=== PATIENT | male | born 1950 | race African-American/Black ===

== ENCOUNTER 2017-04-23 14:33 | Emergency (ER) | payer MEDICARE, MEDICAID ==
[~2017-04-23] VITALS: Ht 167.6 cm; Wt 45.0 kg
[~2017-04-23 14:33] MED LIST: ASPI81TA81 PO; CLOP75TA PO; FINA5TAB2 PO; LISI2.5T3 PO; LOVA20TA PO; METO25TA3 PO; NITR0.4S SL; PANT40TA3 PO; [UNRECOGNIZED DRUG - CODE] PO
[2017-04-23 14:40] VITALS: BP 201/99; PULSE 93; RESP 20; TEMP 98.3; O2SAT 100
--- NOTE | 2017-04-23 15:00 | PD ---
HPI Chief Complaint: urinary retention Time Seen by Provider: 14:44 Travel History International Travel<30 days: No Contact w/Intl Traveler<30days: No Traveled to known affect area: No History of Present Illness HPI The patient was seen and examined in the presence of the nurse. This patient complains of suprapubic pain and distention. He has not been ill to urinate today. His last urination was last night. He is denying fever or vomiting or constipation. Symptoms severity is moderate to severe. Ambulance brought him in. Initially has accelerated hypertension of 201/99. No alleviating factors. No exacerbating factors. Duration is 8 hours PFSH Past Medical History Hx Anticoagulant Therapy: Yes Blood Disorders: No Anxiety: Yes Depression: Yes Cancer: No Cardiovascular Problems: Yes High Cholesterol: Yes Chest Pain: Yes (in past) Congestive Heart Failure: No Diabetes: No Diminished Hearing: No Endocrine: No GERD: Yes Genitourinary: No Hepatitis: No Hypertension: Yes Musculoskeletal: No Neurologic: No Psychiatric: No Reproductive: No Respiratory: No Thyroid Disease: No PNEUMOCCOCAL Vaccine (Year): 1 Past Surgical History Abdominal Surgery: Yes (PEG TUBE INSERTION WITH REMOVAL) Body Medical Devices: PT. DENIES Cardiac Surgery: Yes (coronary artery bypass graft, PERIPHERAL ARTERY BYPASS) Coronary Artery Bypass Graft: Yes Pacemaker: No Other Surgery: Yes (VASCULAR) Social History Alcohol Use: Yes (4 BEERS AND 1 BOTTLE OF WINE/DAY) Tobacco Use: Yes (1 ppd) Substance Use: No Allergies-Medications (Allergen,Severity, Reaction): Coded Allergies: No Known Allergies (Verified Adverse Reaction, Unknown, 04/23/17) Reported Meds & Prescriptions Reported Meds & Active Scripts Active Finasteride 5 Mg Tab 5 Mg PO DAILY Do not crush. Reported Metoprolol Tartrate 25 Mg Tab 25 Mg PO BID Aspir-81 (Aspirin) 81 Mg Tabdr 81 Mg PO DAILY Nitrostat SL (Nitroglycerin) 0.4 Mg Subl 0.4 Mg SL DIRECTED PRN 1 tablet under the tongue as needed for chest pain. Repeat every 5 minutes for a total of 3 DOSES or call 911 if NO relief. Clopidogrel (Clopidogrel Bisulfate) 75 Mg Tab 75 Mg PO DAILY Pantoprazole (Pantoprazole Sodium) 40 Mg Tab 40 Mg PO DAILY Lovastatin 20 Mg Tab 20 Mg PO DAILY Lisinopril 2.5 Mg Tab 2.5 Mg PO DAILY Review of Systems General / Constitutional: No: Fever Eyes: No: Visual changes HENT: No: Headaches Cardiovascular: No: Chest Pain or Discomfort Respiratory: No: Shortness of Breath Gastrointestinal: Positive: Abdominal Pain Genitourinary: Positive: Decreased Urinary Output, No: Dysuria Musculoskeletal: No: Pain Skin: No Rash Neurologic: No: Weakness Psychiatric: No: Depression Endocrine: No: Polydipsia Hematologic/Lymphatic: No: Easy Bruising Physical Exam Narrative GENERAL: Thin well-developed patient with suprapubic pain and distention . SKIN: Focused skin assessment reveals no rash and nodules. Skin is Warm and dry. HEAD: Atraumatic. Normocephalic. EYES: Pupils equal and round. No scleral icterus. No injection or drainage. ENT: No nasal bleeding or discharge. Mucous membranes pink and moist. NECK: Trachea midline. No JVD. CARDIOVASCULAR: Regular rate and rhythm. No murmur appreciated. RESPIRATORY: No accessory muscle use. Clear to auscultation. Breath sounds equal bilaterally. GASTROINTESTINAL: Abdomen soft, has suprapubic tenderness and distention. Hepatic and splenic margins not palpable. MUSCULOSKELETAL: No obvious deformities. No clubbing. No cyanosis. No edema. NEUROLOGICAL: Awake and alert. No obvious cranial nerve deficits. Motor grossly within normal limits. Normal speech. PSYCHIATRIC: Appropriate mood and affect; insight and judgment normal. Data Data Last Documented VS Vital Signs Date Time Temp Pulse Resp B/P (MAP) Pulse Ox O2 Delivery O2 Flow Rate FiO2 04/23/17 14:40 98.3 93 20 201/99 (133) 100 Orders Orders Urinary Catheter Insert/Apply (04/23/17 14:50) [facility] Medical Decision Making Medical Screen Exam Complete: Yes Emergency Medical Condition: Yes Medical Record Reviewed: Yes Differential Diagnosis Urinary retention, BPH, prostate cancer Narrative Course I have reviewed the patient's electronic medical record. Wright catheter placed Patient drained out 1400 cc of yellow urine He had instant relief of pain His blood pressure came down to 168 systolic He is switched to a leg bag and recommended urology follow-up He has had urinary retention before and had a catheter before Diagnosis Primary Impression: Acute urinary retention Additional Impression: Accelerated hypertension Additional Instructions: Follow up with urologist Check and record blood pressure daily Med/Other Pt SpecificInfo: Other Disposition: 01 DISCHARGE HOME Condition: Stable Olaf Winchester MD Apr 23, 2017 15:00
[2017-04-23 16:28] VITALS: BP 168/81; PULSE 79; RESP 16; O2SAT 100
== END 2017-04-23 16:44 | disposition home or self-care (01) ==
LOC: NEPD 14:33
DX: R33.9 Retention of urine, unspecified (principal); I10 Essential (primary) hypertension; F41.9 Anxiety disorder, unspecified; F32.9 Major depressive disorder, single episode, unspecified; E78.00 Pure hypercholesterolemia, unspecified; K21.9 Gastro-esophageal reflux disease without esophagitis; F17.200 Nicotine dependence, unspecified, uncomplicated; Z79.82 Long term (current) use of aspirin; Z79.899 Other long term (current) drug therapy
CPT/HCPCS: 51702

== ENCOUNTER 2017-04-24 07:34 | Emergency (ER) | payer MEDICARE, MEDICAID ==
[~2017-04-24] VITALS: Ht 167.6 cm; Wt 45.0 kg
[2017-04-24 07:36] VITALS: BP 187/96; PULSE 107; RESP 18; TEMP 97.7; O2SAT 98
--- NOTE | 2017-04-24 07:52 | PD ---
HPI Chief Complaint: Complaint Time Seen by Provider: 07:43 Travel History International Travel<30 days: No Contact w/Intl Traveler<30days: No Traveled to known affect area: No History of Present Illness HPI I saw this patient yesterday for acute urinary retention. Wright catheter was placed and drained out 1400 cc of urine. However, he unfortunately refused to leave the catheter in and demanded it be removed. I told him that he likely can be back following day needing it replaced. He still left without it. He presents this morning with inability urinate and suprapubic pain and distention. Symptoms moderately severe. Duration about 8 hours. No alleviating factors. Symptoms exacerbated by his acute urinary retention. PFSH Past Medical History Hx Anticoagulant Therapy: Yes (PLAVIX) Blood Disorders: No Anxiety: Yes Depression: Yes Cancer: No Cardiovascular Problems: Yes High Cholesterol: Yes Chest Pain: Yes Congestive Heart Failure: No Diabetes: No Diminished Hearing: No Endocrine: No GERD: Yes Genitourinary: No Hepatitis: No Hypertension: Yes Musculoskeletal: No Neurologic: No Psychiatric: No Reproductive: No Respiratory: No Thyroid Disease: No PNEUMOCCOCAL Vaccine (Year): 1 Past Surgical History Abdominal Surgery: Yes (PEG TUBE INSERTION WITH REMOVAL) Body Medical Devices: PT. DENIES Cardiac Surgery: Yes (coronary artery bypass graft, PERIPHERAL ARTERY BYPASS) Coronary Artery Bypass Graft: Yes Pacemaker: No Other Surgery: Yes (VASCULAR) Social History Alcohol Use: Yes (4 BEERS AND 1 BOTTLE OF WINE/DAY) Tobacco Use: Yes (1 ppd) Substance Use: No Allergies-Medications (Allergen,Severity, Reaction): Coded Allergies: No Known Allergies (Verified Adverse Reaction, Unknown, 04/24/17) Reported Meds & Prescriptions Reported Meds & Active Scripts Active Finasteride 5 Mg Tab 5 Mg PO DAILY Do not crush. Reported Metoprolol Tartrate 25 Mg Tab 25 Mg PO BID Aspir-81 (Aspirin) 81 Mg Tabdr 81 Mg PO DAILY Nitrostat SL (Nitroglycerin) 0.4 Mg Subl 0.4 Mg SL DIRECTED PRN 1 tablet under the tongue as needed for chest pain. Repeat every 5 minutes for a total of 3 DOSES or call 911 if NO relief. Clopidogrel (Clopidogrel Bisulfate) 75 Mg Tab 75 Mg PO DAILY Pantoprazole (Pantoprazole Sodium) 40 Mg Tab 40 Mg PO DAILY Lovastatin 20 Mg Tab 20 Mg PO DAILY Lisinopril 2.5 Mg Tab 2.5 Mg PO DAILY Review of Systems General / Constitutional: No: Fever Eyes: No: Visual changes HENT: No: Headaches Cardiovascular: No: Chest Pain or Discomfort Respiratory: No: Shortness of Breath Gastrointestinal: Positive: Abdominal Pain Genitourinary: Positive: Decreased Urinary Output, No: Dysuria Musculoskeletal: No: Pain Skin: No Rash Neurologic: No: Weakness Psychiatric: No: Depression Endocrine: No: Polydipsia Hematologic/Lymphatic: No: Easy Bruising Physical Exam Narrative GENERAL: Well-nourished, well-developed patient in no apparent distress. SKIN: Focused skin assessment reveals no rash and nodules. Skin is Warm and dry. HEAD: Atraumatic. Normocephalic. EYES: Pupils equal and round. No scleral icterus. No injection or drainage. ENT: No nasal bleeding or discharge. Mucous membranes pink and moist. NECK: Trachea midline. No JVD. CARDIOVASCULAR: Regular rate and rhythm. No murmur appreciated. RESPIRATORY: No accessory muscle use. Clear to auscultation. Breath sounds equal bilaterally. GASTROINTESTINAL: Abdomen soft, suprapubic area has tenderness and distention . Hepatic and splenic margins not palpable. MUSCULOSKELETAL: No obvious deformities. No clubbing. No cyanosis. No edema. NEUROLOGICAL: Awake and alert. No obvious cranial nerve deficits. Motor grossly within normal limits. Normal speech. PSYCHIATRIC: Appropriate mood and affect; insight and judgment normal. Data Data Last Documented VS Vital Signs Date Time Temp Pulse Resp B/P (MAP) Pulse Ox O2 Delivery O2 Flow Rate FiO2 04/24/17 07:36 97.7 107 18 187/96 (126) 98 Orders Orders Urinary Catheter Insert/Apply (04/24/17 07:46) Ed Discharge Order (04/24/17 10:34) [facility] Medical Decision Making Medical Screen Exam Complete: Yes Emergency Medical Condition: Yes Medical Record Reviewed: Yes Differential Diagnosis Urinary retention, BPH, prostate cancer, urethral stricture Narrative Course I have reviewed the patient's electronic medical record. Reviewed his visit from yesterday when he came here for the exact same thing Wright catheter placed 1075 cc of clear yellow urine drained He is switched to a leg bag and discharged Diagnosis Primary Impression: Acute urinary retention Additional Instructions: Follow-up with urology Med/Other Pt SpecificInfo: Other Disposition: 01 DISCHARGE HOME Condition: Stable Kocisko,Olaf J. MD Apr 24, 2017 07:52
== END 2017-04-24 10:45 | disposition home or self-care (01) ==
LOC: NEPE 07:34
DX: R33.9 Retention of urine, unspecified (principal); I10 Essential (primary) hypertension; E78.00 Pure hypercholesterolemia, unspecified; F17.200 Nicotine dependence, unspecified, uncomplicated; Z79.01 Long term (current) use of anticoagulants; Z86.59 Personal history of other mental and behavioral disorders; Z86.79 Personal history of other diseases of the circulatory system
CPT/HCPCS: 51702

== ENCOUNTER 2017-05-08 06:53 | Emergency (ER) | payer MEDICARE, MEDICAID ==
[~2017-05-08] VITALS: Ht 165.1 cm; Wt 49.0 kg
[~2017-05-08 06:53] MED LIST changes: -[UNRECOGNIZED DRUG - CODE] PO
[2017-05-08 06:55] VITALS: BP 151/74; PULSE 90; RESP 18; TEMP 98.7; O2SAT 99
[2017-05-08 07:08] VITALS: BP 151/74; PULSE 82; RESP 18; TEMP 98.7; O2SAT 99
[2017-05-08] MEDS ORDERED: SODIUM CHLOR 0.9% 1000 ML INJ 1,000 ML IV SCH (07:23)
[2017-05-08] MEDS ORDERED: ONDANSETRON HCL 4 MG/2 ML VIAL IVP ONE (07:30)
[2017-05-08] MEDS ORDERED: SODIUM CHLORIDE 0.9% FLUSH 10 ML FLUSH IV FLUSH PRN (07:30)
[2017-05-08] MEDS ORDERED: MORPHINE SULFATE 4 MG/ML INJ IV PUSH ONE (07:30)
[2017-05-08] MEDS ORDERED: IOHEXOL 350 MG/ML 10 ML VIAL (for RAD DIAG) IVCONTRAST ONE (07:52)
--- NOTE | 2017-05-08 07:53 | PD ---
HPI . Abdominal pain Chief Complaint: Abdominal Pain Time Seen by Provider: 07:07 Travel History International Travel<30 days: No Contact w/Intl Traveler<30days: No Traveled to known affect area: No History of Present Illness HPI This patient presents with a chief complaint of abdominal pain. Onset was about 2 days ago. He describes sharp, mid abdominal pain. He rates it 7/10. He states he cannot eat because of the pain. He denies any associated fever. No associated vomiting or diarrhea. No constipation. The patient is noted to be very thin. He admits to weight loss. PFSH Past Medical History Hx Anticoagulant Therapy: Yes (PLAVIX) Blood Disorders: No Anxiety: Yes Depression: Yes Cancer: No Cardiovascular Problems: Yes High Cholesterol: Yes Chest Pain: Yes Congestive Heart Failure: No Diabetes: No Diminished Hearing: No Endocrine: No Gastrointestinal Disorders: No GERD: Yes Genitourinary: No Hepatitis: No Hypertension: Yes Implanted Vascular Access Dvce: No Medical other: No Musculoskeletal: No Neurologic: No Psychiatric: No Reproductive: No Respiratory: No Thyroid Disease: No PNEUMOCCOCAL Vaccine (Year): 1 ?: Not Past Surgical History Abdominal Surgery: Yes (PEG TUBE INSERTION WITH REMOVAL) Body Medical Devices: PT. DENIES Cardiac Surgery: Yes (coronary artery bypass graft, PERIPHERAL ARTERY BYPASS) Coronary Artery Bypass Graft: Yes Pacemaker: No Other Surgery: Yes (VASCULAR) Social History Alcohol Use: Yes (4 BEERS AND 1 BOTTLE OF WINE/DAY) Tobacco Use: Yes (1 ppd) Substance Use: No Allergies-Medications (Allergen,Severity, Reaction): Coded Allergies: No Known Allergies (Verified Adverse Reaction, Unknown, 05/08/17) Reported Meds & Prescriptions Reported Meds & Active Scripts Active Finasteride 5 Mg Tab 5 Mg PO DAILY Do not crush. Reported Metoprolol Tartrate 25 Mg Tab 25 Mg PO BID Aspir-81 (Aspirin) 81 Mg Tabdr 81 Mg PO DAILY Nitrostat SL (Nitroglycerin) 0.4 Mg Subl 0.4 Mg SL DIRECTED PRN 1 tablet under the tongue as needed for chest pain. Repeat every 5 minutes for a total of 3 DOSES or call 911 if NO relief. Clopidogrel (Clopidogrel Bisulfate) 75 Mg Tab 75 Mg PO DAILY Pantoprazole (Pantoprazole Sodium) 40 Mg Tab 40 Mg PO DAILY Lovastatin 20 Mg Tab 20 Mg PO DAILY Lisinopril 2.5 Mg Tab 2.5 Mg PO DAILY Review of Systems Except as stated in HPI: all other systems reviewed are Neg General / Constitutional: Positive: Weight Loss, No: Fever, Chills Gastrointestinal: Positive: Abdominal Pain, Loss of Appetite, No: Nausea, Vomiting, Diarrhea Genitourinary: Positive: Other (currently has a Wright catheter because of urinary retention) Physical Exam Narrative GENERAL: This is a very thin man who does not appear to be in any acute distress. SKIN: warm/dry. Good turgor. HEAD: Normocephalic. Atraumatic. EYES: Pupils equal and round. No scleral icterus. No injection or drainage. ENT: No nasal bleeding or discharge. Mucous membranes pink and moist. NECK: Trachea midline. Full range of motion without pain.. CARDIOVASCULAR: Regular rate and rhythm. RESPIRATORY: No accessory muscle use. Clear to auscultation. Breath sounds equal bilaterally. GASTROINTESTINAL: Scaphoid. Surgical scar which extends from the xiphoid process to the symphysis pubis. Abdomen soft. Nontender. Bowel sounds present. Nondistended. : Wright catheter in place. The urine in the bag is very dark. MUSCULOSKELETAL: No obvious deformities. NEUROLOGICAL: Awake and alert. No obvious cranial nerve deficits. Motor grossly within normal limits. Normal speech. PSYCHIATRIC: Appropriate mood and affect; insight and judgment normal. Data Data Last Documented VS Vital Signs Date Time Temp Pulse Resp B/P (MAP) Pulse Ox O2 Delivery O2 Flow Rate FiO2 05/08/17 09:04 18 05/08/17 07:08 98.7 82 151/74 (99) 99 Room Air Orders Orders Complete Blood Count With Diff (05/08/17 07:23) Comprehensive Metabolic Panel (05/08/17 07:23) Lipase (05/08/17 07:23) Urinalysis - C+S If Indicated (05/08/17 07:23) Ct Abd/Pel W Iv Contrast(Rout) (05/08/17 07:23) Iv Access Insert/Monitor (05/08/17 07:23) Morphine Inj (Morphine Inj) (05/08/17 07:30) Ondansetron Inj (Zofran Inj) (05/08/17 07:30) Sodium Chlor 0.9% 1000 Ml Inj (Ns 1000 M (05/08/17 07:23) Sodium Chloride 0.9% Flush (Ns Flush) (05/08/17 07:30) Urine Culture (05/08/17 07:50) Iohexol 350 Inj (Omnipaque 350 Inj) (05/08/17 07:52) Ceftriaxone Inj (Rocephin Inj) (05/08/17 09:30) Labs Laboratory Tests Test 05/08/17 07:50 05/08/17 08:00 Urine Color YELLOW Urine Turbidity HAZY Urine pH 6.0 Urine Specific [place] 1.026 Urine Protein 100 mg/dL Urine Glucose (UA) NEG mg/dL Urine Ketones 10 mg/dL Urine Occult Blood MOD Urine Nitrite POS Urine Bilirubin NEG Urine Urobilinogen 2.0 MG/DL Urine Leukocyte Esterase LARGE Urine RBC 171 /hpf Urine WBC 148 /hpf Urine WBC Clumps FEW Urine Squamous Epithelial Cells 2 /hpf Urine Bacteria FEW /hpf Urine Hyaline Casts 71 /lpf Urine Mucus MANY /lpf Urine Yeast (Budding) OCC Microscopic Urinalysis Comment CULTURE INDICATED White Blood Count 9.7 TH/MM3 Red Blood Count 5.09 MIL/MM3 Hemoglobin 15.3 GM/DL Hematocrit 47.2 % Mean Corpuscular Volume 92.8 FL Mean Corpuscular Hemoglobin 30.1 PG Mean Corpuscular Hemoglobin Concent 32.4 % Red Cell Distribution Width 16.9 % Platelet Count 307 TH/MM3 Mean Platelet Volume 8.3 FL Neutrophils (%) (Auto) 73.9 % Lymphocytes (%) (Auto) 16.6 % Monocytes (%) (Auto) 8.9 % Eosinophils (%) (Auto) 0.2 % Basophils (%) (Auto) 0.4 % Neutrophils # (Auto) 7.2 TH/MM3 Lymphocytes # (Auto) 1.6 TH/MM3 Monocytes # (Auto) 0.9 TH/MM3 Eosinophils # (Auto) 0.0 TH/MM3 Basophils # (Auto) 0.0 TH/MM3 CBC Comment DIFF FINAL Differential Comment Blood Urea Nitrogen 21 MG/DL Creatinine 0.93 MG/DL Random Glucose 92 MG/DL Total Protein 8.1 GM/DL Albumin 3.5 GM/DL Calcium Level 8.8 MG/DL Alkaline Phosphatase 109 U/L Aspartate Amino Transf (AST/SGOT) 11 U/L Alanine Aminotransferase (ALT/SGPT) 11 U/L Total Bilirubin 0.8 MG/DL Sodium Level 137 MEQ/L Potassium Level 4.7 MEQ/L Chloride Level 105 MEQ/L Carbon Dioxide Level 25.4 MEQ/L Anion Gap 7 MEQ/L Estimat Glomerular Filtration Rate 98 ML/MIN Lipase 104 U/L [facility] Medical Decision Making Medical Screen Exam Complete: Yes Emergency Medical Condition: Yes Medical Record Reviewed: Yes (medical history includes COPD, CAD, HL, HTN, alcohol abuse, previous GI bleed and BPH.) Differential Diagnosis Differential diagnosis of abdominal pain includes but is not limited to gastritis, pancreatitis, hepatitis, gastroenteritis, gallbladder disease, constipation, urinary retention, UTI, peptic ulcer disease, diverticulitis or appendicitis Narrative Course This patient presents with abdominal pain. He looks sickly. A full abdominal pain workup including a CT has been ordered. CBC & BMP Diagram 05/08/17 08:00 Total Protein 8.1, Albumin 3.5, Calcium Level 8.8, Alkaline Phosphatase 109, Aspartate Amino Transf (AST/SGOT) 11 L, Alanine Aminotransferase (ALT/SGPT) 11 L , Total Bilirubin 0.8 Lipase 104 UA>>large LE, 171 RBCs, 148 WBCs, + WBC clumps, few bact, occ yeast CT abd/pelvis: 1. Minimal dilation of small bowel loops. 2. Large left hydrocele. I don't think that this patient needs to be admitted to the hospital. I will treat his UTI. Diagnosis Primary Impression: Abdominal pain Qualified Codes: R10.84 - Generalized abdominal pain Additional Impression: UTI (lower urinary tract infection) Referrals: Primary Care Physician 3 days Patient Instructions: Abdominal Pain (ED), General Instructions, Urinary Tract Infection in Men (DC) Med/Other Pt SpecificInfo: Prescription(s) given Scripts Cephalexin (Keflex) 500 Mg Capsule 500 MG PO Q8H for Infection for 7 Days, #21 CAP 0 Refills Prov: Marce Nye MD 05/08/17 Disposition: 01 DISCHARGE HOME Condition: Stable Marce Nye MD May 08, 2017 07:53
[2017-05-08 08:15] LABS: AUTOMATED NEUTROPHIL # 7.2 TH/MM3 (1.8-7.7); BASOPHIL % 0.4 % (0.0-2.0); EOSINOPHIL % 0.2 % (0.0-4.0); HEMATOCRIT 47.2 % (39.0-51.0); HEMO FLAGS DIFF FINAL; LYMPH % 16.6 % (9.0-44.0); LYMPHOCYTE # 1.6 TH/MM3 (1.0-4.8); MEAN CELL VOLUME 92.8 FL (80.0-100.0); MEAN CORPUSCULAR HEMOGLOBIN 30.1 PG (27.0-34.0); MEAN CORPUSCULAR HGB CONC 32.4 % (32.0-36.0); MONO % 8.9 % (0.0-8.0); NEUT % 73.9 % (16.0-70.0); PLATELET COUNT 307 TH/MM3 (150-450); RED BLOOD COUNT 5.09 MIL/MM3 (4.50-5.90); RED CELL DISTRIBUTION WIDTH 16.9 % (11.6-17.2); WHITE BLOOD COUNT 9.7 TH/MM3 (4.0-11.0)
[2017-05-08 08:26] LABS: BACTERIA, URINE FEW /hpf; BLOOD, URINE MOD (NEG); COMMENT (UR) CULTURE INDICATED; CULTURE IF INDICATED CULTURE INDICATED; GLUCOSE,URINE NEG (NEG); HYALINE CAST, URINE 71 /lpf (RARE); KETONE, URINE 10 mg/dL (NEG); MUCUS URINE MANY /lpf (OCC); NITRITE,URINE POS (NEG); SQUAMOUS EPITHELIAL CELL URINE 2 /hpf (0-5); URINE COLOR YELLOW (YELLW/STRAW)
[2017-05-08 08:32] LABS: ALT (GPT) 11 U/L (12-78); ANION GAP 7 MEQ/L (5-15); AST (GOT) 11 U/L (15-37); BICARBONATE 25.4 MEQ/L (21.0-32.0); BLOOD UREA NITROGEN 21 MG/DL (7-18); CHLORIDE 105 MEQ/L (98-107); GLOMERULAR FILTRATION RATE 98 ML/MIN (>89); POTASSIUM 4.7 MEQ/L (3.5-5.1); SODIUM (NA) 137 MEQ/L (136-145)
[2017-05-08 08:34] LABS: ALKALINE PHOSPHATASE 109 U/L (45-117); TOTAL BILIRUBIN ADULT 0.8 MG/DL (0.2-1.0)
[2017-05-08 09:04] VITALS: RESP 18
[2017-05-08] MEDS ORDERED: cefTRIAXone INJ 1,000 MG in SODIUM CHLORIDE 0.9% INJ 100 ML IV ONE (09:30)
--- NOTE | 2017-05-08 09:48 | RADRPT ---
EXAM DATE/TIME: 05/08/2017 08:57 [facility] COMPARISON: CT ABDOMEN & PELVIS W CONTRAST, November 04, 2014, 12:43. INDICATIONS : Umbilical abdomen pain for two days. IV CONTRAST: 70 cc Omnipaque 350 (iohexol) IV ORAL CONTRAST: No oral contrast ingested. RADIATION DOSE: 4.51 CTDIvol (mGy) MEDICAL HISTORY : Hypertension. Gastroesophageal reflux disease. SURGICAL HISTORY : CABG PEG tube insertion with removal ENCOUNTER: Initial ACUITY: 2 days PAIN SCALE: 7/10 LOCATION: umbilical abdomen TECHNIQUE: Volumetric scanning of the abdomen and pelvis was performed. Using automated exposure control and ad justment of the mA and/or kV according to patient size, radiation dose was kept as low as reasonably achievable to obtain optimal diagnostic quality images. DICOM format image data is available electro nically for review and comparison. FINDINGS: LOWER LUNGS: Scattered small areas of centrilobular emphysema in the lower lungs. No focal infiltrates. No pleur al effusion. LIVER: Homogeneous density without lesion. There is no dilation of the biliary tree. No calcified gallston es. SPLEEN: Normal size without lesion. PANCREAS: Within normal limits. KIDNEYS: Normal in size and shape. There is no mass, stone or hydronephrosis. ADRENAL GLANDS: Within normal limits. VASCULAR: There is no aortic aneurysm. Aortobifemoral bypass graft. BOWEL/MESENTERY: Minimal distention of small bowel loops measuring up to 2.9 cm in width. Fluid filled colon. ABDOMINAL WALL: No ventral hernia is seen. RETROPERITONEUM: There is no lymphadenopathy. BLADDER: Wright catheter balloon within the lumen. REPRODUCTIVE: By prominence of the prostate measuring 4.8 cm in width. There is a large left hydrocele. INGUINAL: There is no lymphadenopathy or hernia. MUSCULOSKELETAL: Within normal limits for patient age. CONCLUSION: 1. Minimal dilation of small bowel loops. 2. Large left hydrocele. Colin Reyes MD on May 08, 2017 at 9:37 Board Certified Radiologist. This report was verified electronically.
[2017-05-08] MEDS ORDERED: CEPH-460 PO (09:57)
[2017-05-08 11:45] VITALS: BP 148/79
== END 2017-05-08 12:10 | disposition home or self-care (01) ==
LOC: NEPC 07:51
DX: N39.0 Urinary tract infection, site not specified (principal); B95.7 Other staphylococcus as the cause of diseases classified elsewhere; E78.00 Pure hypercholesterolemia, unspecified; I10 Essential (primary) hypertension; F17.200 Nicotine dependence, unspecified, uncomplicated
CPT/HCPCS: 74177; 80053; 81001; 83690; 85025; 86403; 87077; 87086; 87186; 96361; 96374; 96375; 99285; J0696; J2270; J2405; J7030; Q9967

== ENCOUNTER 2017-05-12 14:11 | Emergency (ER) | payer MEDICARE, MEDICAID ==
[~2017-05-12] VITALS: Ht 167.6 cm; Wt 60.0 kg
[~2017-05-12 14:11] MED LIST changes: +CEPH-460 PO
[2017-05-12 14:25] VITALS: BP 170/79; PULSE 97; RESP 14; TEMP 98.1; O2SAT 98
[2017-05-12 15:18] VITALS: BP 175/99; PULSE 94; RESP 20; O2SAT 98
[2017-05-12 15:24] VITALS: TEMP 97.5
[2017-05-12] MEDS ORDERED: SODIUM CHLORIDE 0.9% FLUSH 10 ML FLUSH IV FLUSH PRN (15:45)
[2017-05-12] MEDS ORDERED: KETOROLAC TROMETHAMINE 30 MG/ML (IVP) VIAL IVP ONE (15:45)
[2017-05-12] MEDS ORDERED: ONDANSETRON HCL 4 MG/2 ML VIAL IVP ONE (15:45)
--- NOTE | 2017-05-12 15:53 | PD ---
HPI Chief Complaint: Abdominal Pain Time Seen by Provider: 15:26 Travel History International Travel<30 days: No Contact w/Intl Traveler<30days: No Traveled to known affect area: No History of Present Illness HPI 67 year old male presents back to the emergency department with continued abdominal pain. He was just evaluated at our facility 4 days ago and was sent out with a prescription for Keflex to treat a presumed UTI. The patient has been diligently taking this medication however, his pain has not improved. He is having anorexia, abdominal pain, nausea. Denies Vomiting, diarrhea, constipation, or obstipation. He doesn't believe anything makes the pain better and states that the pain is worse with eating or drinking. He has no fevers or chills. No melena or hematochezia. PFSH Past Medical History Hx Anticoagulant Therapy: Yes (PLAVIX) Blood Disorders: No Anxiety: Yes Depression: Yes Cancer: No Cardiovascular Problems: Yes High Cholesterol: Yes Chest Pain: Yes Congestive Heart Failure: No Diabetes: No Diminished Hearing: No Endocrine: No Gastrointestinal Disorders: No GERD: Yes Genitourinary: No Hepatitis: No Hypertension: Yes Implanted Vascular Access Dvce: No Musculoskeletal: No Neurologic: No Psychiatric: No Reproductive: No Respiratory: No Thyroid Disease: No PNEUMOCCOCAL Vaccine (Year): 1 ?: Not Past Surgical History Abdominal Surgery: Yes (PEG TUBE INSERTION WITH REMOVAL) Body Medical Devices: PT. DENIES Cardiac Surgery: Yes (coronary artery bypass graft, PERIPHERAL ARTERY BYPASS) Coronary Artery Bypass Graft: Yes Pacemaker: No Other Surgery: Yes (VASCULAR) Social History Alcohol Use: Yes (4 BEERS AND 1 BOTTLE OF WINE/DAY) Tobacco Use: Yes (1 ppd) Substance Use: No Allergies-Medications (Allergen,Severity, Reaction): Coded Allergies: No Known Allergies (Verified Adverse Reaction, Unknown, 05/08/17) Reported Meds & Prescriptions Reported Meds & Active Scripts Active Ciprofloxacin (Ciprofloxacin HCl) 500 Mg Tab 500 Mg PO BID 7 Days Finasteride 5 Mg Tab 5 Mg PO DAILY Do not crush. Reported Metoprolol Tartrate 25 Mg Tab 25 Mg PO BID Aspir-81 (Aspirin) 81 Mg Tabdr 81 Mg PO DAILY Nitrostat SL (Nitroglycerin) 0.4 Mg Subl 0.4 Mg SL DIRECTED PRN 1 tablet under the tongue as needed for chest pain. Repeat every 5 minutes for a total of 3 DOSES or call 911 if NO relief. Clopidogrel (Clopidogrel Bisulfate) 75 Mg Tab 75 Mg PO DAILY Pantoprazole (Pantoprazole Sodium) 40 Mg Tab 40 Mg PO DAILY Lovastatin 20 Mg Tab 20 Mg PO DAILY Lisinopril 2.5 Mg Tab 2.5 Mg PO DAILY Review of Systems Except as stated in HPI: all other systems reviewed are Neg General / Constitutional: No: Fever, Chills Eyes: No: Diploplia, Blurred Vision, Photophobia HENT: No: Headaches, Vertigo, Lightheadedness Cardiovascular: No: Chest Pain or Discomfort, Palpitations, Syncope Respiratory: No: Cough, Shortness of Breath Gastrointestinal: Positive: Nausea, Abdominal Pain, Loss of Appetite, No: Vomiting, Diarrhea, Hematemesis, Hematochezia, Constipation, Indigestion, Dysphagia Genitourinary: No: Urgency, Dysuria, Nocturia Musculoskeletal: No: Myalgias, Arthralgias, Limited ROM, Weakness, Cramping, Edema, Pain, Atrophy, Other Physical Exam Narrative GENERAL: patient is laying in bed in no acute distress SKIN: Warm and dry. HEAD: Atraumatic. Normocephalic. EYES: Pupils equal and round. No scleral icterus. No injection or drainage. ENT: No nasal bleeding or discharge. Mucous membranes pink and moist. NECK: Trachea midline. No JVD. CARDIOVASCULAR: Regular rate and rhythm. I/ murmur RESPIRATORY: No accessory muscle use. Clear to auscultation. Breath sounds equal bilaterally. GASTROINTESTINAL: Abdomen soft, tender to palpation diffusely, nondistended. dull on percussion, no tympanic pattern noted. Hepatic and splenic margins not palpable. MUSCULOSKELETAL: Extremities without clubbing, cyanosis, or edema. No obvious deformities. NEUROLOGICAL: Awake and alert. No obvious cranial nerve deficits. Motor grossly within normal limits. Five out of 5 muscle strength in the arms and legs. Normal speech. PSYCHIATRIC: Appropriate mood and affect; insight and judgment normal. Data Data Last Documented VS Vital Signs Date Time Temp Pulse Resp B/P (MAP) Pulse Ox O2 Delivery O2 Flow Rate FiO2 05/12/17 19:31 05/12/17 18:53 17 05/12/17 15:24 97.5 05/12/17 15:18 94 98 Room Air Orders Orders Complete Blood Count With Diff (05/12/17 15:34) Comprehensive Metabolic Panel (05/12/17 15:34) Lipase (05/12/17 15:34) Lactic Acid (05/12/17 15:34) Urinalysis - C+S If Indicated (05/12/17 15:34) Iv Access Insert/Monitor (05/12/17 15:34) Ecg Monitoring (05/12/17 15:34) Oximetry (05/12/17 15:34) Ondansetron Inj (Zofran Inj) (05/12/17 15:45) Sodium Chloride 0.9% Flush (Ns Flush) (05/12/17 15:45) Ketorolac Inj (Toradol Inj) (05/12/17 15:45) Urine Culture (05/12/17 15:41) Ed Discharge Order (05/12/17 18:04) Labs Laboratory Tests Test 05/12/17 15:41 05/12/17 16:06 05/12/17 16:30 Urine Color YELLOW Urine Turbidity HAZY Urine pH 7.5 Urine Specific [place] 1.020 Urine Protein 30 mg/dL Urine Glucose (UA) NEG mg/dL Urine Ketones NEG mg/dL Urine Occult Blood LARGE Urine Nitrite NEG Urine Bilirubin NEG Urine Urobilinogen 2.0 MG/DL Urine Leukocyte Esterase LARGE Urine RBC /hpf Urine WBC 131 /hpf Urine WBC Clumps RARE Urine Squamous Epithelial Cells <1 /hpf Urine Bacteria FEW /hpf Urine Hyaline Casts 3 /lpf Urine Mucus FEW /lpf Microscopic Urinalysis Comment CULTURE INDICATED Blood Urea Nitrogen 9 MG/DL Creatinine 0.76 MG/DL Random Glucose 95 MG/DL Total Protein 8.3 GM/DL Albumin 3.4 GM/DL Calcium Level 9.6 MG/DL Alkaline Phosphatase 111 U/L Aspartate Amino Transf (AST/SGOT) 54 U/L Alanine Aminotransferase (ALT/SGPT) 17 U/L Total Bilirubin 0.5 MG/DL Sodium Level 137 MEQ/L Potassium Level 5.2 MEQ/L Chloride Level 101 MEQ/L Carbon Dioxide Level 32.4 MEQ/L Anion Gap 4 MEQ/L Estimat Glomerular Filtration Rate 124 ML/MIN Lipase 51 U/L White Blood Count 8.3 TH/MM3 Red Blood Count 5.18 MIL/MM3 Hemoglobin 15.5 GM/DL Hematocrit 48.0 % Mean Corpuscular Volume 92.7 FL Mean Corpuscular Hemoglobin 30.0 PG Mean Corpuscular Hemoglobin Concent 32.4 % Red Cell Distribution Width 17.0 % Platelet Count 281 TH/MM3 Mean Platelet Volume 8.7 FL Neutrophils (%) (Auto) 76.9 % Lymphocytes (%) (Auto) 13.7 % Monocytes (%) (Auto) 7.7 % Eosinophils (%) (Auto) 1.1 % Basophils (%) (Auto) 0.6 % Neutrophils # (Auto) 6.4 TH/MM3 Lymphocytes # (Auto) 1.1 TH/MM3 Monocytes # (Auto) 0.6 TH/MM3 Eosinophils # (Auto) 0.1 TH/MM3 Basophils # (Auto) 0.1 TH/MM3 CBC Comment DIFF FINAL Differential Comment Lactic Acid Level 1.0 mmol/L MDM Medical Decision Making Medical Screen Exam Complete: Yes Emergency Medical Condition: Yes Differential Diagnosis Bowel obstruction, colitis, Diverticulitis, mesenteric ischemia, ischemia colitis, pancreatic cancer, Narrative Course Patient roomed emerged permit, recent evaluations for abdominal pain and recurrent UTIs, review of his microbiology is insensitive to cephalosporins, we' ll change antibiotic. His abdomen is benign the remainder of his blood work is unremarkable. Review of his CAT scan shows no abnormality. At this time he appears comfortable and in no distress. I recommended that he needs to follow up with his primary care physician at this time for further evaluation, is quite possible that his symptoms are still forearm on unresolved urinary tract infection. I do not see indication for repeat CAT scan at this time. I discussed with him return to ED criteria and symptomatic management. Diagnosis Primary Impression: UTI (lower urinary tract infection) Additional Impression: Abdominal pain Med/Other Pt SpecificInfo: Prescription(s) given Scripts Ciprofloxacin (Ciprofloxacin) 500 Mg Tab 500 MG PO BID for Infection for 7 Days, #14 TAB 0 Refills Prov: Dany Lake MD 05/12/17 Disposition: 01 DISCHARGE HOME Condition: Stable Dany Lake MD May 12, 2017 15:53
[2017-05-12 16:42] LABS: BACTERIA, URINE FEW /hpf; BLOOD, URINE LARGE (NEG); COMMENT (UR) CULTURE INDICATED; CULTURE IF INDICATED CULTURE INDICATED; GLUCOSE,URINE NEG (NEG); HYALINE CAST, URINE 3 /lpf (RARE); KETONE, URINE NEG (NEG); MUCUS URINE FEW /lpf (OCC); NITRITE,URINE NEG (NEG); PH, URINE 7.5 (5.0-8.5); SQUAMOUS EPITHELIAL CELL URINE <1 /hpf (0-5); URINE COLOR YELLOW (YELLW/STRAW)
[2017-05-12 16:49] LABS: AUTOMATED NEUTROPHIL # 6.4 TH/MM3 (1.8-7.7); BASOPHIL # 0.1 TH/MM3 (0-0.2); BASOPHIL % 0.6 % (0.0-2.0); EOSINOPHIL # 0.1 TH/MM3 (0-0.4); EOSINOPHIL % 1.1 % (0.0-4.0); HEMO FLAGS DIFF FINAL; LYMPH % 13.7 % (9.0-44.0); LYMPHOCYTE # 1.1 TH/MM3 (1.0-4.8); MEAN CELL VOLUME 92.7 FL (80.0-100.0); MEAN CORPUSCULAR HGB CONC 32.4 % (32.0-36.0); MONO % 7.7 % (0.0-8.0); NEUT % 76.9 % (16.0-70.0); PLATELET COUNT 281 TH/MM3 (150-450); RED BLOOD COUNT 5.18 MIL/MM3 (4.50-5.90); WHITE BLOOD COUNT 8.3 TH/MM3 (4.0-11.0)
[2017-05-12] MEDS ORDERED: CIPR500T2 PO (16:54)
[2017-05-12 17:06] LABS: ALKALINE PHOSPHATASE 111 U/L (45-117); ALT (GPT) 17 U/L (12-78); ANION GAP 4 MEQ/L (5-15); BICARBONATE 32.4 MEQ/L (21.0-32.0); BLOOD UREA NITROGEN 9 MG/DL (7-18); CHLORIDE 101 MEQ/L (98-107); GLOMERULAR FILTRATION RATE 124 ML/MIN (>89); SODIUM (NA) 137 MEQ/L (136-145); TOTAL BILIRUBIN ADULT 0.5 MG/DL (0.2-1.0)
[2017-05-12 17:32] LABS: AST (GOT) 54 U/L (15-37); POTASSIUM 5.2 MEQ/L (3.5-5.1)
[2017-05-12 18:53] VITALS: RESP 17
== END 2017-05-12 19:35 | disposition home or self-care (01) ==
LOC: NEPC 14:11
DX: N39.0 Urinary tract infection, site not specified (principal); R10.84 Generalized abdominal pain; R63.0 Anorexia; R11.0 Nausea; I10 Essential (primary) hypertension; E78.00 Pure hypercholesterolemia, unspecified; F17.200 Nicotine dependence, unspecified, uncomplicated; Z79.01 Long term (current) use of anticoagulants; Z86.59 Personal history of other mental and behavioral disorders; Z86.79 Personal history of other diseases of the circulatory system; Z87.19 Personal history of other diseases of the digestive system
CPT/HCPCS: 80053; 81001; 83605; 83690; 85025; 87086; 96374; 96375; 99284; J1885; J2405

== ENCOUNTER 2017-05-27 09:40 | Inpatient (IN) | payer MEDICARE, MEDICAID ==
[~2017-05-27] VITALS: Ht 167.6 cm; Wt 36.6 kg
[2017-05-27] VITALS (8 sets, daily range): BP systolic 70–177; BP diastolic 53–86; PULSE 74–123; RESP 16–25; TEMP 96.8–98; O2SAT 92–100
[~2017-05-27 09:40] MED LIST changes: -CEPH-460 PO; +CIPR500T2 PO
[2017-05-27] MEDS ORDERED: METOCLOPRAMIDE INJ 10 MG in SODIUM CHLORIDE 0.9% INJ 50 ML IV ONE (10:15)
[2017-05-27] MEDS ORDERED: SODIUM CHLOR 0.9% 1000 ML INJ 1,000 ML IV ONE (10:15)
[2017-05-27 10:44] LABS: BASOPHIL # 0.1 TH/MM3 (0-0.2); BASOPHIL % 0.5 % (0.0-2.0); EOSINOPHIL # 0.1 TH/MM3 (0-0.4); EOSINOPHIL % 0.5 % (0.0-4.0); HEMATOCRIT 46.5 % (39.0-51.0); HEMO FLAGS DIFF FINAL; LYMPH % 14.8 % (9.0-44.0); LYMPHOCYTE # 1.6 TH/MM3 (1.0-4.8); MEAN CELL VOLUME 92.4 FL (80.0-100.0); MEAN CORPUSCULAR HEMOGLOBIN 30.4 PG (27.0-34.0); MEAN CORPUSCULAR HGB CONC 32.9 % (32.0-36.0); MONO % 7.5 % (0.0-8.0); NEUT % 76.7 % (16.0-70.0); PLATELET COUNT 430 TH/MM3 (150-450); RED BLOOD COUNT 5.04 MIL/MM3 (4.50-5.90); RED CELL DISTRIBUTION WIDTH 16.1 % (11.6-17.2); WHITE BLOOD COUNT 10.5 TH/MM3 (4.0-11.0)
[2017-05-27] MEDS ORDERED: DIATRIZOATE MEGLUM/DIATRIZOATE SOD 9 ML CUP PO ONE (10:45)
[2017-05-27 10:51] LABS: APTT (PATIENT) 39.7 SEC (24.3-30.1); INTERNATIONAL NORMALIZED RATIO 1.2 RATIO; PROTHROMBIN TIME - PATIENT 11.7 SEC (9.8-11.6)
[2017-05-27 11:01] LABS: ALT (GPT) 12 U/L (12-78); ANION GAP 6 MEQ/L (5-15); AST (GOT) 14 U/L (15-37); BICARBONATE 27.9 MEQ/L (21.0-32.0); BLOOD UREA NITROGEN 11 MG/DL (7-18); CHLORIDE 99 MEQ/L (98-107); GLOMERULAR FILTRATION RATE 143 ML/MIN (>89); POTASSIUM 5.5 MEQ/L (3.5-5.1); SODIUM (NA) 133 MEQ/L (136-145)
[2017-05-27 11:04] LABS: ALKALINE PHOSPHATASE 114 U/L (45-117); TOTAL BILIRUBIN ADULT 0.5 MG/DL (0.2-1.0)
--- NOTE | 2017-05-27 11:19 | RADRPT ---
EXAM DATE/TIME: 05/27/2017 10:28 [facility] COMPARISON: No previous studies available for comparison. INDICATIONS : Testicle pain and swelling. MEDICAL HISTORY : Hypercholesterolemia. Gastroesophageal reflux disease. Peripheral vascular disease. Coronary artery d isease. Anticoagulant therapy, Plavix. ETOH abuse. Hypertension. SURGICAL HISTORY : CABG PEG tube insertion and removal. Coronary stent. ENCOUNTER: Initial ACUITY: 1 day PAIN SCORE: 0/10 LOCATION: Bilateral scrotum. MEASUREMENTS: RIGHT TESTICLE: 3.7 x 2.3 x 2.5 cm LEFT TESTICLE: 2.7 x 2.1 x 2.8cm FINDINGS: RIGHT TESTICLE: Homogeneous echotexture without intra or extratesticular mass. Blood flow is symmetric and within no rmal limits. There is a 3 mm cyst in the head of the epididymis. There is a small hydrocele. No evide nce of varicocele. LEFT TESTICLE: Homogeneous echotexture without intra or extratesticular mass. Blood flow is symmetric and within no rmal limits. There is a 3 mm cyst in the head of the epididymis. There is a small appendix testes. Th ere is a large hydrocele with debris and septations. No varicocele.. SCROTUM: Within normal limits. CONCLUSION: 1. Large complex hydrocele with debris and septations. 2. Small right hydrocele 3. Bilateral small epididymal cysts. 4. Both testicles are within normal limits. Kody Sultana MD on May 27, 2017 at 11:15 Board Certified Radiologist. This report was verified electronically.
[2017-05-27 12:34] LABS: BLOOD, URINE LARGE (NEG); COMMENT (UR) CULT NOT INDICATED; CULTURE IF INDICATED CULT NOT INDICATED; GLUCOSE,URINE NEG (NEG); KETONE, URINE TRACE mg/dL (NEG); MUCUS URINE FEW /lpf (OCC); NITRITE,URINE NEG (NEG); PH, URINE 5.5 (5.0-8.5)
[2017-05-27 12:35] LABS: URINE COLOR BROWN (YELLW/STRAW)
[2017-05-27] MEDS ORDERED: IOHEXOL 350 MG/ML 10 ML VIAL (for RAD DIAG) IVCONTRAST ONE (12:43)
--- NOTE | 2017-05-27 12:55 | RADRPT ---
EXAM DATE/TIME: 05/27/2017 12:34 [facility] COMPARISON: CT ABDOMEN & PELVIS W CONTRAST, May 08, 2017, 8:57. INDICATIONS : Abdominal pain, anorexia, weight loss. IV CONTRAST: 75 cc Omnipaque 350 (iohexol) IV ORAL CONTRAST: Prescribed oral contrast ingested. RADIATION DOSE: 4.50 CTDIvol (mGy) MEDICAL HISTORY : Cardiovascular disease. Hypertension. Gastroesophageal reflux disease. SURGICAL HISTORY : CABG Peg tube ENCOUNTER: Initial ACUITY: 1 week PAIN SCALE: 2/10 LOCATION: lower quadrant abdomen TECHNIQUE: Volumetric scanning of the abdomen and pelvis was performed. Using automated exposure control and ad justment of the mA and/or kV according to patient size, radiation dose was kept as low as reasonably achievable to obtain optimal diagnostic quality images. DICOM format image data is available electro nically for review and comparison. FINDINGS: LOWER LUNGS: Patchy opacities are noted within the posterior lower lobes bilaterally consistent with possible pneu monia. Clinical correlation is recommended. Underlying emphysematous changes are noted. LIVER: Homogeneous density without lesion. There is no dilation of the biliary tree. No calcified gallston es. SPLEEN: Normal size without lesion. PANCREAS: Within normal limits. KIDNEYS: Normal in size and shape. There is no mass or hydronephrosis. Tiny calcified nonobstructing left juventino al calculi are stable with the largest measuring 5 mm. ADRENAL GLANDS: Within normal limits. VASCULAR: There is no aortic aneurysm. Aortobifemoral bypass graft is noted. BOWEL/MESENTERY: Scattered minimally dilated loops of small bowel are noted raising the possibility of mild partial sm all bowel obstruction or ileus. The colon is nondilated. ABDOMINAL WALL: Within normal limits. RETROPERITONEUM: There is no lymphadenopathy. BLADDER: No wall thickening or mass. Wright catheter is noted within the nondistended urinary bladder. REPRODUCTIVE: The prostate remains significantly enlarged. INGUINAL: There is no lymphadenopathy or hernia. MUSCULOSKELETAL: Degenerative changes are noted throughout the thoraco-lumbar spine. CONCLUSION: 1. Posterior bibasilar patchy opacities consistent with probable pneumonia. Clinical correlation is r ecommended. 2. Scattered emphysematous changes within the visualized lung bases. 3. Markedly enlarged prostate. 4. Mild dilatation of several small bowel loops suggesting partial small bowel obstruction or ileus. Clinical correlation is recommended. 5. Calcified nonobstructing left renal calculi. Dany La MD on May 27, 2017 at 12:45 Board Certified Radiologist. This report was verified electronically.
[2017-05-27] MEDS ORDERED: CEFEPIME INJ 1,000 MG in SODIUM CHLORIDE 0.9% INJ 100 ML IV ONE (14:00)
[2017-05-27] MEDS ORDERED: VANCOMYCIN INJ 1,000 MG in SODIUM CHLOR 0.9% 250 ML INJ 250 ML IV ONE (14:00)
[2017-05-27] MEDS ORDERED: LEVOFLOXACIN 750 MG PREMIX INJ 150 ML IV ONE (14:00)
--- NOTE | 2017-05-27 14:21 | PD ---
HPI Chief Complaint: GI Complaint Time Seen by Provider: 09:55 Travel History International Travel<30 days: No Contact w/Intl Traveler<30days: No Traveled to known affect area: No History of Present Illness HPI Patient is a 67-year-old male who comes in complaining of abdominal pain with nausea and vomiting. He says he has not been able to eat for a month due to nausea. He reports 30 pound weight loss. He has been treated for UTI several times over the past month. He denies fever or chills. He says he has pain to his lower abdomen. PFSH Past Medical History Hx Anticoagulant Therapy: Yes (PLAVIX) Blood Disorders: No Anxiety: Yes Depression: Yes Cancer: No Cardiovascular Problems: Yes High Cholesterol: Yes Chest Pain: Yes Congestive Heart Failure: No Diabetes: No Diminished Hearing: No Endocrine: No Gastrointestinal Disorders: Yes (DYSPHAGIA ) GERD: Yes Genitourinary: No Hepatitis: No Hypertension: Yes Implanted Vascular Access Dvce: No Musculoskeletal: No Neurologic: No Psychiatric: No Reproductive: No Respiratory: No Thyroid Disease: No Tetanus Vaccination: < 5 Years Influenza Vaccination: No PNEUMOCCOCAL Vaccine (Year): 1 Past Surgical History Abdominal Surgery: Yes (PEG TUBE INSERTION WITH REMOVAL) Body Medical Devices: PT. DENIES Cardiac Surgery: Yes ( PERIPHERAL ARTERY BYPASS) Coronary Artery Bypass Graft: Yes Pacemaker: No Other Surgery: Yes (VASCULAR) Social History Alcohol Use: Yes (4 BEERS AND 1 BOTTLE OF WINE/DAY) Tobacco Use: Yes (1 ppd) Substance Use: No Allergies-Medications (Allergen,Severity, Reaction): Coded Allergies: No Known Allergies (Verified Adverse Reaction, Unknown, 05/27/17) Reported Meds & Prescriptions Reported Meds & Active Scripts Active Finasteride 5 Mg Tab 5 Mg PO DAILY Do not crush. Reported Metoprolol Tartrate 25 Mg Tab 25 Mg PO BID Aspir-81 (Aspirin) 81 Mg Tabdr 81 Mg PO DAILY Nitrostat SL (Nitroglycerin) 0.4 Mg Subl 0.4 Mg SL DIRECTED PRN 1 tablet under the tongue as needed for chest pain. Repeat every 5 minutes for a total of 3 DOSES or call 911 if NO relief. Clopidogrel (Clopidogrel Bisulfate) 75 Mg Tab 75 Mg PO DAILY Pantoprazole (Pantoprazole Sodium) 40 Mg Tab 40 Mg PO DAILY Lovastatin 20 Mg Tab 20 Mg PO DAILY Lisinopril 2.5 Mg Tab 2.5 Mg PO DAILY Review of Systems Except as stated in HPI: all other systems reviewed are Neg General / Constitutional: No: Fever, Chills HENT: No: Headaches, Lightheadedness Cardiovascular: No: Chest Pain or Discomfort Respiratory: No: Shortness of Breath Gastrointestinal: Positive: Nausea, Vomiting, Abdominal Pain Genitourinary: Positive: Hematuria, No: Dysuria Musculoskeletal: No: Edema Skin: No Rash, No Change in Pigmentation Neurologic: Positive: Weakness Physical Exam Narrative GENERAL: Awake and alert, in no acute distress. Cachectic appearing SKIN: Focused skin assessment warm/dry. No wounds HEAD: Atraumatic. Normocephalic. EYES: Pupils equal and round. No scleral icterus. ENT: Mucous membranes pink and moist. NECK: Trachea midline. No JVD. CARDIOVASCULAR: Regular rate and rhythm. No murmur appreciated. RESPIRATORY: No accessory muscle use. Clear to auscultation. Breath sounds equal bilaterally. GASTROINTESTINAL: Abdomen soft, nondistended. Tender to palpation of the lower abdomen. No rebound or guarding. : Left testicle enlarged, nontender to palpation. MUSCULOSKELETAL: No obvious deformities. No clubbing. No cyanosis. No edema. NEUROLOGICAL: Awake and alert. No obvious cranial nerve deficits. Motor grossly within normal limits. Normal speech. PSYCHIATRIC: Appropriate mood and affect; insight and judgment normal. Data Data Last Documented VS Vital Signs Date Time Temp Pulse Resp B/P (MAP) Pulse Ox O2 Delivery O2 Flow Rate FiO2 05/27/17 14:00 74 18 143/75 (97) 98 Room Air 05/27/17 09:48 96.8 Orders Orders Iv Access Insert/Monitor (05/27/17 10:09) Complete Blood Count With Diff (05/27/17 10:09) Comprehensive Metabolic Panel (05/27/17 10:09) Act Partial Throm Time (Ptt) (05/27/17 10:09) Prothrombin Time / Inr (Pt) (05/27/17 10:09) Electrocardiogram (05/27/17 ) Urinalysis - C+S If Indicated (05/27/17 10:09) Us Testicles W Doppler (05/27/17 ) Sodium Chlor 0.9% 1000 Ml Inj (Ns 1000 M (05/27/17 10:15) Ct Abd/Pel W Iv Contrast(Rout) (05/27/17 ) Metoclopramide Inj (Reglan Inj) (05/27/17 10:15) Oral Contrast - Adult (05/27/17 10:26) Diatrizoate Liq ( Gastroview Liq) (05/27/17 10:45) Iohexol 350 Inj (Omnipaque 350 Inj) (05/27/17 12:43) Cefepime Inj (Maxipime Inj) (05/27/17 14:00) Levofloxacin 750 Mg Premix Inj (Levaquin (05/27/17 14:00) Vancomycin Inj (Vancomycin Inj) (05/27/17 14:00) Insert Ng Tube (05/27/17 13:57) Admit Order (Ed Use Only) (05/27/17 ) Labs Laboratory Tests Test 05/27/17 10:15 05/27/17 10:20 White Blood Count 10.5 TH/MM3 Red Blood Count 5.04 MIL/MM3 Hemoglobin 15.3 GM/DL Hematocrit 46.5 % Mean Corpuscular Volume 92.4 FL Mean Corpuscular Hemoglobin 30.4 PG Mean Corpuscular Hemoglobin Concent 32.9 % Red Cell Distribution Width 16.1 % Platelet Count 430 TH/MM3 Mean Platelet Volume 8.4 FL Neutrophils (%) (Auto) 76.7 % Lymphocytes (%) (Auto) 14.8 % Monocytes (%) (Auto) 7.5 % Eosinophils (%) (Auto) 0.5 % Basophils (%) (Auto) 0.5 % Neutrophils # (Auto) 8.0 TH/MM3 Lymphocytes # (Auto) 1.6 TH/MM3 Monocytes # (Auto) 0.8 TH/MM3 Eosinophils # (Auto) 0.1 TH/MM3 Basophils # (Auto) 0.1 TH/MM3 CBC Comment DIFF FINAL Differential Comment Prothrombin Time 11.7 SEC Prothromb Time International Ratio 1.2 RATIO Activated Partial Thromboplast Time 39.7 SEC Blood Urea Nitrogen 11 MG/DL Creatinine 0.67 MG/DL Random Glucose 86 MG/DL Total Protein 8.5 GM/DL Albumin 3.2 GM/DL Calcium Level 9.7 MG/DL Alkaline Phosphatase 114 U/L Aspartate Amino Transf (AST/SGOT) 14 U/L Alanine Aminotransferase (ALT/SGPT) 12 U/L Total Bilirubin 0.5 MG/DL Sodium Level 133 MEQ/L Potassium Level 5.5 MEQ/L Chloride Level 99 MEQ/L Carbon Dioxide Level 27.9 MEQ/L Anion Gap 6 MEQ/L Estimat Glomerular Filtration Rate 143 ML/MIN Urine Color BROWN Urine Turbidity CLOUDY Urine pH 5.5 Urine Specific [place] 1.019 Urine Protein 30 mg/dL Urine Glucose (UA) NEG mg/dL Urine Ketones TRACE mg/dL Urine Occult Blood LARGE Urine Nitrite NEG Urine Bilirubin NEG Urine Urobilinogen 2.0 MG/DL Urine Leukocyte Esterase TRACE Urine RBC /hpf Urine WBC 1 /hpf Urine Mucus FEW /lpf Microscopic Urinalysis Comment CULT NOT INDICATED MDM Medical Decision Making Medical Screen Exam Complete: Yes Emergency Medical Condition: Yes Medical Record Reviewed: Yes Interpretation(s) ECG shows sinus tachycardia at 101 Differential Diagnosis UTI versus pneumonia versus electrolyte abnormality Narrative Course Patient is a 67-year-old male who comes in complaining of nausea and vomiting as well as weight loss. Exam shows cachectic-looking man with lower abdominal tenderness. IV established, labs sent. Labs show no acute abnormalities. Ultrasound of the testicle performed shows a loculated hydrocele on the left. CT abdomen and pelvis performed shows evidence of pneumonia as well as small bowel obstruction. Patient given antibiotics. NG tube placed. Patient admitted for further management. Diagnosis Primary Impression: Pneumonia Qualified Codes: J18.9 - Pneumonia, unspecified organism Additional Impression: SBO (small bowel obstruction) Admitting Information Admitting Physician Requests: Admit Capri Pritchard MD May 27, 2017 14:21
[2017-05-27] MEDS ORDERED: LACTULOSE SYRUP 20 GM/30 ML CUP PO PRN (15:00)
[2017-05-27] MEDS ORDERED: BISACODYL 10 MG SUPP RECTAL PRN (15:00)
[2017-05-27] MEDS ORDERED: ACETAMINOPHEN 325 MG TAB PO PRN (15:00)
[2017-05-27] MEDS ORDERED: NALOXONE HCL 0.4 MG/ML AMP IV PUSH PRN (15:00)
[2017-05-27] MEDS ORDERED: SODIUM CHLORIDE 0.9% FLUSH 10 ML FLUSH IV FLUSH PRN (15:00)
[2017-05-27] MEDS ORDERED: ONDANSETRON HCL 4 MG/2 ML VIAL IVP PRN (15:00)
[2017-05-27] MEDS ORDERED: SENNOSIDES 8.6 MG TAB PO PRN (15:00)
[2017-05-27] MEDS: SODIUM CHLOR 0.9% 1000 ML INJ 1,000 ML IV SCH (15:30)
[2017-05-27] MEDS ORDERED: PILL SPLITTER OTHER PRN (16:00)
--- NOTE | 2017-05-27 16:19 | RADRPT ---
EXAM DATE/TIME: 05/27/2017 16:01 [facility] COMPARISON: CHEST SINGLE AP, April 29, 2015, 15:28. INDICATIONS : Pneumonia, Shortness of breath. MEDICAL HISTORY : Cardiovascular disease. Hypertension Gastroesophageal reflux disease. SURGICAL HISTORY : CABG. Peg tube. ENCOUNTER: Subsequent ACUITY: 1 week PAIN SCORE: 0/10 LOCATION: Bilateral chest FINDINGS: A single view of the chest demonstrates the lungs to be symmetrically aerated without evidence of mas s, infiltrate or effusion. The lungs are hyperaerated bilaterally. The cardiomediastinal contours are stable. There is evidence of previous cardiothoracic surgery.. Osseous structures are intact. CONCLUSION: No acute disease. No significant change has occurred. Kody Sultana MD on May 27, 2017 at 16:15 Board Certified Radiologist. This report was verified electronically.
--- NOTE | 2017-05-27 16:25 | HHI.HP ---
HPI Service [facility] Primary Care Physician Mychal Gregory D.O. Admission Diagnosis SBO, pneumonia Diagnoses: Chief Complaint: Abdominal pain Travel History International Travel<30 Days: No Contact w/Intl Traveler <30 Da: No Traveled to Known Affected Are: No History of Present Illness This is a pleasant 67 y/o male who has multiple evaluations in ER in this facility due to abdominal pain he also complaint recently of Urinary obstruction thought to be related to Urinary Tract infection given Keflex without improvement, continue with indwelling Wright Catheter, the patient has abdominal pain on his upper quadrants, non radiated 8/ 10 in intensity, associated Dysphagia, not able to eat but able to drink, he denies any nausea or vomit, no diarrhea, afebrile, denies chills, No melena or hematochezia, as we know he has CAD on Plavix and Aspirin, Anxiety disorder, Depression, hyperlipidemia, GERD, Hypertension, he is cachectic, has Dysphagia history of PEG insertion and removal. has an NG tube placed in ER but he is not having nausea or vomit, to remove NG tube and start him on liquid diet. follow recommendations by GI specialist. Review of Systems Constitutional: DENIES: Fever, Chills, Change in appetite Endocrine: DENIES: Heat/cold intolerance Eyes: DENIES: Blurred vision, Eye pain Gastrointestinal: COMPLAINS OF: Abdominal pain, Difficulty Swallowing Except as stated in HPI: all other systems reviewed are Neg Past Family Social History Past Medical History CAD Anxiety Depression Hyperlipidemia GERD Hypertension Cachexia Past Surgical History PEG tube insertion with removal PAD status post Peripheral artery bypass CABG Reported Medications Reported Meds & Active Scripts Active Finasteride 5 Mg Tab 5 Mg PO DAILY Do not crush. Reported Metoprolol Tartrate 25 Mg Tab 25 Mg PO BID Aspir-81 (Aspirin) 81 Mg Tabdr 81 Mg PO DAILY Nitrostat SL (Nitroglycerin) 0.4 Mg Subl 0.4 Mg SL DIRECTED PRN 1 tablet under the tongue as needed for chest pain. Repeat every 5 minutes for a total of 3 DOSES or call 911 if NO relief. Clopidogrel (Clopidogrel Bisulfate) 75 Mg Tab 75 Mg PO DAILY Pantoprazole (Pantoprazole Sodium) 40 Mg Tab 40 Mg PO DAILY Lovastatin 20 Mg Tab 20 Mg PO DAILY Lisinopril 2.5 Mg Tab 2.5 Mg PO DAILY Allergies: Coded Allergies: No Known Allergies (Verified Adverse Reaction, Unknown, 05/27/17) Active Ordered Medications Current Medications Medications (Trade) Dose Ordered Sig/Marilee Route Start Time Stop Time Status Last Admin Sodium Chloride 1,000 ml @ 100 mls/hr Q10H IV 05/27/17 15:30 (NS Flush) 2 ml UNSCH PRN IV FLUSH 05/27/17 15:00 (NS Flush) 2 ml BID IV FLUSH 05/27/17 21:00 (Tylenol) 650 mg Q4H PRN PO 05/27/17 15:00 (Zofran Inj) 4 mg Q6H PRN IVP 05/27/17 15:00 (Narcan Inj) 0.4 mg UNSCH PRN IV PUSH 05/27/17 15:00 (Senokot) 17.2 mg Q12H PRN PO 05/27/17 15:00 (Dulcolax Supp) 10 mg DAILY PRN RECTAL 05/27/17 15:00 (Lactulose Liq) 30 ml DAILY PRN PO 05/27/17 15:00 Cefepime HCl 2000 mg/Sodium Chloride 100 ml @ 200 mls/hr Q12H IV 05/28/17 03:00 Azithromycin 500 mg/Sodium Chloride 250 ml @ 250 mls/hr Q24H IV 05/27/17 17:00 (Proscar) 5 mg DAILY PO 05/28/17 09:00 (Lopressor) 25 mg BID PO 05/27/17 21:00 (Prinivil) 2.5 mg DAILY PO 05/28/17 09:00 (Pill Splitter) 1 ea UNSCH PRN OTHER 05/27/17 16:00 Family History Father, Mother and sister with CAD Sister with Colon Cancer Social History at this time denies any alcohol abuse but he has recent history of alcohol abuse and dependency used to drink 4 beers daily and one bottle of wine continue smoking 1 pack of cigarettes daily lives alone in an apartment. Physical Exam Vital Signs Vital Signs Date Time Temp Pulse Resp B/P (MAP) Pulse Ox O2 Delivery O2 Flow Rate FiO2 05/27/17 15:00 78 21 70/ 99 Room Air 05/27/17 14:00 74 18 143/75 (97) 98 Room Air 05/27/17 13:00 94 18 158/57 (90) 99 Room Air 05/27/17 12:05 88 25 177/81 (113) 100 Room Air 05/27/17 09:48 96.8 123 16 133/86 (102) 96 Physical Exam GENERAL: patient is laying in bed in no acute distress SKIN: Cachectic patient in no acute distress. HEAD: Atraumatic. Normocephalic. EYES: Pupils equal and round. No scleral icterus. No injection or drainage. ENT: No nasal bleeding or discharge. Mucous membranes pink and moist. Edentulous. NECK: Trachea midline. No JVD. CARDIOVASCULAR: Regular rate and rhythm. I/ murmur RESPIRATORY: No accessory muscle use. Clear to auscultation. Breath sounds equal bilaterally. GASTROINTESTINAL: Abdomen soft, tender to palpation diffusely, nondistended. MUSCULOSKELETAL: Extremities without clubbing, cyanosis, or edema. No obvious deformities. NEUROLOGICAL: Awake and alert. No obvious cranial nerve deficits. Motor grossly within normal limits. Five out of 5 muscle strength in the arms and legs. Normal speech. PSYCHIATRIC: Appropriate mood and affect; insight and judgment normal. Laboratory Laboratory Tests Test 05/27/17 10:15 05/27/17 10:20 White Blood Count 10.5 Red Blood Count 5.04 Hemoglobin 15.3 Hematocrit 46.5 Mean Corpuscular Volume 92.4 Mean Corpuscular Hemoglobin 30.4 Mean Corpuscular Hemoglobin Concent 32.9 Red Cell Distribution Width 16.1 Platelet Count 430 Mean Platelet Volume 8.4 Neutrophils (%) (Auto) 76.7 Lymphocytes (%) (Auto) 14.8 Monocytes (%) (Auto) 7.5 Eosinophils (%) (Auto) 0.5 Basophils (%) (Auto) 0.5 Neutrophils # (Auto) 8.0 Lymphocytes # (Auto) 1.6 Monocytes # (Auto) 0.8 Eosinophils # (Auto) 0.1 Basophils # (Auto) 0.1 CBC Comment DIFF FINAL Differential Comment Prothrombin Time 11.7 Prothromb Time International Ratio 1.2 Activated Partial Thromboplast Time 39.7 Blood Urea Nitrogen 11 Creatinine 0.67 Random Glucose 86 Total Protein 8.5 Albumin 3.2 Calcium Level 9.7 Alkaline Phosphatase 114 Aspartate Amino Transf (AST/SGOT) 14 Alanine Aminotransferase (ALT/SGPT) 12 Total Bilirubin 0.5 Sodium Level 133 Potassium Level 5.5 Chloride Level 99 Carbon Dioxide Level 27.9 Anion Gap 6 Estimat Glomerular Filtration Rate 143 Urine Color BROWN Urine Turbidity CLOUDY Urine pH 5.5 Urine Specific [place] 1.019 Urine Protein 30 Urine Glucose (UA) NEG Urine Ketones TRACE Urine Occult Blood LARGE Urine Nitrite NEG Urine Bilirubin NEG Urine Urobilinogen 2.0 Urine Leukocyte Esterase TRACE Urine RBC Urine WBC 1 Urine Mucus FEW Microscopic Urinalysis Comment CULT NOT INDICATED Date/Time Source Procedure Growth Status 05/27/17 15:15 Blood Peripheral Aerobic Blood Culture Pending Received 05/27/17 15:15 Blood Peripheral Anaerobic Blood Culture Pending Received Result Diagram: 05/27/17 1015 05/27/17 1015 Imaging Last Impressions Scrotum Ultrasound 05/27/17 0000 Signed Impressions: Service Date/Time: Saturday, May 27, 2017 10:28 - CONCLUSION: 1. Large complex hydrocele with debris and septations. 2. Small right hydrocele 3. Bilateral small epididymal cysts. 4. Both testicles are within normal limits. Kody Sultana MD Abdomen/Pelvis CT 05/27/17 0000 Signed Impressions: Service Date/Time: Saturday, May 27, 2017 12:34 - CONCLUSION: 1. Posterior bibasilar patchy opacities consistent with probable pneumonia. Clinical correlation is recommended. 2. Scattered emphysematous changes within the visualized lung bases. 3. Markedly enlarged prostate. 4. Mild dilatation of several small bowel loops suggesting partial small bowel obstruction or ileus. Clinical correlation is recommended. 5. Calcified nonobstructing left renal calculi. Dany aL MD Caprini VTE Risk Assessment Caprini VTE Risk Assessment: Mod/High Risk (score >= 2) Caprini Risk Assessment Model Point Value = 1 Point Value = 2 Point Value = 3 Point Value = 5 Age 41-60 Minor surgery BMI > 25 kg/m2 Swollen legs Varicose veins or History of unexplained or recurrent spontaneous Oral contraceptives or hormone replacement Sepsis (< 1 month) Serious lung disease, including pneumonia (< 1 month) Abnormal pulmonary function Acute myocardial infarction Congestive heart failure (< 1 month) History of inflammatory bowel disease Medical patient at bed rest Age 61-74 Arthroscopic surgery Major open surgery (> 45 min) Laparoscopic surgery (> 45 min) Malignancy Confined to bed (> 72 hours) Immobilizing plaster cast Central venous access Age >= 75 History of VTE Family history of VTE Factor V Leiden Prothrombin [id number] Lupus anticoagulant Anticardiolipin antibodies Elevated serum homocysteine Heparin-induced thrombocytopenia Other congenital or acquired thrombophilia Stroke (< 1 month) Elective arthroplasty Hip, pelvis, or leg fracture Acute spinal cord injury (< 1 month) Prophylaxis Regimen Total Risk Factor Score Risk Level Prophylaxis Regimen 0-1 Low Early ambulation 2 Moderate Order ONE of the following: *Sequential Compression Device (SCD) *Heparin 5000 units SQ BID 3-4 Higher Order ONE of the following medications: *Heparin 5000 units SQ TID *Enoxaparin/Lovenox 40 mg SQ daily (WT < 150 kg, CrCl > 30 mL/min) *Enoxaparin/Lovenox 30 mg SQ daily (WT < 150 kg, CrCl > 10-29 mL/min) *Enoxaparin/Lovenox 30 mg SQ BID (WT < 150 kg, CrCl > 30 mL/min) AND/OR *Sequential Compression Device (SCD) 5 or more Highest Order ONE of the following medications: *Heparin 5000 units SQ TID (Preferred with Epidurals) *Enoxaparin/Lovenox 40 mg SQ daily (WT < 150 kg, CrCl > 30 mL/min) *Enoxaparin/Lovenox 30 mg SQ daily (WT < 150 kg, CrCl > 10-29 mL/min) *Enoxaparin/Lovenox 30 mg SQ BID (WT < 150 kg, CrCl > 30 mL/min) AND *Sequential Compression Device (SCD) Assessment and Plan Assessment and Plan 1. Abdominal pain and Dysphagia associated with unintentional weight loss, not eating but drinking liquids will need to rule out GI malignancy, consulted GI specialist and following recommendations. 2. Partial Small Bowel obstruction NG tube placed in ER but the patient has not got nausea or vomit will add liquid diet and remove NG tube. 3. CAD status post CABG will start Lovenox for DVT prophylaxis 4. Anxiety disorder/Depression to continue Home medicines. 5. Gastroesophageal Reflux disease on Famotidine and Carafate 6. Hyperlipidemia on hold Statins by now until his GI problem is clarified. 7. Hypertension to continue Home medicines 8. questionable COPD/Pneumonia on antibiotics, follow blood culture, legionella antigen, Pneumococcal antigen Bronchodilator, Mucolytic and incentive spirometry 9. Cachexia, consult dietitian, start diet added Ensure. 10. Hyperkalemia give IV fluids and follow Echocardiogram Complete laboratory CMP, Lipid Profile, HIV test, Hepatitis profile, TSH, Vitamin D, B12, Folate, hemoglobin A1C, Consult GI Consult dietitian Consult PT and Speech Therapy for Swallow test Remove NG tube and start diet with liquid diet Rule out GI malignancy Modified Barium Swallow antibiotics Cefepime and Azithromycin follow renal function. binder caser consult follow Chest X ray may need CT chest. Code Status Full code Discussed Condition With Patient and ER physician Physician Certification 2 Midnight Certification Type: Admission for Inpatient Services Order for Inpatient Services The services are ordered in accordance with Medicare regulations or non- Medicare payer requirements, as applicable. In the case of services not specified as inpatient-only, they are appropriately provided as inpatient services in accordance with the 2-midnight benchmark. Estimated LOS (days): 3 days is the estimated time the patient will need to remain in the hospital, assuming treatment plan goals are met and no additional complications. Post-Hospital Plan: Not yet determined Jonnie Sexton MD May 27, 2017 16:25
--- NOTE | 2017-05-27 17:04 | PD.CONS ---
HPI History of Present Illness This is a 67 year old M who presented to the emergency department today with complaints of upper abdominal pain. Pt is a poor historian and information obtained is limited. Pt reports the pain is intermittent, located on both sides of his upper abdomen, does not notice a relation to eating. He does report a "whole lot" of weight loss over the past month due to a decrease in appetite, however he is unable to quantify how much weight. 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 PEG tube was shortly after removed, pt reports dysphagia has been chronic, states he thinks recently it is worsening. Notices dysphagia with solids and liquids. Denies nausea, vomiting. Reports chronic constipation, had a hard BM yesterday with straining, denies blood in stool. Of note, patients home medications include Plavix and ASA for CAD. Our record indicate previous EGD and colonoscopy in October 2014 which showed Gastroesophageal reflux disease, Schatzki ring [id number], [id number] hiatal hernia, several colonic polyps 2 of which are suspicious one in the mid transverse colon and the other is in the rectum. Pathology (Mid transverse and rectum polyp) revealed tubulovillous adenomas ( Descending colon polyp) revealed adenomatous polyp. It is unclear if pt has had repeat exams since then, however, he denies ever following up with us outpatient. Denies ETOH. Reports current pack a day smoker. Denies illicit drug use. 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 (Adrianna Arguello) Review of Systems Constitutional: COMPLAINS OF: Weight loss Respiratory: COMPLAINS OF: Cough Gastrointestinal: COMPLAINS OF: Abdominal pain, Constipation, Difficulty Swallowing, Anorexia, DENIES: Black stools, Bloody stools, Diarrhea, Nausea, Vomiting, Heartburn, Hematemesis (Adrianna Arguello) GI Exam Vitals I&O Vital Signs Date Time Temp Pulse Resp B/P (MAP) Pulse Ox O2 Delivery O2 Flow Rate FiO2 05/27/17 15:00 78 21 70/ 99 Room Air 05/27/17 14:00 74 18 143/75 (97) 98 Room Air 05/27/17 13:00 94 18 158/57 (90) 99 Room Air 05/27/17 12:05 88 25 177/81 (113) 100 Room Air 05/27/17 09:48 96.8 123 16 133/86 (102) 96 I/O 05/26/17 05/26/17 05/26/17 05/27/17 05/27/17 05/27/17 07:00 15:00 23:00 07:00 15:00 23:00 Intake Total 1052 ml Balance 1052 ml Intake IV Total 1052 ml # Voids 0 Imaging Last Impressions Chest X-Ray 05/27/17 1456 Signed Impressions: Service Date/Time: Saturday, May 27, 2017 16:01 - CONCLUSION: No acute disease. No significant change has occurred. Kody Sultana MD Scrotum Ultrasound 05/27/17 0000 Signed Impressions: Service Date/Time: Saturday, May 27, 2017 10:28 - CONCLUSION: 1. Large complex hydrocele with debris and septations. 2. Small right hydrocele 3. Bilateral small epididymal cysts. 4. Both testicles are within normal limits. Kody Sultana MD Abdomen/Pelvis CT 05/27/17 0000 Signed Impressions: Service Date/Time: Saturday, May 27, 2017 12:34 - CONCLUSION: 1. Posterior bibasilar patchy opacities consistent with probable pneumonia. Clinical correlation is recommended. 2. Scattered emphysematous changes within the visualized lung bases. 3. Markedly enlarged prostate. 4. Mild dilatation of several small bowel loops suggesting partial small bowel obstruction or ileus. Clinical correlation is recommended. 5. Calcified nonobstructing left renal calculi. Dany La MD Laboratory Test 05/27/17 10:15 05/27/17 10:20 White Blood Count 10.5 TH/MM3 Red Blood Count 5.04 MIL/MM3 Hemoglobin 15.3 GM/DL Hematocrit 46.5 % Mean Corpuscular Volume 92.4 FL Mean Corpuscular Hemoglobin 30.4 PG Mean Corpuscular Hemoglobin Concent 32.9 % Red Cell Distribution Width 16.1 % Platelet Count 430 TH/MM3 Mean Platelet Volume 8.4 FL Neutrophils (%) (Auto) 76.7 % Lymphocytes (%) (Auto) 14.8 % Monocytes (%) (Auto) 7.5 % Eosinophils (%) (Auto) 0.5 % Basophils (%) (Auto) 0.5 % Neutrophils # (Auto) 8.0 TH/MM3 Lymphocytes # (Auto) 1.6 TH/MM3 Monocytes # (Auto) 0.8 TH/MM3 Eosinophils # (Auto) 0.1 TH/MM3 Basophils # (Auto) 0.1 TH/MM3 CBC Comment DIFF FINAL Differential Comment Prothrombin Time 11.7 SEC Prothromb Time International Ratio 1.2 RATIO Activated Partial Thromboplast Time 39.7 SEC Blood Urea Nitrogen 11 MG/DL Creatinine 0.67 MG/DL Random Glucose 86 MG/DL Total Protein 8.5 GM/DL Albumin 3.2 GM/DL Calcium Level 9.7 MG/DL Alkaline Phosphatase 114 U/L Aspartate Amino Transf (AST/SGOT) 14 U/L Alanine Aminotransferase (ALT/SGPT) 12 U/L Total Bilirubin 0.5 MG/DL Sodium Level 133 MEQ/L Potassium Level 5.5 MEQ/L Chloride Level 99 MEQ/L Carbon Dioxide Level 27.9 MEQ/L Anion Gap 6 MEQ/L Estimat Glomerular Filtration Rate 143 ML/MIN Urine Color BROWN Urine Turbidity CLOUDY Urine pH 5.5 Urine Specific [place] 1.019 Urine Protein 30 mg/dL Urine Glucose (UA) NEG mg/dL Urine Ketones TRACE mg/dL Urine Occult Blood LARGE Urine Nitrite NEG Urine Bilirubin NEG Urine Urobilinogen 2.0 MG/DL Urine Leukocyte Esterase TRACE Urine RBC /hpf Urine WBC 1 /hpf Urine Mucus FEW /lpf Microscopic Urinalysis Comment CULT NOT INDICATED Date/Time Source Procedure Growth Status 05/27/17 15:15 Blood Peripheral Aerobic Blood Culture Pending Received 05/27/17 15:15 Blood Peripheral Anaerobic Blood Culture Pending Received Physical Examination HEENT: Normocephalic; atraumatic CHEST: Even/unlabored CARDIAC: RRR ABDOMEN: Soft, flat, nontender; no hepatosplenomegaly; bowel sounds active x 4. EXTREMITIES: No clubbing, cyanosis, or edema. SKIN: Normal; no rash; no jaundice. [employer] MANAGER: No focal deficits; alert and oriented times three. 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 EGD in 2014 --> Gastroesophageal reflux disease. Schatzki ring [id number], [id number] hiatal hernia. Modified barium swallow pending. Pt is not sure if he would want to pursue another PEG tube at this time. Discussed with pt that he has time to think about it and procedure would be tentatively on Tuesday. - ?Ileus vs small bowel obstruction- CT abdomen and pelvis with contrast (05/27 ) --> Mild dilation of several small bowel loops suggesting partial small bowel obstruction or ileus. Clinical correlation is recommended. Last BM was yesterday, reports chronic constipation with straining. Will add MiraLAX to current regimen. Pt had NGT while in ER, has been discontinued per attending and will assess if pt can tolerate liquid diet. Repeat KUB in AM. Plan - EGD with possible PEG tube placement on Tuesday - Heparin dc 8 hours prior to procedure - NPO after MN on Tuesday - Obtain consent - Modified barium swallow pending - Miralax 17gm at bedtime - Liquid diet - Monitor stool count - Supportive care - Further recommendations to follow based on results of above Pt has been seen and examined by myself and Dr. Tarango and this note is written on his behalf (Adrianna Arguello) Plan Pt has had very large wt loss. He can take little PO. Yet his symptoms seem chronic. CT scan reviewed. Stomach is somewhat distended. I wonder about gastric outlet obstruction. will probably do EGD over the weekend. (Art Tarango MD) Adrianna Arguello May 27, 2017 17:04 Art Tarango MD May 27, 2017 19:32
[2017-05-27] MEDS: HEPARIN SODIUM - SQ 10,000 UNITS/ML VIAL SQ SCH (17:38)
[2017-05-27] MEDS: FAMOTIDINE 20 MG/2 ML VIAL IV PUSH SCH (17:38)
[2017-05-27] MEDS: SUCRALFATE 1 GM/10 ML CUP PO SCH ×2 (18:13→22:11)
[2017-05-27] MEDS: AZITHROMYCIN INJ 500 MG in SODIUM CHLOR 0.9% 250 ML INJ 250 ML IV SCH (18:14)
[2017-05-27] MEDS: RESP: ALBUTEROL 2.5 MG/IPRATROPIUM 0.5 MG NEB (SCH) NEB (20:05)
[2017-05-27] MEDS ORDERED: guaiFENesin E.R. 600 MG TAB PO SCH (21:00)
[2017-05-27] MEDS: SODIUM CHLORIDE 0.9% FLUSH 10 ML FLUSH IV FLUSH SCH (22:02)
[2017-05-27] MEDS: METOPROLOL TARTRATE 25 MG TAB PO SCH (22:12)
[2017-05-28] VITALS: BP 107/53; PULSE 77; RESP 20; TEMP 98.5; O2SAT 96
[2017-05-28] MEDS: CEFEPIME INJ 2,000 MG in SODIUM CHLORIDE 0.9% INJ 100 ML IV SCH ×2 (03:04→14:43)
[2017-05-28] MEDS: FAMOTIDINE 20 MG/2 ML VIAL IV PUSH SCH ×2 (03:10→16:16)
[2017-05-28] MEDS: RESP: ALBUTEROL 2.5 MG/IPRATROPIUM 0.5 MG NEB (SCH) NEB ×6 (03:50→20:49)
[2017-05-28] MEDS: guaiFENesin SOLUTION 200 MG/10 ML CUP PO SCH ×5 (05:16→21:53)
[2017-05-28] MEDS: HEPARIN SODIUM - SQ 10,000 UNITS/ML VIAL SQ SCH ×3 (05:18→21:54)
[2017-05-28] MEDS: SODIUM CHLOR 0.9% 1000 ML INJ 1,000 ML IV SCH ×3 (05:18→21:53)
[2017-05-28 07:09] LABS: AUTOMATED NEUTROPHIL # 8.5 TH/MM3 (1.8-7.7); BASOPHIL # 0.1 TH/MM3 (0-0.2); BASOPHIL % 0.7 % (0.0-2.0); EOSINOPHIL # 0.1 TH/MM3 (0-0.4); EOSINOPHIL % 0.9 % (0.0-4.0); HEMATOCRIT 35.5 % (39.0-51.0); HEMO FLAGS DIFF FINAL; LYMPH % 10.3 % (9.0-44.0); LYMPHOCYTE # 1.1 TH/MM3 (1.0-4.8); MEAN CELL VOLUME 92.9 FL (80.0-100.0); MEAN CORPUSCULAR HEMOGLOBIN 30.5 PG (27.0-34.0); MEAN CORPUSCULAR HGB CONC 32.9 % (32.0-36.0); MONO % 6.4 % (0.0-8.0); NEUT % 81.7 % (16.0-70.0); PLATELET COUNT 316 TH/MM3 (150-450); RED BLOOD COUNT 3.83 MIL/MM3 (4.50-5.90); RED CELL DISTRIBUTION WIDTH 15.4 % (11.6-17.2); WHITE BLOOD COUNT 10.4 TH/MM3 (4.0-11.0)
[2017-05-28 07:36] LABS: ALKALINE PHOSPHATASE 86 U/L (45-117); ALT (GPT) 9 U/L (12-78); ANION GAP 6 MEQ/L (5-15); AST (GOT) 12 U/L (15-37); BICARBONATE 26.4 MEQ/L (21.0-32.0); BLOOD UREA NITROGEN 7 MG/DL (7-18); CHLORIDE 107 MEQ/L (98-107); GLOMERULAR FILTRATION RATE 196 ML/MIN (>89); POTASSIUM 4.1 MEQ/L (3.5-5.1); SODIUM (NA) 139 MEQ/L (136-145); TOTAL BILIRUBIN ADULT 0.5 MG/DL (0.2-1.0)
[2017-05-28 07:51] LABS: HDL CHOLESTEROL 38.4 MG/DL (40.0-60.0); LDL CHOLESTEROL 45 MG/DL (0-99)
[2017-05-28 08:00] VITALS: BP 111/58; PULSE 73; RESP 16; TEMP 98.5; O2SAT 96
[2017-05-28] MEDS: SUCRALFATE 1 GM/10 ML CUP PO SCH ×4 (08:00→21:53)
[2017-05-28] MEDS: FINASTERIDE 5 MG TAB PO SCH (09:00)
[2017-05-28] MEDS: SODIUM CHLORIDE 0.9% FLUSH 10 ML FLUSH IV FLUSH SCH ×2 (09:00→21:54)
[2017-05-28] MEDS: LISINOPRIL 5 MG TAB PO SCH (09:00)
[2017-05-28] MEDS: METOPROLOL TARTRATE 25 MG TAB PO SCH ×2 (09:00→21:53)
[2017-05-28] MEDS: POLYETHYLENE GLYCOL 17 GM PKG PO SCH (09:00)
--- NOTE | 2017-05-28 09:29 | EKG ---
Date Performed: 05/27/2017 Time Performed: 10:23:54 PTAGE: 67 years EKG: SINUS TACHYCARDIA POSSIBLE LEFT ATRIAL ENLARGEMENT INDETERMINATE AXIS INFERIOR MYOCARDIAL I NFARCTION ABNORMAL ECG NO PREVIOUS TRACING DOCTOR: Sebastian Marks Interpretating Date/Time 05/28/2017 09:27:57
--- NOTE | 2017-05-28 09:49 | HHI.PR ---
Subjective Remarks Note from Admission This is a pleasant 67 y/o male who has multiple evaluations in ER in this facility due to abdominal pain he also complaint recently of Urinary obstruction thought to be related to Urinary Tract infection given Keflex without improvement, continue with indwelling Wright Catheter, the patient has abdominal pain on his upper quadrants, non radiated 8/ 10 in intensity, associated Dysphagia, not able to eat but able to drink, he denies any nausea or vomit, no diarrhea, afebrile, denies chills, No melena or hematochezia, as we know he has CAD on Plavix and Aspirin, Anxiety disorder, Depression, hyperlipidemia, GERD, Hypertension, he is cachectic, has Dysphagia history of PEG insertion and removal. has an NG tube placed in ER but he is not having nausea or vomit, to remove NG tube and start him on liquid diet. follow recommendations by GI specialist. 05/28: Stable will go for Barium Swallow, as per nurse he was choking with liquid diet and was suspended, discussed with nurse no vomit or diarrhea. GI specialist following plan for EGD next 05/30/17 and probable PEG placement Objective Vital Signs Date Time Temp Pulse Resp B/P (MAP) Pulse Ox O2 Delivery O2 Flow Rate FiO2 05/28/17 08:00 98.5 73 16 111/58 (75) 96 05/28/17 00:00 98.5 77 20 107/53 (71) 96 05/27/17 20:08 98 05/27/17 20:00 97.8 97 20 115/53 (73) 98 05/27/17 16:00 98.0 77 19 143/67 (92) 92 05/27/17 15:00 78 21 70/ 99 Room Air 05/27/17 14:00 74 18 143/75 (97) 98 Room Air 05/27/17 13:00 94 18 158/57 (90) 99 Room Air 05/27/17 12:05 88 25 177/81 (113) 100 Room Air 05/27/17 09:48 96.8 123 16 133/86 (102) 96 I/O 05/27/17 05/27/17 05/27/17 05/28/17 05/28/17 05/28/17 07:00 15:00 23:00 07:00 15:00 23:00 Intake Total 1052 ml 740 ml 1425 ml Output Total 1575 ml 325 ml Balance 1052 ml -835 ml 1100 ml Intake Oral 240 ml 325 ml IV Total 1052 ml 500 ml 1100 ml Output Urine Total 1575 ml 325 ml # Voids 0 Result Diagram: 05/28/17 0514 05/28/17 0514 Imaging Last Impressions Chest X-Ray 05/27/17 1456 Signed Impressions: Service Date/Time: Saturday, May 27, 2017 16:01 - CONCLUSION: No acute disease. No significant change has occurred. Kody Sultana MD Scrotum Ultrasound 05/27/17 0000 Signed Impressions: Service Date/Time: Saturday, May 27, 2017 10:28 - CONCLUSION: 1. Large complex hydrocele with debris and septations. 2. Small right hydrocele 3. Bilateral small epididymal cysts. 4. Both testicles are within normal limits. Kody Sultana MD Abdomen/Pelvis CT 05/27/17 0000 Signed Impressions: Service Date/Time: Saturday, May 27, 2017 12:34 - CONCLUSION: 1. Posterior bibasilar patchy opacities consistent with probable pneumonia. Clinical correlation is recommended. 2. Scattered emphysematous changes within the visualized lung bases. 3. Markedly enlarged prostate. 4. Mild dilatation of several small bowel loops suggesting partial small bowel obstruction or ileus. Clinical correlation is recommended. 5. Calcified nonobstructing left renal calculi. Dany La MD Procedures None Other Results Laboratory Tests Test 05/27/17 10:15 05/27/17 10:20 05/27/17 10:26 05/28/17 05:14 Prothrombin Time 11.7 SEC Prothromb Time International Ratio 1.2 RATIO Activated Partial Thromboplast Time 39.7 SEC Urine Color BROWN Urine Turbidity CLOUDY Urine pH 5.5 Urine Specific [place] 1.019 Urine Protein 30 mg/dL Urine Glucose (UA) NEG mg/dL Urine Ketones TRACE mg/dL Urine Occult Blood LARGE Urine Nitrite NEG Urine Bilirubin NEG Urine Urobilinogen 2.0 MG/DL Urine Leukocyte Esterase TRACE Urine RBC /hpf Urine WBC 1 /hpf Urine Mucus FEW /lpf Microscopic Urinalysis Comment CULT NOT INDICATED Urine Opiates Screen NEG Urine Barbiturates Screen NEG Urine Amphetamines Screen NEG Urine Benzodiazepines Screen NEG Urine Cocaine Screen NEG Urine Cannabinoids Screen NEG White Blood Count 10.4 TH/MM3 Red Blood Count 3.83 MIL/MM3 Hemoglobin 11.7 GM/DL Hematocrit 35.5 % Mean Corpuscular Volume 92.9 FL Mean Corpuscular Hemoglobin 30.5 PG Mean Corpuscular Hemoglobin Concent 32.9 % Red Cell Distribution Width 15.4 % Platelet Count 316 TH/MM3 Mean Platelet Volume 9.2 FL Neutrophils (%) (Auto) 81.7 % Lymphocytes (%) (Auto) 10.3 % Monocytes (%) (Auto) 6.4 % Eosinophils (%) (Auto) 0.9 % Basophils (%) (Auto) 0.7 % Neutrophils # (Auto) 8.5 TH/MM3 Lymphocytes # (Auto) 1.1 TH/MM3 Monocytes # (Auto) 0.7 TH/MM3 Eosinophils # (Auto) 0.1 TH/MM3 Basophils # (Auto) 0.1 TH/MM3 CBC Comment DIFF FINAL Differential Comment Blood Urea Nitrogen 7 MG/DL Creatinine 0.51 MG/DL Random Glucose 82 MG/DL Total Protein 6.4 GM/DL Albumin 2.4 GM/DL Calcium Level 8.4 MG/DL Alkaline Phosphatase 86 U/L Aspartate Amino Transf (AST/SGOT) 12 U/L Alanine Aminotransferase (ALT/SGPT) 9 U/L Total Bilirubin 0.5 MG/DL Sodium Level 139 MEQ/L Potassium Level 4.1 MEQ/L Chloride Level 107 MEQ/L Carbon Dioxide Level 26.4 MEQ/L Anion Gap 6 MEQ/L Estimat Glomerular Filtration Rate 196 ML/MIN Triglycerides Level 95 MG/DL Cholesterol Level 102 MG/DL LDL Cholesterol 45 MG/DL HDL Cholesterol 38.4 MG/DL Cholesterol/HDL Ratio 2.65 RATIO Vitamin B12 Level 313 PG/ML Folate 9.7 NG/ML Thyroid Stimulating Hormone 3rd Gen 0.498 uIU/ML Objective Remarks GENERAL: No acute distress. SKIN: Cachectic patient in no acute distress. HEAD: Atraumatic. Normocephalic. EYES: Pupils equal and round. No scleral icterus. No injection or drainage. ENT: No nasal bleeding or discharge. Mucous membranes pink and moist. Edentulous. NECK: Trachea midline. No JVD. CARDIOVASCULAR: Regular rate and rhythm. I/ murmur RESPIRATORY: No accessory muscle use. Clear to auscultation. Breath sounds equal bilaterally. GASTROINTESTINAL: Abdomen soft, tender to palpation diffusely, nondistended. MUSCULOSKELETAL: Extremities without clubbing, cyanosis, or edema. No obvious deformities. NEUROLOGICAL: Awake and alert. No obvious cranial nerve deficits. Motor grossly within normal limits. Five out of 5 muscle strength in the arms and legs. Normal speech. PSYCHIATRIC: Appropriate mood and affect; insight and judgment normal. Medications and IVs Current Medications Medications (Trade) Dose Ordered Sig/Marilee Route Start Time Stop Time Status Last Admin Sodium Chloride 1,000 ml @ 100 mls/hr Q10H IV 05/27/17 15:30 05/28/17 05:18 (NS Flush) 2 ml UNSCH PRN IV FLUSH 05/27/17 15:00 (NS Flush) 2 ml BID IV FLUSH 05/27/17 21:00 (Tylenol) 650 mg Q4H PRN PO 05/27/17 15:00 (Zofran Inj) 4 mg Q6H PRN IVP 05/27/17 15:00 (Narcan Inj) 0.4 mg UNSCH PRN IV PUSH 05/27/17 15:00 (Senokot) 17.2 mg Q12H PRN PO 05/27/17 15:00 (Dulcolax Supp) 10 mg DAILY PRN RECTAL 05/27/17 15:00 (Lactulose Liq) 30 ml DAILY PRN PO 05/27/17 15:00 Cefepime HCl 2000 mg/Sodium Chloride 100 ml @ 200 mls/hr Q12H IV 05/28/17 03:00 05/28/17 03:04 Azithromycin 500 mg/Sodium Chloride 250 ml @ 250 mls/hr Q24H IV 05/27/17 17:00 05/27/17 18:14 (Proscar) 5 mg DAILY PO 05/28/17 09:00 (Lopressor) 25 mg BID PO 05/27/17 21:00 05/27/17 22:12 (Prinivil) 2.5 mg DAILY PO 05/28/17 09:00 (Pill Splitter) 1 ea UNSCH PRN OTHER 05/27/17 16:00 (Pepcid Inj) 20 mg Q12H IV PUSH 05/27/17 16:00 05/28/17 03:10 (Carafate Liq) 1 gm ACHS PO 05/27/17 17:00 05/27/17 22:11 (Heparin Inj) 5,000 units Q8HR SQ 05/27/17 16:15 05/28/17 05:18 (Duoneb Neb) 1 ampule Q4HR NEB NEB 05/27/17 20:00 05/28/17 08:10 (Miralax) 17 gm DAILY PO 05/28/17 09:00 (Flu (Quadrivalent) Vaccine Inj) 0.5 ml ONCE ONCE IM 05/28/17 10:00 05/28/17 10:01 (Robitussin Liq) 200 mg Q4HR PO 05/28/17 04:00 05/28/17 05:16 A/P Assessment and Plan 1. Abdominal pain and Dysphagia associated with unintentional weight loss, not eating but drinking liquids will need to rule out GI malignancy, has chronic Dysphagia GI specialist will perform EGD next 05/30/17 and probable PEG tube placement if indicated. 2. Partial Small Bowel obstruction had NG tube placed in ER was removed for admission and consulted GI specialist following Barium swallow and EGD for 05/30/17, KUB for follow up. 3. CAD status post CABG will start Lovenox for DVT prophylaxis, Plavix and Aspirin on hold for procedure 4. Anxiety disorder/Depression to continue Home medicines. 5. Gastroesophageal Reflux disease on Famotidine and Carafate 6. Hyperlipidemia on hold Statins by now until his GI problem is clarified. 7. Hypertension to continue Home medicines 8. questionable COPD/Pneumonia on antibiotics, follow blood culture, legionella antigen, Pneumococcal antigen Bronchodilator, Mucolytic and incentive spirometry 9. Cachexia, consult dietitian, start diet added Ensure. 10. Hyperkalemia give IV fluids and follow 11. Tobacco dependence strongly recommended to stop smoking. Follow Echocardiogram Follow laboratory and blood cultures. Dietitian consult, PT, egg caser, GI specialist, speech therapy consult Modified Barium swallow for today continue antibiotics by now Code Status Full code Discussed Condition With Patient and nurse. Discharge Planning Once cleared by specialist. Jonnie Sexton MD May 28, 2017 09:49
[2017-05-28] MEDS ORDERED: INFLUENZA VIRUS VACCINE (QUADRIVALENT) 0.5 ML SYR IM ONE (10:00)
[2017-05-28] MEDS ORDERED: PNEUMOCOCCAL POLYVALENT INJ 25 MCG/0.5 ML SYR IM ONE (10:00)
[2017-05-28 10:48] LABS: HEMOGLOBIN A1a 1.5 %; HEMOGLOBIN A1b 0.7 %; HEMOGLOBIN Ao 85.1 %; HEMOGLOBIN F 1.5 %; HEMOGLOBIN LA1C 2.1 %; HEMOGLOBIN P3 3.5 %
--- NOTE | 2017-05-28 11:56 | RADRPT ---
EXAM DATE/TIME: 05/28/2017 00:00 [facility] COMPARISON: BA SWALLOW W/SPEECH PATHOLOGY, February 28, 2014, 0:00. INDICATIONS : Dysphagia. FLUORO TIME: 2.1 minutes IMAGE COUNT: 0 CONTRAST: Dose as prescribed by speech pathologist. MEDICAL HISTORY : None. SURGICAL HISTORY : None. ENCOUNTER: Initial ACUITY: >1 year PAIN SCORE: 0/10 LOCATION: Neck. FINDINGS: A modified barium swallow was performed with speech pathology. Patient was given a variety of liquids to swallow. The oral phase is normal without delay in posterior propulsion. There is minimal transient penetratio n of the supraglottic larynx with thin barium. No cee tracheal aspiration occurs. Significant pooli ng in the paired valleculae and piriform sinuses occurs with all substances. There is relative narrow ing of the upper esophagus secondary to anterior osteophytic spurring of the lower cervical spine whi ch results in some delay of passage of ingested materials. For a full detailed report, see report by the speech pathologist. CONCLUSION: Minimal transient penetration of the supraglottic larynx without cee tracheal aspir ation with thin barium only. Pooling in the paired valleculae and piriform sinuses and some delay in passage of all substances which appears to be related to relative narrowing of the upper esophagus se condary to anterior osteophytic spurring of the lower cervical spine. For full detailed report, see r eport by the speech pathologist. Dany La MD on May 28, 2017 at 11:50 Board Certified Radiologist. This report was verified electronically.
[2017-05-28 12:00] VITALS: BP 114/54; PULSE 73; RESP 16; TEMP 98.4; O2SAT 97
--- NOTE | 2017-05-28 13:04 | HHI.GIFU ---
Subjective Remarks Pt resting in bed, in no apparent distress. He reports having BM yesterday. Denies nausea, vomiting, abdominal pain. Objective Vitals I&O Vital Signs Date Time Temp Pulse Resp B/P (MAP) Pulse Ox O2 Delivery O2 Flow Rate FiO2 05/28/17 08:00 98.5 73 16 111/58 (75) 96 05/28/17 00:00 98.5 77 20 107/53 (71) 96 05/27/17 20:08 98 05/27/17 20:00 97.8 97 20 115/53 (73) 98 05/27/17 16:00 98.0 77 19 143/67 (92) 92 05/27/17 15:00 78 21 70/ 99 Room Air 05/27/17 14:00 74 18 143/75 (97) 98 Room Air 05/27/17 13:00 94 18 158/57 (90) 99 Room Air I/O 05/27/17 05/27/17 05/27/17 05/28/17 05/28/17 05/28/17 07:00 15:00 23:00 07:00 15:00 23:00 Intake Total 1052 ml 740 ml 1425 ml Output Total 1575 ml 325 ml Balance 1052 ml -835 ml 1100 ml Intake Oral 240 ml 325 ml IV Total 1052 ml 500 ml 1100 ml Output Urine Total 1575 ml 325 ml # Voids 0 Laboratory Laboratory Tests Test 05/28/17 05:14 White Blood Count 10.4 Red Blood Count 3.83 Hemoglobin 11.7 Hematocrit 35.5 Mean Corpuscular Volume 92.9 Mean Corpuscular Hemoglobin 30.5 Mean Corpuscular Hemoglobin Concent 32.9 Red Cell Distribution Width 15.4 Platelet Count 316 Mean Platelet Volume 9.2 Neutrophils (%) (Auto) 81.7 Lymphocytes (%) (Auto) 10.3 Monocytes (%) (Auto) 6.4 Eosinophils (%) (Auto) 0.9 Basophils (%) (Auto) 0.7 Neutrophils # (Auto) 8.5 Lymphocytes # (Auto) 1.1 Monocytes # (Auto) 0.7 Eosinophils # (Auto) 0.1 Basophils # (Auto) 0.1 CBC Comment DIFF FINAL Differential Comment Blood Urea Nitrogen 7 Creatinine 0.51 Random Glucose 82 Total Protein 6.4 Albumin 2.4 Calcium Level 8.4 Alkaline Phosphatase 86 Aspartate Amino Transf (AST/SGOT) 12 Alanine Aminotransferase (ALT/SGPT) 9 Total Bilirubin 0.5 Sodium Level 139 Potassium Level 4.1 Chloride Level 107 Carbon Dioxide Level 26.4 Anion Gap 6 Estimat Glomerular Filtration Rate 196 Triglycerides Level 95 Cholesterol Level 102 LDL Cholesterol 45 HDL Cholesterol 38.4 Cholesterol/HDL Ratio 2.65 Vitamin B12 Level 313 Folate 9.7 Thyroid Stimulating Hormone 3rd Gen 0.498 Date/Time Source Procedure Growth Status 05/27/17 15:15 Blood Peripheral Aerobic Blood Culture - Preliminary NO GROWTH IN 1 DAY Resulted 05/27/17 15:15 Blood Peripheral Anaerobic Blood Culture - Preliminary NO GROWTH IN 1 DAY Resulted 05/27/17 10:26 Urine Clean Catch Legionella Antigen - Final PRESUMPTIVE NEGATIVE FOR LEGIONELLA P... Complete 05/27/17 10:26 Urine Clean Catch Streptococcus pneumoniae Antigen (M - Final PRESUMPTIVE NEGATIVE FOR STREPTOCOCCU... Complete Imaging Last Impressions Modified Barium Swallow 05/28/17 0000 Signed Impressions: Service Date/Time: Sunday, May 28, 2017 00:00 - CONCLUSION: Minimal transient penetration of the supraglottic larynx without cee tracheal aspiration with thin barium only. Pooling in the paired valleculae and piriform sinuses and some delay in passage of all substances which appears to be related to relative narrowing of the upper esophagus secondary to anterior osteophytic spurring of the lower cervical spine. For full detailed report, see report by the speech pathologist. Dany La MD Chest X-Ray 05/27/17 1456 Signed Impressions: Service Date/Time: Saturday, May 27, 2017 16:01 - CONCLUSION: No acute disease. No significant change has occurred. Kody Sultana MD Scrotum Ultrasound 05/27/17 0000 Signed Impressions: Service Date/Time: Saturday, May 27, 2017 10:28 - CONCLUSION: 1. Large complex hydrocele with debris and septations. 2. Small right hydrocele 3. Bilateral small epididymal cysts. 4. Both testicles are within normal limits. Kody Sultana MD Abdomen/Pelvis CT 05/27/17 0000 Signed Impressions: Service Date/Time: Saturday, May 27, 2017 12:34 - CONCLUSION: 1. Posterior bibasilar patchy opacities consistent with probable pneumonia. Clinical correlation is recommended. 2. Scattered emphysematous changes within the visualized lung bases. 3. Markedly enlarged prostate. 4. Mild dilatation of several small bowel loops suggesting partial small bowel obstruction or ileus. Clinical correlation is recommended. 5. Calcified nonobstructing left renal calculi. Dany La MD Physical Exam HEENT: Normocephalic; atraumatic CHEST: CTA CARDIAC: RRR ABDOMEN: Soft, nondistended, nontender; no hepatosplenomegaly; bowel sounds active x 4. EXTREMITIES: No clubbing, cyanosis, or edema. SKIN: Normal; no rash; no jaundice. 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 EGD in 2014 --> Gastroesophageal reflux disease. Schatzki ring [id number], [id number] hiatal hernia. Modified barium swallow () --> THIS PATIENT IS CURRENTLY DEMONSTRATING MILD TO MODERATE ORAL PHASE AND MILD TO MODERATE PHARYNGEAL PHASE DYSPHAGIA. NO EPISODES OF ASPIRATION WERE PRESENT DURING THIS STUDY ALTHOUGH AIRWAY PENETRATION OF THIN LIQUID WAS PRESENT WITH ABSENT REFLEXIVE COUGH RESPONSE. DIMINISHED BOLUS PASSAGE WAS ALSO INTERMITTENTLY NOTED THROUGH THE UPPER ESOPHAGEAL SPHINCTER DUE TO NARROWING OF THE ESOPHAGEAL SEGMENT DUE TO EXTERNAL COMPRESSION FROM CERVICAL SPINAL CHANGES. Recommendations: 1. DUE TO ORAL, PHARYNGEAL, AND UPPER/LOWER ESOPHAGEAL DEFICITS, RECOMMEND DOWNGRADE OF ORAL DIET TO PUREED SOLIDS AND NECTAR THICK LIQUIDS. 2. MEDICATIONS PRESENTED CRUSHED IN PUREE. 3.CONSIDERATION OF POSSIBLE FEEDING TUBE PLACEMENT IS LIKELY STILL INDICATED DUE TO OVERALL DEGREE OF WEIGHT LOSS AND UNDERLYING ESOPHAGEAL DEFICITS THAT WILL CONTINUE TO IMPACT OVERALL PO INTAKE. Plan still remains for EGD with PEG tube on Tuesday. - ?Ileus vs small bowel obstruction- CT abdomen and pelvis with contrast (05/27 ) --> Mild dilation of several small bowel loops suggesting partial small bowel obstruction or ileus. Clinical correlation is recommended. Last BM was yesterday, reports chronic constipation with straining. Miralax. Pt does report having BM yesterday. Pt had NGT while in ER, has been discontinued per attending and will assess if pt can tolerate liquid diet. Repeat KUB. Plan - Repeat KUB - EGD with possible PEG tube placement on Tuesday - Heparin dc 8 hours prior to procedure - NPO after MN on Tuesday - Obtain consent - Diet- pureed solids and nectar thick liquids - Miralax 17gm at bedtime - Monitor stool count - Supportive care - Further recommendations to follow based on results of above Pt has been seen and examined by myself and Dr. Tarango and this note is written on his behalf Adrianna Arguello May 28, 2017 13:04
--- NOTE | 2017-05-28 13:59 | RADRPT ---
EXAM DATE/TIME: 05/28/2017 13:43 [facility] COMPARISON: CHEST SINGLE AP, May 27, 2017, 16:01. INDICATIONS : Patient complains of abdominal pain. Evaluate for ileus. MEDICAL HISTORY : None. SURGICAL HISTORY : None. ENCOUNTER: Initial ACUITY: 2 days PAIN SCORE: 7/10 LOCATION: Abdomen FINDINGS: Ingested oral contrast from barium swallow examination earlier today is noted extending to the colon. Slightly dilated focal loop of small bowel in the mid upper abdomen measuring up to 4.3 cm. No gross pneumatosis or free air. Osseous structures are intact. CONCLUSION: 1. Ingested oral contrast from earlier barium swallow examination now noted in the colon. There is a focally dilated loop of small bowel measuring up to 4.3 cm. This is nonspecific but may reflect focal ileus. Joaquin Day MD on May 28, 2017 at 13:54 Board Certified Radiologist. This report was verified electronically.
[2017-05-28 16:00] VITALS: BP 117/57; PULSE 80; RESP 16; TEMP 98.2; O2SAT 98
[2017-05-28] MEDS: AZITHROMYCIN INJ 500 MG in SODIUM CHLOR 0.9% 250 ML INJ 250 ML IV SCH (16:16)
[2017-05-28 20:00] VITALS: BP 118/57; PULSE 75; RESP 19; TEMP 99.2; O2SAT 97
[2017-05-29] VITALS (7 sets, daily range): BP systolic 109–130; BP diastolic 55–60; PULSE 72–74; RESP 16–19; TEMP 97.2–99.2; O2SAT 95–98
[2017-05-29] MEDS: RESP: ALBUTEROL 2.5 MG/IPRATROPIUM 0.5 MG NEB (SCH) NEB ×6 (00:56→21:12)
[2017-05-29] MEDS: guaiFENesin SOLUTION 200 MG/10 ML CUP PO SCH ×6 (02:41→21:45)
[2017-05-29] MEDS: SODIUM CHLOR 0.9% 1000 ML INJ 1,000 ML IV SCH ×2 (03:54→16:31)
[2017-05-29] MEDS: FAMOTIDINE 20 MG/2 ML VIAL IV PUSH SCH ×2 (03:54→16:30)
[2017-05-29] MEDS: CEFEPIME INJ 2,000 MG in SODIUM CHLORIDE 0.9% INJ 100 ML IV SCH ×2 (03:55→14:31)
[2017-05-29] MEDS: HEPARIN SODIUM - SQ 10,000 UNITS/ML VIAL SQ SCH ×3 (04:01→21:45)
[2017-05-29] MEDS: SODIUM CHLORIDE 0.9% FLUSH 10 ML FLUSH IV FLUSH SCH ×2 (08:12→21:47)
[2017-05-29] MEDS: POLYETHYLENE GLYCOL 17 GM PKG PO SCH (08:21)
[2017-05-29] MEDS: FINASTERIDE 5 MG TAB PO SCH (08:23)
[2017-05-29] MEDS: SUCRALFATE 1 GM/10 ML CUP PO SCH ×4 (08:23→22:55)
[2017-05-29] MEDS: METOPROLOL TARTRATE 25 MG TAB PO SCH ×2 (08:23→21:45)
[2017-05-29] MEDS: LISINOPRIL 5 MG TAB PO SCH (08:24)
--- NOTE | 2017-05-29 08:48 | HHI.PR ---
Subjective Remarks Note from Admission This is a pleasant 67 y/o male who has multiple evaluations in ER in this facility due to abdominal pain he also complaint recently of Urinary obstruction thought to be related to Urinary Tract infection given Keflex without improvement, continue with indwelling Wright Catheter, the patient has abdominal pain on his upper quadrants, non radiated 8/ 10 in intensity, associated Dysphagia, not able to eat but able to drink, he denies any nausea or vomit, no diarrhea, afebrile, denies chills, No melena or hematochezia, as we know he has CAD on Plavix and Aspirin, Anxiety disorder, Depression, hyperlipidemia, GERD, Hypertension, he is cachectic, has Dysphagia history of PEG insertion and removal. has an NG tube placed in ER but he is not having nausea or vomit, to remove NG tube and start him on liquid diet. follow recommendations by GI specialist. 05/28: Stable will go for Barium Swallow, as per nurse he was choking with liquid diet and was suspended, discussed with nurse no vomit or diarrhea. GI specialist following plan for EGD next 05/30/17 and probable PEG placement 05/29: Seen in his bedroom, added Ensure to his diet, will have EGD for tomorrow with probable PEG tube placement, No nausea, vomit or diarrhea, afebrile, no leukocytosis, doubt Pneumonia new CXR no pathology, has hematuria on new Urinalysis associated with his age more than 50 years of age and Tobacco smoker warranted to rule out Bladder cancer. asked for the expertise of Urology specialist for Input and recommendations. Objective Vital Signs Date Time Temp Pulse Resp B/P (MAP) Pulse Ox O2 Delivery O2 Flow Rate FiO2 05/29/17 08:00 97.2 74 16 113/56 (75) 96 05/29/17 04:00 98.6 05/29/17 00:00 99.1 73 19 109/55 (73) 96 05/28/17 20:00 99.2 75 19 118/57 (77) 97 05/28/17 16:00 98.2 80 16 117/57 (77) 98 05/28/17 12:00 98.4 73 16 114/54 (74) 97 I/O 05/28/17 05/28/17 05/28/17 05/29/17 05/29/17 05/29/17 07:00 15:00 23:00 07:00 15:00 23:00 Intake Total 1425 ml 0 ml 240 ml Output Total 325 ml 900 ml 800 ml Balance 1100 ml -900 ml -560 ml Intake Oral 325 ml 0 ml 240 ml IV Total 1100 ml Output Urine Total 325 ml 900 ml 800 ml # Bowel Movements 1 Result Diagram: 05/28/17 0514 05/28/17 0514 Imaging Last Impressions Modified Barium Swallow 05/28/17 0000 Signed Impressions: Service Date/Time: Sunday, May 28, 2017 00:00 - CONCLUSION: Minimal transient penetration of the supraglottic larynx without cee tracheal aspiration with thin barium only. Pooling in the paired valleculae and piriform sinuses and some delay in passage of all substances which appears to be related to relative narrowing of the upper esophagus secondary to anterior osteophytic spurring of the lower cervical spine. For full detailed report, see report by the speech pathologist. Dany La MD Abdomen X-Ray 05/28/17 0000 Signed Impressions: Service Date/Time: Sunday, May 28, 2017 13:43 - CONCLUSION: 1. Ingested oral contrast from earlier barium swallow examination now noted in the colon. There is a focally dilated loop of small bowel measuring up to 4.3 cm. This is nonspecific but may reflect focal ileus. Joaquin Day MD Chest X-Ray 05/27/17 1456 Signed Impressions: Service Date/Time: Saturday, May 27, 2017 16:01 - CONCLUSION: No acute disease. No significant change has occurred. Kody Sultana MD Scrotum Ultrasound 05/27/17 0000 Signed Impressions: Service Date/Time: Saturday, May 27, 2017 10:28 - CONCLUSION: 1. Large complex hydrocele with debris and septations. 2. Small right hydrocele 3. Bilateral small epididymal cysts. 4. Both testicles are within normal limits. Kody Sultana MD Abdomen/Pelvis CT 05/27/17 0000 Signed Impressions: Service Date/Time: Saturday, May 27, 2017 12:34 - CONCLUSION: 1. Posterior bibasilar patchy opacities consistent with probable pneumonia. Clinical correlation is recommended. 2. Scattered emphysematous changes within the visualized lung bases. 3. Markedly enlarged prostate. 4. Mild dilatation of several small bowel loops suggesting partial small bowel obstruction or ileus. Clinical correlation is recommended. 5. Calcified nonobstructing left renal calculi. Dany La MD Procedures Modified Barium Swallow 05/28/17 Other Results Laboratory Tests Test 05/27/17 10:15 05/27/17 10:20 05/27/17 10:26 05/28/17 05:14 Prothrombin Time 11.7 SEC Prothromb Time International Ratio 1.2 RATIO Activated Partial Thromboplast Time 39.7 SEC Urine Color BROWN Urine Turbidity CLOUDY Urine pH 5.5 Urine Specific [place] 1.019 Urine Protein 30 mg/dL Urine Glucose (UA) NEG mg/dL Urine Ketones TRACE mg/dL Urine Occult Blood LARGE Urine Nitrite NEG Urine Bilirubin NEG Urine Urobilinogen 2.0 MG/DL Urine Leukocyte Esterase TRACE Urine RBC /hpf Urine WBC 1 /hpf Urine Mucus FEW /lpf Microscopic Urinalysis Comment CULT NOT INDICATED Urine Opiates Screen NEG Urine Barbiturates Screen NEG Urine Amphetamines Screen NEG Urine Benzodiazepines Screen NEG Urine Cocaine Screen NEG Urine Cannabinoids Screen NEG White Blood Count 10.4 TH/MM3 Red Blood Count 3.83 MIL/MM3 Hemoglobin 11.7 GM/DL Hematocrit 35.5 % Mean Corpuscular Volume 92.9 FL Mean Corpuscular Hemoglobin 30.5 PG Mean Corpuscular Hemoglobin Concent 32.9 % Red Cell Distribution Width 15.4 % Platelet Count 316 TH/MM3 Mean Platelet Volume 9.2 FL Neutrophils (%) (Auto) 81.7 % Lymphocytes (%) (Auto) 10.3 % Monocytes (%) (Auto) 6.4 % Eosinophils (%) (Auto) 0.9 % Basophils (%) (Auto) 0.7 % Neutrophils # (Auto) 8.5 TH/MM3 Lymphocytes # (Auto) 1.1 TH/MM3 Monocytes # (Auto) 0.7 TH/MM3 Eosinophils # (Auto) 0.1 TH/MM3 Basophils # (Auto) 0.1 TH/MM3 CBC Comment DIFF FINAL Differential Comment Blood Urea Nitrogen 7 MG/DL Creatinine 0.51 MG/DL Random Glucose 82 MG/DL Total Protein 6.4 GM/DL Albumin 2.4 GM/DL Calcium Level 8.4 MG/DL Alkaline Phosphatase 86 U/L Aspartate Amino Transf (AST/SGOT) 12 U/L Alanine Aminotransferase (ALT/SGPT) 9 U/L Total Bilirubin 0.5 MG/DL Sodium Level 139 MEQ/L Potassium Level 4.1 MEQ/L Chloride Level 107 MEQ/L Carbon Dioxide Level 26.4 MEQ/L Anion Gap 6 MEQ/L Estimat Glomerular Filtration Rate 196 ML/MIN Hemoglobin A1c 4.9 % Triglycerides Level 95 MG/DL Cholesterol Level 102 MG/DL LDL Cholesterol 45 MG/DL HDL Cholesterol 38.4 MG/DL Cholesterol/HDL Ratio 2.65 RATIO Vitamin B12 Level 313 PG/ML Folate 9.7 NG/ML Thyroid Stimulating Hormone 3rd Gen 0.498 uIU/ML Objective Remarks GENERAL: No acute distress. SKIN: Cachectic patient in no acute distress. HEAD: Atraumatic. Normocephalic. EYES: Pupils equal and round. No scleral icterus. No injection or drainage. ENT: No nasal bleeding or discharge. Mucous membranes pink and moist. Edentulous. NECK: Trachea midline. No JVD. CARDIOVASCULAR: Regular rate and rhythm. I/ murmur RESPIRATORY: No accessory muscle use. Clear to auscultation. Breath sounds equal bilaterally. GASTROINTESTINAL: Abdomen soft, tender to palpation diffusely, nondistended. MUSCULOSKELETAL: Extremities without clubbing, cyanosis, or edema. No obvious deformities. NEUROLOGICAL: Awake and alert. No obvious cranial nerve deficits. Motor grossly within normal limits. Five out of 5 muscle strength in the arms and legs. Normal speech. PSYCHIATRIC: Appropriate mood and affect; insight and judgment normal. Medications and IVs Current Medications Medications (Trade) Dose Ordered Sig/Marilee Route Start Time Stop Time Status Last Admin Sodium Chloride 1,000 ml @ 100 mls/hr Q10H IV 05/27/17 15:30 05/29/17 03:54 (NS Flush) 2 ml UNSCH PRN IV FLUSH 05/27/17 15:00 (NS Flush) 2 ml BID IV FLUSH 05/27/17 21:00 05/28/17 21:54 (Tylenol) 650 mg Q4H PRN PO 05/27/17 15:00 (Zofran Inj) 4 mg Q6H PRN IVP 05/27/17 15:00 (Narcan Inj) 0.4 mg UNSCH PRN IV PUSH 05/27/17 15:00 (Senokot) 17.2 mg Q12H PRN PO 05/27/17 15:00 (Dulcolax Supp) 10 mg DAILY PRN RECTAL 05/27/17 15:00 (Lactulose Liq) 30 ml DAILY PRN PO 05/27/17 15:00 Cefepime HCl 2000 mg/Sodium Chloride 100 ml @ 200 mls/hr Q12H IV 05/28/17 03:00 05/29/17 03:55 Azithromycin 500 mg/Sodium Chloride 250 ml @ 250 mls/hr Q24H IV 05/27/17 17:00 05/28/17 16:16 (Proscar) 5 mg DAILY PO 05/28/17 09:00 05/29/17 08:23 (Lopressor) 25 mg BID PO 05/27/17 21:00 05/29/17 08:23 (Prinivil) 2.5 mg DAILY PO 05/28/17 09:00 05/29/17 08:24 (Pill Splitter) 1 ea UNSCH PRN OTHER 05/27/17 16:00 (Pepcid Inj) 20 mg Q12H IV PUSH 05/27/17 16:00 05/29/17 03:54 (Carafate Liq) 1 gm ACHS PO 05/27/17 17:00 05/29/17 08:23 (Heparin Inj) 5,000 units Q8HR SQ 05/27/17 16:15 05/29/17 04:01 (Duoneb Neb) 1 ampule Q4HR NEB NEB 05/27/17 20:00 05/29/17 08:21 (Miralax) 17 gm DAILY PO 05/28/17 09:00 (Robitussin Liq) 200 mg Q4HR PO 05/28/17 04:00 05/29/17 08:23 A/P Assessment and Plan 1. Abdominal pain and Dysphagia associated with unintentional weight loss, not eating but drinking liquids will need to rule out GI malignancy, has chronic Dysphagia GI specialist will perform EGD next 05/30/17 and probable PEG tube placement if indicated. 2. Ileus as per new KUB GI specialist following. 3. CAD status post CABG will start Lovenox for DVT prophylaxis, Plavix and Aspirin on hold for procedure 4. Anxiety disorder/Depression to continue Home medicines. 5. Gastroesophageal Reflux disease on Famotidine and Carafate 6. Hyperlipidemia on hold Statins by now until his GI problem is clarified. 7. Hypertension controlled on home medicines. 8. questionable COPD/Pneumonia on antibiotics, follow blood culture, legionella antigen, Pneumococcal antigen Bronchodilator, Mucolytic and incentive spirometry 9. Cachexia, consult dietitian, start diet added Ensure. 10. Tobacco dependence strongly recommended to stop smoking. 11. Hematuria/Tobacco dependence/>49 years of age, consult Urology to rule out Urothelial Carcinoma. will follow Input and recommendations by specialist. Follow Echocardiogram Follow laboratory and blood cultures. Dietitian consult, PT, community case manager, GI specialist, speech therapy, Urology specialist consult Modified Barium swallow for today continue antibiotics by now Code Status Full code Discussed Condition With Patient and nurse Miss Tinoco Discharge Planning Once cleared by specialists Jonnie Sexton MD May 29, 2017 08:48
--- NOTE | 2017-05-29 09:56 | PD.CONS ---
[facility] Service Urology Consult Requested By Dr. Delta Otero Reason for Consult Gross hematuria Primary Care Physician Mychal Gregory D.O. Diagnosis: History of Present Illness 67 year-old gentleman with multiple medical problems who was admitted for further workup and management of upper abdominal pain and dysphagia. Gross hematuria was noted via the previously inserted Wright catheter and a urology consult was placed. Patient has been managed with an indwelling Wright catheter since April of this year. The catheter was initially placed in the emergency room for urinary retention and arrangements made for follow up urologic evaluation. The patient reports that prior to April of this year he had been voiding spontaneously without any problems. His last PSA reading from June of this year was 2.0. I actually saw this gentleman to my office on May 20 of this year and evaluation included a digital rectal exam that demonstrated a markedly enlarged prostate. The patient's indwelling Wright catheter was replaced and he was to be scheduled for cystoscopy with possible TURP once medically cleared. At the time of the present consultation the Wright catheter was draining light red urine without clots. A CT scan study was performed during present hospitalization that demonstrated a markedly enlarged prostate and a small nonobstructing left renal calculus. There were also changes consistent with possible pneumonia and partial small bowel obstruction. Review of Systems Constitutional: DENIES: Fever Cardiovascular: DENIES: Chest pain Gastrointestinal: COMPLAINS OF: Abdominal pain (upper abdomen), Difficulty Swallowing Genitourinary: COMPLAINS OF: Hematuria Musculoskeletal: DENIES: Back pain Except as stated in HPI: all other systems reviewed are Neg Past Family Social History Past Medical History Coronary artery disease COPD Hypertension Peripheral vascular disease GERD Anxiety/depression Past Surgical History Status post CABG 2000 Status post peripheral vascular surgery 2008 Status post cardiac angiography with stent placement April 2015 History PEG tube insertion and subsequent removal Reported Medications Refer to EMR Allergies: Coded Allergies: No Known Allergies (Verified Adverse Reaction, Unknown, 05/27/17) Active Ordered Medications Refer to EMR Family History Coronary artery disease Colon cancer No family history urologic disorders Social History [facility] smoker 1 pack per day History alcohol abuse Physical Exam Vital Signs Date Time Temp Pulse Resp B/P (MAP) Pulse Ox O2 Delivery O2 Flow Rate FiO2 05/29/17 08:00 97.2 74 16 113/56 (75) 96 05/29/17 04:00 98.6 05/29/17 00:00 99.1 73 19 109/55 (73) 96 05/28/17 20:00 99.2 75 19 118/57 (77) 97 05/28/17 16:00 98.2 80 16 117/57 (77) 98 05/28/17 12:00 98.4 73 16 114/54 (74) 97 Physical Exam GENERAL: This is a well-nourished, well-developed patient, in no apparent distress. SKIN: No rashes, ecchymoses or lesions. Cool and dry. HEAD: Atraumatic. Normocephalic. No temporal or scalp tenderness. EYES: Pupils equal round and reactive. Extraocular motions intact. No scleral icterus. No injection or drainage. ENT: Nose without bleeding, purulent drainage or septal hematoma. Throat without erythema, tonsillar hypertrophy or exudate. Uvula midline. Airway patent. NECK: Trachea midline. No JVD or lymphadenopathy. Supple, nontender, no meningeal signs. GASTROINTESTINAL: Abdomen soft, non-tender, nondistended. No hepato-splenomegaly , or palpable masses. No guarding. GENITOURINARY: Bladder not distended, indwelling Wright catheter draining light red urine without clots MUSCULOSKELETAL: Extremities without clubbing, cyanosis, or edema. No joint tenderness, effusion, or edema noted. No calf tenderness. Negative Homans sign bilaterally. NEUROLOGICAL: Awake and alert. Cranial nerves II through XII intact. Motor and sensory grossly within normal limits. Five out of 5 muscle strength in all muscle groups. Normal speech. Lab results reviewed: Yes Date/Time Source Procedure Growth Status 05/27/17 15:15 Blood Peripheral Aerobic Blood Culture - Preliminary NO GROWTH IN 1 DAY Resulted 05/27/17 15:15 Blood Peripheral Anaerobic Blood Culture - Preliminary NO GROWTH IN 1 DAY Resulted 05/27/17 10:26 Urine Clean Catch Legionella Antigen - Final PRESUMPTIVE NEGATIVE FOR LEGIONELLA P... Complete 05/27/17 10:26 Urine Clean Catch Streptococcus pneumoniae Antigen (M - Final PRESUMPTIVE NEGATIVE FOR STREPTOCOCCU... Complete Result Diagram: 05/28/17 0514 05/28/17 0514 Personally reviewed images: Yes Imaging Last Impressions Modified Barium Swallow 05/28/17 0000 Signed Impressions: Service Date/Time: Sunday, May 28, 2017 00:00 - CONCLUSION: Minimal transient penetration of the supraglottic larynx without cee tracheal aspiration with thin barium only. Pooling in the paired valleculae and piriform sinuses and some delay in passage of all substances which appears to be related to relative narrowing of the upper esophagus secondary to anterior osteophytic spurring of the lower cervical spine. For full detailed report, see report by the speech pathologist. Dany La MD Abdomen X-Ray 05/28/17 0000 Signed Impressions: Service Date/Time: Sunday, May 28, 2017 13:43 - CONCLUSION: 1. Ingested oral contrast from earlier barium swallow examination now noted in the colon. There is a focally dilated loop of small bowel measuring up to 4.3 cm. This is nonspecific but may reflect focal ileus. Joaquin Day MD Chest X-Ray 05/27/17 1456 Signed Impressions: Service Date/Time: Saturday, May 27, 2017 16:01 - CONCLUSION: No acute disease. No significant change has occurred. Kody Sultana MD Scrotum Ultrasound 05/27/17 0000 Signed Impressions: Service Date/Time: Saturday, May 27, 2017 10:28 - CONCLUSION: 1. Large complex hydrocele with debris and septations. 2. Small right hydrocele 3. Bilateral small epididymal cysts. 4. Both testicles are within normal limits. Kody Sultana MD Abdomen/Pelvis CT 05/27/17 0000 Signed Impressions: Service Date/Time: Saturday, May 27, 2017 12:34 - CONCLUSION: 1. Posterior bibasilar patchy opacities consistent with probable pneumonia. Clinical correlation is recommended. 2. Scattered emphysematous changes within the visualized lung bases. 3. Markedly enlarged prostate. 4. Mild dilatation of several small bowel loops suggesting partial small bowel obstruction or ileus. Clinical correlation is recommended. 5. Calcified nonobstructing left renal calculi. Dany La MD Assessment and Plan Assessment and Plan Urologic impression: #1 urinary retention rule out obstructing BPH #2 gross hematuria (resolving) of indeterminate etiology and may be related to BPH although other causes need to be ruled out Recommendations: #1 continue with indwelling Wright catheter to gravity drainage #2 will require further urologic workup and management to include cystoscopy and possibly a TURP when medically stable #3 nothing further to add at this time. Bowen Villa MD May 29, 2017 09:56
--- NOTE | 2017-05-29 13:43 | HHI.GIFU ---
Subjective Remarks Patient resting in bed in no apparent distress. Family at bedside. States he had loose brown stool this morning. Denies abdominal pain. Denies nausea or vomiting. Objective Vitals I&O Vital Signs Date Time Temp Pulse Resp B/P (MAP) Pulse Ox O2 Delivery O2 Flow Rate FiO2 05/29/17 12:00 97.5 73 16 116/56 (76) 97 05/29/17 08:00 97.2 74 16 113/56 (75) 96 05/29/17 04:00 98.6 05/29/17 00:00 99.1 73 19 109/55 (73) 96 05/28/17 20:00 99.2 75 19 118/57 (77) 97 05/28/17 16:00 98.2 80 16 117/57 (77) 98 I/O 05/28/17 05/28/17 05/28/17 05/29/17 05/29/17 05/29/17 07:00 15:00 23:00 07:00 15:00 23:00 Intake Total 1425 ml 0 ml 240 ml Output Total 325 ml 900 ml 800 ml Balance 1100 ml -900 ml -560 ml Intake Oral 325 ml 0 ml 240 ml IV Total 1100 ml Output Urine Total 325 ml 900 ml 800 ml # Bowel Movements 1 Laboratory Date/Time Source Procedure Growth Status 05/27/17 15:15 Blood Peripheral Aerobic Blood Culture - Preliminary NO GROWTH IN 2 DAYS Resulted 05/27/17 15:15 Blood Peripheral Anaerobic Blood Culture - Preliminary NO GROWTH IN 2 DAYS Resulted 05/27/17 10:26 Urine Clean Catch Legionella Antigen - Final PRESUMPTIVE NEGATIVE FOR LEGIONELLA P... Complete 05/27/17 10:26 Urine Clean Catch Streptococcus pneumoniae Antigen (M - Final PRESUMPTIVE NEGATIVE FOR STREPTOCOCCU... Complete Imaging Last Impressions Modified Barium Swallow 05/28/17 0000 Signed Impressions: Service Date/Time: Sunday, May 28, 2017 00:00 - CONCLUSION: Minimal transient penetration of the supraglottic larynx without cee tracheal aspiration with thin barium only. Pooling in the paired valleculae and piriform sinuses and some delay in passage of all substances which appears to be related to relative narrowing of the upper esophagus secondary to anterior osteophytic spurring of the lower cervical spine. For full detailed report, see report by the speech pathologist. Dany La MD Abdomen X-Ray 05/28/17 0000 Signed Impressions: Service Date/Time: Sunday, May 28, 2017 13:43 - CONCLUSION: 1. Ingested oral contrast from earlier barium swallow examination now noted in the colon. There is a focally dilated loop of small bowel measuring up to 4.3 cm. This is nonspecific but may reflect focal ileus. Joaquin Day MD Chest X-Ray 05/27/17 1456 Signed Impressions: Service Date/Time: Saturday, May 27, 2017 16:01 - CONCLUSION: No acute disease. No significant change has occurred. Kody Sultana MD Scrotum Ultrasound 05/27/17 0000 Signed Impressions: Service Date/Time: Saturday, May 27, 2017 10:28 - CONCLUSION: 1. Large complex hydrocele with debris and septations. 2. Small right hydrocele 3. Bilateral small epididymal cysts. 4. Both testicles are within normal limits. Kody Sultana MD Abdomen/Pelvis CT 05/27/17 0000 Signed Impressions: Service Date/Time: Saturday, May 27, 2017 12:34 - CONCLUSION: 1. Posterior bibasilar patchy opacities consistent with probable pneumonia. Clinical correlation is recommended. 2. Scattered emphysematous changes within the visualized lung bases. 3. Markedly enlarged prostate. 4. Mild dilatation of several small bowel loops suggesting partial small bowel obstruction or ileus. Clinical correlation is recommended. 5. Calcified nonobstructing left renal calculi. Dany La MD Physical Exam HEENT: Normocephalic; atraumatic CHEST: CTA CARDIAC: RRR ABDOMEN: Soft, nondistended, nontender; no hepatosplenomegaly; bowel sounds active x 4. EXTREMITIES: No clubbing, cyanosis, or edema. SKIN: Normal; no rash; no jaundice. DIRECTOR OF FOOD AND NUTRITION: No focal deficits; alert and oriented times three. 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 EGD in 2014 --> Gastroesophageal reflux disease. Schatzki ring [id number], [id number] hiatal hernia. Modified barium swallow () --> THIS PATIENT IS CURRENTLY DEMONSTRATING MILD TO MODERATE ORAL PHASE AND MILD TO MODERATE PHARYNGEAL PHASE DYSPHAGIA. NO EPISODES OF ASPIRATION WERE PRESENT DURING THIS STUDY ALTHOUGH AIRWAY PENETRATION OF THIN LIQUID WAS PRESENT WITH ABSENT REFLEXIVE COUGH RESPONSE. DIMINISHED BOLUS PASSAGE WAS ALSO INTERMITTENTLY NOTED THROUGH THE UPPER ESOPHAGEAL SPHINCTER DUE TO NARROWING OF THE ESOPHAGEAL SEGMENT DUE TO EXTERNAL COMPRESSION FROM CERVICAL SPINAL CHANGES. Recommendations: 1. DUE TO ORAL, PHARYNGEAL, AND UPPER/LOWER ESOPHAGEAL DEFICITS, RECOMMEND DOWNGRADE OF ORAL DIET TO PUREED SOLIDS AND NECTAR THICK LIQUIDS. 2. MEDICATIONS PRESENTED CRUSHED IN PUREE. 3.CONSIDERATION OF POSSIBLE FEEDING TUBE PLACEMENT IS LIKELY STILL INDICATED DUE TO OVERALL DEGREE OF WEIGHT LOSS AND UNDERLYING ESOPHAGEAL DEFICITS THAT WILL CONTINUE TO IMPACT OVERALL PO INTAKE. - ?Ileus vs small bowel obstruction- CT abdomen and pelvis with contrast (05/27 ) --> Mild dilation of several small bowel loops suggesting partial small bowel obstruction or ileus. Clinical correlation is recommended. Miralax. Pt had NGT while in ER, has been discontinued per attending and will assess if pt can tolerate liquid diet. 05/29/17--Patient reports BM x 1 today that was loose and brown in color. No abdominal pain, no nausea or vomiting. Tolerating diet. KUB 05/28/17--1. Ingested oral contrast from earlier barium swallow examination now noted in the colon. There is a focally dilated loop of small bowel measuring up to 4.3 cm. This is nonspecific but may reflect focal ileus. HH 11.7/35.5 yesterday. Plan - EGD with possible PEG tube placement on Tuesday - Heparin dc 8 hours prior to procedure - NPO after MN on tonight - Diet- pureed solids and nectar thick liquids - Miralax 17gm at bedtime - Monitor stool count - Supportive care - Further recommendations to follow based on results of above Patient seen and examined by Dr. Tarango and myself and this note is written on his behalf. Thao Porras May 29, 2017 13:43
[2017-05-29] MEDS: AZITHROMYCIN INJ 500 MG in SODIUM CHLOR 0.9% 250 ML INJ 250 ML IV SCH (16:31)
[2017-05-29] MEDS ORDERED: LACTATED RINGER'S 1000 ML IV PRN (22:15)
[2017-05-30] VITALS (9 sets, daily range): BP systolic 123–163; BP diastolic 61–72; PULSE 64–82; RESP 16–20; TEMP 96.3–98.2; O2SAT 95–98
[2017-05-30] MEDS: guaiFENesin SOLUTION 200 MG/10 ML CUP PO SCH ×7 (00:46→23:27)
[2017-05-30] MEDS: RESP: ALBUTEROL 2.5 MG/IPRATROPIUM 0.5 MG NEB (SCH) NEB ×6 (01:18→19:10)
[2017-05-30] MEDS: SODIUM CHLOR 0.9% 1000 ML INJ 1,000 ML IV SCH ×3 (05:03→20:33)
[2017-05-30] MEDS: HEPARIN SODIUM - SQ 10,000 UNITS/ML VIAL SQ SCH ×4 (05:03→20:34)
[2017-05-30] MEDS: FAMOTIDINE 20 MG/2 ML VIAL IV PUSH SCH ×2 (05:05→16:29)
[2017-05-30] MEDS: CEFEPIME INJ 2,000 MG in SODIUM CHLORIDE 0.9% INJ 100 ML IV SCH ×2 (05:05→14:04)
[2017-05-30] MEDS: SUCRALFATE 1 GM/10 ML CUP PO SCH ×4 (08:00→21:32)
[2017-05-30] MEDS: POLYETHYLENE GLYCOL 17 GM PKG PO SCH (09:00)
[2017-05-30] MEDS: SODIUM CHLORIDE 0.9% FLUSH 10 ML FLUSH IV FLUSH SCH ×2 (09:00→19:11)
--- NOTE | 2017-05-30 11:05 | GIPROC ---
[facility] [address] [facility]. [facility], [address] EGD WITH PEG PROCEDURE REPORT EXAM DATE: 05/30/2017 PATIENT NAME: Bobby León MR#: [id number] BIRTHDATE: 1950 ATTENDING: Kyra Koch MD ORDER #: [id number] ADVOCACY DIRECTOR: Jaki Alonso and Cristina Riley STATUS: inpatient INDICATIONS: The patient is a 67 yr old male here for an EGD with PEG due to placement of PEG PROCEDURE PERFORMED: EGD with PEG placement MEDICATIONS: None and Per Anesthesia. TOPICAL ANESTHETIC: none CONSENT: The patient understands the risks and benefits of the procedure and understands that these risks include, but are not limited to: sedation, allergic reaction, infection, perforation and/or bleeding. Alternative means of evaluation and treatment include, among others: physical exam, x-rays, and/or surgical intervention. The patient elects to proceed with this endoscopic procedure. medical equipment was checked for proper function. Hand hygiene and appropriate measures for infection prevention was taken. After the risks, benefits and alternatives of the procedure were thoroughly explained, Informed consent was verified, confirmed and timeout was successfully executed by the treatment team. The patient was anesthetized with topical anesthesia and the Pentax EG-2770K endoscope was introduced through the mouth and advanced to the second portion of the duodenum. The instrument was slowly withdrawn as the mucosa was fully examined. The upper, middle, and distal third of the esophagus were carefully inspected and no abnormalities were noted. The z-line was well seen at the GEJ. The endoscope was pushed into the fundus which was normal including a retroflexed view. The antrum, first and second part of the duodenum were unremarkable. Image was stored via computer. The stomach was then inflated with air, and by a combination of transillumination and manual palpation, the site for the gastrostomy tube placement was selected and marked on the anterior abdominal wall. The skin of the anterior abdomen was surgically prepped and draped with sterile towels. Utilizing strict sterile technique, the selected site was then anesthetized with 1% xylocaine by injection into the skin and subcutaneous tissue. A 1 cm incision was made through the skin and subcutaneous tissue, and the needle/cannula assembly was then passed through the abdominal wall and through the anterior wall of the stomach, maintaining visualization with the endoscope. A snare device previously placed through the instrument channel was then opened and placed around the cannula, the needle was removed, and the insertion wire was passed through the cannula and into the stomach lumen. The snare was then loosened from the cannula, and repositioned to snare the insertion wire. The snare was then pulled up to the endoscope distal tip, and the scope was then withdrawn bringing with it the snare and insertion wire. The insertion wire was then released from the snare, and then loop-attached to the Bard 20 Fr gastrostomy tube. Using the "pull technique", the G-tube was then pulled into place by traction on the insertion wire at the abdominal wall end. The G-tube insertion site was then cleansed once again, and the external bolster was placed over the tube to secure it to the abdominal wall. A sterile dressing was then applied, and the procedure terminated. no abnormalities The gastroscope was then slowly withdrawn and removed. ADVERSE EVENT: There were no complications. IMPRESSIONS: 1. The upper, middle, and distal third of the esophagus were carefully inspected and no abnormalities were noted. The z-line was well seen at the GEJ. The endoscope was pushed into the fundus which was normal including a retroflexed view. The antrum, first and second part of the duodenum were unremarkable. 2. PEG tube placed successfully RECOMMENDATIONS: PEG recomendations: 1- NPO for 6 hours except for meds 2- Flush PEG tube every 6 hours with water and after each PEG feeding 3- May resume regular diet in the morning 4- May use Ensure or Boost etc. for PEG tube feeding REPEAT EXAM: procedure as needed Kyra Koch MD eSigned: Kyra Koch MD 05/30/2017 11:04 AM cc: PATIENT NAME: Bobby León MR#: [id number]
[2017-05-30] MEDS ORDERED: DO NOT ADM ANY ANTICOAGULANT DRUGS PRN (12:30)
--- NOTE | 2017-05-30 12:47 | HHI.PR ---
Subjective Remarks This is a pleasant 67 y/o male who has multiple evaluations in ER in this facility due to abdominal pain he also complaint recently of Urinary obstruction thought to be related to Urinary Tract infection given Keflex without improvement, continue with indwelling Verde Catheter, the patient has abdominal pain on his upper quadrants, non radiated 8/ 10 in intensity, associated Dysphagia, not able to eat but able to drink, he denies any nausea or vomit, no diarrhea, afebrile, denies chills, No melena or hematochezia, as we know he has CAD on Plavix and Aspirin, Anxiety disorder, Depression, hyperlipidemia, GERD, Hypertension, he is cachectic, has Dysphagia history of PEG insertion and removal. has an NG tube placed in ER but he is not having nausea or vomit, to remove NG tube and start him on liquid diet. follow recommendations by GI specialist. 05/28: Stable will go for Barium Swallow, as per nurse he was choking with liquid diet and was suspended, discussed with nurse no vomit or diarrhea. GI specialist following plan for EGD next 05/30/17 and probable PEG placement 05/29: Seen in his bedroom, added Ensure to his diet, will have EGD for tomorrow with probable PEG tube placement, No nausea, vomit or diarrhea, afebrile, no leukocytosis, doubt Pneumonia new CXR no pathology, has hematuria on new Urinalysis associated with his age more than 50 years of age and Tobacco smoker warranted to rule out Bladder cancer. asked for the expertise of Urology specialist for Input and recommendations. 05-30 PATIENT HAD PEG TUBE PLACED TODAY BY GI SEEN BY UROLOGY CONTINUE VERDE MAY NEED CYSTOSCOPY IN FUTURE DW RN AND PT Objective Vitals Vital Signs Date Time Temp Pulse Resp B/P (MAP) Pulse Ox O2 Delivery O2 Flow Rate FiO2 05/30/17 11:15 97.0 97 20 100/63 (75) 97 05/30/17 11:15 97 Nasal Cannula 3 05/30/17 08:00 98.0 72 17 134/61 (85) 95 05/30/17 07:35 95 21 05/30/17 05:13 97 21 05/30/17 04:27 05/30/17 01:19 98 21 05/30/17 00:00 98.0 78 16 123/62 (82) 97 05/29/17 21:39 97.9 74 18 130/60 (83) 96 05/29/17 21:14 98 21 05/29/17 16:00 99.2 72 16 116/56 (76) 95 I/O 05/29/17 05/29/17 05/29/17 05/30/17 05/30/17 05/30/17 07:00 15:00 23:00 07:00 15:00 23:00 Intake Total 240 ml 500 ml Output Total 800 ml 600 ml 1100 ml Balance -560 ml -100 ml -1100 ml Intake Oral 240 ml 500 ml Output Urine Total 800 ml 600 ml 1100 ml # Bowel Movements 1 Result Diagram: 05/28/17 0514 05/28/17 0514 Other Results Laboratory Tests Test 05/28/17 05:14 White Blood Count 10.4 TH/MM3 Red Blood Count 3.83 MIL/MM3 Hemoglobin 11.7 GM/DL Hematocrit 35.5 % Mean Corpuscular Volume 92.9 FL Mean Corpuscular Hemoglobin 30.5 PG Mean Corpuscular Hemoglobin Concent 32.9 % Red Cell Distribution Width 15.4 % Platelet Count 316 TH/MM3 Mean Platelet Volume 9.2 FL Neutrophils (%) (Auto) 81.7 % Lymphocytes (%) (Auto) 10.3 % Monocytes (%) (Auto) 6.4 % Eosinophils (%) (Auto) 0.9 % Basophils (%) (Auto) 0.7 % Neutrophils # (Auto) 8.5 TH/MM3 Lymphocytes # (Auto) 1.1 TH/MM3 Monocytes # (Auto) 0.7 TH/MM3 Eosinophils # (Auto) 0.1 TH/MM3 Basophils # (Auto) 0.1 TH/MM3 CBC Comment DIFF FINAL Differential Comment Blood Urea Nitrogen 7 MG/DL Creatinine 0.51 MG/DL Random Glucose 82 MG/DL Total Protein 6.4 GM/DL Albumin 2.4 GM/DL Calcium Level 8.4 MG/DL Alkaline Phosphatase 86 U/L Aspartate Amino Transf (AST/SGOT) 12 U/L Alanine Aminotransferase (ALT/SGPT) 9 U/L Total Bilirubin 0.5 MG/DL Sodium Level 139 MEQ/L Potassium Level 4.1 MEQ/L Chloride Level 107 MEQ/L Carbon Dioxide Level 26.4 MEQ/L Anion Gap 6 MEQ/L Estimat Glomerular Filtration Rate 196 ML/MIN Hemoglobin A1c 4.9 % Triglycerides Level 95 MG/DL Cholesterol Level 102 MG/DL LDL Cholesterol 45 MG/DL HDL Cholesterol 38.4 MG/DL Cholesterol/HDL Ratio 2.65 RATIO Vitamin B12 Level 313 PG/ML Folate 9.7 NG/ML Thyroid Stimulating Hormone 3rd Gen 0.498 uIU/ML Hepatitis A IgM Antibody NEGATIVE Hepatitis B Surface Antigen NEGATIVE Hepatitis B Core IgM Antibody NEGATIVE Hepatitis C Antibody NEGATIVE HIV (1&2) Antibody NEGATIVE Imaging Last Impressions Modified Barium Swallow 05/28/17 0000 Signed Impressions: Service Date/Time: Sunday, May 28, 2017 00:00 - CONCLUSION: Minimal transient penetration of the supraglottic larynx without cee tracheal aspiration with thin barium only. Pooling in the paired valleculae and piriform sinuses and some delay in passage of all substances which appears to be related to relative narrowing of the upper esophagus secondary to anterior osteophytic spurring of the lower cervical spine. For full detailed report, see report by the speech pathologist. Dany La MD Abdomen X-Ray 05/28/17 0000 Signed Impressions: Service Date/Time: Sunday, May 28, 2017 13:43 - CONCLUSION: 1. Ingested oral contrast from earlier barium swallow examination now noted in the colon. There is a focally dilated loop of small bowel measuring up to 4.3 cm. This is nonspecific but may reflect focal ileus. Joaquin Day MD Chest X-Ray 05/27/17 1456 Signed Impressions: Service Date/Time: Saturday, May 27, 2017 16:01 - CONCLUSION: No acute disease. No significant change has occurred. Kody Sultana MD Scrotum Ultrasound 05/27/17 0000 Signed Impressions: Service Date/Time: Saturday, May 27, 2017 10:28 - CONCLUSION: 1. Large complex hydrocele with debris and septations. 2. Small right hydrocele 3. Bilateral small epididymal cysts. 4. Both testicles are within normal limits. Kody Sultana MD Abdomen/Pelvis CT 05/27/17 0000 Signed Impressions: Service Date/Time: Saturday, May 27, 2017 12:34 - CONCLUSION: 1. Posterior bibasilar patchy opacities consistent with probable pneumonia. Clinical correlation is recommended. 2. Scattered emphysematous changes within the visualized lung bases. 3. Markedly enlarged prostate. 4. Mild dilatation of several small bowel loops suggesting partial small bowel obstruction or ileus. Clinical correlation is recommended. 5. Calcified nonobstructing left renal calculi. Dany La MD Objective Remarks GENERAL: Very cachectic male in no acute distress at this time SKIN: Warm and dry. HEAD: Atraumatic. Normocephalic. EYES: Pupils equal and round. No scleral icterus. No injection or drainage. Extraocular muscles intact ENT: No nasal bleeding or discharge. Mucous membranes pink and moist. Tongue is midline NECK: Trachea midline. No JVD. Supple CARDIOVASCULAR: Regular rate and rhythm. S1 and S2 no S3-S4 no heave or thrill or rub or gallop RESPIRATORY: No accessory muscle use. Clear to auscultation. Breath sounds equal bilaterally. GASTROINTESTINAL: Abdomen soft, non-tender, nondistended. Hepatic and splenic margins not palpable. PEG tube in place some tenderness around the site MUSCULOSKELETAL: Extremities without clubbing, cyanosis, or edema. No obvious deformities. NEUROLOGICAL: Awake and alert. No obvious cranial nerve deficits. Motor grossly within normal limits. 4 out of 5 muscle strength in the arms and legs. Normal speech. PSYCHIATRIC: Appropriate mood and affect; insight and judgment normal. We'll need aggressive physical therapy and occupational therapy Procedures EGD WITH PEG PROCEDURE REPORT EXAM DATE: 05/30/2017 PATIENT NAME: Bobby León MR#: [id number] BIRTHDATE: 1950 ATTENDING: Kyra Koch MD ORDER #: [id number] PEDIATRIC SURGEON: Jaki Alonso and Cristina Riley STATUS: inpatient INDICATIONS: The patient is a 67 yr old male here for an EGD with PEG due to placement of PEG PROCEDURE PERFORMED: EGD with PEG placement MEDICATIONS: None and Per Anesthesia. TOPICAL ANESTHETIC: none CONSENT: The patient understands the risks and benefits of the procedure and understands that these risks include, but are not limited to: sedation, allergic reaction, infection, perforation and/or bleeding. Alternative means of evaluation and treatment include, among others: physical exam, x-rays, and/or surgical intervention. The patient elects to proceed with this endoscopic procedure. medical equipment was checked for proper function. Hand hygiene and appropriate measures for infection prevention was taken. After the risks, benefits and alternatives of the procedure were thoroughly explained, Informed consent was verified, confirmed and timeout was successfully executed by the treatment team. The patient was anesthetized with topical anesthesia and the Pentax EG-2770K endoscope was introduced through the mouth and advanced to the second portion of the duodenum. The instrument was slowly withdrawn as the mucosa was fully examined. The upper, middle, and distal third of the esophagus were carefully inspected and no abnormalities were noted. The z-line was well seen at the GEJ. The endoscope was pushed into the fundus which was normal including a retroflexed view. The antrum, first and second part of the duodenum were unremarkable. Image was stored via computer. The stomach was then inflated with air, and by a combination of transillumination and manual palpation, the site for the gastrostomy tube placement was selected and marked on the anterior abdominal wall. The skin of the anterior abdomen was surgically prepped and draped with sterile towels. Utilizing strict sterile technique, the selected site was then anesthetized with 1% xylocaine by injection into the skin and subcutaneous tissue. A 1 cm incision was made through the skin and subcutaneous tissue, and the needle/cannula assembly was then passed through the abdominal wall and through the anterior wall of the stomach, maintaining visualization with the endoscope. A snare device previously placed through the instrument channel was then opened and placed around the cannula, the needle was removed, and the insertion wire was passed through the cannula and into the stomach lumen. The snare was then loosened from the cannula, and repositioned to snare the insertion wire. The snare was then pulled up to the endoscope distal tip, and the scope was then withdrawn bringing with it the snare and insertion wire. The insertion wire was then released from the snare, and then loop-attached to the Bard 20 Fr gastrostomy tube. Using the "pull technique", the G-tube was then pulled into place by traction on the insertion wire at the abdominal wall end. The G-tube insertion site was then cleansed once again, and the external bolster was placed over the tube to secure it to the abdominal wall. A sterile dressing was then applied, and the procedure terminated. no abnormalities The gastroscope was then slowly withdrawn and removed. ADVERSE EVENT: There were no complications. IMPRESSIONS: 1. The upper, middle, and distal third of the esophagus were carefully inspected and no abnormalities were noted. The z-line was well seen at the GEJ. The endoscope was pushed into the fundus which was normal including a retroflexed view. The antrum, first and second part of the duodenum were unremarkable. 2. PEG tube placed successfully RECOMMENDATIONS: PEG recomendations: 1- NPO for 6 hours except for meds 2- Flush PEG tube every 6 hours with water and after each PEG feeding 3- May resume regular diet in the morning 4- May use Ensure or Boost etc. for PEG tube feeding REPEAT EXAM: procedure as needed Medications and IVs Current Medications Sodium Chloride 1,000 ml @ 999 mls/hr BOLUS ONCE IV Last administered on 10:27; Start 05/27/17 at 10:15; Stop 05/27/17 at 11:15; Status DC Metoclopramide HCl 10 mg/Sodium Chloride 52 ml @ 104 mls/hr ONCE ONCE IV Last administered on 05/27/17 10:27; Start 05/27/17 at 10:15; Stop 05/27/17 at 10:44; Status DC Diatrizoate Meglum/ Diatrizoate Sod ( Gastroview Liq) 18 ml ONCE ONCE PO Last administered on 05/27/17 11:07; Start 05/27/17 at 10:45; Stop 05/27/17 at 10:46; Status DC Iohexol (Omnipaque 350 Inj) 75 ml STK-MED ONCE IVCONTRAST Last administered on 05/27/17 12:43; Start 05/27/17 at 12:43; Stop 05/27/17 at 12:44; Status DC Cefepime HCl 1000 mg/Sodium Chloride 100 ml @ 200 mls/hr ONCE ONCE IV Last administered on 05/27/17 15:10; Start 05/27/17 at 14:00; Stop 05/27/17 at 14 :29; Status DC Levofloxacin/ Dextrose 150 ml @ 100 mls/hr ONCE ONCE IV Last administered on 05/27/17 14:00; Start 05/27/17 at 14:00; Stop 05/27/17 at 15:29; Status DC Vancomycin HCl 1000 mg/Sodium Chloride 250 ml @ 250 mls/hr ONCE ONCE IV Last administered on 05/27/17 17:38; Start 05/27/17 at 14:00; Stop 05/27/17 at 15 :06; Status DC Sodium Chloride 1,000 ml @ 100 mls/hr Q10H IV Last administered on 05/30/17 05:03; Start 05/27/17 at 15:30 Sodium Chloride (NS Flush) 2 ml UNSCH PRN IV FLUSH FLUSH AFTER USING IV ACCESS ; Start 05/27/17 at 15:00 Sodium Chloride (NS Flush) 2 ml BID IV FLUSH Last administered on 05/29/17 21 :47; Start 05/27/17 at 21:00 Acetaminophen (Tylenol) 650 mg Q4H PRN PO TEMP > 100.4; Start 05/27/17 at 15: 00 Ondansetron HCl (Zofran Inj) 4 mg Q6H PRN IVP NAUSEA OR VOMITING; Start at 15:00 Naloxone HCl (Narcan Inj) 0.4 mg UNSCH PRN IV PUSH SEE LABEL COMMENTS; Start 05/27/17 at 15:00 Sennosides (Senokot) 17.2 mg Q12H PRN PO Moderate constipation; Start at 15:00 Bisacodyl (Dulcolax Supp) 10 mg DAILY PRN RECTAL SEVERE CONSITIPATION; Start 05/27/17 at 15:00 Lactulose (Lactulose Liq) 30 ml DAILY PRN PO SEVERE CONSITIPATION; Start 05/27 at 15:00 Cefepime HCl 2000 mg/Sodium Chloride 100 ml @ 200 mls/hr Q12H IV Last administered on 05/30/17 05:05; Start 05/28/17 at 03:00 Azithromycin 500 mg/Sodium Chloride 250 ml @ 250 mls/hr Q24H IV Last administered on 05/29/17 16:31; Start 05/27/17 at 17:00 Finasteride (Proscar) 5 mg DAILY PO Last administered on 05/29/17 08:23; Start 05/28/17 at 09:00 Metoprolol Tartrate (Lopressor) 25 mg BID PO Last administered on 05/29/17 21 :45; Start 05/27/17 at 21:00 Lisinopril (Prinivil) 2.5 mg DAILY PO Last administered on 05/29/17 08:24; Start 05/28/17 at 09:00 Miscellaneous (Pill Splitter) 1 ea UNSCH PRN OTHER SEE LABEL COMMENTS; Start 05/27/17 at 16:00 Famotidine (Pepcid Inj) 20 mg Q12H IV PUSH Last administered on 05/30/17 05: 05; Start 05/27/17 at 16:00 Sucralfate (Carafate Liq) 1 gm ACHS PO Last administered on 05/29/17 22:55; Start 05/27/17 at 17:00 Heparin Sodium (Porcine) (Heparin Inj) 5,000 units Q8HR SQ Last administered on 05/30/17 05:03; Start 05/27/17 at 16:15 Albuterol/ Ipratropium (Duoneb Neb) 1 ampule Q4HR NEB NEB Last administered on 05/30/17 07:34; Start 05/27/17 at 20:00 Guaifenesin (Mucinex Er) 600 mg BID PO Last administered on 05/27/17 22:12; Start 05/27/17 at 21:00; Stop 05/28/17 at 04:10; Status DC Polyethylene Glycol (Miralax) 17 gm DAILY PO ; Start 05/28/17 at 09:00 Pneumococcal Polyvalent Vaccine (Pneumovax-23 Inj) 25 mcg ONCE ONCE IM ; Start 05/28/17 at 10:00; Stop 05/28/17 at 10:01; Status Cancel Influenza Virus Vaccine (Flu (Quadrivalent) Vaccine Inj) 0.5 ml ONCE ONCE IM ; Start 05/28/17 at 10:00; Stop 05/28/17 at 10:01; Status DC Guaifenesin (Robitussin Liq) 200 mg Q4HR PO Last administered on 05/30/17 00: 46; Start 05/28/17 at 04:00 Lactated Ringer's 1,000 ml @ 30 mls/hr Q24H PRN IV SEE LABEL COMMENTS; Start 05/29/17 at 22:15; Stop 06/01/17 at 22:14 Miscellaneous Information ALL NURSING DEPARTME... UNSCH PRN .XX SEE LABEL COMMENTS; Start 05/30/17 at 12:30; Stop 05/31/17 at 12:29 Urinary Catheter: Yes Assessment to: Continue Verde insert reason: Obstruction/Retention A/P Assessment and Plan Assessment and Plan 1. Abdominal pain and Dysphagia associated with unintentional weight loss, not eating but drinking liquids will need to rule out GI malignancy, has chronic Dysphagia GI specialist will perform EGD next 05/30/17 and probable PEG tube placement if indicated. Had PEG tube placed 05/30/17 2. Ileus as per new [facility] GI specialist following. Improved 3. CAD status post CABG will start Lovenox for DVT prophylaxis, Plavix and Aspirin on hold for procedure can hopefully restart tomorrow 4. Anxiety disorder/Depression to continue Home medicines. 5. Gastroesophageal Reflux disease on Famotidine and Carafate 6. Hyperlipidemia on hold Statins by now until his GI problem is clarified. 7. Hypertension controlled on home medicines. 8. questionable COPD/Pneumonia on antibiotics, follow blood culture, legionella antigen, Pneumococcal antigen Bronchodilator, Mucolytic and incentive spirometry 9. Cachexia, consult dietitian, start diet added Ensure. 10. Tobacco dependence strongly recommended to stop smoking. 11. Hematuria/Tobacco dependence/>49 years of age, consult Urology to rule out Urothelial Carcinoma. will follow Input and recommendations by specialist. Follow Echocardiogram Follow laboratory and blood cultures. Dietitian consult, PT, vocational case manager, GI specialist, speech therapy, Urology specialist consult Modified Barium swallow for today failed needs PEG which was placed on 05/30/17 continue antibiotics by now Discharge Planning Needs physical therapy and occupational therapy and speech therapy Ayaz Lance DO May 30, 2017 12:47
[2017-05-30] MEDS: FINASTERIDE 5 MG TAB PO SCH (14:05)
[2017-05-30] MEDS: METOPROLOL TARTRATE 25 MG TAB PO SCH ×2 (14:05→20:30)
[2017-05-30] MEDS: LISINOPRIL 5 MG TAB PO SCH (14:12)
[2017-05-30] MEDS: AZITHROMYCIN INJ 500 MG in SODIUM CHLOR 0.9% 250 ML INJ 250 ML IV SCH (16:29)
[2017-05-31] VITALS (7 sets, daily range): BP systolic 130–154; BP diastolic 59–69; PULSE 65–80; RESP 17–20; TEMP 96.1–98.2; O2SAT 95–98
[2017-05-31] MEDS: RESP: ALBUTEROL 2.5 MG/IPRATROPIUM 0.5 MG NEB (SCH) NEB ×5 (00:29→15:16)
[2017-05-31] MEDS: CEFEPIME INJ 2,000 MG in SODIUM CHLORIDE 0.9% INJ 100 ML IV SCH ×2 (04:02→14:25)
[2017-05-31] MEDS: guaiFENesin SOLUTION 200 MG/10 ML CUP PO SCH ×5 (04:02→21:08)
[2017-05-31] MEDS: FAMOTIDINE 20 MG/2 ML VIAL IV PUSH SCH ×2 (04:02→17:03)
[2017-05-31] MEDS: HEPARIN SODIUM - SQ 10,000 UNITS/ML VIAL SQ SCH ×3 (05:56→21:09)
[2017-05-31 09:07] LABS: AUTOMATED NEUTROPHIL # 6.8 TH/MM3 (1.8-7.7); BASOPHIL % 0.5 % (0.0-2.0); EOSINOPHIL # 0.2 TH/MM3 (0-0.4); EOSINOPHIL % 2.2 % (0.0-4.0); HEMATOCRIT 34.1 % (39.0-51.0); HEMO FLAGS DIFF FINAL; LYMPH % 10.6 % (9.0-44.0); LYMPHOCYTE # 0.9 TH/MM3 (1.0-4.8); MEAN CELL VOLUME 91.4 FL (80.0-100.0); MEAN CORPUSCULAR HEMOGLOBIN 30.8 PG (27.0-34.0); MEAN CORPUSCULAR HGB CONC 33.7 % (32.0-36.0); MONO % 7.1 % (0.0-8.0); NEUT % 79.6 % (16.0-70.0); PLATELET COUNT 316 TH/MM3 (150-450); RED BLOOD COUNT 3.73 MIL/MM3 (4.50-5.90); RED CELL DISTRIBUTION WIDTH 15.4 % (11.6-17.2); WHITE BLOOD COUNT 8.6 TH/MM3 (4.0-11.0)
[2017-05-31] MEDS: METOPROLOL TARTRATE 25 MG TAB PO SCH ×2 (09:13→21:08)
[2017-05-31] MEDS: POLYETHYLENE GLYCOL 17 GM PKG PO SCH (09:13)
[2017-05-31] MEDS: FINASTERIDE 5 MG TAB PO SCH (09:13)
[2017-05-31] MEDS: SUCRALFATE 1 GM/10 ML CUP PO SCH ×4 (09:13→21:08)
[2017-05-31] MEDS: SODIUM CHLORIDE 0.9% FLUSH 10 ML FLUSH IV FLUSH SCH ×2 (09:13→21:08)
[2017-05-31] MEDS: LISINOPRIL 5 MG TAB PO SCH (09:13)
[2017-05-31] MEDS: SODIUM CHLOR 0.9% 1000 ML INJ 1,000 ML IV SCH (09:14)
[2017-05-31 09:40] LABS: ALKALINE PHOSPHATASE 80 U/L (45-117); ALT (GPT) 6 U/L (12-78); ANION GAP 8 MEQ/L (5-15); AST (GOT) 9 U/L (15-37); BICARBONATE 26.1 MEQ/L (21.0-32.0); BLOOD UREA NITROGEN 4 MG/DL (7-18); CHLORIDE 106 MEQ/L (98-107); FREE T4 1.08 NG/DL (0.76-1.46); GLOMERULAR FILTRATION RATE 259 ML/MIN (>89); MAGNESIUM 1.5 MG/DL (1.5-2.5); SODIUM (NA) 140 MEQ/L (136-145); TOTAL BILIRUBIN ADULT 0.3 MG/DL (0.2-1.0)
[2017-05-31 09:47] LABS: POTASSIUM 2.8 MEQ/L (3.5-5.1)
[2017-05-31] MEDS ORDERED: POTASSIUM CHLORIDE 20 MEQ PWD PACKET PEG ONE (12:00)
--- NOTE | 2017-05-31 12:02 | HHI.PR ---
Subjective Remarks This is a pleasant 67 y/o male who has multiple evaluations in ER in this facility due to abdominal pain he also complaint recently of Urinary obstruction thought to be related to Urinary Tract infection given Keflex without improvement, continue with indwelling Verde Catheter, the patient has abdominal pain on his upper quadrants, non radiated 8/ 10 in intensity, associated Dysphagia, not able to eat but able to drink, he denies any nausea or vomit, no diarrhea, afebrile, denies chills, No melena or hematochezia, as we know he has CAD on Plavix and Aspirin, Anxiety disorder, Depression, hyperlipidemia, GERD, Hypertension, he is cachectic, has Dysphagia history of PEG insertion and removal. has an NG tube placed in ER but he is not having nausea or vomit, to remove NG tube and start him on liquid diet. follow recommendations by GI specialist. 05/28: Stable will go for Barium Swallow, as per nurse he was choking with liquid diet and was suspended, discussed with nurse no vomit or diarrhea. GI specialist following plan for EGD next 05/30/17 and probable PEG placement 05/29: Seen in his bedroom, added Ensure to his diet, will have EGD for tomorrow with probable PEG tube placement, No nausea, vomit or diarrhea, afebrile, no leukocytosis, doubt Pneumonia new CXR no pathology, has hematuria on new Urinalysis associated with his age more than 50 years of age and Tobacco smoker warranted to rule out Bladder cancer. asked for the expertise of Urology specialist for Input and recommendations. 05-30 PATIENT HAD PEG TUBE PLACED TODAY BY GI SEEN BY UROLOGY CONTINUE VERDE MAY NEED CYSTOSCOPY IN FUTURE DW RN AND PT 05-31 patient is tolerating tube feeds at 50 ML's per hour currently through his PEG twice yesterday Will need to go to SNF at discharge Still has Verde in place A.m. labs PT and OT Discussed with patient and RN and case management Hypokalemia Will replace Hypo-magnesium will replace Objective Vitals Vital Signs Date Time Temp Pulse Resp B/P (MAP) Pulse Ox O2 Delivery O2 Flow Rate FiO2 05/31/17 08:00 98.1 65 17 130/63 (85) 96 05/31/17 07:50 95 05/31/17 00:29 95 05/31/17 00:00 96.1 69 20 141/65 (90) 95 05/30/17 20:00 98.0 82 20 132/61 (84) 96 05/30/17 16:46 96 21 05/30/17 16:00 98.2 73 17 163/72 (102) 95 05/30/17 12:00 96.3 64 17 159/70 (99) 96 I/O 05/30/17 05/30/17 05/30/17 05/31/17 05/31/17 05/31/17 07:00 15:00 23:00 07:00 15:00 23:00 Intake Total 2565 ml 340 ml Output Total 1100 ml 2425 ml 200 ml Balance -1100 ml 140 ml 140 ml Intake Oral 240 ml 240 ml IV Total 1925 ml 100 ml Other 400 ml Output Urine Total 1100 ml 2425 ml 200 ml # Bowel Movements 1 Result Diagram: 05/31/17 0716 05/31/17 0716 Other Results Laboratory Tests Test 05/31/17 07:16 White Blood Count 8.6 TH/MM3 Red Blood Count 3.73 MIL/MM3 Hemoglobin 11.5 GM/DL Hematocrit 34.1 % Mean Corpuscular Volume 91.4 FL Mean Corpuscular Hemoglobin 30.8 PG Mean Corpuscular Hemoglobin Concent 33.7 % Red Cell Distribution Width 15.4 % Platelet Count 316 TH/MM3 Mean Platelet Volume 9.4 FL Neutrophils (%) (Auto) 79.6 % Lymphocytes (%) (Auto) 10.6 % Monocytes (%) (Auto) 7.1 % Eosinophils (%) (Auto) 2.2 % Basophils (%) (Auto) 0.5 % Neutrophils # (Auto) 6.8 TH/MM3 Lymphocytes # (Auto) 0.9 TH/MM3 Monocytes # (Auto) 0.6 TH/MM3 Eosinophils # (Auto) 0.2 TH/MM3 Basophils # (Auto) 0.0 TH/MM3 CBC Comment DIFF FINAL Differential Comment Blood Urea Nitrogen 4 MG/DL Creatinine 0.40 MG/DL Random Glucose 111 MG/DL Total Protein 5.9 GM/DL Albumin 1.9 GM/DL Calcium Level 7.8 MG/DL Phosphorus Level 1.2 MG/DL Magnesium Level 1.5 MG/DL Alkaline Phosphatase 80 U/L Aspartate Amino Transf (AST/SGOT) 9 U/L Alanine Aminotransferase (ALT/SGPT) 6 U/L Total Bilirubin 0.3 MG/DL Sodium Level 140 MEQ/L Potassium Level 2.8 MEQ/L Chloride Level 106 MEQ/L Carbon Dioxide Level 26.1 MEQ/L Anion Gap 8 MEQ/L Estimat Glomerular Filtration Rate 259 ML/MIN Free Thyroxine 1.08 NG/DL Thyroid Stimulating Hormone 3rd Gen 0.627 uIU/ML Imaging Last Impressions Modified Barium Swallow 05/28/17 0000 Signed Impressions: Service Date/Time: Sunday, May 28, 2017 00:00 - CONCLUSION: Minimal transient penetration of the supraglottic larynx without cee tracheal aspiration with thin barium only. Pooling in the paired valleculae and piriform sinuses and some delay in passage of all substances which appears to be related to relative narrowing of the upper esophagus secondary to anterior osteophytic spurring of the lower cervical spine. For full detailed report, see report by the speech pathologist. Dany La MD Abdomen X-Ray 05/28/17 0000 Signed Impressions: Service Date/Time: Sunday, May 28, 2017 13:43 - CONCLUSION: 1. Ingested oral contrast from earlier barium swallow examination now noted in the colon. There is a focally dilated loop of small bowel measuring up to 4.3 cm. This is nonspecific but may reflect focal ileus. Joaquin Day MD Chest X-Ray 05/27/17 1456 Signed Impressions: Service Date/Time: Saturday, May 27, 2017 16:01 - CONCLUSION: No acute disease. No significant change has occurred. Kody Sultana MD Scrotum Ultrasound 05/27/17 0000 Signed Impressions: Service Date/Time: Saturday, May 27, 2017 10:28 - CONCLUSION: 1. Large complex hydrocele with debris and septations. 2. Small right hydrocele 3. Bilateral small epididymal cysts. 4. Both testicles are within normal limits. Kody Sultana MD Abdomen/Pelvis CT 05/27/17 0000 Signed Impressions: Service Date/Time: Saturday, May 27, 2017 12:34 - CONCLUSION: 1. Posterior bibasilar patchy opacities consistent with probable pneumonia. Clinical correlation is recommended. 2. Scattered emphysematous changes within the visualized lung bases. 3. Markedly enlarged prostate. 4. Mild dilatation of several small bowel loops suggesting partial small bowel obstruction or ileus. Clinical correlation is recommended. 5. Calcified nonobstructing left renal calculi. Dany La MD Objective Remarks GENERAL: Very cachectic male in no acute distress at this time SKIN: Warm and dry. HEAD: Atraumatic. Normocephalic. EYES: Pupils equal and round. No scleral icterus. No injection or drainage. Extraocular muscles intact ENT: No nasal bleeding or discharge. Mucous membranes pink and moist. Tongue is midline NECK: Trachea midline. No JVD. Supple CARDIOVASCULAR: Regular rate and rhythm. S1 and S2 no S3-S4 no heave or thrill or rub or gallop RESPIRATORY: No accessory muscle use. Clear to auscultation. Breath sounds equal bilaterally. GASTROINTESTINAL: Abdomen soft, non-tender, nondistended. Hepatic and splenic margins not palpable. PEG tube in place some tenderness around the site MUSCULOSKELETAL: Extremities without clubbing, cyanosis, or edema. No obvious deformities. NEUROLOGICAL: Awake and alert. No obvious cranial nerve deficits. Motor grossly within normal limits. 4 out of 5 muscle strength in the arms and legs. Normal speech. PSYCHIATRIC: Appropriate mood and affect; insight and judgment normal. We'll need aggressive physical therapy and occupational therapy Procedures EGD WITH PEG PROCEDURE REPORT EXAM DATE: 05/30/2017 PATIENT NAME: Bobby León MR#: [id number] BIRTHDATE: 1950 ATTENDING: Kyra Koch MD ORDER #: [id number] TYPECASTING MACHINE OPERATOR: Mally Alonso Pat STATUS: inpatient INDICATIONS: The patient is a 67 yr old male here for an EGD with PEG due to placement of PEG PROCEDURE PERFORMED: EGD with PEG placement MEDICATIONS: None and Per Anesthesia. TOPICAL ANESTHETIC: none CONSENT: The patient understands the risks and benefits of the procedure and understands that these risks include, but are not limited to: sedation, allergic reaction, infection, perforation and/or bleeding. Alternative means of evaluation and treatment include, among others: physical exam, x-rays, and/or surgical intervention. The patient elects to proceed with this endoscopic procedure. medical equipment was checked for proper function. Hand hygiene and appropriate measures for infection prevention was taken. After the risks, benefits and alternatives of the procedure were thoroughly explained, Informed consent was verified, confirmed and timeout was successfully executed by the treatment team. The patient was anesthetized with topical anesthesia and the Pentax [id number] endoscope was introduced through the mouth and advanced to the second portion of the duodenum. The instrument was slowly withdrawn as the mucosa was fully examined. The upper, middle, and distal third of the esophagus were carefully inspected and no abnormalities were noted. The z-line was well seen at the GEJ. The endoscope was pushed into the fundus which was normal including a retroflexed view. The antrum, first and second part of the duodenum were unremarkable. Image was stored via computer. The stomach was then inflated with air, and by a combination of transillumination and manual palpation, the site for the gastrostomy tube placement was selected and marked on the anterior abdominal wall. The skin of the anterior abdomen was surgically prepped and draped with sterile towels. Utilizing strict sterile technique, the selected site was then anesthetized with 1% xylocaine by injection into the skin and subcutaneous tissue. A 1 cm incision was made through the skin and subcutaneous tissue, and the needle/cannula assembly was then passed through the abdominal wall and through the anterior wall of the stomach, maintaining visualization with the endoscope. A snare device previously placed through the instrument channel was then opened and placed around the cannula, the needle was removed, and the insertion wire was passed through the cannula and into the stomach lumen. The snare was then loosened from the cannula, and repositioned to snare the insertion wire. The snare was then pulled up to the endoscope distal tip, and the scope was then withdrawn bringing with it the snare and insertion wire. The insertion wire was then released from the snare, and then loop-attached to the Bard 20 Fr gastrostomy tube. Using the "pull technique", the G-tube was then pulled into place by traction on the insertion wire at the abdominal wall end. The G-tube insertion site was then cleansed once again, and the external bolster was placed over the tube to secure it to the abdominal wall. A sterile dressing was then applied, and the procedure terminated. no abnormalities The gastroscope was then slowly withdrawn and removed. ADVERSE EVENT: There were no complications. IMPRESSIONS: 1. The upper, middle, and distal third of the esophagus were carefully inspected and no abnormalities were noted. The z-line was well seen at the GEJ. The endoscope was pushed into the fundus which was normal including a retroflexed view. The antrum, first and second part of the duodenum were unremarkable. 2. PEG tube placed successfully RECOMMENDATIONS: PEG recomendations: 1- NPO for 6 hours except for meds 2- Flush PEG tube every 6 hours with water and after each PEG feeding 3- May resume regular diet in the morning 4- May use Ensure or Boost etc. for PEG tube feeding REPEAT EXAM: procedure as needed Medications and IVs Current Medications Sodium Chloride 1,000 ml @ 999 mls/hr BOLUS ONCE IV Last administered on 10:27; Start 05/27/17 at 10:15; Stop 05/27/17 at 11:15; Status DC Metoclopramide HCl 10 mg/Sodium Chloride 52 ml @ 104 mls/hr ONCE ONCE IV Last administered on 05/27/17 10:27; Start 05/27/17 at 10:15; Stop 05/27/17 at 10:44; Status DC Diatrizoate Meglum/ Diatrizoate Sod ( Gastroview Liq) 18 ml ONCE ONCE PO Last administered on 05/27/17 11:07; Start 05/27/17 at 10:45; Stop 05/27/17 at 10:46; Status DC Iohexol (Omnipaque 350 Inj) 75 ml STK-MED ONCE IVCONTRAST Last administered on 05/27/17 12:43; Start 05/27/17 at 12:43; Stop 05/27/17 at 12:44; Status DC Cefepime HCl 1000 mg/Sodium Chloride 100 ml @ 200 mls/hr ONCE ONCE IV Last administered on 05/27/17 15:10; Start 05/27/17 at 14:00; Stop 05/27/17 at 14 :29; Status DC Levofloxacin/ Dextrose 150 ml @ 100 mls/hr ONCE ONCE IV Last administered on 05/27/17 14:00; Start 05/27/17 at 14:00; Stop 05/27/17 at 15:29; Status DC Vancomycin HCl 1000 mg/Sodium Chloride 250 ml @ 250 mls/hr ONCE ONCE IV Last administered on 05/27/17 17:38; Start 05/27/17 at 14:00; Stop 05/27/17 at 15 :06; Status DC Sodium Chloride 1,000 ml @ 100 mls/hr Q10H IV Last administered on 05/30/17 20:33; Start 05/27/17 at 15:30 Sodium Chloride (NS Flush) 2 ml UNSCH PRN IV FLUSH FLUSH AFTER USING IV ACCESS ; Start 05/27/17 at 15:00 Sodium Chloride (NS Flush) 2 ml BID IV FLUSH Last administered on 05/31/17 09 :13; Start 05/27/17 at 21:00 Acetaminophen (Tylenol) 650 mg Q4H PRN PO TEMP > 100.4; Start 05/27/17 at 15: 00 Ondansetron HCl (Zofran Inj) 4 mg Q6H PRN IVP NAUSEA OR VOMITING; Start at 15:00 Naloxone HCl (Narcan Inj) 0.4 mg UNSCH PRN IV PUSH SEE LABEL COMMENTS; Start 05/27/17 at 15:00 Sennosides (Senokot) 17.2 mg Q12H PRN PO Moderate constipation; Start at 15:00 Bisacodyl (Dulcolax Supp) 10 mg DAILY PRN RECTAL SEVERE CONSITIPATION; Start 05/27/17 at 15:00 Lactulose (Lactulose Liq) 30 ml DAILY PRN PO SEVERE CONSITIPATION; Start 05/27 at 15:00 Cefepime HCl 2000 mg/Sodium Chloride 100 ml @ 200 mls/hr Q12H IV Last administered on 05/31/17 04:02; Start 05/28/17 at 03:00 Azithromycin 500 mg/Sodium Chloride 250 ml @ 250 mls/hr Q24H IV Last administered on 05/30/17 16:29; Start 05/27/17 at 17:00 Finasteride (Proscar) 5 mg DAILY PO Last administered on 05/31/17 09:13; Start 05/28/17 at 09:00 Metoprolol Tartrate (Lopressor) 25 mg BID PO Last administered on 05/31/17 09 :13; Start 05/27/17 at 21:00 Lisinopril (Prinivil) 2.5 mg DAILY PO Last administered on 05/31/17 09:13; Start 05/28/17 at 09:00 Miscellaneous (Pill Splitter) 1 ea UNSCH PRN OTHER SEE LABEL COMMENTS; Start 05/27/17 at 16:00 Famotidine (Pepcid Inj) 20 mg Q12H IV PUSH Last administered on 05/31/17 04: 02; Start 05/27/17 at 16:00 Sucralfate (Carafate Liq) 1 gm ACHS PO Last administered on 05/31/17 09:13; Start 05/27/17 at 17:00 Heparin Sodium (Porcine) (Heparin Inj) 5,000 units Q8HR SQ Last administered on 05/30/17 14:04; Start 05/27/17 at 16:15 Albuterol/ Ipratropium (Duoneb Neb) 1 ampule Q4HR NEB NEB Last administered on 05/31/17 11:34; Start 05/27/17 at 20:00 Guaifenesin (Mucinex Er) 600 mg BID PO Last administered on 05/27/17 22:12; Start 05/27/17 at 21:00; Stop 05/28/17 at 04:10; Status DC Polyethylene Glycol (Miralax) 17 gm DAILY PO Last administered on 05/31/17 09 :13; Start 05/28/17 at 09:00 Pneumococcal Polyvalent Vaccine (Pneumovax-23 Inj) 25 mcg ONCE ONCE IM ; Start 05/28/17 at 10:00; Stop 05/28/17 at 10:01; Status Cancel Influenza Virus Vaccine (Flu (Quadrivalent) Vaccine Inj) 0.5 ml ONCE ONCE IM ; Start 05/28/17 at 10:00; Stop 05/28/17 at 10:01; Status DC Guaifenesin (Robitussin Liq) 200 mg Q4HR PO Last administered on 05/31/17 09: 13; Start 05/28/17 at 04:00 Lactated Ringer's 1,000 ml @ 30 mls/hr Q24H PRN IV SEE LABEL COMMENTS; Start 05/29/17 at 22:15; Stop 06/01/17 at 22:14 Miscellaneous Information ALL NURSING DEPARTME... UNSCH PRN .XX SEE LABEL COMMENTS; Start 05/30/17 at 12:30; Stop 05/31/17 at 12:29 A/P Assessment and Plan Assessment and Plan 1. Abdominal pain and Dysphagia associated with unintentional weight loss, not eating but drinking liquids will need to rule out GI malignancy, has chronic Dysphagia GI specialist will perform EGD next 05/30/17 and probable PEG tube placement if indicated. Had PEG tube placed 05/30/17 2. Ileus as per new [facility] GI specialist following. Improved 3. CAD status post CABG will start Lovenox for DVT prophylaxis, Plavix and Aspirin on hold for procedure can hopefully restart tomorrow 4. Anxiety disorder/Depression to continue Home medicines. 5. Gastroesophageal Reflux disease on Famotidine and Carafate 6. Hyperlipidemia on hold Statins by now until his GI problem is clarified. 7. Hypertension controlled on home medicines. 8. questionable COPD/Pneumonia on antibiotics, follow blood culture, legionella antigen, Pneumococcal antigen Bronchodilator, Mucolytic and incentive spirometry 9. Cachexia, consult dietitian, started on tube feeds via PEG tolerating so far 10. Tobacco dependence strongly recommended to stop smoking. 11. Hematuria/Tobacco dependence/>49 years of age, consult Urology to rule out Urothelial Carcinoma. will follow Input and recommendations by specialist. 12. Hypokalemia we'll replace 13. Hypomagnesemia we'll replace Follow Echocardiogram Follow laboratory and blood cultures. Dietitian consult, PT, patient case coordinator, GI specialist, speech therapy, Urology specialist consult Modified Barium swallow for today failed needs PEG which was placed on 05/30/17 continue antibiotics by now Discharge Planning Needs physical therapy and occupational therapy and speech therapy Ayaz Lance DO May 31, 2017 12:02
--- NOTE | 2017-05-31 12:24 | ECHRPT ---
Indication: Cardiomyopathy CONCLUSIONS The left ventricular systolic function is low normal with an estimated ejection fraction in the rang e of 50- 55%. Mild concentric left ventricular hypertrophy. Trace mitral valve regurgitation. There is trace tricuspid valve regurgitation. A moderate left sided pleural effusion is noted. BP: / HR: Rhythm: MEASUREMENTS (Male / Female) Normal Values Technical Quality:Good 2D ECHO LV Diastolic Diameter PLAX 4.1 cm 4.2 - 5.9 / 3.9 - 5.3 cm LV Systolic Diameter PLAX 3.2 cm IVS Diastolic Thickness 1.2 cm 0.6 - 1.0 / 0.6 - 0.9 cm LVPW Diastolic Thickness 1.0 cm 0.6 - 1.0 / 0.6 - 0.9 cm LV Relative Wall Thickness 0.5 RV Internal Dim ED PLAX 2.0 cm LA Systolic Diameter LX 3.1 cm 3.0 - 4.0 / 2.7 - 3.8 cm DOPPLER Mitral E Point Velocity 81.4 cm/s Mitral A Point Velocity 75.5 cm/s Mitral E to A Ratio 1.1 TR Peak Velocity 111.0 cm/s TR Peak Gradient 4.9 mmHg Right Atrial Pressure 10.0 mmHg Pulmonary Artery Systolic Pressu 14.9 mmHg Right Ventricular Systolic Press 14.9 mmHg FINDINGS LEFT VENTRICLE Normal left ventricular size. Mild concentric left ventricular hypertrophy. The left ventricular systolic function is low normal with an estimated ejection fraction in the rang e of 50- 55%. Wall motion appears to grossly normal throughout. RIGHT VENTRICLE Normal right ventricular size and systolic function. LEFT ATRIUM The left atrial size is normal. RIGHT ATRIUM The right atrial size is normal. ATRIAL SEPTUM Normal atrial septal thickness without atrial level shunting by limited color doppler interrogation. AORTA The aortic root and proximal ascending aorta are normal in size on limited imaging. MITRAL VALVE Structurally normal mitral valve. No mitral valve stenosis. Trace mitral valve regurgitation. AORTIC VALVE Trileaflet aortic valve. No aortic valve stenosis or regurgitation. TRICUSPID VALVE Structurally normal tricuspid valve. No tricuspid valve stenosis. There is trace tricuspid valve regurgitation. PULMONARY VALVE No pulmonary valve regurgitation or stenosis. VESSELS The inferior vena cava is normal in size. PERICARDIUM A moderate left sided pleural effusion is noted. Catracho Stapleton DO (Electronically Signed) Final Date:31 May 2017 12:23
[2017-05-31] MEDS: MAGNESIUM SULFATE 1 GM PREMIX 100 ML IV SCH ×2 (12:36→13:30)
--- NOTE | 2017-05-31 15:30 | HHI.GIFU ---
Subjective Remarks Resting in bed in NAD. Wants a popsicle. No nausea. Some mild abd soreness around PEG site. Sarita TF. (Priscila Alexis) Objective Vitals I&O Vital Signs Date Time Temp Pulse Resp B/P (MAP) Pulse Ox O2 Delivery O2 Flow Rate FiO2 05/31/17 12:00 97.6 73 17 130/59 (82) 98 05/31/17 08:00 98.1 65 17 130/63 (85) 96 05/31/17 07:50 95 05/31/17 00:29 95 05/31/17 00:00 96.1 69 20 141/65 (90) 95 05/30/17 20:00 98.0 82 20 132/61 (84) 96 05/30/17 16:46 96 21 05/30/17 16:00 98.2 73 17 163/72 (102) 95 I/O 05/30/17 05/30/17 05/30/17 05/31/17 05/31/17 05/31/17 07:00 15:00 23:00 07:00 15:00 23:00 Intake Total 2565 ml 340 ml Output Total 1100 ml 2425 ml 200 ml Balance -1100 ml 140 ml 140 ml Intake Oral 240 ml 240 ml IV Total 1925 ml 100 ml Other 400 ml Output Urine Total 1100 ml 2425 ml 200 ml # Bowel Movements 1 Laboratory Laboratory Tests Test 05/31/17 07:16 White Blood Count 8.6 Red Blood Count 3.73 Hemoglobin 11.5 Hematocrit 34.1 Mean Corpuscular Volume 91.4 Mean Corpuscular Hemoglobin 30.8 Mean Corpuscular Hemoglobin Concent 33.7 Red Cell Distribution Width 15.4 Platelet Count 316 Mean Platelet Volume 9.4 Neutrophils (%) (Auto) 79.6 Lymphocytes (%) (Auto) 10.6 Monocytes (%) (Auto) 7.1 Eosinophils (%) (Auto) 2.2 Basophils (%) (Auto) 0.5 Neutrophils # (Auto) 6.8 Lymphocytes # (Auto) 0.9 Monocytes # (Auto) 0.6 Eosinophils # (Auto) 0.2 Basophils # (Auto) 0.0 CBC Comment DIFF FINAL Differential Comment Blood Urea Nitrogen 4 Creatinine 0.40 Random Glucose 111 Total Protein 5.9 Albumin 1.9 Calcium Level 7.8 Phosphorus Level 1.2 Magnesium Level 1.5 Alkaline Phosphatase 80 Aspartate Amino Transf (AST/SGOT) 9 Alanine Aminotransferase (ALT/SGPT) 6 Total Bilirubin 0.3 Sodium Level 140 Potassium Level 2.8 Chloride Level 106 Carbon Dioxide Level 26.1 Anion Gap 8 Estimat Glomerular Filtration Rate 259 Free Thyroxine 1.08 Thyroid Stimulating Hormone 3rd Gen 0.627 Date/Time Source Procedure Growth Status 05/27/17 15:15 Blood Peripheral Aerobic Blood Culture - Preliminary NO GROWTH IN 4 DAYS Resulted 05/27/17 15:15 Blood Peripheral Anaerobic Blood Culture - Preliminary NO GROWTH IN 4 DAYS Resulted 05/27/17 10:26 Urine Clean Catch Legionella Antigen - Final PRESUMPTIVE NEGATIVE FOR LEGIONELLA P... Complete 05/27/17 10:26 Urine Clean Catch Streptococcus pneumoniae Antigen (M - Final PRESUMPTIVE NEGATIVE FOR STREPTOCOCCU... Complete Physical Exam HEENT: Normocephalic; atraumatic CHEST: CTA CARDIAC: RRR ABDOMEN: Soft, nondistended, nontender; no hepatosplenomegaly; bowel sounds active x 4. EXTREMITIES: No clubbing, cyanosis, or edema. SKIN: Normal; no rash; no jaundice. HOME SERVICE TECHNICIAN: No focal deficits; alert and oriented times three. (Priscila Alexis [facility]) Assessment and Plan Plan ASSESSMENT: - Dysphagia- Symptoms are chronic- Pt had PEG tube in 2013 at which time he was found to have a mass in his supraglottic region, biopsy was benign, PEG was removed shortly after. EGD in 2014 --> Gastroesophageal reflux disease. Schatzki ring [id number], [id number] hiatal hernia. Modified barium swallow () --> THIS PATIENT IS CURRENTLY DEMONSTRATING MILD TO MODERATE ORAL PHASE AND MILD TO MODERATE PHARYNGEAL PHASE DYSPHAGIA. NO EPISODES OF ASPIRATION WERE PRESENT DURING THIS STUDY ALTHOUGH AIRWAY PENETRATION OF THIN LIQUID WAS PRESENT WITH ABSENT REFLEXIVE COUGH RESPONSE. DIMINISHED BOLUS PASSAGE WAS ALSO INTERMITTENTLY NOTED THROUGH THE UPPER ESOPHAGEAL SPHINCTER DUE TO NARROWING OF THE ESOPHAGEAL SEGMENT DUE TO EXTERNAL COMPRESSION FROM CERVICAL SPINAL CHANGES. Recommendations: 1. DUE TO ORAL, PHARYNGEAL, AND UPPER/LOWER ESOPHAGEAL DEFICITS, RECOMMEND DOWNGRADE OF ORAL DIET TO PUREED SOLIDS AND NECTAR THICK LIQUIDS. 2. MEDICATIONS PRESENTED CRUSHED IN PUREE. 3.CONSIDERATION OF POSSIBLE FEEDING TUBE PLACEMENT IS LIKELY STILL INDICATED DUE TO OVERALL DEGREE OF WEIGHT LOSS AND UNDERLYING ESOPHAGEAL DEFICITS THAT WILL CONTINUE TO IMPACT OVERALL PO INTAKE. - ?Ileus vs small bowel obstruction- CT abdomen and pelvis with contrast (05/27 ) --> Mild dilation of several small bowel loops suggesting partial small bowel obstruction or ileus. Clinical correlation is recommended. Miralax. Pt had NGT while in ER, has been discontinued per attending and will assess if pt can tolerate liquid diet. 05/29/17--Patient reports BM x 1 today that was loose and brown in color. No abdominal pain, no nausea or vomiting. Tolerating diet. KUB 05/28/17--1. Ingested oral contrast from earlier barium swallow examination now noted in the colon. There is a focally dilated loop of small bowel measuring up to 4.3 cm. This is nonspecific but may reflect focal ileus. HH 11.7/35.5 yesterday. 05/31/17 - s/p EGD with PEG tube placement. sarita TF. Plan - cont ST - diet per ST - pureed and nectar thick - cont TF - Miralax 17gm at bedtime - Monitor stool count - Supportive care - GI will sign off. Please reconsult if needed. Patient seen and examined by and myself and this note is written on his behalf. (Priscila Alexis) Physician Comments Agree with above assessment and plan . Will S/O for now please notify us if need. (Kyra Koch MD) Priscila Alexis May 31, 2017 15:30 Kyra Koch MD Jun 01, 2017 03:29
[2017-05-31] MEDS: AZITHROMYCIN INJ 500 MG in SODIUM CHLOR 0.9% 250 ML INJ 250 ML IV SCH (17:03)
[2017-05-31] MEDS: POTASSIUM CHLORIDE 20 MEQ PWD PACKET PEG SCH (21:08)
[2017-06-01] VITALS: BP 120/58; PULSE 71; RESP 18; TEMP 97.7; O2SAT 93
[2017-06-01] MEDS: guaiFENesin SOLUTION 200 MG/10 ML CUP PO SCH ×5 (00:44→15:13)
[2017-06-01] MEDS: FAMOTIDINE 20 MG/2 ML VIAL IV PUSH SCH ×2 (02:37→15:14)
[2017-06-01] MEDS: CEFEPIME INJ 2,000 MG in SODIUM CHLORIDE 0.9% INJ 100 ML IV SCH ×2 (02:37→15:13)
[2017-06-01] MEDS: SODIUM CHLOR 0.9% 1000 ML INJ 1,000 ML IV SCH ×3 (02:37→15:30)
[2017-06-01] MEDS: HEPARIN SODIUM - SQ 10,000 UNITS/ML VIAL SQ SCH ×2 (05:22→12:30)
[2017-06-01 07:43] VITALS: BP 136/64; PULSE 73; RESP 19; TEMP 97.4; O2SAT 98
[2017-06-01] MEDS: SUCRALFATE 1 GM/10 ML CUP PO SCH ×3 (08:32→17:00)
[2017-06-01] MEDS: FINASTERIDE 5 MG TAB PO SCH (08:32)
[2017-06-01] MEDS: POTASSIUM CHLORIDE 20 MEQ PWD PACKET PEG SCH (08:32)
[2017-06-01] MEDS: LISINOPRIL 5 MG TAB PO SCH (08:33)
[2017-06-01] MEDS: POLYETHYLENE GLYCOL 17 GM PKG PO SCH (08:33)
[2017-06-01] MEDS: SODIUM CHLORIDE 0.9% FLUSH 10 ML FLUSH IV FLUSH SCH (08:33)
[2017-06-01] MEDS: METOPROLOL TARTRATE 25 MG TAB PO SCH (08:33)
[2017-06-01 10:23] LABS: HEMOGLOBIN A1a 1.8 %; HEMOGLOBIN A1b 0.7 %; HEMOGLOBIN Ao 85.2 %; HEMOGLOBIN F 1.5 %; HEMOGLOBIN LA1C 1.9 %; HEMOGLOBIN P3 3.2 %
--- NOTE | 2017-06-01 10:26 | HHI.PR ---
Subjective Remarks This is a pleasant 67 y/o male who has multiple evaluations in ER in this facility due to abdominal pain he also complaint recently of Urinary obstruction thought to be related to Urinary Tract infection given Keflex without improvement, continue with indwelling Verde Catheter, the patient has abdominal pain on his upper quadrants, non radiated 8/ 10 in intensity, associated Dysphagia, not able to eat but able to drink, he denies any nausea or vomit, no diarrhea, afebrile, denies chills, No melena or hematochezia, as we know he has CAD on Plavix and Aspirin, Anxiety disorder, Depression, hyperlipidemia, GERD, Hypertension, he is cachectic, has Dysphagia history of PEG insertion and removal. has an NG tube placed in ER but he is not having nausea or vomit, to remove NG tube and start him on liquid diet. follow recommendations by GI specialist. 05/28: Stable will go for Barium Swallow, as per nurse he was choking with liquid diet and was suspended, discussed with nurse no vomit or diarrhea. GI specialist following plan for EGD next 05/30/17 and probable PEG placement 05/29: Seen in his bedroom, added Ensure to his diet, will have EGD for tomorrow with probable PEG tube placement, No nausea, vomit or diarrhea, afebrile, no leukocytosis, doubt Pneumonia new CXR no pathology, has hematuria on new Urinalysis associated with his age more than 50 years of age and Tobacco smoker warranted to rule out Bladder cancer. asked for the expertise of Urology specialist for Input and recommendations. 05-30 PATIENT HAD PEG TUBE PLACED TODAY BY GI SEEN BY UROLOGY CONTINUE VERDE MAY NEED CYSTOSCOPY IN FUTURE DW RN AND PT 05-31 patient is tolerating tube feeds at 50 ML's per hour currently through his PEG twice yesterday Will need to go to SNF at discharge Still has Verde in place A.m. labs PT and OT Discussed with patient and RN and case management Hypokalemia Will replace Hypo-magnesium will replace 12- patient has been tolerating tube feeds. Is still wanting by mouth intake and is on pured diet with honey thickened liquids along with tube feeds Labs pending Continue on Verde Continue at SNF at discharge LABS ARE BETTER DC TO SNF ON CURRENT TUBE FEEDS JEVITY AND PUREED HONEY THICKENED DIET CHANGE ANTIBIOTICS AND DC TO SNF Objective Vitals Vital Signs Date Time Temp Pulse Resp B/P (MAP) Pulse Ox O2 Delivery O2 Flow Rate FiO2 06/01/17 07:43 97.4 73 19 136/64 (88) 98 06/01/17 00:00 97.7 71 18 120/58 (78) 93 05/31/17 20:00 98.0 66 17 154/69 (97) 96 05/31/17 16:00 98.2 80 17 134/63 (86) 95 05/31/17 12:00 97.6 73 17 130/59 (82) 98 I/O 05/31/17 05/31/17 05/31/17 06/01/17 06/01/17 06/01/17 07:00 15:00 23:00 07:00 15:00 23:00 Intake Total 340 ml 200 ml 590 ml 1600 ml 0 ml Output Total 200 ml 800 ml 1650 ml Balance 140 ml 200 ml -210 ml -50 ml 0 ml Intake Oral 240 ml 240 ml 0 ml 0 ml IV Total 100 ml 200 ml 350 ml 1000 ml Tube Feeding 600 ml Output Urine Total 200 ml 800 ml 1650 ml # Bowel Movements 0 1 Result Diagram: 05/31/17 0716 05/31/17 0716 Other Results Laboratory Tests Test 05/31/17 07:16 06/01/17 11:25 White Blood Count 8.6 TH/MM3 7.7 TH/MM3 Red Blood Count 3.73 MIL/MM3 3.81 MIL/MM3 Hemoglobin 11.5 GM/DL 11.7 GM/DL Hematocrit 34.1 % 34.9 % Mean Corpuscular Volume 91.4 FL 91.7 FL Mean Corpuscular Hemoglobin 30.8 PG 30.6 PG Mean Corpuscular Hemoglobin Concent 33.7 % 33.4 % Red Cell Distribution Width 15.4 % 15.7 % Platelet Count 316 TH/MM3 320 TH/MM3 Mean Platelet Volume 9.4 FL 9.3 FL Neutrophils (%) (Auto) 79.6 % 71.2 % Lymphocytes (%) (Auto) 10.6 % 14.4 % Monocytes (%) (Auto) 7.1 % 7.6 % Eosinophils (%) (Auto) 2.2 % 4.4 % Basophils (%) (Auto) 0.5 % 2.4 % Neutrophils # (Auto) 6.8 TH/MM3 5.5 TH/MM3 Lymphocytes # (Auto) 0.9 TH/MM3 1.1 TH/MM3 Monocytes # (Auto) 0.6 TH/MM3 0.6 TH/MM3 Eosinophils # (Auto) 0.2 TH/MM3 0.3 TH/MM3 Basophils # (Auto) 0.0 TH/MM3 0.2 TH/MM3 CBC Comment DIFF FINAL DIFF FINAL Differential Comment Blood Urea Nitrogen 4 MG/DL 5 MG/DL Creatinine 0.40 MG/DL 0.41 MG/DL Random Glucose 111 MG/DL 89 MG/DL Total Protein 5.9 GM/DL 5.9 GM/DL Albumin 1.9 GM/DL 1.9 GM/DL Calcium Level 7.8 MG/DL 7.9 MG/DL Phosphorus Level 1.2 MG/DL 1.0 MG/DL Magnesium Level 1.5 MG/DL 1.9 MG/DL Alkaline Phosphatase 80 U/L 84 U/L Aspartate Amino Transf (AST/SGOT) 9 U/L 14 U/L Alanine Aminotransferase (ALT/SGPT) 6 U/L 8 U/L Total Bilirubin 0.3 MG/DL 0.2 MG/DL Sodium Level 140 MEQ/L 140 MEQ/L Potassium Level 2.8 MEQ/L 4.1 MEQ/L Chloride Level 106 MEQ/L 106 MEQ/L Carbon Dioxide Level 26.1 MEQ/L 28.7 MEQ/L Anion Gap 8 MEQ/L 5 MEQ/L Estimat Glomerular Filtration Rate 259 ML/MIN 252 ML/MIN Hemoglobin A1c 5.1 % Free Thyroxine 1.08 NG/DL Thyroid Stimulating Hormone 3rd Gen 0.627 uIU/ML Imaging Last Impressions Modified Barium Swallow 05/28/17 0000 Signed Impressions: Service Date/Time: Sunday, May 28, 2017 00:00 - CONCLUSION: Minimal transient penetration of the supraglottic larynx without cee tracheal aspiration with thin barium only. Pooling in the paired valleculae and piriform sinuses and some delay in passage of all substances which appears to be related to relative narrowing of the upper esophagus secondary to anterior osteophytic spurring of the lower cervical spine. For full detailed report, see report by the speech pathologist. Dany La MD Abdomen X-Ray 05/28/17 0000 Signed Impressions: Service Date/Time: Sunday, May 28, 2017 13:43 - CONCLUSION: 1. Ingested oral contrast from earlier barium swallow examination now noted in the colon. There is a focally dilated loop of small bowel measuring up to 4.3 cm. This is nonspecific but may reflect focal ileus. Joaquin Day MD Chest X-Ray 05/27/17 1456 Signed Impressions: Service Date/Time: Saturday, May 27, 2017 16:01 - CONCLUSION: No acute disease. No significant change has occurred. Kody Sultana MD Scrotum Ultrasound 05/27/17 0000 Signed Impressions: Service Date/Time: Saturday, May 27, 2017 10:28 - CONCLUSION: 1. Large complex hydrocele with debris and septations. 2. Small right hydrocele 3. Bilateral small epididymal cysts. 4. Both testicles are within normal limits. Kody Sultana MD Abdomen/Pelvis CT 05/27/17 0000 Signed Impressions: Service Date/Time: Saturday, May 27, 2017 12:34 - CONCLUSION: 1. Posterior bibasilar patchy opacities consistent with probable pneumonia. Clinical correlation is recommended. 2. Scattered emphysematous changes within the visualized lung bases. 3. Markedly enlarged prostate. 4. Mild dilatation of several small bowel loops suggesting partial small bowel obstruction or ileus. Clinical correlation is recommended. 5. Calcified nonobstructing left renal calculi. Dany La MD Objective Remarks GENERAL: Very cachectic male in no acute distress at this time SKIN: Warm and dry. HEAD: Atraumatic. Normocephalic. EYES: Pupils equal and round. No scleral icterus. No injection or drainage. Extraocular muscles intact ENT: No nasal bleeding or discharge. Mucous membranes pink and moist. Tongue is midline NECK: Trachea midline. No JVD. Supple CARDIOVASCULAR: Regular rate and rhythm. S1 and S2 no S3-S4 no heave or thrill or rub or gallop RESPIRATORY: No accessory muscle use. Clear to auscultation. Breath sounds equal bilaterally. GASTROINTESTINAL: Abdomen soft, non-tender, nondistended. Hepatic and splenic margins not palpable. PEG tube in place some tenderness around the site MUSCULOSKELETAL: Extremities without clubbing, cyanosis, or edema. No obvious deformities. NEUROLOGICAL: Awake and alert. No obvious cranial nerve deficits. Motor grossly within normal limits. 4 out of 5 muscle strength in the arms and legs. Normal speech. PSYCHIATRIC: Appropriate mood and affect; insight and judgment normal. We'll need aggressive physical therapy and occupational therapy Procedures EGD WITH PEG PROCEDURE REPORT EXAM DATE: 05/30/2017 PATIENT NAME: Bobby León MR#: [id number] BIRTHDATE: 1950 ATTENDING: Kyra Koch MD ORDER #: [id number] DIRECTOR PRINT: Mally Alonso Pat STATUS: inpatient INDICATIONS: The patient is a 67 yr old male here for an EGD with PEG due to placement of PEG PROCEDURE PERFORMED: EGD with PEG placement MEDICATIONS: None and Per Anesthesia. TOPICAL ANESTHETIC: none CONSENT: The patient understands the risks and benefits of the procedure and understands that these risks include, but are not limited to: sedation, allergic reaction, infection, perforation and/or bleeding. Alternative means of evaluation and treatment include, among others: physical exam, x-rays, and/or surgical intervention. The patient elects to proceed with this endoscopic procedure. medical equipment was checked for proper function. Hand hygiene and appropriate measures for infection prevention was taken. After the risks, benefits and alternatives of the procedure were thoroughly explained, Informed consent was verified, confirmed and timeout was successfully executed by the treatment team. The patient was anesthetized with topical anesthesia and the Pentax [id number] endoscope was introduced through the mouth and advanced to the second portion of the duodenum. The instrument was slowly withdrawn as the mucosa was fully examined. The upper, middle, and distal third of the esophagus were carefully inspected and no abnormalities were noted. The z-line was well seen at the GEJ. The endoscope was pushed into the fundus which was normal including a retroflexed view. The antrum, first and second part of the duodenum were unremarkable. Image was stored via computer. The stomach was then inflated with air, and by a combination of transillumination and manual palpation, the site for the gastrostomy tube placement was selected and marked on the anterior abdominal wall. The skin of the anterior abdomen was surgically prepped and draped with sterile towels. Utilizing strict sterile technique, the selected site was then anesthetized with 1% xylocaine by injection into the skin and subcutaneous tissue. A 1 cm incision was made through the skin and subcutaneous tissue, and the needle/cannula assembly was then passed through the abdominal wall and through the anterior wall of the stomach, maintaining visualization with the endoscope. A snare device previously placed through the instrument channel was then opened and placed around the cannula, the needle was removed, and the insertion wire was passed through the cannula and into the stomach lumen. The snare was then loosened from the cannula, and repositioned to snare the insertion wire. The snare was then pulled up to the endoscope distal tip, and the scope was then withdrawn bringing with it the snare and insertion wire. The insertion wire was then released from the snare, and then loop-attached to the Bard 20 Fr gastrostomy tube. Using the "pull technique", the G-tube was then pulled into place by traction on the insertion wire at the abdominal wall end. The G-tube insertion site was then cleansed once again, and the external bolster was placed over the tube to secure it to the abdominal wall. A sterile dressing was then applied, and the procedure terminated. no abnormalities The gastroscope was then slowly withdrawn and removed. ADVERSE EVENT: There were no complications. IMPRESSIONS: 1. The upper, middle, and distal third of the esophagus were carefully inspected and no abnormalities were noted. The z-line was well seen at the GEJ. The endoscope was pushed into the fundus which was normal including a retroflexed view. The antrum, first and second part of the duodenum were unremarkable. 2. PEG tube placed successfully RECOMMENDATIONS: PEG recomendations: 1- NPO for 6 hours except for meds 2- Flush PEG tube every 6 hours with water and after each PEG feeding 3- May resume regular diet in the morning 4- May use Ensure or Boost etc. for PEG tube feeding REPEAT EXAM: procedure as needed Medications and IVs Current Medications Sodium Chloride 1,000 ml @ 999 mls/hr BOLUS ONCE IV Last administered on 10:27; Start 05/27/17 at 10:15; Stop 05/27/17 at 11:15; Status DC Metoclopramide HCl 10 mg/Sodium Chloride 52 ml @ 104 mls/hr ONCE ONCE IV Last administered on 05/27/17 10:27; Start 05/27/17 at 10:15; Stop 05/27/17 at 10:44; Status DC Diatrizoate Meglum/ Diatrizoate Sod ( Gastroview Liq) 18 ml ONCE ONCE PO Last administered on 05/27/17 11:07; Start 05/27/17 at 10:45; Stop 05/27/17 at 10:46; Status DC Iohexol (Omnipaque 350 Inj) 75 ml STK-MED ONCE IVCONTRAST Last administered on 05/27/17 12:43; Start 05/27/17 at 12:43; Stop 05/27/17 at 12:44; Status DC Cefepime HCl 1000 mg/Sodium Chloride 100 ml @ 200 mls/hr ONCE ONCE IV Last administered on 05/27/17 15:10; Start 05/27/17 at 14:00; Stop 05/27/17 at 14 :29; Status DC Levofloxacin/ Dextrose 150 ml @ 100 mls/hr ONCE ONCE IV Last administered on 05/27/17 14:00; Start 05/27/17 at 14:00; Stop 05/27/17 at 15:29; Status DC Vancomycin HCl 1000 mg/Sodium Chloride 250 ml @ 250 mls/hr ONCE ONCE IV Last administered on 05/27/17 17:38; Start 05/27/17 at 14:00; Stop 05/27/17 at 15 :06; Status DC Sodium Chloride 1,000 ml @ 100 mls/hr Q10H IV Last administered on 06/01/17 05:30; Start 05/27/17 at 15:30 Sodium Chloride (NS Flush) 2 ml UNSCH PRN IV FLUSH FLUSH AFTER USING IV ACCESS ; Start 05/27/17 at 15:00 Sodium Chloride (NS Flush) 2 ml BID IV FLUSH Last administered on 06/01/17 08 :33; Start 05/27/17 at 21:00 Acetaminophen (Tylenol) 650 mg Q4H PRN PO TEMP > 100.4; Start 05/27/17 at 15: 00 Ondansetron HCl (Zofran Inj) 4 mg Q6H PRN IVP NAUSEA OR VOMITING; Start at 15:00 Naloxone HCl (Narcan Inj) 0.4 mg UNSCH PRN IV PUSH SEE LABEL COMMENTS; Start 05/27/17 at 15:00 Sennosides (Senokot) 17.2 mg Q12H PRN PO Moderate constipation; Start at 15:00 Bisacodyl (Dulcolax Supp) 10 mg DAILY PRN RECTAL SEVERE CONSITIPATION; Start 05/27/17 at 15:00 Lactulose (Lactulose Liq) 30 ml DAILY PRN PO SEVERE CONSITIPATION; Start 05/27 at 15:00 Cefepime HCl 2000 mg/Sodium Chloride 100 ml @ 200 mls/hr Q12H IV Last administered on 06/01/17 02:37; Start 05/28/17 at 03:00 Azithromycin 500 mg/Sodium Chloride 250 ml @ 250 mls/hr Q24H IV Last administered on 05/31/17 17:03; Start 05/27/17 at 17:00 Finasteride (Proscar) 5 mg DAILY PO Last administered on 06/01/17 08:32; Start 05/28/17 at 09:00 Metoprolol Tartrate (Lopressor) 25 mg BID PO Last administered on 06/01/17 08 :33; Start 05/27/17 at 21:00 Lisinopril (Prinivil) 2.5 mg DAILY PO Last administered on 06/01/17 08:33; Start 05/28/17 at 09:00 Miscellaneous (Pill Splitter) 1 ea UNSCH PRN OTHER SEE LABEL COMMENTS; Start 05/27/17 at 16:00 Famotidine (Pepcid Inj) 20 mg Q12H IV PUSH Last administered on 06/01/17 02: 37; Start 05/27/17 at 16:00 Sucralfate (Carafate Liq) 1 gm ACHS PO Last administered on 06/01/17 08:32; Start 05/27/17 at 17:00 Heparin Sodium (Porcine) (Heparin Inj) 5,000 units Q8HR SQ Last administered on 06/01/17 05:22; Start 05/27/17 at 16:15 Albuterol/ Ipratropium (Duoneb Neb) 1 ampule Q4HR NEB NEB Last administered on 05/31/17 15:16; Start 05/27/17 at 20:00; Stop 05/31/17 at 19:59; Status DC Guaifenesin (Mucinex Er) 600 mg BID PO Last administered on 05/27/17 22:12; Start 05/27/17 at 21:00; Stop 05/28/17 at 04:10; Status DC Polyethylene Glycol (Miralax) 17 gm DAILY PO Last administered on 06/01/17 08 :33; Start 05/28/17 at 09:00 Pneumococcal Polyvalent Vaccine (Pneumovax-23 Inj) 25 mcg ONCE ONCE IM ; Start 05/28/17 at 10:00; Stop 05/28/17 at 10:01; Status Cancel Influenza Virus Vaccine (Flu (Quadrivalent) Vaccine Inj) 0.5 ml ONCE ONCE IM ; Start 05/28/17 at 10:00; Stop 05/28/17 at 10:01; Status DC Guaifenesin (Robitussin Liq) 200 mg Q4HR PO Last administered on 06/01/17 08: 32; Start 05/28/17 at 04:00 Lactated Ringer's 1,000 ml @ 30 mls/hr Q24H PRN IV SEE LABEL COMMENTS; Start 05/29/17 at 22:15; Stop 06/01/17 at 22:14 Miscellaneous Information ALL NURSING DEPARTME... UNSCH PRN .XX SEE LABEL COMMENTS; Start 05/30/17 at 12:30; Stop 05/31/17 at 12:29; Status DC Magnesium Sulfate/ Dextrose 100 ml @ 100 mls/hr Q1H IV Last administered on 13:30; Start 05/31/17 at 12:30; Stop 05/31/17 at 14:29; Status DC Potassium Chloride (KCl Powder) 40 meq Q12HR PEG Last administered on 08:32; Start 05/31/17 at 21:00 Potassium Chloride (KCl Powder) 40 meq ONCE ONCE PEG Last administered on 12:38; Start 05/31/17 at 12:00; Stop 05/31/17 at 12:20; Status DC A/P Assessment and Plan Assessment and Plan 1. Abdominal pain and Dysphagia associated with unintentional weight loss, not eating but drinking liquids will need to rule out GI malignancy, has chronic Dysphagia GI specialist will perform EGD next 05/30/17 and probable PEG tube placement if indicated. Had PEG tube placed 05/30/17 restart Protonix 2. Ileus as per new KUB GI specialist following. Improved 3. CAD status post CABG will start heparin for DVT prophylaxis, --will restart Plavix and aspirin June 01 4. Anxiety disorder/Depression to continue Home medicines. 5. Gastroesophageal Reflux disease on Famotidine and Carafate 6. Hyperlipidemia on statin restart June 01 7. Hypertension controlled on home medicines. 8. questionable COPD/Pneumonia on antibiotics, follow blood culture, legionella antigen, Pneumococcal antigen Bronchodilator, Mucolytic and incentive spirometry 9. Cachexia, consult dietitian, started on tube feeds via PEG tolerating so far 10. Tobacco dependence strongly recommended to stop smoking. 11. Hematuria/Tobacco dependence/>49 years of age, consult Urology to rule out Urothelial Carcinoma. will follow Input and recommendations by specialist. 12. Hypokalemia we'll replace 13. Hypomagnesemia we'll replace Follow Echocardiogram Follow laboratory and blood cultures. Dietitian consult, PT, lining caser, GI specialist, speech therapy, Urology specialist consult Modified Barium swallow for today failed needs PEG which was placed on 05/30/17 CHANGE ANTIBIOTICS AND CAN DC TO SNF Discharge Planning Needs physical therapy and occupational therapy and speech therapy Ayaz Lnace DO Jun 01, 2017 10:26
[2017-06-01] MEDS ORDERED: ASPIRIN EC 81 MG TABEC PO SCH (10:30)
[2017-06-01] MEDS ORDERED: PANTOPRAZOLE SOD 40 MG DELAYED RELEASE TAB PO SCH (10:30)
[2017-06-01] MEDS ORDERED: PRAVASTATIN SOD 20 MG TAB PO SCH (10:30)
[2017-06-01] MEDS ORDERED: CLOPIDOGREL 75 MG TAB PO SCH (10:30)
[2017-06-01 12:00] VITALS: BP 145/65; PULSE 71; RESP 20; TEMP 97.5; O2SAT 98
[2017-06-01 12:15] LABS: AUTOMATED NEUTROPHIL # 5.5 TH/MM3 (1.8-7.7); BASOPHIL # 0.2 TH/MM3 (0-0.2); BASOPHIL % 2.4 % (0.0-2.0); EOSINOPHIL # 0.3 TH/MM3 (0-0.4); EOSINOPHIL % 4.4 % (0.0-4.0); HEMATOCRIT 34.9 % (39.0-51.0); HEMO FLAGS DIFF FINAL; LYMPH % 14.4 % (9.0-44.0); LYMPHOCYTE # 1.1 TH/MM3 (1.0-4.8); MEAN CELL VOLUME 91.7 FL (80.0-100.0); MEAN CORPUSCULAR HEMOGLOBIN 30.6 PG (27.0-34.0); MEAN CORPUSCULAR HGB CONC 33.4 % (32.0-36.0); MONO % 7.6 % (0.0-8.0); NEUT % 71.2 % (16.0-70.0); PLATELET COUNT 320 TH/MM3 (150-450); RED BLOOD COUNT 3.81 MIL/MM3 (4.50-5.90); RED CELL DISTRIBUTION WIDTH 15.7 % (11.6-17.2); WHITE BLOOD COUNT 7.7 TH/MM3 (4.0-11.0)
[2017-06-01 12:48] LABS: ALKALINE PHOSPHATASE 84 U/L (45-117); ALT (GPT) 8 U/L (12-78); ANION GAP 5 MEQ/L (5-15); AST (GOT) 14 U/L (15-37); BICARBONATE 28.7 MEQ/L (21.0-32.0); BLOOD UREA NITROGEN 5 MG/DL (7-18); CHLORIDE 106 MEQ/L (98-107); GLOMERULAR FILTRATION RATE 252 ML/MIN (>89); MAGNESIUM 1.9 MG/DL (1.5-2.5); POTASSIUM 4.1 MEQ/L (3.5-5.1); SODIUM (NA) 140 MEQ/L (136-145); TOTAL BILIRUBIN ADULT 0.2 MG/DL (0.2-1.0)
[2017-06-01] MEDS ORDERED: ZITH500T PO (15:04)
[2017-06-01] MEDS ORDERED: SUCR1S PO (15:04)
[2017-06-01] MEDS ORDERED: COUG100S PO (15:04)
[2017-06-01] MEDS ORDERED: CEFU1TAB18 PO (15:04)
[2017-06-01] MEDS ORDERED: SENN187 PO (15:04)
[2017-06-01] MEDS ORDERED: POLY17S PO (15:04)
[2017-06-01] MEDS ORDERED: PERC5TAB12 PO (15:04)
--- NOTE | 2017-06-01 15:09 | HHI.DS ---
Discharge Summary Admission Date May 27, 2017 at 14:55 Discharge Date: Jun 01, 2017 Admitting Diagnosis SBO, pneumonia (1) History of dysphagia ICD Code: Z87.19 - History of dysphagia Diagnosis: Principal Status: Acute (2) Hypertension ICD Code: I10 - Hypertension Diagnosis: Secondary Status: Acute (3) Tobacco abuse ICD Code: Z72.0 - Tobacco abuse Diagnosis: Secondary Status: Acute (4) Hyperlipidemia ICD Code: E78.5 - Hyperlipidemia Diagnosis: Secondary Status: Acute (5) CAD (coronary artery disease) ICD Code: I25.10 - Coronary artery disease Diagnosis: Secondary Status: Acute (6) COPD (chronic obstructive pulmonary disease) ICD Code: J44.9 - Chronic obstructive pulmonary disease Diagnosis: Secondary Status: Acute (7) BPH (benign prostatic hypertrophy) with urinary obstruction ICD Code: N40.1 - Benign prostatic hyperplasia with urinary obstruction Diagnosis: Principal Status: Acute (8) UTI (lower urinary tract infection) ICD Code: N39.0 - Lower urinary tract infectious disease Diagnosis: Principal Status: Acute (9) Dysphagia ICD Code: R13.10 - Dysphagia Diagnosis: Principal Status: Acute (10) Pneumonia ICD Code: J18.9 - Pneumonia, unspecified organism Diagnosis: Principal Status: Acute Procedures EGD WITH PEG PROCEDURE REPORT EXAM DATE: 05/30/2017 PATIENT NAME: Bobby León MR#: [id number] BIRTHDATE: 1950 ATTENDING: Kyra Koch MD ORDER #: [id number] HEAD KNITTING MACHINE FIXER: Mally Alonso Pat STATUS: inpatient INDICATIONS: The patient is a 67 yr old male here for an EGD with PEG due to placement of PEG PROCEDURE PERFORMED: EGD with PEG placement MEDICATIONS: None and Per Anesthesia. TOPICAL ANESTHETIC: none CONSENT: The patient understands the risks and benefits of the procedure and understands that these risks include, but are not limited to: sedation, allergic reaction, infection, perforation and/or bleeding. Alternative means of evaluation and treatment include, among others: physical exam, x-rays, and/or surgical intervention. The patient elects to proceed with this endoscopic procedure. medical equipment was checked for proper function. Hand hygiene and appropriate measures for infection prevention was taken. After the risks, benefits and alternatives of the procedure were thoroughly explained, Informed consent was verified, confirmed and timeout was successfully executed by the treatment team. The patient was anesthetized with topical anesthesia and the Pentax [id number] endoscope was introduced through the mouth and advanced to the second portion of the duodenum. The instrument was slowly withdrawn as the mucosa was fully examined. The upper, middle, and distal third of the esophagus were carefully inspected and no abnormalities were noted. The z-line was well seen at the GEJ. The endoscope was pushed into the fundus which was normal including a retroflexed view. The antrum, first and second part of the duodenum were unremarkable. Image was stored via computer. The stomach was then inflated with air, and by a combination of transillumination and manual palpation, the site for the gastrostomy tube placement was selected and marked on the anterior abdominal wall. The skin of the anterior abdomen was surgically prepped and draped with sterile towels. Utilizing strict sterile technique, the selected site was then anesthetized with 1% xylocaine by injection into the skin and subcutaneous tissue. A 1 cm incision was made through the skin and subcutaneous tissue, and the needle/cannula assembly was then passed through the abdominal wall and through the anterior wall of the stomach, maintaining visualization with the endoscope. A snare device previously placed through the instrument channel was then opened and placed around the cannula, the needle was removed, and the insertion wire was passed through the cannula and into the stomach lumen. The snare was then loosened from the cannula, and repositioned to snare the insertion wire. The snare was then pulled up to the endoscope distal tip, and the scope was then withdrawn bringing with it the snare and insertion wire. The insertion wire was then released from the snare, and then loop-attached to the Bard 20 Fr gastrostomy tube. Using the "pull technique", the G-tube was then pulled into place by traction on the insertion wire at the abdominal wall end. The G-tube insertion site was then cleansed once again, and the external bolster was placed over the tube to secure it to the abdominal wall. A sterile dressing was then applied, and the procedure terminated. no abnormalities The gastroscope was then slowly withdrawn and removed. ADVERSE EVENT: There were no complications. IMPRESSIONS: 1. The upper, middle, and distal third of the esophagus were carefully inspected and no abnormalities were noted. The z-line was well seen at the GEJ. The endoscope was pushed into the fundus which was normal including a retroflexed view. The antrum, first and second part of the duodenum were unremarkable. 2. PEG tube placed successfully RECOMMENDATIONS: PEG recomendations: 1- NPO for 6 hours except for meds 2- Flush PEG tube every 6 hours with water and after each PEG feeding 3- May resume regular diet in the morning 4- May use Ensure or Boost etc. for PEG tube feeding REPEAT EXAM: procedure as needed Brief History - From Admission This is a pleasant 67 y/o male who has multiple evaluations in ER in this facility due to abdominal pain he also complaint recently of Urinary obstruction thought to be related to Urinary Tract infection given Keflex without improvement, continue with indwelling Verde Catheter, the patient has abdominal pain on his upper quadrants, non radiated 8/ 10 in intensity, associated Dysphagia, not able to eat but able to drink, he denies any nausea or vomit, no diarrhea, afebrile, denies chills, No melena or hematochezia, as we know he has CAD on Plavix and Aspirin, Anxiety disorder, Depression, hyperlipidemia, GERD, Hypertension, he is cachectic, has Dysphagia history of PEG insertion and removal. has an NG tube placed in ER but he is not having nausea or vomit, to remove NG tube and start him on liquid diet. follow recommendations by GI specialist. CBC/BMP: 06/01/17 1125 06/01/17 1125 Significant Findings Laboratory Tests Test 05/31/17 07:16 06/01/17 11:25 Red Blood Count 3.73 MIL/MM3 (4.50-5.90) 3.81 MIL/MM3 (4.50-5.90) Hemoglobin 11.5 GM/DL (13.0-17.0) 11.7 GM/DL (13.0-17.0) Hematocrit 34.1 % (39.0-51.0) 34.9 % (39.0-51.0) Neutrophils (%) (Auto) 79.6 % (16.0-70.0) 71.2 % (16.0-70.0) Lymphocytes # (Auto) 0.9 TH/MM3 (1.0-4.8) Blood Urea Nitrogen 4 MG/DL (7-18) 5 MG/DL (7-18) Creatinine 0.40 MG/DL (0.60-1.30) 0.41 MG/DL (0.60-1.30) Random Glucose 111 MG/DL (74-106) Total Protein 5.9 GM/DL (6.4-8.2) 5.9 GM/DL (6.4-8.2) Albumin 1.9 GM/DL (3.4-5.0) 1.9 GM/DL (3.4-5.0) Calcium Level 7.8 MG/DL (8.5-10.1) 7.9 MG/DL (8.5-10.1) Phosphorus Level 1.2 MG/DL (2.5-4.9) 1.0 MG/DL (2.5-4.9) Aspartate Amino Transf (AST/SGOT) 9 U/L (15-37) 14 U/L (15-37) Alanine Aminotransferase (ALT/SGPT) 6 U/L (12-78) 8 U/L (12-78) Potassium Level 2.8 MEQ/L (3.5-5.1) Eosinophils (%) (Auto) 4.4 % (0.0-4.0) Basophils (%) (Auto) 2.4 % (0.0-2.0) Imaging Last Impressions Modified Barium Swallow 05/28/17 0000 Signed Impressions: Service Date/Time: Sunday, May 28, 2017 00:00 - CONCLUSION: Minimal transient penetration of the supraglottic larynx without cee tracheal aspiration with thin barium only. Pooling in the paired valleculae and piriform sinuses and some delay in passage of all substances which appears to be related to relative narrowing of the upper esophagus secondary to anterior osteophytic spurring of the lower cervical spine. For full detailed report, see report by the speech pathologist. Dany La MD Abdomen X-Ray 05/28/17 0000 Signed Impressions: Service Date/Time: Sunday, May 28, 2017 13:43 - CONCLUSION: 1. Ingested oral contrast from earlier barium swallow examination now noted in the colon. There is a focally dilated loop of small bowel measuring up to 4.3 cm. This is nonspecific but may reflect focal ileus. Joaquin Day MD Chest X-Ray 05/27/17 1456 Signed Impressions: Service Date/Time: Saturday, May 27, 2017 16:01 - CONCLUSION: No acute disease. No significant change has occurred. Kody Sultana MD Scrotum Ultrasound 05/27/17 0000 Signed Impressions: Service Date/Time: Saturday, May 27, 2017 10:28 - CONCLUSION: 1. Large complex hydrocele with debris and septations. 2. Small right hydrocele 3. Bilateral small epididymal cysts. 4. Both testicles are within normal limits. Kody Sultana MD Abdomen/Pelvis CT 05/27/17 0000 Signed Impressions: Service Date/Time: Saturday, May 27, 2017 12:34 - CONCLUSION: 1. Posterior bibasilar patchy opacities consistent with probable pneumonia. Clinical correlation is recommended. 2. Scattered emphysematous changes within the visualized lung bases. 3. Markedly enlarged prostate. 4. Mild dilatation of several small bowel loops suggesting partial small bowel obstruction or ileus. Clinical correlation is recommended. 5. Calcified nonobstructing left renal calculi. Dany La MD PE at Discharge GENERAL: Very cachectic male in no acute distress at this time SKIN: Warm and dry. HEAD: Atraumatic. Normocephalic. EYES: Pupils equal and round. No scleral icterus. No injection or drainage. Extraocular muscles intact ENT: No nasal bleeding or discharge. Mucous membranes pink and moist. Tongue is midline NECK: Trachea midline. No JVD. Supple CARDIOVASCULAR: Regular rate and rhythm. S1 and S2 no S3-S4 no heave or thrill or rub or gallop RESPIRATORY: No accessory muscle use. Clear to auscultation. Breath sounds equal bilaterally. GASTROINTESTINAL: Abdomen soft, non-tender, nondistended. Hepatic and splenic margins not palpable. PEG tube in place some tenderness around the site MUSCULOSKELETAL: Extremities without clubbing, cyanosis, or edema. No obvious deformities. NEUROLOGICAL: Awake and alert. No obvious cranial nerve deficits. Motor grossly within normal limits. 4 out of 5 muscle strength in the arms and legs. Normal speech. PSYCHIATRIC: Appropriate mood and affect; insight and judgment normal. We'll need aggressive physical therapy and occupational therapy Hospital Course This is a pleasant 67 y/o male who has multiple evaluations in ER in this facility due to abdominal pain he also complaint recently of Urinary obstruction thought to be related to Urinary Tract infection given Keflex without improvement, continue with indwelling Verde Catheter, the patient has abdominal pain on his upper quadrants, non radiated 8/ 10 in intensity, associated Dysphagia, not able to eat but able to drink, he denies any nausea or vomit, no diarrhea, afebrile, denies chills, No melena or hematochezia, as we know he has CAD on Plavix and Aspirin, Anxiety disorder, Depression, hyperlipidemia, GERD, Hypertension, he is cachectic, has Dysphagia history of PEG insertion and removal. has an NG tube placed in ER but he is not having nausea or vomit, to remove NG tube and start him on liquid diet. follow recommendations by GI specialist. 05/28: Stable will go for Barium Swallow, as per nurse he was choking with liquid diet and was suspended, discussed with nurse no vomit or diarrhea. GI specialist following plan for EGD next 05/30/17 and probable PEG placement 05/29: Seen in his bedroom, added Ensure to his diet, will have EGD for tomorrow with probable PEG tube placement, No nausea, vomit or diarrhea, afebrile, no leukocytosis, doubt Pneumonia new CXR no pathology, has hematuria on new Urinalysis associated with his age more than 50 years of age and Tobacco smoker warranted to rule out Bladder cancer. asked for the expertise of Urology specialist for Input and recommendations. 05-30 PATIENT HAD PEG TUBE PLACED TODAY BY GI SEEN BY UROLOGY CONTINUE VERDE MAY NEED CYSTOSCOPY IN FUTURE DW RN AND PT 05-31 patient is tolerating tube feeds at 50 ML's per hour currently through his PEG twice yesterday Will need to go to SNF at discharge Still has Verde in place A.m. labs PT and OT Discussed with patient and RN and case management Hypokalemia Will replace Hypo-magnesium will replace 12- patient has been tolerating tube feeds. Is still wanting by mouth intake and is on pured diet with honey thickened liquids along with tube feeds Labs pending Continue on Verde Continue at SNF at discharge Pt Condition on Discharge: Good Discharge Disposition: Discharge to SNF Discharge Time: > 30 minutes Discharge Instructions DIET: Follow Instructions for: Heart Healthy Diet, On Tube Feeding, Pureed Diet Speech Therapy-Diet Recommends: Honey Thickened Liquids, Pureed, Other Additional Diet Instructions: JEVITY AT 50ML/HOUR PUREED DIET WITH HONEY THICK LIQUIDS HEAD OF BED AT 30 DEGREES AT ALL TIMES Activities you can perform: Weight Bearing as Hector Follow up Referrals: Gastroenterology - 2 Weeks with Kyra Koch MD PCP Follow-up - 2 Weeks New Medications: Azithromycin (Zithromax) 500 Mg Tab 500 MG PO DAILY for Infection for 5 Days, #5 TAB 0 Refills Cefuroxime (Ceftin) 250 Mg Tab 250 MG PO BID for Infection for 10 Days, #20 TAB Oxycodone-Acetaminophen (Percocet) 5-325 mg Tab 1 TAB PO Q4H PRN for PAIN, #30 TAB 0 Refills Guaifenesin (Cough Syrup) 100 Mg/5 Ml Syrp 200 MG PO Q4HR for Cough, #900 ML Polyethylene Glycol 3350 Powder (Polyethylene Glycol 3350 Powder) 17 Gram Pow 17 GM PO DAILY for Constipation, #1 BOTTLE Sennosides (Senna-Lax) 8.6 Mg Tab 17.2 MG PO Q12H PRN for Moderate constipation, #120 TAB Sucralfate Liq (Sucralfate Liq) 1 Gram/10 Ml Amy 1 GM PO ACHS for GERD, #120 GM Continued Medications: Aspirin DR (Aspir-81) 81 Mg Tabdr 81 MG PO DAILY Clopidogrel (Clopidogrel) 75 Mg Tab 75 MG PO DAILY for Blood Clot Prevention, #30 TAB 0 Refills Finasteride (Finasteride) 5 Mg Tab 5 MG PO DAILY for bph, #30 TAB 11 Refills Do not crush. Lisinopril (Lisinopril) 2.5 Mg Tab 2.5 MG PO DAILY, #30 TAB 0 Refills Lovastatin (Lovastatin) 20 Mg Tab 20 MG PO DAILY for Cholesterol Management, #30 TAB 0 Refills Metoprolol Tartrate (Metoprolol Tartrate) 25 Mg Tab 25 MG PO BID, #60 TAB 0 Refills Nitroglycerin SL (Nitrostat SL) 0.4 Mg Subl 0.4 MG SL DIRECTED PRN for CHEST PAIN, #100 TAB.SL 0 Refills 1 tablet under the tongue as needed for chest pain. Repeat every 5 minutes for a total of 3 DOSES or call 911 if NO relief. Pantoprazole (Pantoprazole) 40 Mg Tab 40 MG PO DAILY for Reflux, #30 TAB 0 Refills Ayaz Lance DO Jun 01, 2017 15:09
[2017-06-01 16:00] VITALS: BP 155/72; PULSE 73; RESP 20; TEMP 98.4; O2SAT 96
[2017-06-01] MEDS: AZITHROMYCIN INJ 500 MG in SODIUM CHLOR 0.9% 250 ML INJ 250 ML IV SCH (16:46)
== END 2017-06-01 17:57 | DRG 388 ==
LOC: NEPE 09:40 → NEDA 14:55 → N07A 15:41
PROVIDERS: ADMIT Hospitalist; ATTEND Hospitalist
PROC: 0DH68UZ Insertion of Feeding Device into Stomach, Via Natural or Artificial Opening Endoscopic (ICD-10-PCS; principal; 2017-05-30 10:14)
PROC: 0DJ08ZZ Inspection of Upper Intestinal Tract, Via Natural or Artificial Opening Endoscopic (ICD-10-PCS; 2017-05-30 10:14)
DX: K56.600 Partial intestinal obstruction, unspecified as to cause (principal); J18.9 Pneumonia, unspecified organism; R64 Cachexia; J44.0 Chronic obstructive pulmonary disease with (acute) lower respiratory infection; Z68.1 Body mass index [BMI] 19.9 or less, adult; N39.0 Urinary tract infection, site not specified; N13.8 Other obstructive and reflux uropathy; E83.42 Hypomagnesemia; E87.5 Hyperkalemia; R13.13 Dysphagia, pharyngeal phase; K21.9 Gastro-esophageal reflux disease without esophagitis; I25.10 Atherosclerotic heart disease of native coronary artery without angina pectoris; I10 Essential (primary) hypertension; E78.5 Hyperlipidemia, unspecified; R31.0 Gross hematuria; N40.1 Benign prostatic hyperplasia with lower urinary tract symptoms; N20.0 Calculus of kidney; I73.9 Peripheral vascular disease, unspecified; N43.3 Hydrocele, unspecified; R33.9 Retention of urine, unspecified; E87.6 Hypokalemia; F10.20 Alcohol dependence, uncomplicated; F17.210 Nicotine dependence, cigarettes, uncomplicated; F41.9 Anxiety disorder, unspecified; F32.9 Major depressive disorder, single episode, unspecified; Z80.0 Family history of malignant neoplasm of digestive organs; Z95.1 Presence of aortocoronary bypass graft; Z95.5 Presence of coronary angioplasty implant and graft
CPT/HCPCS: 71010; 74000; 74177; 74230; 76870; 80053; 80061; 80074; 80307; 81001; 82607; 82652; 82746; 83036; 83735; 84100; 84439; 84443; 85025; 85610; 85730; 86703; 87040; 87449; 93005; 93306; 93975; 94150; 94640; 94664; 96365; 96367; J0456; J0692; J1644; J1956; J2765; J3370; J3475; J7030; J7050; Q9963; Q9967

== ENCOUNTER 2017-06-17 08:18 | Inpatient (IN) | payer MEDICARE, MEDICAID ==
[~2017-06-17] VITALS: Ht 167.6 cm; Wt 43.3 kg
[~2017-06-17 08:18] MED LIST changes: +CEFU1TAB18 PO; -CIPR500T2 PO; +COUG100S PO; +PERC5TAB12 PO; +POLY17S PO; +SENN187 PO; +SUCR1S PO; +ZITH500T PO
--- NOTE | 2017-06-17 08:45 | PD ---
HPI Chief Complaint: Complaint Time Seen by Provider: 08:31 Travel History International Travel<30 days: No Contact w/Intl Traveler<30days: No Traveled to known affect area: No History of Present Illness HPI 67yo M with PMH of HTN, HLD, CAD, COPD, BPH, dysphagia s/p peg tube placement presents to the ED with c/o lower abdominal pain since yesterday. Pain is mainly lower abdomen, associated with nausea and vomiting. Pt had his brand catheter reinserted yesterday at [facility] and today started having gross hematuria. Said it was not a difficult foely insertion. PFSH Past Medical History Hx Anticoagulant Therapy: Yes Cardiovascular Problems: Yes (HTN) Social History Tobacco Use: No Allergies-Medications (Allergen,Severity, Reaction): Coded Allergies: No Known Allergies (Unverified , 06/17/17) Review of Systems Except as stated in HPI: all other systems reviewed are Neg Physical Exam Narrative GENERAL: 67yo M in mild distress. SKIN: Focused skin assessment warm/dry. HEAD: Atraumatic. Normocephalic. EYES: Pupils equal and round. No scleral icterus. No injection or drainage. CARDIOVASCULAR: Regular rate and rhythm. No murmur appreciated. RESPIRATORY: No accessory muscle use. Clear to auscultation. Breath sounds equal bilaterally. GASTROINTESTINAL: Abdomen soft, +TTP suprapubic region. Peg tube in place. No rebound tenderness or guarding. : Brand catheter in place. +Gross hematuria from brand. MUSCULOSKELETAL: No obvious deformities. No clubbing. No cyanosis. No edema. NEUROLOGICAL: Awake and alert. No obvious cranial nerve deficits. Motor grossly within normal limits. Normal speech. PSYCHIATRIC: Appropriate mood and affect; insight and judgment normal. Data Data Orders Orders Complete Blood Count With Diff (06/17/17 08:36) Comprehensive Metabolic Panel (06/17/17 08:36) Lipase (06/17/17 08:36) Prothrombin Time / Inr (Pt) (06/17/17 08:36) Act Partial Throm Time (Ptt) (06/17/17 08:36) Urinalysis - C+S If Indicated (06/17/17 08:36) Ct Abd/Pel W Iv Contrast(Rout) (06/17/17 08:36) Urine Culture (06/17/17 08:46) Iohexol 350 Inj (Omnipaque 350 Inj) (06/17/17 10:01) Morphine Inj (Morphine Inj) (06/17/17 11:00) Ondansetron Inj (Zofran Inj) (06/17/17 11:00) Insert Ng Tube (06/17/17 10:55) Ceftriaxone Inj (Rocephin Inj) (06/17/17 11:00) NPO (06/17/17 10:56) Morphine Inj (Morphine Inj) (06/17/17 11:30) Admit Order (Ed Use Only) (06/17/17 11:20) Labs Laboratory Tests Test 06/17/17 08:46 White Blood Count 11.0 TH/MM3 Red Blood Count 4.01 MIL/MM3 Hemoglobin 12.1 GM/DL Hematocrit 36.4 % Mean Corpuscular Volume 90.6 FL Mean Corpuscular Hemoglobin 30.2 PG Mean Corpuscular Hemoglobin Concent 33.4 % Red Cell Distribution Width 16.1 % Platelet Count 307 TH/MM3 Mean Platelet Volume 9.3 FL Neutrophils (%) (Auto) 82.7 % Lymphocytes (%) (Auto) 9.6 % Monocytes (%) (Auto) 7.1 % Eosinophils (%) (Auto) 0.1 % Basophils (%) (Auto) 0.5 % Neutrophils # (Auto) 9.1 TH/MM3 Lymphocytes # (Auto) 1.1 TH/MM3 Monocytes # (Auto) 0.8 TH/MM3 Eosinophils # (Auto) 0.0 TH/MM3 Basophils # (Auto) 0.1 TH/MM3 CBC Comment DIFF FINAL Differential Comment Prothrombin Time 11.0 SEC Prothromb Time International Ratio 1.1 RATIO Activated Partial Thromboplast Time 30.9 SEC Urine Color RED Urine Turbidity HAZY Urine pH 6.5 Urine Specific [place] 1.022 Urine Protein 300 mg/dL Urine Glucose (UA) NEG mg/dL Urine Ketones TRACE mg/dL Urine Occult Blood LARGE Urine Nitrite NEG Urine Bilirubin NEG Urine Urobilinogen LESS THAN 2.0 MG/DL Urine Leukocyte Esterase SMALL Urine RBC /hpf Urine WBC /hpf Urine Bacteria RARE /hpf Microscopic Urinalysis Comment CULTURE INDICATED Blood Urea Nitrogen 16 MG/DL Creatinine 0.58 MG/DL Random Glucose 105 MG/DL Total Protein 8.6 GM/DL Albumin 3.7 GM/DL Calcium Level 9.7 MG/DL Alkaline Phosphatase 90 U/L Aspartate Amino Transf (AST/SGOT) 17 U/L Alanine Aminotransferase (ALT/SGPT) 16 U/L Total Bilirubin 0.3 MG/DL Sodium Level 137 MEQ/L Potassium Level 4.0 MEQ/L Chloride Level 102 MEQ/L Carbon Dioxide Level 27.3 MEQ/L Anion Gap 8 MEQ/L Estimat Glomerular Filtration Rate 139 ML/MIN Lipase 156 U/L MDM Medical Decision Making Medical Screen Exam Complete: Yes Emergency Medical Condition: Yes Differential Diagnosis Urethral injury vs. hemorrhagic cystitis vs. renal mass Narrative Course 67yo M with lower abdominal pain, nausea and vomiting since yesterday. Pt also with gross hematuria after brand catheter was replaced at intermediate. Pt had a different medical record under the name Bobby León. It was [id number]. Labs reviewed, no leukocytosis. H/H low at 12.1/36.4. This is baseline. CMP unremarkable. Lipase normal. UA showed large blood. Small leukocyte. Rare bacteria. Culture is indicated. Will cover with ceftriaxone. CT a/p showed multiple fluid filled dilated loops of small bowl and gastri distention suggesting small bowel obstruction of indeterminate etiology. Enlarged prostate. Pt said he feels nauseous but has not vomited since yesterday. Last bowel movement yesterday. Discussed with Dr. Montes De [facility] [employer] and accepted to his service. Diagnosis Primary Impression: SBO (small bowel obstruction) Admitting Information Admitting Physician Requests: Admit Brenda Enriquez DO Jun 17, 2017 08:45
[2017-06-17 09:09] LABS: AUTOMATED NEUTROPHIL # 9.1 TH/MM3 (1.8-7.7); BASOPHIL # 0.1 TH/MM3 (0-0.2); BASOPHIL % 0.5 % (0.0-2.0); EOSINOPHIL % 0.1 % (0.0-4.0); HEMATOCRIT 36.4 % (39.0-51.0); HEMOGLOBIN 12.1 GM/DL (13.0-17.0); LYMPH % 9.6 % (9.0-44.0); LYMPHOCYTE # 1.1 TH/MM3 (1.0-4.8); MEAN CELL VOLUME 90.6 FL (80.0-100.0); MEAN CORPUSCULAR HEMOGLOBIN 30.2 PG (27.0-34.0); MEAN CORPUSCULAR HGB CONC 33.4 % (32.0-36.0); MEAN PLATELET VOLUME 9.3 FL (7.0-11.0); MONO % 7.1 % (0.0-8.0); MONOCYTE # 0.8 TH/MM3 (0-0.9); NEUT % 82.7 % (16.0-70.0); PLATELET COUNT 307 TH/MM3 (150-450); RED BLOOD COUNT 4.01 MIL/MM3 (4.50-5.90); RED CELL DISTRIBUTION WIDTH 16.1 % (11.6-17.2)
[2017-06-17 09:26] LABS: ALBUMIN 3.7 GM/DL (3.4-5.0); AST (GOT) 17 U/L (15-37); BICARBONATE 27.3 MEQ/L (21.0-32.0); BLOOD UREA NITROGEN 16 MG/DL (7-18); CALCIUM 9.7 MG/DL (8.5-10.1); CHLORIDE 102 MEQ/L (98-107); CREATININE 0.58 MG/DL (0.60-1.30); GLOMERULAR FILTRATION RATE 139 ML/MIN (>89); GLUCOSE,RANDOM 105 MG/DL (74-106); LIPASE 156 U/L (73-393); SODIUM (NA) 137 MEQ/L (136-145)
[2017-06-17 09:28] LABS: ALT (GPT) 16 U/L (12-78)
[2017-06-17 09:29] LABS: ALKALINE PHOSPHATASE 90 U/L (45-117); TOTAL BILIRUBIN ADULT 0.3 MG/DL (0.2-1.0); TOTAL PROTEIN 8.6 GM/DL (6.4-8.2)
[2017-06-17 09:32] LABS: INTERNATIONAL NORMALIZED RATIO 1.1 RATIO
[2017-06-17 09:36] LABS: BACTERIA, URINE RARE /hpf; BILIRUBIN, URINE NEG (NEG); BLOOD, URINE LARGE (NEG); GLUCOSE,URINE NEG (NEG); KETONE, URINE TRACE mg/dL (NEG); NITRITE,URINE NEG (NEG); PH, URINE 6.5 (5.0-8.5); URINE COLOR RED (YELLW/STRAW); URINE LEUKOCYTE ESTERASE SMALL (NEG)
[2017-06-17] MEDS ORDERED: IOHEXOL 350 MG/ML 10 ML VIAL (for RAD DIAG) IVCONTRAST ONE (10:01)
--- NOTE | 2017-06-17 10:17 | RADRPT ---
EXAM DATE/TIME: 06/17/2017 09:54 [facility] COMPARISON: No previous studies available for comparison. INDICATIONS : Abdominal pain, vomiting IV CONTRAST: 75 cc Omnipaque 350 (iohexol) IV ORAL CONTRAST: No oral contrast ingested. RADIATION DOSE: 4.48 CTDIvol (mGy) MEDICAL HISTORY : Hypertension. SURGICAL HISTORY : None. ENCOUNTER: Initial ACUITY: 2 days PAIN SCALE: 5/10 LOCATION: Lower abdomen TECHNIQUE: Volumetric scanning of the abdomen and pelvis was performed. Using automated exposure control and ad justment of the mA and/or kV according to patient size, radiation dose was kept as low as reasonably achievable to obtain optimal diagnostic quality images. DICOM format image data is available electro nically for review and comparison. FINDINGS: LOWER LUNGS: Scattered emphysematous changes are noted within the lung bases. LIVER: Homogeneous density without lesion. There is no dilation of the biliary tree. No calcified gallston es. SPLEEN: Normal size without lesion. PANCREAS: Within normal limits. KIDNEYS: Normal in size and shape. There is no mass, stone or hydronephrosis. ADRENAL GLANDS: Within normal limits. VASCULAR: The patient is status post aortobifemoral bypass graft. BOWEL/MESENTERY: There multiple fluid-filled dilated loops of small bowel suggesting small bowel obstruction. The stom ach is distended and contains a gastric tube. The colon is nondistended. ABDOMINAL WALL: Within normal limits. RETROPERITONEUM: There is no lymphadenopathy. BLADDER: No wall thickening or mass. A Wright catheter is noted within the nondistended urinary bladder. REPRODUCTIVE: The prostate gland is prominent. There is a large fluid collection within the left scrotum consistent with probable hydrocele. INGUINAL: There is no lymphadenopathy or hernia. MUSCULOSKELETAL: Degenerative changes throughout the thoracolumbar spine CONCLUSION: 1. Multiple fluid-filled dilated loops of small bowel and gastric distention suggesting small bowel o bstruction of indeterminate etiology. 2. Large hydrocele within the left scrotum. 3. Enlarged prostate. 4. Scattered emphysematous changes within the lung bases. 5. Degenerative changes throughout the thoracolumbar spine. Dany La MD on June 17, 2017 at 10:08 Board Certified Radiologist. This report was verified electronically.
[2017-06-17] MEDS ORDERED: ONDANSETRON HCL 4 MG/2 ML VIAL IV PUSH ONE (11:00)
[2017-06-17] MEDS ORDERED: cefTRIAXone INJ 1,000 MG in SODIUM CHLORIDE 0.9% INJ 100 ML IV ONE (11:00)
[2017-06-17] MEDS ORDERED: MORPHINE SULFATE 4 MG/ML INJ IV PUSH ONE (11:00)
[2017-06-17] MEDS ORDERED: MORPHINE SULFATE 2 MG/ML INJ IV PUSH ONE (11:30)
[2017-06-17 11:45] VITALS: BP 171/77; PULSE 82; RESP 17; O2SAT 97
[2017-06-17] MEDS ORDERED: SODIUM CHLORID 0.9% 500 ML INJ 500 ML IV ONE (11:45)
[2017-06-17] MEDS ORDERED: ONDANSETRON HCL 4 MG/2 ML VIAL IVP PRN (13:15)
[2017-06-17] MEDS ORDERED: NALOXONE HCL 0.4 MG/ML AMP IV PUSH PRN (13:15)
[2017-06-17] MEDS ORDERED: ACETAMINOPHEN 325 MG TAB PO PRN (13:15)
[2017-06-17] MEDS ORDERED: MAGNESIUM HYDROXIDE SUSP 30 ML CUP PO PRN (13:15)
[2017-06-17] MEDS ORDERED: BISACODYL 10 MG SUPP RECTAL PRN (13:15)
[2017-06-17] MEDS ORDERED: SENNOSIDES 8.6 MG TAB PO PRN (13:15)
[2017-06-17] MEDS ORDERED: LACTULOSE SYRUP 20 GM/30 ML CUP PO PRN (13:15)
[2017-06-17] MEDS ORDERED: SODIUM CHLORIDE 0.9% FLUSH 10 ML FLUSH IV FLUSH PRN (13:15)
[2017-06-17 13:51] VITALS: BP 171/77; PULSE 83; RESP 17; O2SAT 99
[2017-06-17] MEDS: SODIUM CHLOR 0.9% 1000 ML INJ 1,000 ML IV SCH (13:54)
[2017-06-17 16:00] VITALS: BP 177/86; PULSE 82; RESP 18; TEMP 96.2; O2SAT 98
--- NOTE | 2017-06-17 16:19 | PD.CONS ---
HPI History of Present Illness This is a 67 year old M who presented to the emergency department today from [facility] with complaints of abdominal pain, nausea, and vomiting that began yesterday. Multiple episodes of vomit, described as bile colored. Denies blood in vomit or coffee ground emesis. Does report 2 BMs yesterday, denies any BMs today or flatus. Denies any BRBPR, black, tarry stools. Of note, pt does report abdominal pain began after having his urinary catheter removed yesterday and he was unable to urinate. He did receive some relief when a new catheter was placed. Pt is a poor historian and parts of the HPI were obtained from jail records and previous hospital records. Pt was recently admitted to [facility] for dysphagia and SBO vs ileus. Pt had a PEG tube placed for dysphagia and poor PO intake (05/30) --> The upper, middle, and distal third of the esophagus were carefully inspected and no abnormalities were noted. The Z-line was well seen at the [facility]. The endoscope was pushed into the fundus which was normal including a retroflexed view. The antrum, first and second part of the duodenum were unremarkable. Pt currently on TF at [facility], Isosource 1,5 at 70 mL/hr for 14 hrs at [facility]. Of note, according to hospital records he was previously diagnosed with a neck mass which was found to be benign via biopsy, at which time he had a PEG tube which was removed shortly after. While in the ER pt had CT abdomen and pelvis W IV contrast (06/17) --> Multiple fluid-filled dilated loops of small bowel and gastric distention suggesting small bowel obstruction of indeterminate etiology. Large hydrocele within the left scrotum. Enlarged prostate. Scattered emphysematous changes within the lung bases. Degenerative changes throughout the thoracolumbar spine. Pt had an NGT placed in the ER which is currently hooked up to [facility]. There is minimal amount of drainage at this time. PFSH Past Medical History PNA Dysphagia SBO S/P gastrostomy UTI CAD HTN BPH COPD Hyperlipidemia Obstructive and reflux uropathy Muscle weakness Past Surgical History CABG PEG Coded Allergies: No Known Allergies (Unverified , 06/17/17) Medications Scheduled: Aspirin 81 mg Plavix 75 mg Finasteride 5mg Lisinopril 2.5mg Lovastatin 20mg MiraLAX Protonix 40mg Metoprolol Tartrate 25mg PRN meds: Sennosides Sucralfate Tylenol Dulcolax Citroma Bisacodyl Enema Guaifenesin Milk of magnesia Nitroglycerin Percocet Zofran Family History Sister- colon cancer Social History Denies ETOH Smoker- pack a day Denies illicit drug use Review of Systems Gastrointestinal: COMPLAINS OF: Abdominal pain, Nausea, Vomiting, Anorexia, Swelling of Abdomen, DENIES: Black stools, Bloody stools, Constipation, Diarrhea GI Exam Vitals I&O Vital Signs Date Time Temp Pulse Resp B/P (MAP) Pulse Ox O2 Delivery O2 Flow Rate FiO2 06/17/17 13:51 83 17 171/77 (108) 99 Room Air 06/17/17 11:45 82 17 171/77 (108) 97 Room Air I/O 06/16/17 06/16/17 06/16/17 06/17/17 06/17/17 06/17/17 07:00 15:00 23:00 07:00 15:00 23:00 Intake Total 100 ml 600 ml Balance 100 ml 600 ml Intake IV Total 100 ml 600 ml Imaging Last Impressions Abdomen/Pelvis CT 06/17/17 0836 Signed Impressions: Service Date/Time: Saturday, June 17, 2017 09:54 - CONCLUSION: 1. Multiple fluid-filled dilated loops of small bowel and gastric distention suggesting small bowel obstruction of indeterminate etiology. 2. Large hydrocele within the left scrotum. 3. Enlarged prostate. 4. Scattered emphysematous changes within the lung bases. 5. Degenerative changes throughout the thoracolumbar spine. Dany La MD Laboratory Test 06/17/17 08:46 White Blood Count 11.0 TH/MM3 Red Blood Count 4.01 MIL/MM3 Hemoglobin 12.1 GM/DL Hematocrit 36.4 % Mean Corpuscular Volume 90.6 FL Mean Corpuscular Hemoglobin 30.2 PG Mean Corpuscular Hemoglobin Concent 33.4 % Red Cell Distribution Width 16.1 % Platelet Count 307 TH/MM3 Mean Platelet Volume 9.3 FL Neutrophils (%) (Auto) 82.7 % Lymphocytes (%) (Auto) 9.6 % Monocytes (%) (Auto) 7.1 % Eosinophils (%) (Auto) 0.1 % Basophils (%) (Auto) 0.5 % Neutrophils # (Auto) 9.1 TH/MM3 Lymphocytes # (Auto) 1.1 TH/MM3 Monocytes # (Auto) 0.8 TH/MM3 Eosinophils # (Auto) 0.0 TH/MM3 Basophils # (Auto) 0.1 TH/MM3 CBC Comment DIFF FINAL Differential Comment Prothrombin Time 11.0 SEC Prothromb Time International Ratio 1.1 RATIO Activated Partial Thromboplast Time 30.9 SEC Urine Color RED Urine Turbidity HAZY Urine pH 6.5 Urine Specific [place] 1.022 Urine Protein 300 mg/dL Urine Glucose (UA) NEG mg/dL Urine Ketones TRACE mg/dL Urine Occult Blood LARGE Urine Nitrite NEG Urine Bilirubin NEG Urine Urobilinogen LESS THAN 2.0 MG/DL Urine Leukocyte Esterase SMALL Urine RBC /hpf Urine WBC /hpf Urine Bacteria RARE /hpf Microscopic Urinalysis Comment CULTURE INDICATED Blood Urea Nitrogen 16 MG/DL Creatinine 0.58 MG/DL Random Glucose 105 MG/DL Total Protein 8.6 GM/DL Albumin 3.7 GM/DL Calcium Level 9.7 MG/DL Alkaline Phosphatase 90 U/L Aspartate Amino Transf (AST/SGOT) 17 U/L Alanine Aminotransferase (ALT/SGPT) 16 U/L Total Bilirubin 0.3 MG/DL Sodium Level 137 MEQ/L Potassium Level 4.0 MEQ/L Chloride Level 102 MEQ/L Carbon Dioxide Level 27.3 MEQ/L Anion Gap 8 MEQ/L Estimat Glomerular Filtration Rate 139 ML/MIN Lipase 156 U/L Date/Time Source Procedure Growth Status 06/17/17 08:46 Urine Random Urine Urine Culture Pending Received Physical Examination HEENT: Normocephalic; atraumatic CHEST: Even/unlabored. CARDIAC: RRR ABDOMEN: Cachectic, mild distension, bowel sound diminished, PEG tube clamped. NGT to LIWS EXTREMITIES: No clubbing, cyanosis, or edema. SKIN: Normal; no rash; no jaundice. HAMMER ADJUSTER: No focal deficits; poor historian Assessment and Plan Plan Assessment - Small bowel obstruction- Presented to ER with complaints of abdominal pain and vomiting that began yesterday. CT abdomen and pelvis W IV contrast (06/17) --> Multiple fluid-filled dilated loops of small bowel and gastric distention suggesting small bowel obstruction of indeterminate etiology. Large hydrocele within the left scrotum. Enlarged prostate. Scattered emphysematous changes within the lung bases. Degenerative changes throughout the thoracolumbar spine. NGT tube placed in ER to LIWS with small amount of drainage. Pt does have PEG that was placed during recent hospitalization in May for dysphagia and poor PO intake. - Hematuria- urology consulted Of note, last hospital records are under name Bobby León- records reviewed Plan - Discontinue NGT - PEG to LIWS - Protonix - NPO - GS consult - IV fluids - Supportive care/pain control - Further recommendations to follow based on results of above Pt has been seen and examined by myself and Dr. Myers and this note is written on his behalf Adrianna Arguello Jun 17, 2017 16:19
--- NOTE | 2017-06-17 17:03 | PD.CONS ---
cc: Pawan Brito MD [facility] Service General Surgery Consult Requested By Adrianna CRABTREE Reason for Consult Small bowel obstruction Primary Care Physician Tahir Montes De Oca, DO History of Present Illness This is a 67 year old male with a past medical history of hypertension, anemia, coronary artery disease, COPD, BPH, dysphagia and pneumonia. The patient was recently hospitalized last month for a persistent nausea and inability to tolerate any by mouth intake. At that time, the patient reports a 30 pound weight loss. A PEG tube was placed at that time. After review of the past medical charts, the patient has been worked up for a laryngeal mass in 2013. Biopsies were obtained which did not indicate any dysplasia. The patient is an extremely poor historian. The patient presents today from [facility] with complaints of nausea, vomiting and abdominal pain that began yesterday. A CT abdomen/pelvis was obtained which showed multiple fluid filled dilated loops of small bowel with a question of a small bowel obstruction. A NGT was placed to low intermittent wall suction with minimal output. The patient does feel relief of his abdominal pain after NG tube was placed. A General Surgery consultation has been requested for evaluation of small bowel obstruction. Review of Systems Constitutional: COMPLAINS OF: Weight loss, Change in appetite, DENIES: Fatigue Endocrine: DENIES: Polydipsia, Polyuria, Polyphagia Eyes: DENIES: Diplopia, Eye inflammation Ears, nose, mouth, throat: DENIES: Hearing loss Respiratory: DENIES: Cough Cardiovascular: DENIES: Chest pain, Palpitations Gastrointestinal: COMPLAINS OF: Abdominal pain, Nausea, Vomiting Genitourinary: DENIES: Urinary incontinence Musculoskeletal: DENIES: Muscle aches Integumentary: DENIES: Abnormal pigmentation Hematologic/lymphatic: DENIES: Bruising Neurologic: DENIES: Headache, Localized weakness Psychiatric: DENIES: Mood changes, Depression, Hallucinations Past Family Social History Past Medical History CAD Hyperlipidemia Hypertension GERD Dysphagia Past Surgical History PEG placement in May 2017 as well as in 2013 CABG Some sort of vascular procedure ---sound like a femoral bypass procedure Reported Medications Unclear of his complete medication list but I do see Plavix and aspirin on every list Allergies: Coded Allergies: No Known Allergies (Verified Adverse Reaction, Unknown, 05/27/17) Active Ordered Medications Current Medications Medications (Trade) Dose Ordered Sig/Marilee Route Start Time Stop Time Status Last Admin Sodium Chloride 1,000 ml @ 100 mls/hr Q10H IV 06/17/17 14:00 06/17/17 13:54 (NS Flush) 2 ml UNSCH PRN IV FLUSH 06/17/17 13:15 (NS Flush) 2 ml BID IV FLUSH 06/17/17 21:00 (Tylenol) 650 mg Q4H PRN PO 06/17/17 13:15 (Zofran Inj) 4 mg Q6H PRN IVP 06/17/17 13:15 (Narcan Inj) 0.4 mg UNSCH PRN IV PUSH 06/17/17 13:15 (Tri-Colace) 1 tab BID PO 06/17/17 21:00 (Milk Of Magnesia Liq) 30 ml Q12H PRN PO 06/17/17 13:15 (Senokot) 17.2 mg Q12H PRN PO 06/17/17 13:15 (Dulcolax Supp) 10 mg DAILY PRN RECTAL 06/17/17 13:15 (Lactulose Liq) 30 ml DAILY PRN PO 06/17/17 13:15 (Protonix) 40 mg DAILY PO 06/18/17 09:00 Family History Unable to obtain Social History At [facility] currently for rehabilitation. Physical Exam Vital Signs Vital Signs Date Time Temp Pulse Resp B/P (MAP) Pulse Ox O2 Delivery O2 Flow Rate FiO2 06/17/17 16:00 96.2 82 18 177/86 (116) 98 06/17/17 13:51 83 17 171/77 (108) 99 Room Air 06/17/17 11:45 82 17 171/77 (108) 97 Room Air Physical Exam GENERAL: Cachectic 67-year-old male resting in bed in no acute distress. SKIN: Warm and dry. HEAD: Atraumatic. Normocephalic. EYES: Pupils equal and round. No scleral icterus. No injection or drainage. ENT: No nasal bleeding or discharge. Mucous membranes pink and moist. NECK: Trachea midline. CARDIOVASCULAR: Regular rate and rhythm. RESPIRATORY: No accessory muscle use. Clear to auscultation. Breath sounds equal bilaterally. GASTROINTESTINAL: Abdomen flat; nontender; nondistended; PEG tube in place ( clamped); NGT to LIWS. MUSCULOSKELETAL: Extremities without clubbing, cyanosis, or edema. No obvious deformities. NEUROLOGICAL: Awake and alert. No obvious cranial nerve deficits. Motor grossly within normal limits. Five out of 5 muscle strength in the arms and legs. Normal speech. PSYCHIATRIC: Appropriate mood and affect; insight and judgment normal. Laboratory Laboratory Tests Test 06/17/17 08:46 White Blood Count 11.0 Red Blood Count 4.01 Hemoglobin 12.1 Hematocrit 36.4 Mean Corpuscular Volume 90.6 Mean Corpuscular Hemoglobin 30.2 Mean Corpuscular Hemoglobin Concent 33.4 Red Cell Distribution Width 16.1 Platelet Count 307 Mean Platelet Volume 9.3 Neutrophils (%) (Auto) 82.7 Lymphocytes (%) (Auto) 9.6 Monocytes (%) (Auto) 7.1 Eosinophils (%) (Auto) 0.1 Basophils (%) (Auto) 0.5 Neutrophils # (Auto) 9.1 Lymphocytes # (Auto) 1.1 Monocytes # (Auto) 0.8 Eosinophils # (Auto) 0.0 Basophils # (Auto) 0.1 CBC Comment DIFF FINAL Differential Comment Prothrombin Time 11.0 Prothromb Time International Ratio 1.1 Activated Partial Thromboplast Time 30.9 Urine Color RED Urine Turbidity HAZY Urine pH 6.5 Urine Specific [place] 1.022 Urine Protein 300 Urine Glucose (UA) NEG Urine Ketones TRACE Urine Occult Blood LARGE Urine Nitrite NEG Urine Bilirubin NEG Urine Urobilinogen LESS THAN 2.0 Urine Leukocyte Esterase SMALL Urine RBC Urine WBC Urine Bacteria RARE Microscopic Urinalysis Comment CULTURE INDICATED Blood Urea Nitrogen 16 Creatinine 0.58 Random Glucose 105 Total Protein 8.6 Albumin 3.7 Calcium Level 9.7 Alkaline Phosphatase 90 Aspartate Amino Transf (AST/SGOT) 17 Alanine Aminotransferase (ALT/SGPT) 16 Total Bilirubin 0.3 Sodium Level 137 Potassium Level 4.0 Chloride Level 102 Carbon Dioxide Level 27.3 Anion Gap 8 Estimat Glomerular Filtration Rate 139 Lipase 156 Date/Time Source Procedure Growth Status 06/17/17 08:46 Urine Random Urine Urine Culture Pending Received Result Diagram: 06/17/1746 06/17/1746 Imaging Last 48 hours Impressions Abdomen/Pelvis CT 06/17/1736 Signed Impressions: Service Date/Time: Saturday, June 17, 2017 09:54 - CONCLUSION: 1. Multiple fluid-filled dilated loops of small bowel and gastric distention suggesting small bowel obstruction of indeterminate etiology. 2. Large hydrocele within the left scrotum. 3. Enlarged prostate. 4. Scattered emphysematous changes within the lung bases. 5. Degenerative changes throughout the thoracolumbar spine. Dany La MD Assessment and Plan Assessment and Plan 67 year old male with recent weight loss; abdominal pain, nausea and vomiting; CT scan suggestive of SBO -Recommend to DC NGT and place existing PEG tube to LIWS -NPO; okay for a few ice chips -Repeat KUB in AM -IVF; will give 1L bolus now -IV antibiotics for UTI -Will obtain tumor markers -Will attempt non surgical treatment at this time -Thank you for this consult; We will continue to follow Attending Note - Dr. Daryl mera Will perform SBFT to determine whether there are any structural changes The exam, history, and the medical decision-making described in the above note were completed with the assistance of the mid-level provider. I reviewed and agree with the findings presented. I attest that I had a [id number] encounter with the patient on the same day, and personally performed and documented my assessment and findings in the medical record. Discussed Condition With Yesenia Ma Jun 17, 2017 17:03 Pawan Brito MD Jun 22, 2017 11:21
[2017-06-17] MEDS ORDERED: SODIUM CHLOR 0.9% 1000 ML INJ 1,000 ML IV ONE (17:15)
[2017-06-17 20:00] VITALS: BP 150/66; PULSE 69; RESP 18; TEMP 98.3; O2SAT 99
[2017-06-17] MEDS: DOCUSATE SODIUM 50 MG/SENNA 8.6 MG TAB PO SCH (21:09)
[2017-06-17] MEDS: SODIUM CHLORIDE 0.9% FLUSH 10 ML FLUSH IV FLUSH SCH (21:09)
[2017-06-17] MEDS: MORPHINE SULFATE 2 MG/ML INJ IV PRN (22:23)
[2017-06-18] VITALS: BP 145/72; PULSE 102; RESP 18; TEMP 99; O2SAT 100
[2017-06-18] MEDS: MORPHINE SULFATE 2 MG/ML INJ IV PRN ×2 (03:30→07:43)
[2017-06-18] MEDS: SODIUM CHLOR 0.9% 1000 ML INJ 1,000 ML IV SCH ×3 (04:46→23:20)
[2017-06-18 05:35] VITALS: RESP 20
[2017-06-18] MEDS: PANTOPRAZOLE SOD 40 MG DELAYED RELEASE TAB PO SCH (07:42)
[2017-06-18] MEDS: SODIUM CHLORIDE 0.9% FLUSH 10 ML FLUSH IV FLUSH SCH ×2 (07:42→21:00)
[2017-06-18] MEDS: DOCUSATE SODIUM 50 MG/SENNA 8.6 MG TAB PO SCH ×2 (07:42→21:59)
[2017-06-18 08:00] VITALS: BP 164/74; PULSE 84; RESP 16; TEMP 98.2; O2SAT 97
--- NOTE | 2017-06-18 08:14 | RADRPT ---
EXAM DATE/TIME: 06/18/2017 07:57 [place] COMPARISON: CT ABDOMEN & PELVIS W CONTRAST, June 17, 2017, 9:54. INDICATIONS : Evaluate for obstruction. MEDICAL HISTORY : None. SURGICAL HISTORY : None. ENCOUNTER: Initial ACUITY: 2 days PAIN SCORE: 5/10 LOCATION: Abdomen FINDINGS: There are air-filled minimally dilated loops of small bowel suggesting persistent small bowel obstruc tion or ileus which appears slightly improved compared to the previous day's examination. Clinical co rrelation is recommended. Gastric tube is noted. Degenerative changes and scoliosis of the lumbar spi ne are noted. CONCLUSION: Air-filled minimally dilated loops of small bowel suggesting persistent small bowel obstruction or il eus which appears slightly improved compared to the previous day's examination. Clinical correlation is recommended. Dany La MD on June 18, 2017 at 8:10 Board Certified Radiologist. This report was verified electronically.
--- NOTE | 2017-06-18 09:37 | PD.CONS ---
[facility] Service Urology Consult Requested By Primary Care Physician Tahir Montes De Oca DO Diagnosis: History of Present Illness 67 yo male h/o BPH admitted with nausea, vomiting, lower abdominal pain and [address] A/P was done which showed possible SBO. Per the patient, he has had a brand catheter for over 2 months. It was changed yesterday without difficulty. However, after changing it, his urine became grossly bloody. He states he has had blood in his urine in the past but "not this bad". Denies flank pain, fevers, chills. Denies h/o kidney stones or UTIs in the past. He has a PEG tube due to trouble swallowing. Review of Systems Constitutional: COMPLAINS OF: Weight loss, DENIES: Diaphoretic episodes, Fatigue, Fever, Weight gain, Chills, Dizziness, Change in appetite, Night Sweats Gastrointestinal: COMPLAINS OF: Abdominal pain, Nausea, Vomiting, Anorexia Genitourinary: COMPLAINS OF: Hematuria Psychiatric: COMPLAINS OF: Confusion Except as stated in HPI: all other systems reviewed are Neg Past Family Social History Past Medical History BPH, COPD, HTN, CAD, PNA, UTI, SBO Past Surgical History CABG, PEG, circumcision Allergies: Coded Allergies: No Known Allergies (Unverified , 06/17/17) Active Ordered Medications Protonix, Dulcolax Family History Denies urolithiasis, malignancies. Social History Denies alcohol, tobacco, illicit drug use. [facility] Physical Exam Vital Signs Date Time Temp Pulse Resp B/P (MAP) Pulse Ox O2 Delivery O2 Flow Rate FiO2 06/18/17 08:00 98.2 84 16 164/74 (104) 97 06/18/17 05:35 20 06/18/17 00:00 99.0 102 18 145/72 (96) 100 06/17/17 20:00 98.3 69 18 150/66 (94) 99 06/17/17 16:00 96.2 82 18 177/86 (116) 98 06/17/17 13:51 83 17 171/77 (108) 99 Room Air 06/17/17 11:45 82 17 171/77 (108) 97 Room Air Physical Exam GENERAL: This is a well-nourished, well-developed patient, in no apparent distress. SKIN: No rashes, ecchymoses or lesions. Cool and dry. HEAD: Atraumatic. Normocephalic. No temporal or scalp tenderness. EYES: Pupils equal round and reactive. Extraocular motions intact. No scleral icterus. No injection or drainage. ENT: Nose without bleeding, purulent drainage or septal hematoma. Throat without erythema, tonsillar hypertrophy or exudate. Uvula midline. Airway patent. NECK: Trachea midline. No JVD or lymphadenopathy. Supple, nontender, no meningeal signs. CARDIOVASCULAR: Regular rate and rhythm without murmurs, gallops, or rubs. RESPIRATORY: Clear to auscultation. Breath sounds equal bilaterally. No wheezes , rales, or rhonchi. GASTROINTESTINAL: Abdomen soft, non-tender, nondistended. No hepato-splenomegaly , or palpable masses. No guarding. GENITOURINARY: penis circumcised, right testis normal, left testis difficult to palpate due to large hydrocele. CHICA deferred. Urine dark red, draining in brand bag. MUSCULOSKELETAL: Extremities without clubbing, cyanosis, or edema. No joint tenderness, effusion, or edema noted. No calf tenderness. Negative Homans sign bilaterally. NEUROLOGICAL: Awake and alert. Cranial nerves II through XII intact. Motor and sensory grossly within normal limits. Five out of 5 muscle strength in all muscle groups. Normal speech. Lab results reviewed: Yes Date/Time Source Procedure Growth Status 06/17/17 08:46 Urine Random Urine Urine Culture Pending Received Result Diagram: 06/17/17 0846 06/17/17 0846 Personally reviewed images: Yes (no hydronephrosis, kidney stones or renal masses) Imaging Last Impressions Abdomen X-Ray 06/18/17 0600 Signed Impressions: Service Date/Time: Sunday, June 18, 2017 07:57 - CONCLUSION: Air-filled minimally dilated loops of small bowel suggesting persistent small bowel obstruction or ileus which appears slightly improved compared to the previous day's examination. Clinical correlation is recommended. Dany La MD Abdomen/Pelvis CT 06/17/17 0836 Signed Impressions: Service Date/Time: Saturday, June 17, 2017 09:54 - CONCLUSION: 1. Multiple fluid-filled dilated loops of small bowel and gastric distention suggesting small bowel obstruction of indeterminate etiology. 2. Large hydrocele within the left scrotum. 3. Enlarged prostate. 4. Scattered emphysematous changes within the lung bases. 5. Degenerative changes throughout the thoracolumbar spine. Dany La MD Assessment and Plan Problem List: (1) BPH w urinary obs/LUTS ICD Code: N40.1 - Benign prostatic hyperplasia with lower urinary tract symptoms; N13.8 - Other obstructive and reflux uropathy (2) Gross hematuria ICD Code: R31.0 - Gross hematuria Assessment and Plan -continue brand catheter. Irrigate as needed. -Ucx pending -CT reviewed. No stones, hydronephrosis, renal mass. -conservative management of hydrocele -Monitor hemoglobin -cystoscopy, urodynamics as outpatient. -Thank you for this consult. Lucian Mcneal MD Jun 18, 2017 09:37
[2017-06-18 10:42] LABS: ALBUMIN 3.2 GM/DL (3.4-5.0); BICARBONATE 27.1 MEQ/L (21.0-32.0); BLOOD UREA NITROGEN 15 MG/DL (7-18); CALCIUM 9.1 MG/DL (8.5-10.1); CHLORIDE 106 MEQ/L (98-107); GLOMERULAR FILTRATION RATE 200 ML/MIN (>89); GLUCOSE,RANDOM 71 MG/DL (74-106); SODIUM (NA) 142 MEQ/L (136-145)
[2017-06-18 10:43] LABS: ALT (GPT) 12 U/L (12-78); AST (GOT) 15 U/L (15-37)
--- NOTE | 2017-06-18 10:43 | HHI.PR ---
cc: Sade Oseguera MD Subjective Subjective Notes DAILY PROGRESS NOTE FOR SURGICAL ATTENDING, DR. SADE OSEGUERA I would like something more to eat No more vomiting Not sure if he passed gas Objective Vitals/I&O Vital Signs Date Time Temp Pulse Resp B/P (MAP) Pulse Ox O2 Delivery O2 Flow Rate FiO2 06/18/17 08:00 98.2 84 16 164/74 (695) 97 06/17/17 13:51 Room Air Labs Laboratory Tests Test 06/18/17 09:52 06/18/17 09:53 Date/Time Source Procedure Growth Status 06/17/17 08:46 Urine Random Urine Urine Culture Pending Received Radiology Last Impressions Abdomen X-Ray 06/18/17 0600 Signed Impressions: Service Date/Time: Sunday, June 18, 2017 07:57 - CONCLUSION: Air-filled minimally dilated loops of small bowel suggesting persistent small bowel obstruction or ileus which appears slightly improved compared to the previous day's examination. Clinical correlation is recommended. Dany La MD Abdomen/Pelvis CT 06/17/17 0836 Signed Impressions: Service Date/Time: Saturday, June 17, 2017 09:54 - CONCLUSION: 1. Multiple fluid-filled dilated loops of small bowel and gastric distention suggesting small bowel obstruction of indeterminate etiology. 2. Large hydrocele within the left scrotum. 3. Enlarged prostate. 4. Scattered emphysematous changes within the lung bases. 5. Degenerative changes throughout the thoracolumbar spine. Dany La MD Cardiovascular: Regular Lungs: Clear Abdomen: Non-distended, Other (PEG tube in place), BS normal Extremities: No edema, Perfused Narrative Exam Very thin gentleman A/P Problem List: (1) Ileus ICD Codes: K56.7 - Ileus, unspecified Status: Acute (2) PEG (percutaneous endoscopic gastrostomy) status ICD Codes: Z93.1 - Gastrostomy status (3) Weight loss ICD Codes: R63.4 - Abnormal weight loss Status: Chronic Assessment and Plan 67-year-old gentleman with a PEG tube in chronic weight loss with ileus that appears to be resolving If still question recommend small bowel follow through series Attending Statement NOTE FOR SURGICAL ATTENDING, DR. SADE OSEGUERA I attest that I had a [id number] encounter with the patient on the same day, and personally performed and documented my assessment and findings in the medical record. The following services were provided during this hospital visit: Chart data review, vital sign assessments/reviewing monitor data Review of consultations notes if present. Medication orders/review and/or management Ordering and/or reviewing lab tests Ordering and/or interpreting/reviewing x-rays and/or diagnostic studies Care of the patient and discussion of the patient with the care team Documentation time To help prompt me to consider important information that might be impacting today's encounter and assessment, information from prior notes written by myself or my colleagues may have been "brought forward/copy and pasted" into today's note. Sade Oseguera MD Jun 18, 2017 10:43
[2017-06-18 10:45] LABS: ALKALINE PHOSPHATASE 76 U/L (45-117); TOTAL BILIRUBIN ADULT 0.4 MG/DL (0.2-1.0); TOTAL PROTEIN 7.4 GM/DL (6.4-8.2)
[2017-06-18 10:54] LABS: CARCINOEMBRYONIC ANTIGEN 3.7 NG/ML (0.2-5.0)
[2017-06-18 11:32] LABS: CA 19-9 27.2 U/ML (0.0-35.0)
[2017-06-18 12:00] VITALS: BP 142/64; PULSE 76; RESP 16; TEMP 97.5; O2SAT 97
--- NOTE | 2017-06-18 12:59 | HHI.HP ---
History of Present Illness Service Family [facility] Primary Care Physician Tahir Montes De Oca, DO Admission Diagnosis Small bowel obstruction Diagnoses: (1) Ileus Diagnosis: Principal (2) Weight loss Diagnosis: Secondary (3) BPH w urinary obs/LUTS Diagnosis: Principal (4) Gross hematuria Diagnosis: Secondary (5) PEG (percutaneous endoscopic gastrostomy) status Diagnosis: Secondary History of Present Illness He presented from [facility] with C/O abd pain and hematuria following a traumatic brand placement.He had H/O recent PEG and has been followed by GI for recurrent SBO. In the ED he has a NG tube placed with low intermittent suction but that was D/Franck today per GI. He has active BS and had a BM yesterday and the nausea is improved. Urology was consulted and is following for hematuria. Review of Systems ROS Limitations: Poor Historian Constitutional: COMPLAINS OF: Change in appetite Endocrine: DENIES: Heat/cold intolerance, Polydipsia, Polyuria, Polyphagia Eyes: COMPLAINS OF: Blurred vision, Diplopia, Eye inflammation, Eye pain, Vision loss, Photosensitivity, Double Vision Ears, nose, mouth, throat: COMPLAINS OF: Tinnitus, Hearing loss, Vertigo, Nasal discharge, Oral lesions, Throat pain, Hoarseness, Ear Pain, Running Nose, Epistaxis, Sinus Pain, Toothache, Odynophagia Respiratory: COMPLAINS OF: Cough Cardiovascular: DENIES: Chest pain, Palpitations, Syncope, Dyspnea on Exertion , PND, Lower Extremity Edema, Orthopnea, Claudication Gastrointestinal: COMPLAINS OF: Abdominal pain, Nausea, Vomiting, Difficulty Swallowing, Anorexia Genitourinary: COMPLAINS OF: Hematuria Musculoskeletal: COMPLAINS OF: Muscle aches, Stiffness Integumentary: DENIES: Abnormal pigmentation, Nail changes, Pruritus, Rash Hematologic/lymphatic: DENIES: Bruising, Lymphadenopathy Immunologic/allergic: DENIES: Eczema, Urticaria Neurologic: DENIES: Abnormal gait, Headache, Localized weakness, Paresthesias, Seizures, Speech Problems, Tremor, Poor Balance Psychiatric: COMPLAINS OF: Anxiety Except as stated in HPI: all other systems reviewed are Neg Past Family Social History Allergies: Coded Allergies: No Known Allergies (Unverified , 06/17/17) Past Medical History Recent PEG Past Surgical History Recent PEG Reported Medications Current Medications Medications (Trade) Dose Ordered Sig/Marilee Route Start Time Stop Time Status Last Admin Sodium Chloride 1,000 ml @ 100 mls/hr Q10H IV 06/17/17 14:00 06/18/17 04:46 (NS Flush) 2 ml UNSCH PRN IV FLUSH 06/17/17 13:15 (NS Flush) 2 ml BID IV FLUSH 06/17/17 21:00 (Tylenol) 650 mg Q4H PRN PO 06/17/17 13:15 (Zofran Inj) 4 mg Q6H PRN IVP 06/17/17 13:15 06/17/17 21:17 (Narcan Inj) 0.4 mg UNSCH PRN IV PUSH 06/17/17 13:15 (Tri-Colace) 1 tab BID PO 06/17/17 21:00 06/18/17 07:42 (Milk Of Magnesia Liq) 30 ml Q12H PRN PO 06/17/17 13:15 (Senokot) 17.2 mg Q12H PRN PO 06/17/17 13:15 (Dulcolax Supp) 10 mg DAILY PRN RECTAL 06/17/17 13:15 (Lactulose Liq) 30 ml DAILY PRN PO 06/17/17 13:15 (Protonix) 40 mg DAILY PO 06/18/17 09:00 06/18/17 07:42 (Morphine Inj) 2 mg Q4H PRN IV 06/17/17 22:15 06/18/17 07:43 Active Ordered Medications Current Medications Medications (Trade) Dose Ordered Sig/Marilee Route Start Time Stop Time Status Last Admin Sodium Chloride 1,000 ml @ 100 mls/hr Q10H IV 06/17/17 14:00 06/18/17 04:46 (NS Flush) 2 ml UNSCH PRN IV FLUSH 06/17/17 13:15 (NS Flush) 2 ml BID IV FLUSH 06/17/17 21:00 (Tylenol) 650 mg Q4H PRN PO 06/17/17 13:15 (Zofran Inj) 4 mg Q6H PRN IVP 06/17/17 13:15 06/17/17 21:17 (Narcan Inj) 0.4 mg UNSCH PRN IV PUSH 06/17/17 13:15 (Tri-Colace) 1 tab BID PO 06/17/17 21:00 06/18/17 07:42 (Milk Of Magnesia Liq) 30 ml Q12H PRN PO 06/17/17 13:15 (Senokot) 17.2 mg Q12H PRN PO 06/17/17 13:15 (Dulcolax Supp) 10 mg DAILY PRN RECTAL 06/17/17 13:15 (Lactulose Liq) 30 ml DAILY PRN PO 06/17/17 13:15 (Protonix) 40 mg DAILY PO 06/18/17 09:00 06/18/17 07:42 (Morphine Inj) 2 mg Q4H PRN IV 06/17/17 22:15 06/18/17 07:43 Family History CAD and CVA Social History Currently residing in SNF and tells me he was to be D/C home alone on Tuesday Physical Exam Vital Signs Vital Signs Date Time Temp Pulse Resp B/P (MAP) Pulse Ox O2 Delivery O2 Flow Rate FiO2 06/18/17 12:00 97.5 76 16 142/64 (90) 97 06/18/17 08:00 98.2 84 16 164/74 (104) 97 06/18/17 05:35 20 06/18/17 00:00 99.0 102 18 145/72 (96) 100 06/17/17 20:00 98.3 69 18 150/66 (94) 99 06/17/17 16:00 96.2 82 18 177/86 (116) 98 06/17/17 13:51 83 17 171/77 (108) 99 Room Air Physical Exam GENERAL: This is thin and cachectic, well-developed patient, in no apparent distress. SKIN: No rashes, ecchymoses or lesions. Cool and dry. HEAD: Atraumatic. Normocephalic. No temporal or scalp tenderness. EYES: Pupils equal round and reactive. Extraocular motions intact. No scleral icterus. No injection or drainage. ENT: Nose without bleeding, purulent drainage or septal hematoma. Throat without erythema, tonsillar hypertrophy or exudate. Uvula midline. Airway patent. NECK: Trachea midline. No JVD or lymphadenopathy. Supple, nontender, no meningeal signs. CARDIOVASCULAR: Regular rate and rhythm without murmurs, gallops, or rubs. RESPIRATORY: Scattered rales noted. Breath sounds equal bilaterally. No wheezes. GASTROINTESTINAL: Abdomen soft, non-tender, nondistended. No hepato-splenomegaly , or palpable masses. Positive guarding. Peg is in place. Active BS noted. MUSCULOSKELETAL: Extremities without clubbing, cyanosis, or edema. No joint tenderness, effusion, or edema noted. NEUROLOGICAL: Awake and alert. Motor and sensory grossly within normal limits. Laboratory Laboratory Tests Test 06/18/17 09:52 06/18/17 09:53 Carcinoembryonic Antigen 3.7 CA 19-9 Antigen 27.2 Blood Urea Nitrogen 15 Creatinine 0.50 Random Glucose 71 Total Protein 7.4 Albumin 3.2 Calcium Level 9.1 Alkaline Phosphatase 76 Aspartate Amino Transf (AST/SGOT) 15 Alanine Aminotransferase (ALT/SGPT) 12 Total Bilirubin 0.4 Sodium Level 142 Potassium Level 4.1 Chloride Level 106 Carbon Dioxide Level 27.1 Anion Gap 9 Estimat Glomerular Filtration Rate 200 Prostate Specific Antigen 0.89 Date/Time Source Procedure Growth Status 06/17/17 08:46 Urine Random Urine Urine Culture Pending Received Result Diagram: 06/17/17 0846 06/18/17 0953 Imaging Last Impressions Abdomen X-Ray 06/18/17 0600 Signed Impressions: Service Date/Time: Sunday, June 18, 2017 07:57 - CONCLUSION: Air-filled minimally dilated loops of small bowel suggesting persistent small bowel obstruction or ileus which appears slightly improved compared to the previous day's examination. Clinical correlation is recommended. Dany La MD Abdomen/Pelvis CT 06/17/17 0836 Signed Impressions: Service Date/Time: Saturday, June 17, 2017 09:54 - CONCLUSION: 1. Multiple fluid-filled dilated loops of small bowel and gastric distention suggesting small bowel obstruction of indeterminate etiology. 2. Large hydrocele within the left scrotum. 3. Enlarged prostate. 4. Scattered emphysematous changes within the lung bases. 5. Degenerative changes throughout the thoracolumbar spine. Dany La MD Course Abd pain, nausea and vomiting are improved. Caprini VTE Risk Assessment Caprini VTE Risk Assessment: No/Low Risk (score <= 1) Caprini Risk Assessment Model Point Value = 1 Point Value = 2 Point Value = 3 Point Value = 5 Age 41-60 Minor surgery BMI > 25 kg/m2 Swollen legs Varicose veins or History of unexplained or recurrent spontaneous Oral contraceptives or hormone replacement Sepsis (< 1 month) Serious lung disease, including pneumonia (< 1 month) Abnormal pulmonary function Acute myocardial infarction Congestive heart failure (< 1 month) History of inflammatory bowel disease Medical patient at bed rest Age 61-74 Arthroscopic surgery Major open surgery (> 45 min) Laparoscopic surgery (> 45 min) Malignancy Confined to bed (> 72 hours) Immobilizing plaster cast Central venous access Age >= 75 History of VTE Family history of VTE Factor V Leiden Prothrombin [id number] Lupus anticoagulant Anticardiolipin antibodies Elevated serum homocysteine Heparin-induced thrombocytopenia Other congenital or acquired thrombophilia Stroke (< 1 month) Elective arthroplasty Hip, pelvis, or leg fracture Acute spinal cord injury (< 1 month) Prophylaxis Regimen Total Risk Factor Score Risk Level Prophylaxis Regimen 0-1 Low Early ambulation 2 Moderate Order ONE of the following: *Sequential Compression Device (SCD) *Heparin 5000 units SQ BID 3-4 Higher Order ONE of the following medications: *Heparin 5000 units SQ TID *Enoxaparin/Lovenox 40 mg SQ daily (WT < 150 kg, CrCl > 30 mL/min) *Enoxaparin/Lovenox 30 mg SQ daily (WT < 150 kg, CrCl > 10-29 mL/min) *Enoxaparin/Lovenox 30 mg SQ BID (WT < 150 kg, CrCl > 30 mL/min) AND/OR *Sequential Compression Device (SCD) 5 or more Highest Order ONE of the following medications: *Heparin 5000 units SQ TID (Preferred with Epidurals) *Enoxaparin/Lovenox 40 mg SQ daily (WT < 150 kg, CrCl > 30 mL/min) *Enoxaparin/Lovenox 30 mg SQ daily (WT < 150 kg, CrCl > 10-29 mL/min) *Enoxaparin/Lovenox 30 mg SQ BID (WT < 150 kg, CrCl > 30 mL/min) AND *Sequential Compression Device (SCD) Tony Butler Jun 18, 2017 12:59
[2017-06-18 16:00] VITALS: BP 114/55; PULSE 72; RESP 17; TEMP 98.5; O2SAT 100
[2017-06-18 20:00] VITALS: BP 115/56; PULSE 70; RESP 18; TEMP 97.7; O2SAT 100
[2017-06-19] VITALS: BP 104/51; PULSE 69; RESP 20; TEMP 97.9; O2SAT 100
[2017-06-19 04:00] VITALS: BP 127/61; PULSE 63; RESP 18; TEMP 97.5; O2SAT 100
[2017-06-19] MEDS: SODIUM CHLOR 0.9% 1000 ML INJ 1,000 ML IV SCH ×2 (06:00→16:00)
[2017-06-19] MEDS: DOCUSATE SODIUM 50 MG/SENNA 8.6 MG TAB PO SCH ×2 (07:37→20:28)
[2017-06-19] MEDS: PANTOPRAZOLE SOD 40 MG DELAYED RELEASE TAB PO SCH (07:38)
[2017-06-19] MEDS: SODIUM CHLORIDE 0.9% FLUSH 10 ML FLUSH IV FLUSH SCH ×2 (07:38→20:28)
[2017-06-19 08:00] VITALS: BP 129/60; PULSE 71; RESP 18; TEMP 96.7; O2SAT 100
--- NOTE | 2017-06-19 09:57 | HHI.PR ---
Subjective Patient symptoms today passed flatus this morning. c/o crampy, lower abdominal pain. Denies fevers. Objective Vital Signs Vital Signs Date Time Temp Pulse Resp B/P (MAP) Pulse Ox O2 Delivery O2 Flow Rate FiO2 06/19/17 08:00 96.7 71 18 129/60 (83) 100 06/19/17 04:00 97.5 63 18 127/61 (83) 100 06/19/17 00:00 97.9 69 20 104/51 (68) 100 06/18/17 20:00 97.7 70 18 115/56 (75) 100 06/18/17 16:00 98.5 72 17 114/55 (74) 100 06/18/17 12:00 97.5 76 16 142/64 (90) 97 Intake & Output 06/19/17 06/19/17 06:59 18:59 Intake Total 240 ml Output Total 375 ml Balance -135 ml Intake Oral 240 ml Output Urine Total 375 ml # Bowel Movements 0 Result Diagram: 06/17/17 0846 06/18/17 0953 Objective Remarks NAD. A/O x 3 abd soft, flat, NT. urine dark red but draining. Medications and IVs Current Medications Medications (Trade) Dose Ordered Sig/Marilee Route Start Time Stop Time Status Last Admin Sodium Chloride 1,000 ml @ 100 mls/hr Q10H IV 06/17/17 14:00 06/18/17 23:20 (NS Flush) 2 ml UNSCH PRN IV FLUSH 06/17/17 13:15 (NS Flush) 2 ml BID IV FLUSH 06/17/17 21:00 (Tylenol) 650 mg Q4H PRN PO 06/17/17 13:15 (Zofran Inj) 4 mg Q6H PRN IVP 06/17/17 13:15 06/17/17 21:17 (Narcan Inj) 0.4 mg UNSCH PRN IV PUSH 06/17/17 13:15 (Tri-Colace) 1 tab BID PO 06/17/17 21:00 06/19/17 07:37 (Milk Of Magnesia Liq) 30 ml Q12H PRN PO 06/17/17 13:15 (Senokot) 17.2 mg Q12H PRN PO 06/17/17 13:15 (Dulcolax Supp) 10 mg DAILY PRN RECTAL 06/17/17 13:15 (Lactulose Liq) 30 ml DAILY PRN PO 06/17/17 13:15 (Protonix) 40 mg DAILY PO 06/18/17 09:00 06/19/17 07:38 (Morphine Inj) 2 mg Q4H PRN IV 06/17/17 22:15 06/18/17 07:43 Assessment and Plan Problem List: (1) BPH w urinary obs/LUTS ICD Code: N40.1 - Benign prostatic hyperplasia with lower urinary tract symptoms; N13.8 - Other obstructive and reflux uropathy (2) Gross hematuria ICD Code: R31.0 - Gross hematuria (3) UTI (urinary tract infection) due to Enterococcus ICD Code: N39.0 - Urinary tract infection, site not specified; B95.2 - Enterococcus as the cause of diseases classified elsewhere Assessment and Plan -continue brand catheter. Irrigate as needed. -Ucx growing Group D Enterococcus. Could be cause of hematuria. Will start on empiric antibiotics. -CT reviewed. No stones, hydronephrosis, renal mass. -cystoscopy, urodynamics as outpatient. Lucian Mcneal MD Jun 19, 2017 09:57
[2017-06-19] MEDS: cefTRIAXone INJ 1,000 MG in SODIUM CHLORIDE 0.9% INJ 100 ML IV SCH ×2 (10:57→20:28)
--- NOTE | 2017-06-19 11:13 | HHI.PR ---
Subjective Subjective Notes no acute issues, no nausea, +flatus Objective Vitals/I&O Vital Signs Date Time Temp Pulse Resp B/P (MAP) Pulse Ox O2 Delivery O2 Flow Rate FiO2 06/19/17 08:00 96.7 71 18 129/60 (83) 100 06/17/17 13:51 Room Air Labs Date/Time Source Procedure Growth Status 06/17/17 08:46 Urine Random Urine Urine Culture - Preliminary Group D Enterococcus Resulted Radiology Last Impressions Abdomen X-Ray 06/18/17 0600 Signed Impressions: Service Date/Time: Sunday, June 18, 2017 07:57 - CONCLUSION: Air-filled minimally dilated loops of small bowel suggesting persistent small bowel obstruction or ileus which appears slightly improved compared to the previous day's examination. Clinical correlation is recommended. Dany La MD Abdomen/Pelvis CT 06/17/17 0836 Signed Impressions: Service Date/Time: Saturday, June 17, 2017 09:54 - CONCLUSION: 1. Multiple fluid-filled dilated loops of small bowel and gastric distention suggesting small bowel obstruction of indeterminate etiology. 2. Large hydrocele within the left scrotum. 3. Enlarged prostate. 4. Scattered emphysematous changes within the lung bases. 5. Degenerative changes throughout the thoracolumbar spine. Dany La MD Abdomen: Other (soft mild ttp, peg tube c/d/i) A/P Problem List: (1) Ileus ICD Codes: K56.7 - Ileus, unspecified (2) PEG (percutaneous endoscopic gastrostomy) status ICD Codes: Z93.1 - Gastrostomy status (3) Weight loss ICD Codes: R63.4 - Abnormal weight loss Assessment and Plan 67-year-old gentleman with a PEG tube in chronic weight loss with ileus that appears to be resolving PLAN Pt needs to ambulate peg to gravity, consider clamp tomorrow check lytes tomorrow am continue non op mgSreekanth Morales MD Jun 19, 2017 11:13
--- NOTE | 2017-06-19 11:58 | HHI.PR ---
Subjective Remarks He C/O mild nausea this am after taking his oral meds but now is doing better. He tolerated clear liquids and tesll me he is passing flatus. Surg and GI are following. He now C/O left heel pain but exam is negative. Objective Vital Signs Date Time Temp Pulse Resp B/P (MAP) Pulse Ox O2 Delivery O2 Flow Rate FiO2 06/19/17 08:00 96.7 71 18 129/60 (83) 100 06/19/17 04:00 97.5 63 18 127/61 (83) 100 06/19/17 00:00 97.9 69 20 104/51 (68) 100 06/18/17 20:00 97.7 70 18 115/56 (75) 100 06/18/17 16:00 98.5 72 17 114/55 (74) 100 06/18/17 12:00 97.5 76 16 142/64 (90) 97 I/O 06/18/17 06/18/17 06/18/17 06/19/17 06/19/17 06/19/17 07:00 15:00 23:00 07:00 15:00 23:00 Intake Total 1158 ml 1360 ml 240 ml Output Total 1350 ml 350 ml 375 ml Balance -192 ml 1010 ml -135 ml Intake Oral 240 ml 360 ml 240 ml IV Total 918 ml 1000 ml Output Urine Total 1050 ml 350 ml 375 ml Drainage Total 300 ml # Bowel Movements 0 0 Result Diagram: 06/17/17 0846 06/18/17 0953 Imaging Last Impressions Abdomen X-Ray 06/18/17 0600 Signed Impressions: Service Date/Time: Sunday, June 18, 2017 07:57 - CONCLUSION: Air-filled minimally dilated loops of small bowel suggesting persistent small bowel obstruction or ileus which appears slightly improved compared to the previous day's examination. Clinical correlation is recommended. Dany La MD Abdomen/Pelvis CT 06/17/17 0836 Signed Impressions: Service Date/Time: Saturday, June 17, 2017 09:54 - CONCLUSION: 1. Multiple fluid-filled dilated loops of small bowel and gastric distention suggesting small bowel obstruction of indeterminate etiology. 2. Large hydrocele within the left scrotum. 3. Enlarged prostate. 4. Scattered emphysematous changes within the lung bases. 5. Degenerative changes throughout the thoracolumbar spine. Dany La MD Objective Remarks HEENT - Head is AT and NC. Resp - Lungs are clear. CV - Heart has RRR. Abd - soft and nontender with PEG in place. BS are active. Neuro - He is alert and oriented. MS - tender to palpation over left heel without painful ROM, erythema , warmth. Medications and IVs Current Medications Medications (Trade) Dose Ordered Sig/Marilee Route Start Time Stop Time Status Last Admin Sodium Chloride 1,000 ml @ 100 mls/hr Q10H IV 06/17/17 14:00 06/18/17 23:20 (NS Flush) 2 ml UNSCH PRN IV FLUSH 06/17/17 13:15 (NS Flush) 2 ml BID IV FLUSH 06/17/17 21:00 (Tylenol) 650 mg Q4H PRN PO 06/17/17 13:15 (Zofran Inj) 4 mg Q6H PRN IVP 06/17/17 13:15 06/17/17 21:17 (Narcan Inj) 0.4 mg UNSCH PRN IV PUSH 06/17/17 13:15 (Tri-Colace) 1 tab BID PO 06/17/17 21:00 06/19/17 07:37 (Milk Of Magnesia Liq) 30 ml Q12H PRN PO 06/17/17 13:15 (Senokot) 17.2 mg Q12H PRN PO 06/17/17 13:15 (Dulcolax Supp) 10 mg DAILY PRN RECTAL 06/17/17 13:15 (Lactulose Liq) 30 ml DAILY PRN PO 06/17/17 13:15 (Protonix) 40 mg DAILY PO 06/18/17 09:00 06/19/17 07:38 (Morphine Inj) 2 mg Q4H PRN IV 06/17/17 22:15 06/18/17 07:43 Ceftriaxone Sodium 1000 mg/ Sodium Chloride 100 ml @ 200 mls/hr Q12H IV 06/19/17 10:00 06/19/17 10:57 Assessment and Plan Problem List: (1) Ileus ICD Codes: K56.7 - Ileus, unspecified Status: Acute Plan: Cont diet progression per GI (2) Weight loss ICD Codes: R63.4 - Abnormal weight loss Status: Chronic Plan: Consult COMPRESSOR SERVICE TECHNICIAN regarding proper diet (3) BPH w urinary obs/LUTS ICD Codes: N40.1 - Benign prostatic hyperplasia with lower urinary tract symptoms; N13.8 - Other obstructive and reflux uropathy Plan: Plan per Urology (4) Gross hematuria ICD Codes: R31.0 - Gross hematuria Plan: Per Urology (5) PEG (percutaneous endoscopic gastrostomy) status ICD Codes: Z93.1 - Gastrostomy status Plan: Per GI Discussed Condition With Patient Discharge Planning SNF vs home Tony Butler Jun 19, 2017 11:58
[2017-06-19 12:00] VITALS: BP 127/68; PULSE 70; RESP 17; TEMP 97.3; O2SAT 99
[2017-06-19 16:00] VITALS: BP 131/76; PULSE 73; RESP 17; TEMP 97.6; O2SAT 99
[2017-06-19 20:00] VITALS: BP 140/62; PULSE 70; RESP 17; TEMP 97.9; O2SAT 98
[2017-06-19] MEDS: MORPHINE SULFATE 2 MG/ML INJ IV PRN (20:39)
[2017-06-20] VITALS: BP 115/55; PULSE 63; RESP 17; TEMP 98.3; O2SAT 97
[2017-06-20] MEDS: MORPHINE SULFATE 2 MG/ML INJ IV PRN ×2 (01:14→23:24)
[2017-06-20] MEDS: SODIUM CHLOR 0.9% 1000 ML INJ 1,000 ML IV SCH ×3 (02:00→20:20)
[2017-06-20 07:28] LABS: AUTOMATED NEUTROPHIL # 3.8 TH/MM3 (1.8-7.7); BASOPHIL # 0.1 TH/MM3 (0-0.2); EOSINOPHIL # 0.3 TH/MM3 (0-0.4); EOSINOPHIL % 4.9 % (0.0-4.0); HEMATOCRIT 27.8 % (39.0-51.0); HEMOGLOBIN 9.5 GM/DL (13.0-17.0); LYMPH % 26.4 % (9.0-44.0); LYMPHOCYTE # 1.8 TH/MM3 (1.0-4.8); MEAN CELL VOLUME 91.2 FL (80.0-100.0); MEAN CORPUSCULAR HEMOGLOBIN 31.1 PG (27.0-34.0); MEAN CORPUSCULAR HGB CONC 34.1 % (32.0-36.0); MEAN PLATELET VOLUME 9.3 FL (7.0-11.0); MONOCYTE # 0.7 TH/MM3 (0-0.9); NEUT % 56.7 % (16.0-70.0); PLATELET COUNT 215 TH/MM3 (150-450); RED BLOOD COUNT 3.05 MIL/MM3 (4.50-5.90); RED CELL DISTRIBUTION WIDTH 15.5 % (11.6-17.2); WHITE BLOOD COUNT 6.8 TH/MM3 (4.0-11.0)
[2017-06-20] MEDS: PANTOPRAZOLE SOD 40 MG DELAYED RELEASE TAB PO SCH (07:47)
[2017-06-20] MEDS: cefTRIAXone INJ 1,000 MG in SODIUM CHLORIDE 0.9% INJ 100 ML IV SCH (07:47)
[2017-06-20] MEDS: DOCUSATE SODIUM 50 MG/SENNA 8.6 MG TAB PO SCH ×2 (07:47→20:20)
[2017-06-20] MEDS: SODIUM CHLORIDE 0.9% FLUSH 10 ML FLUSH IV FLUSH SCH ×2 (07:48→20:20)
[2017-06-20 07:52] VITALS: BP 127/58; PULSE 66; RESP 19; TEMP 97.9; O2SAT 97
[2017-06-20 07:57] LABS: BICARBONATE 28.6 MEQ/L (21.0-32.0); CREATININE 0.34 MG/DL (0.60-1.30)
[2017-06-20] MEDS: PREGABALIN 75 MG CAP PO SCH ×2 (09:32→20:20)
--- NOTE | 2017-06-20 11:06 | HHI.PR ---
Subjective Remarks resting quietly now eating a liquid diet states he is moving bowels and has no GI discomfort Objective Vital Signs Date Time Temp Pulse Resp B/P (MAP) Pulse Ox O2 Delivery O2 Flow Rate FiO2 06/20/17 07:52 97.9 66 19 127/58 (81) 97 06/20/17 00:00 98.3 63 17 115/55 (75) 97 06/19/17 20:00 97.9 70 17 140/62 (88) 98 06/19/17 16:00 97.6 73 17 131/76 (94) 99 06/19/17 12:00 97.3 70 17 127/68 (87) 99 I/O 06/19/17 06/19/17 06/19/17 06/20/17 06/20/17 06/20/17 07:00 15:00 23:00 07:00 15:00 23:00 Intake Total 240 ml 618 ml 340 ml 240 ml 120 ml Output Total 375 ml 550 ml 700 ml Balance -135 ml 618 ml -210 ml -460 ml 120 ml Intake Oral 240 ml 240 ml 240 ml 120 ml IV Total 618 ml 100 ml Output Urine Total 375 ml 550 ml 700 ml # Bowel Movements 0 0 0 Result Diagram: 06/20/17 0650 06/20/17 0650 Imaging Last Impressions Abdomen X-Ray 06/18/17 0600 Signed Impressions: Service Date/Time: Sunday, June 18, 2017 07:57 - CONCLUSION: Air-filled minimally dilated loops of small bowel suggesting persistent small bowel obstruction or ileus which appears slightly improved compared to the previous day's examination. Clinical correlation is recommended. Dany La MD Abdomen/Pelvis CT 06/17/17 0836 Signed Impressions: Service Date/Time: Saturday, June 17, 2017 09:54 - CONCLUSION: 1. Multiple fluid-filled dilated loops of small bowel and gastric distention suggesting small bowel obstruction of indeterminate etiology. 2. Large hydrocele within the left scrotum. 3. Enlarged prostate. 4. Scattered emphysematous changes within the lung bases. 5. Degenerative changes throughout the thoracolumbar spine. Dany La MD Other Results GENERAL: frail black male in no distress SKIN: Warm and dry. HEAD: Normocephalic. EYES: No scleral icterus. No injection or drainage. NECK: Supple, trachea midline. No JVD or lymphadenopathy. CARDIOVASCULAR: Regular rate and rhythm without murmurs, gallops, or rubs. RESPIRATORY: Breath sounds equal bilaterally. No accessory muscle use. GASTROINTESTINAL: Abdomen soft, non-tender, nondistended. minimal bowelsounds EXTREMITIES: No cyanosis, or edema. NEUROLOGICAL: Awake, alert, and oriented x 3. Non-focal. Medications and IVs Inpatient Medications Acetaminophen (Tylenol) 650 mg Q4H PRN PO TEMP > 100.4; Start 06/17/17 at 13:15 Bisacodyl (Dulcolax Supp) 10 mg DAILY PRN RECTAL SEVERE CONSITIPATION; Start at 13:15 Ceftriaxone Sodium 1000 mg/ Sodium Chloride 100 ml @ 200 mls/hr Q12H IV Last administered on 06/20/17 07:47; Start 06/19/17 at 10:00 Lactulose (Lactulose Liq) 30 ml DAILY PRN PO SEVERE CONSITIPATION; Start at 13:15 Magnesium Hydroxide (Milk Of Magnesia Liq) 30 ml Q12H PRN PO Mild constipation ; Start 06/17/17 at 13:15 Morphine Sulfate (Morphine Inj) 2 mg Q4H PRN IV p Last administered on at 01:14; Start 06/17/17 at 22:15 Naloxone HCl (Narcan Inj) 0.4 mg UNSCH PRN IV PUSH SEE LABEL COMMENTS; Start at 13:15 Ondansetron HCl (Zofran Inj) 4 mg Q6H PRN IVP NAUSEA OR VOMITING Last administered on 06/17/17at 21:17; Start 06/17/17 at 13:15 Pantoprazole Sodium (Protonix) 40 mg DAILY PO Last administered on 06/20/17 07: 47; Start 06/18/17 at 09:00 Pregabalin (Lyrica) 75 mg Q12HR PO Last administered on 06/20/17 09:32; Start 06/20/17 at 09:00 Senna/Docusate Sodium (Tri-Colace) 1 tab BID PO Last administered on 06/20/17 07:47; Start 06/17/17 at 21:00 Sennosides (Senokot) 17.2 mg Q12H PRN PO Moderate constipation; Start 06/17/17 at 13:15 Sodium Chloride 1,000 ml @ 999 mls/hr BOLUS ONCE IV Last administered on at 17:20; Start 06/17/17 at 17:15; Stop 06/17/17 at 18:15; Status DC Sodium Chloride (NS Flush) 2 ml BID IV FLUSH Last administered on 06/20/17at 07: 48; Start 06/17/17 at 21:00 Assessment and Plan Problem List: (1) Ileus ICD Codes: K56.7 - Ileus, unspecified Status: Acute Plan: gradual progression of diet GI consulted will re image abd today Discussed Condition With patient Discharge Planning [facility] Tahir Montes De Oca DO Jun 20, 2017 11:05
--- NOTE | 2017-06-20 11:07 | HHI.PR ---
Subjective Remarks resting quietly now eating a liquid diet states he is moving bowels and has no GI discomfort Objective Vital Signs Date Time Temp Pulse Resp B/P (MAP) Pulse Ox O2 Delivery O2 Flow Rate FiO2 06/20/17 07:52 97.9 66 19 127/58 (81) 97 06/20/17 00:00 98.3 63 17 115/55 (75) 97 06/19/17 20:00 97.9 70 17 140/62 (88) 98 06/19/17 16:00 97.6 73 17 131/76 (94) 99 06/19/17 12:00 97.3 70 17 127/68 (87) 99 I/O 06/19/17 06/19/17 06/19/17 06/20/17 06/20/17 06/20/17 07:00 15:00 23:00 07:00 15:00 23:00 Intake Total 240 ml 618 ml 340 ml 240 ml 120 ml Output Total 375 ml 550 ml 700 ml Balance -135 ml 618 ml -210 ml -460 ml 120 ml Intake Oral 240 ml 240 ml 240 ml 120 ml IV Total 618 ml 100 ml Output Urine Total 375 ml 550 ml 700 ml # Bowel Movements 0 0 0 Result Diagram: 06/20/17 0650 06/20/17 0650 Assessment and Plan Problem List: (1) Ileus ICD Codes: K56.7 - Ileus, unspecified Status: Acute Plan: gradual progression of diet GI consulted will re image abd today Assessment and Plan ileus slow to resolve, also has neuropathy type pain in feet will add Tahir Gonsalez DO Jun 20, 2017 11:07
--- NOTE | 2017-06-20 11:24 | HHI.PR ---
cc: Pawan Brito MD Subjective Subjective Notes Resting in bed Tolerated clear liquids Feels hungry Objective Vitals/I&O Vital Signs Date Time Temp Pulse Resp B/P (MAP) Pulse Ox O2 Delivery O2 Flow Rate FiO2 06/20/17 07:52 97.9 66 19 127/58 (81) 97 06/17/17 13:51 Room Air Labs Laboratory Tests Test 06/20/17 06:50 White Blood Count 6.8 Red Blood Count 3.05 Hemoglobin 9.5 Hematocrit 27.8 Mean Corpuscular Volume 91.2 Mean Corpuscular Hemoglobin 31.1 Mean Corpuscular Hemoglobin Concent 34.1 Red Cell Distribution Width 15.5 Platelet Count 215 Mean Platelet Volume 9.3 Neutrophils (%) (Auto) 56.7 Lymphocytes (%) (Auto) 26.4 Monocytes (%) (Auto) 11.0 Eosinophils (%) (Auto) 4.9 Basophils (%) (Auto) 1.0 Neutrophils # (Auto) 3.8 Lymphocytes # (Auto) 1.8 Monocytes # (Auto) 0.7 Eosinophils # (Auto) 0.3 Basophils # (Auto) 0.1 CBC Comment DIFF FINAL Differential Comment Blood Urea Nitrogen 8 Creatinine 0.34 Random Glucose 85 Calcium Level 8.0 Sodium Level 140 Potassium Level 3.2 Chloride Level 105 Carbon Dioxide Level 28.6 Anion Gap 6 Estimat Glomerular Filtration Rate 313 Date/Time Source Procedure Growth Status 06/17/17 08:46 Urine Random Urine Urine Culture - Final Enterococcus Faecalis Complete Radiology Last Impressions Abdomen X-Ray 06/18/17 0600 Signed Impressions: Service Date/Time: Sunday, June 18, 2017 07:57 - CONCLUSION: Air-filled minimally dilated loops of small bowel suggesting persistent small bowel obstruction or ileus which appears slightly improved compared to the previous day's examination. Clinical correlation is recommended. Dany La MD Abdomen/Pelvis CT 06/17/17 0836 Signed Impressions: Service Date/Time: Saturday, June 17, 2017 09:54 - CONCLUSION: 1. Multiple fluid-filled dilated loops of small bowel and gastric distention suggesting small bowel obstruction of indeterminate etiology. 2. Large hydrocele within the left scrotum. 3. Enlarged prostate. 4. Scattered emphysematous changes within the lung bases. 5. Degenerative changes throughout the thoracolumbar spine. Dany La MD Cardiovascular: Regular Lungs: Clear Abdomen: Other (abdomen flat; non tender; PEG clamped ) Extremities: No edema A/P Problem List: (1) Ileus ICD Codes: K56.7 - Ileus, unspecified Status: Acute (2) PEG (percutaneous endoscopic gastrostomy) status ICD Codes: Z93.1 - Gastrostomy status (3) Weight loss ICD Codes: R63.4 - Abnormal weight loss Status: Chronic Assessment and Plan 67 year old male with dysphagia s/p PEG placement; abdominal pain/nausea/ vomiting with SBO on CT scan -SBFT today ---contrast through PEG okay -Okay for clears -Speech eval due to past issues with dysphagia -OOB and mobilize -Continue PEG clamped; LIWS if nausea/vomiting occur -Continue non operative treatment Attending Note - Dr. Daryl COLMENARES normal Tolerating liquids Swallow eval recommends nectar thickened puree Will give additional feeding via PEG tube Stable from GS standpoint; will likely sign off tomorrow. The exam, history, and the medical decision-making described in the above note were completed with the assistance of the mid-level provider. I reviewed and agree with the findings presented. I attest that I had a [id number] encounter with the patient on the same day, and personally performed and documented my assessment and findings in the medical record. Yesenia Eller Jun 20, 2017 11:24 Pawan Brito MD Jun 20, 2017 18:01
[2017-06-20] MEDS: NITROFURANTOIN MONOHYD MACROCR 100 MG CAP PO SCH ×2 (13:32→17:02)
[2017-06-20 13:40] VITALS: BP 150/67; PULSE 80; RESP 19; TEMP 96.9; O2SAT 97
--- NOTE | 2017-06-20 14:27 | RADRPT ---
EXAM DATE/TIME: 06/20/2017 10:27 [place] COMPARISON: No previous studies available for comparison. INDICATIONS : Possible obstruction. FLUORO TIME: .5 minutes IMAGE COUNT: 13 CONTRAST: Gastrorobin IMAGING TIME(S): ? MEDICAL HISTORY : Hypertension. SURGICAL HISTORY : CABG. PEG tube. ENCOUNTER: Initial ACUITY: 1 week PAIN SCORE: 0/10 LOCATION: Abdomen. FINDINGS: Gastroview was instilled through the gastrostomy tube. There no constricting or obstructing lesions identified. Small bowel transit time is 2 hours. Fluoroscopic spot films revealed no ovale. CONCLUSION: There is no evidence of small bowel obstruction. Ayaz Eduardo MD FACR on June 20, 2017 at 14:23 Board Certified Radiologist. This report was verified electronically.
--- NOTE | 2017-06-20 14:30 | HHI.GIFU ---
Subjective Remarks Pt resting in bed in NAD. tolerating clears. + BM, + flatus. Says his abd pain is better. Denies n/v. just back from SBFT. (Priscila Alexis) Objective Vitals I&O Vital Signs Date Time Temp Pulse Resp B/P (MAP) Pulse Ox O2 Delivery O2 Flow Rate FiO2 06/20/17 13:40 96.9 80 19 150/67 (94) 97 06/20/17 07:52 97.9 66 19 127/58 (81) 97 06/20/17 00:00 98.3 63 17 115/55 (75) 97 06/19/17 20:00 97.9 70 17 140/62 (88) 98 06/19/17 16:00 97.6 73 17 131/76 (94) 99 I/O 06/19/17 06/19/17 06/19/17 06/20/17 06/20/17 06/20/17 07:00 15:00 23:00 07:00 15:00 23:00 Intake Total 240 ml 618 ml 340 ml 240 ml 120 ml Output Total 375 ml 550 ml 700 ml Balance -135 ml 618 ml -210 ml -460 ml 120 ml Intake Oral 240 ml 240 ml 240 ml 120 ml IV Total 618 ml 100 ml Output Urine Total 375 ml 550 ml 700 ml # Bowel Movements 0 0 0 Laboratory Laboratory Tests Test 06/20/17 06:50 White Blood Count 6.8 Red Blood Count 3.05 Hemoglobin 9.5 Hematocrit 27.8 Mean Corpuscular Volume 91.2 Mean Corpuscular Hemoglobin 31.1 Mean Corpuscular Hemoglobin Concent 34.1 Red Cell Distribution Width 15.5 Platelet Count 215 Mean Platelet Volume 9.3 Neutrophils (%) (Auto) 56.7 Lymphocytes (%) (Auto) 26.4 Monocytes (%) (Auto) 11.0 Eosinophils (%) (Auto) 4.9 Basophils (%) (Auto) 1.0 Neutrophils # (Auto) 3.8 Lymphocytes # (Auto) 1.8 Monocytes # (Auto) 0.7 Eosinophils # (Auto) 0.3 Basophils # (Auto) 0.1 CBC Comment DIFF FINAL Differential Comment Blood Urea Nitrogen 8 Creatinine 0.34 Random Glucose 85 Calcium Level 8.0 Sodium Level 140 Potassium Level 3.2 Chloride Level 105 Carbon Dioxide Level 28.6 Anion Gap 6 Estimat Glomerular Filtration Rate 313 Date/Time Source Procedure Growth Status 06/17/17 08:46 Urine Random Urine Urine Culture - Final Enterococcus Faecalis Complete Imaging Last Impressions Abdomen X-Ray 06/18/17 0600 Signed Impressions: Service Date/Time: Sunday, June 18, 2017 07:57 - CONCLUSION: Air-filled minimally dilated loops of small bowel suggesting persistent small bowel obstruction or ileus which appears slightly improved compared to the previous day's examination. Clinical correlation is recommended. Dany La MD Abdomen/Pelvis CT 06/17/17 0836 Signed Impressions: Service Date/Time: Saturday, June 17, 2017 09:54 - CONCLUSION: 1. Multiple fluid-filled dilated loops of small bowel and gastric distention suggesting small bowel obstruction of indeterminate etiology. 2. Large hydrocele within the left scrotum. 3. Enlarged prostate. 4. Scattered emphysematous changes within the lung bases. 5. Degenerative changes throughout the thoracolumbar spine. Dany La MD Physical Exam HEENT: PERRL; normocephalic; atraumatic; no jaundice. CHEST: CTA CARDIAC: RRR ABDOMEN: Semifirm, mildy distended, nontender; no hepatosplenomegaly; bowel sounds active, peg site clean EXTREMITIES: No clubbing, cyanosis, or edema. SKIN: Normal; no rash; no jaundice. RESEARCH ENGINEER: alert, answers appropriately (Priscila Alexis DEVELOPER [employer]) Assessment and Plan Plan Assessment - Small bowel obstruction- Presented to ER with complaints of abdominal pain and vomiting that began yesterday. CT abdomen and pelvis W IV contrast (06/17) --> Multiple fluid-filled dilated loops of small bowel and gastric distention suggesting small bowel obstruction of indeterminate etiology. Large hydrocele within the left scrotum. Enlarged prostate. Scattered emphysematous changes within the lung bases. Degenerative changes throughout the thoracolumbar spine. NGT tube placed in ER to LIWS with small amount of drainage. Pt does have PEG that was placed during recent hospitalization in May for dysphagia and poor PO intake. - Hematuria- urology consulted Of note, last hospital records are under name Bobby León- records reviewed 06/20/17 - most recent KUB indicates mild improvement. pt has active bowel sounds, + flatus and BM. tolerating CLD. SBFT pending ST has evaluated and recommended puree diet with nectar thick liquids Plan - await SBFT - puree diet with nectar thick liquids per ST, when able to tolerate - Further recommendations to follow based on results of above - supportive care Pt has been seen and examined by myself and Dr. Torres and this note is written on her behalf (Priscila Alexis) Physician Comments seen, examined agree with above sbft noted -may restart tube feeding await speech pathology evaluation if dc fu office (Stella Torres MD) Priscila Alexis Jun 20, 2017 14:30 Stella Torres MD Jun 20, 2017 16:58
[2017-06-20 16:00] VITALS: BP 147/70; PULSE 84; RESP 20; TEMP 96.9; O2SAT 98
[2017-06-20 20:00] VITALS: BP 133/63; PULSE 67; RESP 20; TEMP 97.8; O2SAT 99
[2017-06-21] VITALS: BP 161/69; PULSE 66; RESP 20; TEMP 96.7; O2SAT 100
[2017-06-21] MEDS: MORPHINE SULFATE 2 MG/ML INJ IV PRN ×3 (03:28→20:28)
[2017-06-21] MEDS: NITROFURANTOIN MONOHYD MACROCR 100 MG CAP PO SCH ×2 (07:50→17:01)
[2017-06-21] MEDS: PREGABALIN 75 MG CAP PO SCH ×2 (07:50→20:28)
[2017-06-21] MEDS: DOCUSATE SODIUM 50 MG/SENNA 8.6 MG TAB PO SCH ×2 (07:50→21:00)
[2017-06-21] MEDS: PANTOPRAZOLE SOD 40 MG DELAYED RELEASE TAB PO SCH (07:50)
[2017-06-21] MEDS: SODIUM CHLOR 0.9% 1000 ML INJ 1,000 ML IV SCH (07:59)
[2017-06-21 08:00] VITALS: BP 148/69; PULSE 69; RESP 20; TEMP 96.9; O2SAT 97
[2017-06-21] MEDS: SODIUM CHLORIDE 0.9% FLUSH 10 ML FLUSH IV FLUSH SCH ×2 (09:07→20:30)
[2017-06-21] MEDS ORDERED: DIATRIZOATE MEGLUM/DIATRIZOATE SOD 120 ML BTL (for RAD DIAG) PEG ONE (09:45)
[2017-06-21 12:00] VITALS: BP 150/67; PULSE 72; RESP 20; TEMP 98.2; O2SAT 98
--- NOTE | 2017-06-21 12:10 | HHI.PR ---
Subjective Remarks requesting to dc orly will add flomax in preparation fo dc Objective Vital Signs Date Time Temp Pulse Resp B/P (MAP) Pulse Ox O2 Delivery O2 Flow Rate FiO2 06/21/17 08:00 96.9 69 20 148/69 (95) 97 06/21/17 00:00 96.7 66 20 161/69 (99) 100 06/20/17 20:00 97.8 67 20 133/63 (86) 99 06/20/17 16:00 96.9 84 20 147/70 (95) 98 06/20/17 13:40 96.9 80 19 150/67 (94) 97 I/O 06/20/17 06/20/17 06/20/17 06/21/17 06/21/17 06/21/17 07:00 15:00 23:00 07:00 15:00 23:00 Intake Total 240 ml 360 ml 1733 ml 540 ml 240 ml Output Total 700 ml 1000 ml 450 ml Balance -460 ml 360 ml 733 ml 90 ml 240 ml Intake Oral 240 ml 120 ml 1000 ml 540 ml 240 ml Tube Feeding 613 ml Other 240 ml 120 ml Output Urine Total 700 ml 1000 ml 450 ml # Bowel Movements 0 1 Result Diagram: 06/20/17 0650 06/20/17 0650 Imaging Last Impressions Small Bowel X-Ray 06/20/17 0000 Signed Impressions: Service Date/Time: Tuesday, June 20, 2017 10:27 - CONCLUSION: There is no evidence of small bowel obstruction. Ayaz Eduardo MD FACR Abdomen X-Ray 06/18/17 0600 Signed Impressions: Service Date/Time: Sunday, June 18, 2017 07:57 - CONCLUSION: Air-filled minimally dilated loops of small bowel suggesting persistent small bowel obstruction or ileus which appears slightly improved compared to the previous day's examination. Clinical correlation is recommended. Dany La MD Abdomen/Pelvis CT 06/17/17 0836 Signed Impressions: Service Date/Time: Saturday, June 17, 2017 09:54 - CONCLUSION: 1. Multiple fluid-filled dilated loops of small bowel and gastric distention suggesting small bowel obstruction of indeterminate etiology. 2. Large hydrocele within the left scrotum. 3. Enlarged prostate. 4. Scattered emphysematous changes within the lung bases. 5. Degenerative changes throughout the thoracolumbar spine. Dany La MD Objective Remarks GENERAL:frail white male patient. SKIN: Warm and dry. HEAD: Normocephalic. EYES: No scleral icterus. No injection or drainage. NECK: Supple, trachea midline. No JVD or lymphadenopathy. CARDIOVASCULAR: Regular rate and rhythm without murmurs, gallops, or rubs. RESPIRATORY: Breath sounds equal bilaterally. No accessory muscle use. GASTROINTESTINAL: Abdomen soft, non-tender, nondistended peg in place. EXTREMITIES: No cyanosis, or edema. NEUROLOGICAL: Awake, alert, and oriented x 3. Non-focal. Medications and IVs Inpatient Medications Acetaminophen (Tylenol) 650 mg Q4H PRN PO TEMP > 100.4; Start 06/17/17 at 13:15 Bisacodyl (Dulcolax Supp) 10 mg DAILY PRN RECTAL SEVERE CONSITIPATION; Start at 13:15 Ceftriaxone Sodium 1000 mg/ Sodium Chloride 100 ml @ 200 mls/hr Q12H IV Last administered on 06/20/17at 07:47; Start 06/19/17 at 10:00; Stop 06/20/17 at 12:21; Status DC Lactulose (Lactulose Liq) 30 ml DAILY PRN PO SEVERE CONSITIPATION; Start at 13:15 Magnesium Hydroxide (Milk Of Magnesia Liq) 30 ml Q12H PRN PO Mild constipation ; Start 06/17/17 at 13:15 Morphine Sulfate (Morphine Inj) 2 mg Q4H PRN IV p Last administered on at 03:28; Start 06/17/17 at 22:15 Naloxone HCl (Narcan Inj) 0.4 mg UNSCH PRN IV PUSH SEE LABEL COMMENTS; Start at 13:15 Nitrofurantoin Macrocrystals (Macrobid) 100 mg BIDPC PO Last administered on 06/21/17at 07:50; Start 06/20/17 at 12:30 Ondansetron HCl (Zofran Inj) 4 mg Q6H PRN IVP NAUSEA OR VOMITING Last administered on 06/17/17at 21:17; Start 06/17/17 at 13:15 Pantoprazole Sodium (Protonix) 40 mg DAILY PO Last administered on 06/21/17at 07: 50; Start 06/18/17 at 09:00 Pregabalin (Lyrica) 75 mg Q12HR PO Last administered on 06/21/17at 07:50; Start 06/20/17 at 09:00 Senna/Docusate Sodium (Tri-Colace) 1 tab BID PO Last administered on 06/21/17at 07:50; Start 06/17/17 at 21:00 Sennosides (Senokot) 17.2 mg Q12H PRN PO Moderate constipation; Start 06/17/17 at 13:15 Sodium Chloride 1,000 ml @ 999 mls/hr BOLUS ONCE IV Last administered on at 17:20; Start 06/17/17 at 17:15; Stop 06/17/17 at 18:15; Status DC Sodium Chloride (NS Flush) 2 ml BID IV FLUSH Last administered on 06/21/17at 09: 07; Start 06/17/17 at 21:00 Assessment and Plan Problem List: (1) Ileus ICD Codes: K56.7 - Ileus, unspecified Status: Acute Plan: gradual progression of diet GI consulted will re image abd today xray shows no SBO HGB has dropped from 12.1 to 9.5 potassium is also low at 3.2 will supplement and follow cbc bmp closely Assessment and Plan ileus slow to resolve, also has neuropathy type pain in feet will add lyrica Discharge Planning Tahir Monreal DO Jun 21, 2017 12:10
--- NOTE | 2017-06-21 14:39 | HHI.PR ---
cc: Pawan Brito MD Subjective Subjective Notes Eating lunch but doesn't like the pureed food that much No other issues Objective Vitals/I&O Vital Signs Date Time Temp Pulse Resp B/P (MAP) Pulse Ox O2 Delivery O2 Flow Rate FiO2 06/21/17 12:00 98.2 72 20 150/67 (94) 98 06/17/17 13:51 Room Air Labs Date/Time Source Procedure Growth Status 06/17/17 08:46 Urine Random Urine Urine Culture - Final Enterococcus Faecalis Complete Radiology Last Impressions Abdomen X-Ray 06/18/17 0600 Signed Impressions: Service Date/Time: Sunday, June 18, 2017 07:57 - CONCLUSION: Air-filled minimally dilated loops of small bowel suggesting persistent small bowel obstruction or ileus which appears slightly improved compared to the previous day's examination. Clinical correlation is recommended. Dany La MD Abdomen/Pelvis CT 06/17/17 0836 Signed Impressions: Service Date/Time: Saturday, June 17, 2017 09:54 - CONCLUSION: 1. Multiple fluid-filled dilated loops of small bowel and gastric distention suggesting small bowel obstruction of indeterminate etiology. 2. Large hydrocele within the left scrotum. 3. Enlarged prostate. 4. Scattered emphysematous changes within the lung bases. 5. Degenerative changes throughout the thoracolumbar spine. Dany La MD Cardiovascular: Regular Lungs: Clear Abdomen: Other (PEG in place--clamped; non distended; non tender ) Extremities: No edema Narrative Exam Wright in place A/P Problem List: (1) Ileus ICD Codes: K56.7 - Ileus, unspecified Status: Acute (2) PEG (percutaneous endoscopic gastrostomy) status ICD Codes: Z93.1 - Gastrostomy status (3) Weight loss ICD Codes: R63.4 - Abnormal weight loss Status: Chronic Assessment and Plan 67 year old male with dysphagia s/p PEG placement; abdominal pain/nausea/ vomiting with SBO on CT scan -SBFT shows no obstruction -Tolerating pureed thickened liquids -Ensure TID through PEG tube -OOB and mobilize -Continue PEG clamped; LIWS if nausea/vomiting occur -Continue non operative treatment Attending Note - Dr. Brito Abdomen non-distended Will need to increase enteral feeds, as he will likely not be able to take enough PO with his restrictions The exam, history, and the medical decision-making described in the above note were completed with the assistance of the mid-level provider. I reviewed and agree with the findings presented. I attest that I had a [id number] encounter with the patient on the same day, and personally performed and documented my assessment and findings in the medical record. Yesenia Eller Jun 21, 2017 14:39 Pawan Brito MD Jun 22, 2017 11:19
--- NOTE | 2017-06-21 15:09 | HHI.GIFU ---
Subjective Remarks Pt resting in bed, no complaints at this time. Tolerating pureed thickened liquids. Denies nausea, vomiting. Reports mild irritation around PEG tube site. (Adrianna Arguello) Objective Vitals I&O Vital Signs Date Time Temp Pulse Resp B/P (MAP) Pulse Ox O2 Delivery O2 Flow Rate FiO2 06/21/17 12:00 98.2 72 20 150/67 (94) 98 06/21/17 08:00 96.9 69 20 148/69 (95) 97 06/21/17 00:00 96.7 66 20 161/69 (99) 100 06/20/17 20:00 97.8 67 20 133/63 (86) 99 06/20/17 16:00 96.9 84 20 147/70 (95) 98 I/O 06/20/17 06/20/17 06/20/17 06/21/17 06/21/17 06/21/17 07:00 15:00 23:00 07:00 15:00 23:00 Intake Total 240 ml 360 ml 1733 ml 540 ml 240 ml Output Total 700 ml 1000 ml 450 ml Balance -460 ml 360 ml 733 ml 90 ml 240 ml Intake Oral 240 ml 120 ml 1000 ml 540 ml 240 ml Tube Feeding 613 ml Other 240 ml 120 ml Output Urine Total 700 ml 1000 ml 450 ml # Bowel Movements 0 1 Laboratory Date/Time Source Procedure Growth Status 06/17/17 08:46 Urine Random Urine Urine Culture - Final Enterococcus Faecalis Complete Imaging Last Impressions Small Bowel X-Ray 06/20/17 0000 Signed Impressions: Service Date/Time: Tuesday, June 20, 2017 10:27 - CONCLUSION: There is no evidence of small bowel obstruction. Ayaz Eduardo MD FACR Abdomen X-Ray 06/18/17 0600 Signed Impressions: Service Date/Time: Sunday, June 18, 2017 07:57 - CONCLUSION: Air-filled minimally dilated loops of small bowel suggesting persistent small bowel obstruction or ileus which appears slightly improved compared to the previous day's examination. Clinical correlation is recommended. Dany La MD Abdomen/Pelvis CT 06/17/17 0836 Signed Impressions: Service Date/Time: Saturday, June 17, 2017 09:54 - CONCLUSION: 1. Multiple fluid-filled dilated loops of small bowel and gastric distention suggesting small bowel obstruction of indeterminate etiology. 2. Large hydrocele within the left scrotum. 3. Enlarged prostate. 4. Scattered emphysematous changes within the lung bases. 5. Degenerative changes throughout the thoracolumbar spine. Dany La MD Physical Exam HEENT: Normocephalic; atraumatic CHEST: CTA CARDIAC: RRR ABDOMEN: Semifirm, nondistended, nontender; no hepatosplenomegaly; bowel sounds active, peg site clean EXTREMITIES: No clubbing, cyanosis, or edema. SKIN: Normal; no rash; no jaundice. TEENAGE PROGRAM DIRECTOR: Alert x 3 (Adrianna Arguello) Assessment and Plan Plan Assessment - Small bowel obstruction- Presented to ER with complaints of abdominal pain and vomiting that began yesterday. CT abdomen and pelvis W IV contrast (06/17) --> Multiple fluid-filled dilated loops of small bowel and gastric distention suggesting small bowel obstruction of indeterminate etiology. Large hydrocele within the left scrotum. Enlarged prostate. Scattered emphysematous changes within the lung bases. Degenerative changes throughout the thoracolumbar spine. NGT tube placed in ER to LIWS with small amount of drainage. Pt does have PEG that was placed during recent hospitalization in May for dysphagia and poor PO intake. - Hematuria- urology consulted Of note, last hospital records are under name Bobby León- records reviewed 06/20/17 - most recent KUB indicates mild improvement. pt has active bowel sounds, + flatus and BM. tolerating CLD. SBFT pending ST has evaluated and recommended puree diet with nectar thick liquids (06/21) --> SBFT shows no signs of obstruction. Pt currently tolerating puree thickened liquids with Ensure through PEG tube TID for supplemental nutrition. Plan - Continue with puree thickened liquids - Ensure TID - Encourage mobilization - Supportive care Pt has been seen and examined by myself and Dr. Torres and this note is written on her behalf (Adrianna Arguello) Physician Comments agree with above gi will sign off call us as needed consider PET ct op due to waisting if dc fu office (Stella Torres MD) Adrianna Arguello Jun 21, 2017 15:09 Stella Torres MD Jun 21, 2017 19:23
[2017-06-21 16:00] VITALS: BP 141/64; PULSE 75; RESP 19; TEMP 97.9; O2SAT 99
[2017-06-21 20:00] VITALS: BP 153/67; PULSE 78; RESP 18; TEMP 98.1; O2SAT 99
[2017-06-21] MEDS: POTASSIUM CHLORIDE 10 MEQ CAP PO SCH (20:29)
[2017-06-22] VITALS: BP 129/61; PULSE 71; RESP 18; TEMP 98; O2SAT 98
[2017-06-22 08:00] VITALS: BP 136/63; PULSE 72; RESP 16; TEMP 98.1; O2SAT 98
[2017-06-22] MEDS ORDERED: TAMSULOSIN HCL 0.4 MG CAP PO SCH (09:00)
[2017-06-22 09:15] LABS: AUTOMATED NEUTROPHIL # 3.1 TH/MM3 (1.8-7.7); BASOPHIL % 0.7 % (0.0-2.0); EOSINOPHIL # 0.4 TH/MM3 (0-0.4); EOSINOPHIL % 7.2 % (0.0-4.0); HEMATOCRIT 29.1 % (39.0-51.0); HEMOGLOBIN 9.7 GM/DL (13.0-17.0); LYMPH % 29.2 % (9.0-44.0); LYMPHOCYTE # 1.7 TH/MM3 (1.0-4.8); MEAN CELL VOLUME 90.9 FL (80.0-100.0); MEAN CORPUSCULAR HEMOGLOBIN 30.4 PG (27.0-34.0); MEAN CORPUSCULAR HGB CONC 33.5 % (32.0-36.0); MEAN PLATELET VOLUME 9.6 FL (7.0-11.0); MONO % 9.1 % (0.0-8.0); MONOCYTE # 0.5 TH/MM3 (0-0.9); NEUT % 53.8 % (16.0-70.0); PLATELET COUNT 221 TH/MM3 (150-450); RED CELL DISTRIBUTION WIDTH 15.5 % (11.6-17.2); WHITE BLOOD COUNT 5.7 TH/MM3 (4.0-11.0)
[2017-06-22] MEDS: NITROFURANTOIN MONOHYD MACROCR 100 MG CAP PO SCH (09:18)
[2017-06-22] MEDS: DOCUSATE SODIUM 50 MG/SENNA 8.6 MG TAB PO SCH (09:18)
[2017-06-22] MEDS: POTASSIUM CHLORIDE 10 MEQ CAP PO SCH (09:18)
[2017-06-22] MEDS: PREGABALIN 75 MG CAP PO SCH (09:18)
[2017-06-22] MEDS: PANTOPRAZOLE SOD 40 MG DELAYED RELEASE TAB PO SCH (09:18)
[2017-06-22] MEDS: SODIUM CHLORIDE 0.9% FLUSH 10 ML FLUSH IV FLUSH SCH (09:19)
[2017-06-22 09:37] LABS: BICARBONATE 29.3 MEQ/L (21.0-32.0); CALCIUM 8.3 MG/DL (8.5-10.1); CREATININE 0.46 MG/DL (0.60-1.30)
[2017-06-22 12:00] VITALS: BP 131/60; PULSE 85; RESP 17; TEMP 98.5; O2SAT 98
--- NOTE | 2017-06-22 12:01 | HHI.PR ---
cc: Pawan Brito MD Subjective Subjective Notes Resting in bed eating popsicles Objective Vitals/I&O Vital Signs Date Time Temp Pulse Resp B/P (MAP) Pulse Ox O2 Delivery O2 Flow Rate FiO2 06/22/17 08:00 98.1 72 16 136/63 (87) 98 Labs Laboratory Tests Test 06/22/17 08:10 White Blood Count 5.7 Red Blood Count 3.20 Hemoglobin 9.7 Hematocrit 29.1 Mean Corpuscular Volume 90.9 Mean Corpuscular Hemoglobin 30.4 Mean Corpuscular Hemoglobin Concent 33.5 Red Cell Distribution Width 15.5 Platelet Count 221 Mean Platelet Volume 9.6 Neutrophils (%) (Auto) 53.8 Lymphocytes (%) (Auto) 29.2 Monocytes (%) (Auto) 9.1 Eosinophils (%) (Auto) 7.2 Basophils (%) (Auto) 0.7 Neutrophils # (Auto) 3.1 Lymphocytes # (Auto) 1.7 Monocytes # (Auto) 0.5 Eosinophils # (Auto) 0.4 Basophils # (Auto) 0.0 CBC Comment DIFF FINAL Differential Comment Blood Urea Nitrogen 3 Creatinine 0.46 Random Glucose 80 Calcium Level 8.3 Sodium Level 140 Potassium Level 3.4 Chloride Level 105 Carbon Dioxide Level 29.3 Anion Gap 6 Estimat Glomerular Filtration Rate 221 Date/Time Source Procedure Growth Status 06/22/17 04:30 Stool Stool Stool Occult Blood (FUAD) - Final HEMOCCULT NEGATIVE Complete 06/17/17 08:46 Urine Random Urine Urine Culture - Final Enterococcus Faecalis Complete Radiology Last Impressions Abdomen X-Ray 06/18/17 0600 Signed Impressions: Service Date/Time: Sunday, June 18, 2017 07:57 - CONCLUSION: Air-filled minimally dilated loops of small bowel suggesting persistent small bowel obstruction or ileus which appears slightly improved compared to the previous day's examination. Clinical correlation is recommended. Dany La MD Abdomen/Pelvis CT 06/17/17 0836 Signed Impressions: Service Date/Time: Saturday, June 17, 2017 09:54 - CONCLUSION: 1. Multiple fluid-filled dilated loops of small bowel and gastric distention suggesting small bowel obstruction of indeterminate etiology. 2. Large hydrocele within the left scrotum. 3. Enlarged prostate. 4. Scattered emphysematous changes within the lung bases. 5. Degenerative changes throughout the thoracolumbar spine. Dany La MD Cardiovascular: Regular Lungs: Clear Abdomen: Non-distended, Non-tender, Other (PEG in place clamped ) Extremities: No edema Narrative Exam Wright in place A/P Problem List: (1) Ileus ICD Codes: K56.7 - Ileus, unspecified Status: Acute (2) PEG (percutaneous endoscopic gastrostomy) status ICD Codes: Z93.1 - Gastrostomy status (3) Weight loss ICD Codes: R63.4 - Abnormal weight loss Status: Chronic Assessment and Plan 67 year old male with dysphagia s/p PEG placement; abdominal pain/nausea/ vomiting with SBO on CT scan -SBFT shows no obstruction -Tolerating pureed thickened liquids -2 cans Ensure TID through PEG tube -OOB and mobilize -Continue non operative treatment -GS clear for DC; no follow up needed -May benefit from outpatient PET scan in the near future Attending Note - Dr. Brito Abdomen benign Stable for transfer The exam, history, and the medical decision-making described in the above note were completed with the assistance of the mid-level provider. I reviewed and agree with the findings presented. I attest that I had a [id number] encounter with the patient on the same day, and personally performed and documented my assessment and findings in the medical record. Yesenia Eller Jun 22, 2017 12:01 Pawan Brito MD Jun 26, 2017 12:57
[2017-06-22] MEDS ORDERED: SENNOSIDES 8.6 MG TAB PO PRN (12:30)
--- NOTE | 2017-06-22 12:33 | HHI.DS ---
Discharge Summary Admission Date Jun 17, 2017 at 11:22 Admitting Diagnosis Small bowel obstruction CBC/BMP: 06/22/17 0810 06/22/17 0810 Significant Findings Laboratory Tests Test 06/20/17 06:50 06/22/17 08:10 Red Blood Count 3.05 MIL/MM3 (4.50-5.90) 3.20 MIL/MM3 (4.50-5.90) Hemoglobin 9.5 GM/DL (13.0-17.0) 9.7 GM/DL (13.0-17.0) Hematocrit 27.8 % (39.0-51.0) 29.1 % (39.0-51.0) Monocytes (%) (Auto) 11.0 % (0.0-8.0) 9.1 % (0.0-8.0) Eosinophils (%) (Auto) 4.9 % (0.0-4.0) 7.2 % (0.0-4.0) Creatinine 0.34 MG/DL (0.60-1.30) 0.46 MG/DL (0.60-1.30) Calcium Level 8.0 MG/DL (8.5-10.1) 8.3 MG/DL (8.5-10.1) Potassium Level 3.2 MEQ/L (3.5-5.1) 3.4 MEQ/L (3.5-5.1) Blood Urea Nitrogen 3 MG/DL (7-18) PE at Discharge GENERAL:frail white male patient. SKIN: Warm and dry. HEAD: Normocephalic. EYES: No scleral icterus. No injection or drainage. NECK: Supple, trachea midline. No JVD or lymphadenopathy. CARDIOVASCULAR: Regular rate and rhythm without murmurs, gallops, or rubs. RESPIRATORY: Breath sounds equal bilaterally. No accessory muscle use. GASTROINTESTINAL: Abdomen soft, non-tender, nondistended peg in place. EXTREMITIES: No cyanosis, or edema. NEUROLOGICAL: Awake, alert, and oriented x 3. Non-focal. Hospital Course PT ADMITTED TO ED WITH POSSIBLE SBO SEEN BY BOTH GI AND SURGERY AND TREATED CONSERVATIVELY BEGAN TO MOVE BOWELS AND IS TOLERATING A PUREED DIET , WILL DC TO SNF AND FU CBC BMP CLOSELY Pt Condition on Discharge: Fair Discharge Disposition: Discharge to SNF Discharge Instructions DIET: Follow Instructions for: Pureed Diet Speech Therapy-Diet Recommenda: Pureed, [place] Thickened Liquids Activities to avoid: Driving for 24 hrs Continued Medications: Aspirin DR (Aspir-81) 81 Mg Tabdr 81 MG PO DAILY Azithromycin (Zithromax) 500 Mg Tab 500 MG PO DAILY for Infection for 5 Days, #5 TAB 0 Refills Cefuroxime (Ceftin) 250 Mg Tab 250 MG PO BID for Infection for 10 Days, #20 TAB Clopidogrel (Clopidogrel) 75 Mg Tab 75 MG PO DAILY for Blood Clot Prevention, #30 TAB 0 Refills Finasteride (Finasteride) 5 Mg Tab 5 MG PO DAILY for bph, #30 TAB 11 Refills Do not crush. Lisinopril (Lisinopril) 2.5 Mg Tab 2.5 MG PO DAILY, #30 TAB 0 Refills Lovastatin (Lovastatin) 20 Mg Tab 20 MG PO DAILY for Cholesterol Management, #30 TAB 0 Refills Metoprolol Tartrate (Metoprolol Tartrate) 25 Mg Tab 25 MG PO BID, #60 TAB 0 Refills Pantoprazole (Pantoprazole) 40 Mg Tab 40 MG PO DAILY for Reflux, #30 TAB 0 Refills Discontinued Medications: Nitroglycerin SL (Nitrostat SL) 0.4 Mg Subl 0.4 MG SL DIRECTED PRN for CHEST PAIN, #100 TAB.SL 0 Refills 1 tablet under the tongue as needed for chest pain. Repeat every 5 minutes for a total of 3 DOSES or call 911 if NO relief. Additional Information DC TO SNF WILL FAX OVER [facility] AND OXYCODONE SCRIPTS FU CLOSELY FOR FURTHER BOWEL RESTRICTIONS Tahir Montes De Oca DO Jun 22, 2017 12:33
[2017-06-22] MEDS ORDERED: PILL SPLITTER OTHER PRN (13:00)
[2017-06-22] MEDS ORDERED: guaiFENesin SOLUTION 200 MG/10 ML CUP PO SCH (16:00)
[2017-06-22] MEDS ORDERED: SUCRALFATE 1 GM/10 ML CUP PO SCH (17:00)
[2017-06-22] MEDS ORDERED: METOPROLOL TARTRATE 25 MG TAB PO SCH (21:00)
[2017-06-22] MEDS ORDERED: CEFUROXIME AXETIL 250 MG TAB PO SCH (21:00)
[2017-06-23] MEDS ORDERED: ASPIRIN EC 81 MG TABEC PO SCH (09:00)
[2017-06-23] MEDS ORDERED: FINASTERIDE 5 MG TAB PO SCH (09:00)
[2017-06-23] MEDS ORDERED: LISINOPRIL 5 MG TAB PO SCH (09:00)
[2017-06-23] MEDS ORDERED: PRAVASTATIN SOD 20 MG TAB PO SCH (09:00)
[2017-06-23] MEDS ORDERED: PANTOPRAZOLE SOD 40 MG DELAYED RELEASE TAB PO SCH (09:00)
[2017-06-23] MEDS ORDERED: CLOPIDOGREL 75 MG TAB PO SCH (09:00)
[2017-06-23] MEDS ORDERED: AZITHROMYCIN 250 MG TAB PO SCH (09:00)
[2017-06-23] MEDS ORDERED: POLYETHYLENE GLYCOL 17 GM PKG PO SCH (09:00)
== END 2017-06-22 15:11 | DRG 389 ==
LOC: NEPC 08:18 → NEDA 11:22 → MERGE 11:22 → N07A 15:04
PROVIDERS: ADMIT Family Medicine; ATTEND Family Medicine
DX: K56.7 Ileus, unspecified (principal); N13.8 Other obstructive and reflux uropathy; G62.9 Polyneuropathy, unspecified; Z93.1 Gastrostomy status; R13.10 Dysphagia, unspecified; J44.9 Chronic obstructive pulmonary disease, unspecified; Z68.1 Body mass index [BMI] 19.9 or less, adult; N39.0 Urinary tract infection, site not specified; I10 Essential (primary) hypertension; I25.10 Atherosclerotic heart disease of native coronary artery without angina pectoris; N40.1 Benign prostatic hyperplasia with lower urinary tract symptoms; R63.4 Abnormal weight loss; R31.0 Gross hematuria; B95.2 Enterococcus as the cause of diseases classified elsewhere; E78.5 Hyperlipidemia, unspecified; K21.9 Gastro-esophageal reflux disease without esophagitis; Z95.1 Presence of aortocoronary bypass graft
CPT/HCPCS: 74019; 74177; 74250; 80048; 80053; 81001; 82272; 82378; 83690; 84153; 85025; 85610; 85730; 86301; 87077; 87086; 87186; J0696; J2270; J2405; J7030; J7040; Q9963; Q9967

== ENCOUNTER 2017-07-07 03:35 | Emergency (ER) | payer MEDICARE, MEDICAID ==
[~2017-07-07] VITALS: Ht 167.6 cm; Wt 46.0 kg
[~2017-07-07 03:35] MED LIST changes: -NITR0.4S SL; -PERC5TAB12 PO
[2017-07-07] MEDS ORDERED: DIATRIZOATE MEG 30% 300 ML BOTTLE (for RAD DIAG) URETHRAL ONE (03:36)
[2017-07-07 03:43] VITALS: BP 186/88; PULSE 112; RESP 16; TEMP 99; O2SAT 100
[2017-07-07] MEDS ORDERED: OMEP40CA2 PO (03:55)
[2017-07-07] MEDS ORDERED: MORPHINE SULFATE 4 MG/ML INJ ONE (04:19)
[2017-07-07] MEDS ORDERED: ONDANSETRON HCL 4 MG/2 ML VIAL IV PUSH ONE (04:30)
[2017-07-07] MEDS ORDERED: MORPHINE SULFATE 2 MG/ML INJ IV PUSH ONE (04:30)
--- NOTE | 2017-07-07 04:43 | PD ---
HPI . Urinary retention Chief Complaint: Complaint Time Seen by Provider: 04:19 Travel History International Travel<30 days: No Contact w/Intl Traveler<30days: No Traveled to known affect area: No History of Present Illness HPI Patient is sent to us from retirement because of urinary obstruction. He had an indwelling Wright which was reportedly removed approximately 4 hours prior to presentation. He reportedly immediately started draining blood from his penis. He developed suprapubic pain and swelling. He was subsequently sent to us for further evaluation and treatment. He states that his pain is severe. It is getting worse. PFSH Past Medical History Hx Anticoagulant Therapy: Yes Blood Disorders: No Anxiety: Yes Depression: Yes Cancer: No Cardiovascular Problems: Yes (HTN) High Cholesterol: Yes Chest Pain: Yes Congestive Heart Failure: No Diabetes: No Diminished Hearing: No Endocrine: No Gastrointestinal Disorders: Yes (small bowel obstruction) GERD: Yes Genitourinary: Yes Hepatitis: No Hypertension: Yes Implanted Vascular Access Dvce: No Musculoskeletal: No Neurologic: No Psychiatric: No Reproductive: No Respiratory: Yes Thyroid Disease: No Ulcer: No Influenza Vaccination: No PNEUMOCCOCAL Vaccine (Year): 1 Past Surgical History Abdominal Surgery: Yes (peg tube) Body Medical Devices: PT. DENIES Cardiac Surgery: Yes (CABG 15 years ago) Coronary Artery Bypass Graft: Yes Endocrine Surgery: No Gynecologic Surgery: No Pacemaker: No Thoracic Surgery: Yes Other Surgery: Yes (VASCULAR) Social History Alcohol Use: No Tobacco Use: No Substance Use: No Allergies-Medications (Allergen,Severity, Reaction): Coded Allergies: No Known Allergies (Verified Adverse Reaction, Unknown, 05/27/17) Reported Meds & Prescriptions Reported Meds & Active Scripts Active Ceftin (Cefuroxime Axetil) 250 Mg Tab 250 Mg PO BID 10 Days Zithromax (Azithromycin) 500 Mg Tab 500 Mg PO DAILY 5 Days Sucralfate Liq (Sucralfate) 1 Gram/10 Ml Amy 1 Gm PO ACHS Senna-Lax (Sennosides) 8.6 Mg Tab 17.2 Mg PO Q12H PRN Polyethylene Glycol 3350 Powder (Polyethylene Glycol) 17 Gram Pow 17 Gm PO DAILY Cough Syrup (Guaifenesin) 100 Mg/5 Ml Syrp 200 Mg PO Q4HR Finasteride 5 Mg Tab 5 Mg PO DAILY Do not crush. Reported Omeprazole 40 Mg Cap 40 Mg PO DAILY Metoprolol Tartrate 25 Mg Tab 25 Mg PO BID Aspir-81 (Aspirin) 81 Mg Tabdr 81 Mg PO DAILY Clopidogrel (Clopidogrel Bisulfate) 75 Mg Tab 75 Mg PO DAILY Lovastatin 20 Mg Tab 20 Mg PO DAILY Lisinopril 2.5 Mg Tab 2.5 Mg PO DAILY Review of Systems Except as stated in HPI: all other systems reviewed are Neg General / Constitutional: No: Fever, Chills Gastrointestinal: Positive: Abdominal Pain, No: Nausea, Vomiting, Diarrhea Genitourinary: Positive: Hematuria Physical Exam Narrative GENERAL: Thin, elderly man looks uncomfortable. SKIN: Warm and dry. HEAD: Normocephalic/atraumatic. EYES: Pupils are equal. Extraocular movements are intact. Bili NECK: Normal range of motion. CARDIOVASCULAR: Regular rate and rhythm. RESPIRATORY: Nonlabored respirations. ABDOMEN: Visible suprapubic swelling umbilicus. It is tender. : Normal circumcised male. There is blood dripping from the urethral meatus. MUSCULOSKELETAL: Atraumatic. NEUROLOGICAL: Nonfocal. PSYCHIATRIC: Appropriate mood and affect. Data Data Last Documented VS Vital Signs Date Time Temp Pulse Resp B/P (MAP) Pulse Ox O2 Delivery O2 Flow Rate FiO2 07/07/17 03:43 99.0 112 16 186/88 (120) 100 Orders Orders Complete Blood Count With Diff (07/07/17 03:56) Comprehensive Metabolic Panel (07/07/17 03:56) Urinalysis - C+S If Indicated (07/07/17 03:56) Iv Access Insert/Monitor (07/07/17 03:56) Oximetry (07/07/17 03:56) Morphine Inj (Morphine Inj) (07/07/17 04:30) Ondansetron Inj (Zofran Inj) (07/07/17 04:30) Morphine Inj (Morphine Inj) (07/07/17 04:19) Urethrogram, Retrograde (07/07/17 ) Hydromorphone Pf Inj (Dilaudid Pf Inj) (07/07/17 06:00) Labs Laboratory Tests Test 07/07/17 03:50 07/07/17 04:30 White Blood Count 10.5 TH/MM3 Red Blood Count 3.45 MIL/MM3 Hemoglobin 10.6 GM/DL Hematocrit 31.5 % Mean Corpuscular Volume 91.3 FL Mean Corpuscular Hemoglobin 30.7 PG Mean Corpuscular Hemoglobin Concent 33.6 % Red Cell Distribution Width 15.8 % Platelet Count 300 TH/MM3 Mean Platelet Volume 9.4 FL Neutrophils (%) (Auto) 82.2 % Lymphocytes (%) (Auto) 10.6 % Monocytes (%) (Auto) 5.1 % Eosinophils (%) (Auto) 1.5 % Basophils (%) (Auto) 0.6 % Neutrophils # (Auto) 8.6 TH/MM3 Lymphocytes # (Auto) 1.1 TH/MM3 Monocytes # (Auto) 0.5 TH/MM3 Eosinophils # (Auto) 0.2 TH/MM3 Basophils # (Auto) 0.1 TH/MM3 CBC Comment DIFF FINAL Differential Comment Blood Urea Nitrogen 11 MG/DL Creatinine 0.54 MG/DL Random Glucose 91 MG/DL Total Protein 7.9 GM/DL Albumin 3.6 GM/DL Calcium Level 8.5 MG/DL Alkaline Phosphatase 101 U/L Aspartate Amino Transf (AST/SGOT) 19 U/L Alanine Aminotransferase (ALT/SGPT) 12 U/L Total Bilirubin 0.2 MG/DL Sodium Level 138 MEQ/L Potassium Level 3.5 MEQ/L Chloride Level 103 MEQ/L Carbon Dioxide Level 27.5 MEQ/L Anion Gap 8 MEQ/L Estimat Glomerular Filtration Rate 183 ML/MIN MDM Medical Decision Making Medical Screen Exam Complete: Yes Emergency Medical Condition: Yes Medical Record Reviewed: Yes (patient was just in the hospital for GI bleed. Problems include BPH, COPD, CAD, HTN, HL and alcohol abuse) Differential Diagnosis Differential diagnosis includes but is not limited to obstruction secondary to BPH, urethral tear, obstruction secondary to blood clots Narrative Course This patient presents with acute urinary retention. Gentle placement of a Wright catheter was attempted by the nurse. He met obstruction. That attempt was aborted. A retrograde cystourethrogram is now pending. His pain is being treated with morphine. He will be given morphine as needed for discomfort pending the retrograde cystourethrogram. Diagnosis Primary Impression: Acute urinary retention Patient Instructions: General Instructions, Urinary Retention in Men (DC) Condition: Stable Marce Nye MD Jul 07, 2017 04:43
[2017-07-07 04:44] LABS: AUTOMATED NEUTROPHIL # 8.6 TH/MM3 (1.8-7.7); BASOPHIL # 0.1 TH/MM3 (0-0.2); BASOPHIL % 0.6 % (0.0-2.0); EOSINOPHIL # 0.2 TH/MM3 (0-0.4); EOSINOPHIL % 1.5 % (0.0-4.0); HEMATOCRIT 31.5 % (39.0-51.0); HEMOGLOBIN 10.6 GM/DL (13.0-17.0); LYMPH % 10.6 % (9.0-44.0); LYMPHOCYTE # 1.1 TH/MM3 (1.0-4.8); MEAN CELL VOLUME 91.3 FL (80.0-100.0); MEAN CORPUSCULAR HEMOGLOBIN 30.7 PG (27.0-34.0); MEAN CORPUSCULAR HGB CONC 33.6 % (32.0-36.0); MEAN PLATELET VOLUME 9.4 FL (7.0-11.0); MONO % 5.1 % (0.0-8.0); MONOCYTE # 0.5 TH/MM3 (0-0.9); NEUT % 82.2 % (16.0-70.0); PLATELET COUNT 300 TH/MM3 (150-450); RED BLOOD COUNT 3.45 MIL/MM3 (4.50-5.90); RED CELL DISTRIBUTION WIDTH 15.8 % (11.6-17.2); WHITE BLOOD COUNT 10.5 TH/MM3 (4.0-11.0)
[2017-07-07 05:01] LABS: ALBUMIN 3.6 GM/DL (3.4-5.0); ALT (GPT) 12 U/L (12-78); AST (GOT) 19 U/L (15-37); BICARBONATE 27.5 MEQ/L (21.0-32.0); BLOOD UREA NITROGEN 11 MG/DL (7-18); CALCIUM 8.5 MG/DL (8.5-10.1); CHLORIDE 103 MEQ/L (98-107); CREATININE 0.54 MG/DL (0.60-1.30); GLOMERULAR FILTRATION RATE 183 ML/MIN (>89); GLUCOSE,RANDOM 91 MG/DL (74-106); SODIUM (NA) 138 MEQ/L (136-145)
[2017-07-07 05:04] LABS: ALKALINE PHOSPHATASE 101 U/L (45-117); TOTAL BILIRUBIN ADULT 0.2 MG/DL (0.2-1.0); TOTAL PROTEIN 7.9 GM/DL (6.4-8.2)
[2017-07-07] MEDS ORDERED: HYDROmorphone HCL PF 2 MG/ML VIAL IV PUSH ONE (06:00)
[2017-07-07 07:00] VITALS: RESP 16; O2SAT 98
[2017-07-07 07:05] VITALS: BP 157/76; PULSE 106; RESP 16; TEMP 97.8; O2SAT 100
[2017-07-07 09:00] VITALS: BP 143/81; PULSE 108; RESP 17; TEMP 97.8; O2SAT 99
[2017-07-07 11:00] VITALS: BP 176/81; PULSE 109; RESP 18; TEMP 97.9; O2SAT 98
--- NOTE | 2017-07-07 11:14 | RADRPT ---
EXAM DATE/TIME: 07/07/2017 10:24 [facility] COMPARISON: No previous studies available for comparison. INDICATIONS : Evaluate for obstruction vs injury due to patient pulled out catheter. 0.3 minutes 20 CONTRAST: Instilled by Ordering Physician MEDICAL HISTORY : Hypertension. SURGICAL HISTORY : CABG. PEG tube. ENCOUNTER: Initial ACUITY: 2 days PAIN SCORE: 10/10 LOCATION: Bilateral Pelvis FINDINGS: Under sterile conditions and using aseptic technique positive contrast was injected into the urethra in retrograde fashion. There is extravasation of a prominent amount of contrast inferiorly from the mid bulbar segment of th e urethra. Contrast is seen extending in a retrograde fashion through the membranous and prostatic po rtions of the ureter into the bladder. CONCLUSION: Tear of the mid bulbar segment of the urethra. Catracho Wu MD on July 07, 2017 at 11:05 Board Certified Radiologist. This report was verified electronically.
[2017-07-07 12:00] VITALS: BP 164/84; PULSE 108; RESP 16; TEMP 97.8; O2SAT 98
--- NOTE | 2017-07-07 12:40 | PD ---
Data Data Last Documented VS Vital Signs Date Time Temp Pulse Resp B/P (MAP) Pulse Ox O2 Delivery O2 Flow Rate FiO2 07/07/17 12:00 97.8 108 16 164/84 (110) 98 Room Air Orders Orders Complete Blood Count With Diff (07/07/17 03:56) Comprehensive Metabolic Panel (07/07/17 03:56) Urinalysis - C+S If Indicated (07/07/17 03:56) Iv Access Insert/Monitor (07/07/17 03:56) Oximetry (07/07/17 03:56) Morphine Inj (Morphine Inj) (07/07/17 04:30) Ondansetron Inj (Zofran Inj) (07/07/17 04:30) Morphine Inj (Morphine Inj) (07/07/17 04:19) Urethrogram, Retrograde (07/07/17 ) Hydromorphone Pf Inj (Dilaudid Pf Inj) (07/07/17 06:00) Diatrizoate Meglumine (Cystografin) (07/07/17 03:36) Labs Laboratory Tests Test 07/07/17 03:50 07/07/17 12:00 White Blood Count 10.5 TH/MM3 Red Blood Count 3.45 MIL/MM3 Hemoglobin 10.6 GM/DL Hematocrit 31.5 % Mean Corpuscular Volume 91.3 FL Mean Corpuscular Hemoglobin 30.7 PG Mean Corpuscular Hemoglobin Concent 33.6 % Red Cell Distribution Width 15.8 % Platelet Count 300 TH/MM3 Mean Platelet Volume 9.4 FL Neutrophils (%) (Auto) 82.2 % Lymphocytes (%) (Auto) 10.6 % Monocytes (%) (Auto) 5.1 % Eosinophils (%) (Auto) 1.5 % Basophils (%) (Auto) 0.6 % Neutrophils # (Auto) 8.6 TH/MM3 Lymphocytes # (Auto) 1.1 TH/MM3 Monocytes # (Auto) 0.5 TH/MM3 Eosinophils # (Auto) 0.2 TH/MM3 Basophils # (Auto) 0.1 TH/MM3 CBC Comment DIFF FINAL Differential Comment Blood Urea Nitrogen 11 MG/DL Creatinine 0.54 MG/DL Random Glucose 91 MG/DL Total Protein 7.9 GM/DL Albumin 3.6 GM/DL Calcium Level 8.5 MG/DL Alkaline Phosphatase 101 U/L Aspartate Amino Transf (AST/SGOT) 19 U/L Alanine Aminotransferase (ALT/SGPT) 12 U/L Total Bilirubin 0.2 MG/DL Sodium Level 138 MEQ/L Potassium Level 3.5 MEQ/L Chloride Level 103 MEQ/L Carbon Dioxide Level 27.5 MEQ/L Anion Gap 8 MEQ/L Estimat Glomerular Filtration Rate 183 ML/MIN MDM Supervised Visit with ANGELA: No Narrative Course This case is checked out to me at [address] Nye. This patient went for a retrograde urethrogram in radiology specials. I have reviewed the results with urology on-call Dr. Villa. He has a tear in the mid bulbar region. Dr. Villa requests that we place a Wright catheter. He has obvious urinary retention with a usually distended bladder up to the umbilicus. He is not able to urinate. The nurse placed a Wright catheter and drained out 1200 cc of urine. He does feel much better after that Urology recommended that we send him back to the long-term with a Wright catheter in place and the patient will need outpatient urology follow-up. Patient has normal metabolic profile including creatinine normal Diagnosis Primary Impression: Acute urinary retention Additional Impression: Tear of urethra Qualified Codes: S37.33XA - Laceration of urethra, initial encounter Patient Instructions: General Instructions, Urinary Retention in Men (DC) Additional Instruction: Follow-up with long-term M.DAnastacia and urologist Maintain Wright catheter Med/Other Pt SpecificInfo: Other Disposition: 03 DISCHARGE TO SNF Condition: Stable Olaf Winchester MD Jul 07, 2017 12:40
[2017-07-07 12:46] LABS: BILIRUBIN, URINE NEG (NEG); BLOOD, URINE SMALL (NEG); GLUCOSE,URINE NEG (NEG); KETONE, URINE NEG (NEG); MUCUS URINE FEW /lpf (OCC); NITRITE,URINE NEG (NEG); PH, URINE 5.5 (5.0-8.5); URINE COLOR YELLOW (YELLW/STRAW); URINE LEUKOCYTE ESTERASE NEG (NEG)
== END 2017-07-07 14:16 ==
LOC: NEPC 03:35 → NEDAMB 14:16
DX: R33.9 Retention of urine, unspecified (principal); F32.9 Major depressive disorder, single episode, unspecified; I10 Essential (primary) hypertension; E78.00 Pure hypercholesterolemia, unspecified; K21.9 Gastro-esophageal reflux disease without esophagitis
CPT/HCPCS: 51610; 74450; 80053; 81001; 85025; 96374; 96375; 99284; J1170; J2270; J2405; Q9958; 51702

== ENCOUNTER 2017-07-21 15:06 | Inpatient (IN) | payer MEDICARE, MEDICAID ==
[~2017-07-21] VITALS: Ht 167.6 cm; Wt 53.6 kg
[~2017-07-21 15:06] MED LIST changes: +OMEP40CA2 PO; -PANT40TA3 PO
[2017-07-21 15:08] VITALS: BP 131/60; PULSE 89; RESP 18; TEMP 97.8; O2SAT 97
--- NOTE | 2017-07-21 18:01 | PD ---
HPI Chief Complaint: Complaint Time Seen by Provider: 18:00 Travel History International Travel<30 days: No Contact w/Intl Traveler<30days: No Traveled to known affect area: No History of Present Illness HPI 67-year-old male came to the emergency room by himself with history of hematuria. Patient is an extremely poor historian and very difficult to get accurate history out of him. All he could tell was that he has a Wright catheter and he noticed that the back had blood past 2 days. Rest of the history was obtained from the previous medical record. Patient was in the emergency room on 07/07/2017 for urinary obstruction/retention. He had a Wright catheter placed and a urethrogram was ordered. The urethrogram showed a tear in his urethra and neurologist Dr. Villa was consulted. As per the ER physician's documentation the urologist wanted the patient to be discharged and follow-up in the office. After asking multiple times in different ways my understanding is that the patient never followed up with the urologist. He was in detention during that time period and was recently discharged from the detention. Patient appears to certain extent with low comprehension capability. Since that never seen this patient before and not sure if it is an acute issue or chronic. There is no family member with him to help the situation. Patient also appears extremely emaciated and disheveled. Vital signs otherwise stable. Seems like patient is on Plavix on a regular basis. PFSH Past Medical History Narrative Medical List of his past medical, surgical, social and family history reviewed from the nursing note. Hx Anticoagulant Therapy: Yes Blood Disorders: No Anxiety: Yes Depression: Yes Cancer: No Cardiovascular Problems: Yes (HTN) High Cholesterol: Yes Chest Pain: Yes Congestive Heart Failure: No Diabetes: No Diminished Hearing: No Endocrine: No Gastrointestinal Disorders: Yes (small bowel obstruction) GERD: Yes Genitourinary: Yes Hepatitis: No Hypertension: Yes Implanted Vascular Access Dvce: No Musculoskeletal: No Neurologic: No Psychiatric: No Reproductive: No Respiratory: Yes Thyroid Disease: No Ulcer: No PNEUMOCCOCAL Vaccine (Year): 1 Past Surgical History Abdominal Surgery: Yes (peg tube) Body Medical Devices: PT. DENIES Cardiac Surgery: Yes (CABG 15 years ago) Coronary Artery Bypass Graft: Yes Endocrine Surgery: No Gynecologic Surgery: No Pacemaker: No Thoracic Surgery: Yes Other Surgery: Yes (VASCULAR) Social History Alcohol Use: No Tobacco Use: No Substance Use: No Allergies-Medications (Allergen,Severity, Reaction): Coded Allergies: No Known Allergies (Verified Adverse Reaction, Unknown, 05/27/17) Comments List of his allergies reviewed from the nursing note. Reported Meds & Prescriptions Reported Meds & Active Scripts Active Sucralfate Liq (Sucralfate) 1 Gram/10 Ml Amy 1 Gm PO ACHS Finasteride 5 Mg Tab 5 Mg PO DAILY Do not crush. Reported Vitamin B-1 (Thiamine HCl) 250 Mg Tab 250 Mg PO DAILY Omeprazole 40 Mg Cap 40 Mg PO DAILY Metoprolol Tartrate 25 Mg Tab 25 Mg PO BID Aspir-81 (Aspirin) 81 Mg Tabdr 81 Mg PO DAILY Clopidogrel (Clopidogrel Bisulfate) 75 Mg Tab 75 Mg PO DAILY Lovastatin 20 Mg Tab 20 Mg PO DAILY Lisinopril 2.5 Mg Tab 2.5 Mg PO DAILY Narrative Medication List of his home medications reviewed from the nursing note. Review of Systems Except as stated in HPI: all other systems reviewed are Neg Genitourinary: Positive: Hematuria Physical Exam Narrative GENERAL: Awake, emaciated, disheveled, alert SKIN: Focused skin assessment warm/dry. Disheveled HEAD: Atraumatic. Normocephalic. EYES: Pupils equal and round. No scleral icterus. No injection or drainage. ENT: No nasal bleeding or discharge. Mucous membranes pink and moist. NECK: Trachea midline. No JVD. CARDIOVASCULAR: Regular rate and rhythm. No murmur appreciated. RESPIRATORY: No accessory muscle use. Clear to auscultation. Breath sounds equal bilaterally. GASTROINTESTINAL: Abdomen soft, non-tender, nondistended. Hepatic and splenic margins not palpable. : Patient has a Wright catheter and the leg bag has blood-tinged urine. MUSCULOSKELETAL: No obvious deformities. No clubbing. No cyanosis. No edema. NEUROLOGICAL: Awake and alert. No obvious cranial nerve deficits. Motor grossly within normal limits. Normal speech. PSYCHIATRIC: Appropriate mood and affect; insight and judgment normal. Data Data Last Documented VS Vital Signs Date Time Temp Pulse Resp B/P (MAP) Pulse Ox O2 Delivery O2 Flow Rate FiO2 07/21/17 19:23 98.0 68 16 122/62 (82) 100 Room Air Orders Orders Complete Blood Count With Diff (07/21/17 18:07) Basic Metabolic Panel (Bmp) (07/21/17 18:07) Urinalysis - C+S If Indicated (07/21/17 18:07) ^ Saline Lock (07/21/17 18:07) Continue Wright/Suprapubic Cath (07/21/17 19:07) Urine Culture (07/21/17 18:30) Admit Order (Ed Use Only) (07/21/17 19:45) Nitrofurantoin Monohyd Macrocr (Macrobid (07/21/17 20:00) Labs Laboratory Tests Test 07/21/17 18:30 White Blood Count 8.7 TH/MM3 Red Blood Count 3.09 MIL/MM3 Hemoglobin 9.6 GM/DL Hematocrit 28.4 % Mean Corpuscular Volume 92.0 FL Mean Corpuscular Hemoglobin 31.0 PG Mean Corpuscular Hemoglobin Concent 33.7 % Red Cell Distribution Width 15.9 % Platelet Count 327 TH/MM3 Mean Platelet Volume 8.5 FL Neutrophils (%) (Auto) 67.2 % Lymphocytes (%) (Auto) 23.3 % Monocytes (%) (Auto) 7.1 % Eosinophils (%) (Auto) 1.8 % Basophils (%) (Auto) 0.6 % Neutrophils # (Auto) 5.9 TH/MM3 Lymphocytes # (Auto) 2.0 TH/MM3 Monocytes # (Auto) 0.6 TH/MM3 Eosinophils # (Auto) 0.2 TH/MM3 Basophils # (Auto) 0.1 TH/MM3 CBC Comment DIFF FINAL Differential Comment Urine Color DARK-RED Urine Turbidity CLOUDY Urine pH 7.5 Urine Specific [place] 1.017 Urine Protein 300 mg/dL Urine Glucose (UA) NEG mg/dL Urine Ketones NEG mg/dL Urine Occult Blood LARGE Urine Nitrite POS Urine Bilirubin NEG Urine Urobilinogen LESS THAN 2.0 MG/DL Urine Leukocyte Esterase LARGE Urine RBC /hpf Urine WBC 88 /hpf Urine Bacteria MANY /hpf Urine Mucus MANY /lpf Microscopic Urinalysis Comment CATH-CULTURE IND Blood Urea Nitrogen 16 MG/DL Creatinine 0.66 MG/DL Random Glucose 87 MG/DL Calcium Level 9.1 MG/DL Sodium Level 137 MEQ/L Potassium Level 4.4 MEQ/L Chloride Level 105 MEQ/L Carbon Dioxide Level 28.1 MEQ/L Anion Gap 4 MEQ/L Estimat Glomerular Filtration Rate 145 ML/MIN MDM Medical Decision Making Medical Screen Exam Complete: Yes Emergency Medical Condition: Yes Medical Record Reviewed: Yes Differential Diagnosis Urethral tear, hematuria, UTI Narrative Course 7:31 PM blood test results of back and within acceptable limits. Awaiting for the UA. Patient at this point needs to be admitted since given his capability in capacity I find it difficult to believe that he has understood the follow-up with urologist and contacting the urologist as an outpatient. I would prefer this patient gets admitted at this point since he is on Plavix and he continues to have the hematuria. In my opinion patient should be seen by the urologist in the hospital to get a cystoscopy. Awaiting for the hospitalist to call back. 7:47 PM UA shows UTI. I gave him a dose of Macrobid. He has been admitted to the hospitalist. Procedures EKG Prior to Arrival: No Diagnosis Primary Impression: Gross hematuria Additional Impressions: Urethral tear Qualified Codes: S37.33XA - Laceration of urethra, initial encounter Urinary retention Indwelling Wright catheter present UTI (lower urinary tract infection) Admitting Information Admitting Physician Requests: Admit Maddison Salgado MD Jul 21, 2017 18:01
[2017-07-21 18:32] VITALS: BP 130/60; PULSE 66; RESP 18; O2SAT 100
[2017-07-21] MEDS ORDERED: VITA250T25 PO (18:38)
[2017-07-21 18:52] LABS: AUTOMATED NEUTROPHIL # 5.9 TH/MM3 (1.8-7.7); BASOPHIL # 0.1 TH/MM3 (0-0.2); BASOPHIL % 0.6 % (0.0-2.0); EOSINOPHIL # 0.2 TH/MM3 (0-0.4); EOSINOPHIL % 1.8 % (0.0-4.0); HEMATOCRIT 28.4 % (39.0-51.0); HEMOGLOBIN 9.6 GM/DL (13.0-17.0); LYMPH % 23.3 % (9.0-44.0); MEAN CORPUSCULAR HGB CONC 33.7 % (32.0-36.0); MEAN PLATELET VOLUME 8.5 FL (7.0-11.0); MONO % 7.1 % (0.0-8.0); MONOCYTE # 0.6 TH/MM3 (0-0.9); NEUT % 67.2 % (16.0-70.0); PLATELET COUNT 327 TH/MM3 (150-450); RED BLOOD COUNT 3.09 MIL/MM3 (4.50-5.90); RED CELL DISTRIBUTION WIDTH 15.9 % (11.6-17.2); WHITE BLOOD COUNT 8.7 TH/MM3 (4.0-11.0)
[2017-07-21 19:00] LABS: BICARBONATE 28.1 MEQ/L (21.0-32.0); CALCIUM 9.1 MG/DL (8.5-10.1); CREATININE 0.66 MG/DL (0.60-1.30)
[2017-07-21 19:23] VITALS: BP 122/62; PULSE 68; RESP 16; TEMP 98; O2SAT 100
[2017-07-21 19:41] LABS: BACTERIA, URINE MANY /hpf; BILIRUBIN, URINE NEG (NEG); BLOOD, URINE LARGE (NEG); GLUCOSE,URINE NEG (NEG); KETONE, URINE NEG (NEG); MUCUS URINE MANY /lpf (OCC); NITRITE,URINE POS (NEG); PH, URINE 7.5 (5.0-8.5); URINE LEUKOCYTE ESTERASE LARGE (NEG)
[2017-07-21 19:42] LABS: URINE COLOR DARK-RED (YELLW/STRAW)
[2017-07-21] MEDS ORDERED: NITROFURANTOIN MONOHYD MACROCR 100 MG CAP PO ONE (20:00)
[2017-07-21] MEDS ORDERED: SODIUM CHLORIDE 0.9% FLUSH 10 ML FLUSH IV FLUSH PRN (21:00)
[2017-07-21] MEDS: SODIUM CHLORIDE 0.9% FLUSH 10 ML FLUSH IV FLUSH SCH (21:00)
[2017-07-21] MEDS ORDERED: ACETAMINOPHEN 325 MG TAB PO PRN (21:00)
[2017-07-21] MEDS ORDERED: ONDANSETRON HCL 4 MG/2 ML VIAL IVP PRN (21:00)
[2017-07-21] MEDS ORDERED: NALOXONE HCL 0.4 MG/ML AMP IV PUSH PRN (21:00)
--- NOTE | 2017-07-21 22:35 | HHI.HP ---
[facility] Service [facility] Primary Care Physician Mychal Gregory D.O. Admission Diagnosis hematuria, indwelling Wright catheter, urinary obstruction, urethral Diagnoses: Travel History International Travel<30 Days: No Contact w/Intl Traveler <30 Da: No Traveled to Known Affected Are: No History of Present Illness 67-year-old male with past medical history significant for BPH, COPD, hypertension, CAD, dysphagia requiring feeding tube and recent Wright placement for urinary obstruction presents to the emergency department for evaluation of hematuria. The patient was discharged from a SNF 2 weeks ago and has not had any outpatient follow-up since that time. He reports that for the past 2 days he has had blood in his Wright bag. He endorses associated dizziness and lightheadedness with accompanying shortness of breath. He denies chest pain. Denies nausea/vomiting/diarrhea. He was previously seen by Dr. best who recommended continuation of the Wright catheter and outpatient follow-up. Past Family Social History Past Medical History BPH, COPD, hypertension, CAD, dysphagia requiring feeding tube and recent Wright placement for urinary obstruction Past Surgical History CABG PEG tube placement Reported Medications Reported Meds & Active Scripts Active Sucralfate Liq (Sucralfate) 1 Gram/10 Ml Amy 1 Gm PO ACHS Finasteride 5 Mg Tab 5 Mg PO DAILY Do not crush. Reported Vitamin B-1 (Thiamine HCl) 250 Mg Tab 250 Mg PO DAILY Omeprazole 40 Mg Cap 40 Mg PO DAILY Metoprolol Tartrate 25 Mg Tab 25 Mg PO BID Aspir-81 (Aspirin) 81 Mg Tabdr 81 Mg PO DAILY Clopidogrel (Clopidogrel Bisulfate) 75 Mg Tab 75 Mg PO DAILY Lovastatin 20 Mg Tab 20 Mg PO DAILY Lisinopril 2.5 Mg Tab 2.5 Mg PO DAILY Allergies: Coded Allergies: No Known Allergies (Verified Adverse Reaction, Unknown, 05/27/17) Family History Mother with CVA. Brother with [place]. Social History Smokes approximately one pack per day. Quit alcohol 1 year ago. She denies illicit drugs. Physical Exam Vital Signs Vital Signs Date Time Temp Pulse Resp B/P (MAP) Pulse Ox O2 Delivery O2 Flow Rate FiO2 2/8/18 19:23 98.0 68 16 122/62 (82) 100 Room Air 07/21/17 18:32 66 18 130/60 (83) 100 Room Air 07/21/17 15:08 97.8 89 18 131/60 (83) 97 Room Air Physical Exam GENERAL: Cachectic, male lying in bed SKIN: No rashes, ecchymoses or lesions. Cool and dry. HEAD: Atraumatic. Normocephalic. No temporal or scalp tenderness. EYES: Pupils equal round and reactive. Extraocular motions intact. No scleral icterus. No injection or drainage. ENT: Nose without bleeding, purulent drainage or septal hematoma. Throat without erythema, tonsillar hypertrophy or exudate. Uvula midline. Airway patent. NECK: Trachea midline. No JVD or lymphadenopathy. Supple, nontender, no meningeal signs. CARDIOVASCULAR: Regular rate and rhythm without murmurs, gallops, or rubs. RESPIRATORY: Clear to auscultation. Breath sounds equal bilaterally. No wheezes , rales, or rhonchi. GASTROINTESTINAL: Abdomen soft, non-tender, nondistended. No hepato-splenomegaly , or palpable masses. No guarding. : Wright in place with dried blood around the urethral meatus. Wright bag with straw-colored urine. MUSCULOSKELETAL: Extremities without clubbing, cyanosis, or edema. No joint tenderness, effusion, or edema noted. No calf tenderness. NEUROLOGICAL: Awake and alert. Cranial nerves II through XII intact. Motor and sensory grossly within normal limits. Normal speech. Laboratory Laboratory Tests Test 07/21/17 18:30 White Blood Count 8.7 Red Blood Count 3.09 Hemoglobin 9.6 Hematocrit 28.4 Mean Corpuscular Volume 92.0 Mean Corpuscular Hemoglobin 31.0 Mean Corpuscular Hemoglobin Concent 33.7 Red Cell Distribution Width 15.9 Platelet Count 327 Mean Platelet Volume 8.5 Neutrophils (%) (Auto) 67.2 Lymphocytes (%) (Auto) 23.3 Monocytes (%) (Auto) 7.1 Eosinophils (%) (Auto) 1.8 Basophils (%) (Auto) 0.6 Neutrophils # (Auto) 5.9 Lymphocytes # (Auto) 2.0 Monocytes # (Auto) 0.6 Eosinophils # (Auto) 0.2 Basophils # (Auto) 0.1 CBC Comment DIFF FINAL Differential Comment Urine Color DARK-RED Urine Turbidity CLOUDY Urine pH 7.5 Urine Specific [place] 1.017 Urine Protein 300 Urine Glucose (UA) NEG Urine Ketones NEG Urine Occult Blood LARGE Urine Nitrite POS Urine Bilirubin NEG Urine Urobilinogen LESS THAN 2.0 Urine Leukocyte Esterase LARGE Urine RBC Urine WBC 88 Urine Bacteria MANY Urine Mucus MANY Microscopic Urinalysis Comment CATH-CULTURE IND Blood Urea Nitrogen 16 Creatinine 0.66 Random Glucose 87 Calcium Level 9.1 Sodium Level 137 Potassium Level 4.4 Chloride Level 105 Carbon Dioxide Level 28.1 Anion Gap 4 Estimat Glomerular Filtration Rate 145 Date/Time Source Procedure Growth Status 07/21/17 18:30 Urine Catheterized Urine Urine Culture Pending Received Result Diagram: 07/21/17182907/21/17 1830 Caprincristobal VTE Risk Assessment Caprini VTE Risk Assessment: Mod/High Risk (score >= 2) Caprini Risk Assessment Model Point Value = 1 Point Value = 2 Point Value = 3 Point Value = 5 Age 41-60 Minor surgery BMI > 25 kg/m2 Swollen legs Varicose veins or History of unexplained or recurrent spontaneous Oral contraceptives or hormone replacement Sepsis (< 1 month) Serious lung disease, including pneumonia (< 1 month) Abnormal pulmonary function Acute myocardial infarction Congestive heart failure (< 1 month) History of inflammatory bowel disease Medical patient at bed rest Age 61-74 Arthroscopic surgery Major open surgery (> 45 min) Laparoscopic surgery (> 45 min) Malignancy Confined to bed (> 72 hours) Immobilizing plaster cast Central venous access Age >= 75 History of VTE Family history of VTE Factor V Leiden Prothrombin [id number] Lupus anticoagulant Anticardiolipin antibodies Elevated serum homocysteine Heparin-induced thrombocytopenia Other congenital or acquired thrombophilia Stroke (< 1 month) Elective arthroplasty Hip, pelvis, or leg fracture Acute spinal cord injury (< 1 month) Prophylaxis Regimen Total Risk Factor Score Risk Level Prophylaxis Regimen 0-1 Low Early ambulation 2 Moderate Order ONE of the following: *Sequential Compression Device (SCD) *Heparin 5000 units SQ BID 3-4 Higher Order ONE of the following medications: *Heparin 5000 units SQ TID *Enoxaparin/Lovenox 40 mg SQ daily (WT < 150 kg, CrCl > 30 mL/min) *Enoxaparin/Lovenox 30 mg SQ daily (WT < 150 kg, CrCl > 10-29 mL/min) *Enoxaparin/Lovenox 30 mg SQ BID (WT < 150 kg, CrCl > 30 mL/min) AND/OR *Sequential Compression Device (SCD) 5 or more Highest Order ONE of the following medications: *Heparin 5000 units SQ TID (Preferred with Epidurals) *Enoxaparin/Lovenox 40 mg SQ daily (WT < 150 kg, CrCl > 30 mL/min) *Enoxaparin/Lovenox 30 mg SQ daily (WT < 150 kg, CrCl > 10-29 mL/min) *Enoxaparin/Lovenox 30 mg SQ BID (WT < 150 kg, CrCl > 30 mL/min) AND *Sequential Compression Device (SCD) Assessment and Plan Assessment and Plan Assessment/plan: 1. BPH/indwelling Wright/urinary retention/hematuria/UTI UA significant for many bacteria, 80 WBCs, positive nitrites and large leukocyte esterase Rocephin Urology consulted, appreciate recommendations H&H stable Holding aspirin/Plavix 2. COPD DuoNeb's 3. CAD/hypertension Holding aspirin/Plavix Continue home antihypertensives 4. Dysphagia/malnutrition Continue tube feeds Dietary consulted for further nutrition recommendations FEN Tube feeds Electrolytes: Monitor and replete when necessary Holding pharmacologic anticoagulation secondary to hematuria Mirian Russell MD Jul 21, 2017 22:35
[2017-07-21 22:46] VITALS: BP 121/56; PULSE 69; RESP 16; TEMP 98.3; O2SAT 100
[2017-07-21] MEDS: SODIUM CHLOR 0.9% 1000 ML INJ 1,000 ML IV SCH (23:48)
[2017-07-21] MEDS: cefTRIAXone INJ 1,000 MG in SODIUM CHLORIDE 0.9% INJ 100 ML IV SCH (23:48)
[2017-07-22] VITALS (7 sets, daily range): BP systolic 117–132; BP diastolic 49–65; PULSE 62–76; RESP 16–20; TEMP 97.7–98.9; O2SAT 96–100
[2017-07-22] MEDS: SODIUM CHLOR 0.9% 1000 ML INJ 1,000 ML IV SCH ×2 (06:48→16:48)
[2017-07-22] MEDS: SODIUM CHLORIDE 0.9% FLUSH 10 ML FLUSH IV FLUSH SCH ×2 (09:00→20:32)
--- NOTE | 2017-07-22 09:47 | HHI.PR ---
Subjective Remarks 67-year-old male with past medical history significant for BPH, COPD, hypertension, CAD, dysphagia requiring feeding tube and recent Wright placement for urinary obstruction presents to the emergency department for evaluation of hematuria. The patient was discharged from a SNF 2 weeks ago and has not had any outpatient follow-up since that time. He reports that for the past 2 days he has had blood in his Wright bag. He endorses associated dizziness and lightheadedness with accompanying shortness of breath. He denies chest pain. Denies nausea/vomiting/diarrhea. He was previously seen by Dr. best who recommended continuation of the Wright catheter and outpatient follow-up. Objective Vitals Vital Signs Date Time Temp Pulse Resp B/P (MAP) Pulse Ox O2 Delivery O2 Flow Rate FiO2 07/22/17 07:31 98.3 76 20 118/56 (76) 100 07/22/17 03:00 98.9 75 16 118/58 (78) 100 07/21/17 22:46 98.3 69 16 121/56 (77) 100 07/21/17 19:23 98.0 68 16 122/62 (82) 100 Room Air 07/21/17 18:32 66 18 130/60 (83) 100 Room Air 07/21/17 15:08 97.8 89 18 131/60 (83) 97 Room Air I/O 07/21/17 07/21/17 07/21/17 07/22/17 07/22/17 07/22/17 07:00 15:00 23:00 07:00 15:00 23:00 Intake Total 25 ml Output Total 300 ml Balance -275 ml Intake Oral 25 ml Output Urine Total 300 ml # Voids 0 Result Diagram: 07/21/17 1830 07/21/17 1830 Other Results Laboratory Tests Test 07/21/17 18:30 White Blood Count 8.7 TH/MM3 Red Blood Count 3.09 MIL/MM3 Hemoglobin 9.6 GM/DL Hematocrit 28.4 % Mean Corpuscular Volume 92.0 FL Mean Corpuscular Hemoglobin 31.0 PG Mean Corpuscular Hemoglobin Concent 33.7 % Red Cell Distribution Width 15.9 % Platelet Count 327 TH/MM3 Mean Platelet Volume 8.5 FL Neutrophils (%) (Auto) 67.2 % Lymphocytes (%) (Auto) 23.3 % Monocytes (%) (Auto) 7.1 % Eosinophils (%) (Auto) 1.8 % Basophils (%) (Auto) 0.6 % Neutrophils # (Auto) 5.9 TH/MM3 Lymphocytes # (Auto) 2.0 TH/MM3 Monocytes # (Auto) 0.6 TH/MM3 Eosinophils # (Auto) 0.2 TH/MM3 Basophils # (Auto) 0.1 TH/MM3 CBC Comment DIFF FINAL Differential Comment Urine Color DARK-RED Urine Turbidity CLOUDY Urine pH 7.5 Urine Specific [place] 1.017 Urine Protein 300 mg/dL Urine Glucose (UA) NEG mg/dL Urine Ketones NEG mg/dL Urine Occult Blood LARGE Urine Nitrite POS Urine Bilirubin NEG Urine Urobilinogen LESS THAN 2.0 MG/DL Urine Leukocyte Esterase LARGE Urine RBC /hpf Urine WBC 88 /hpf Urine Bacteria MANY /hpf Urine Mucus MANY /lpf Microscopic Urinalysis Comment CATH-CULTURE IND Blood Urea Nitrogen 16 MG/DL Creatinine 0.66 MG/DL Random Glucose 87 MG/DL Calcium Level 9.1 MG/DL Sodium Level 137 MEQ/L Potassium Level 4.4 MEQ/L Chloride Level 105 MEQ/L Carbon Dioxide Level 28.1 MEQ/L Anion Gap 4 MEQ/L Estimat Glomerular Filtration Rate 145 ML/MIN Objective Remarks GENERAL: Awake alert talkative and cooperative SKIN: Warm and dry. HEAD: Atraumatic. Normocephalic. EYES: Pupils equal and round. No scleral icterus. No injection or drainage. Extraocular muscles intact ENT: No nasal bleeding or discharge. Mucous membranes pink and moist. Tongue is midline NECK: Trachea midline. No JVD. Supple CARDIOVASCULAR: Regular rate and rhythm. S1 and S2 no S3 or S4 RESPIRATORY: No accessory muscle use. Clear to auscultation. Breath sounds equal bilaterally. GASTROINTESTINAL: Abdomen soft, non-tender, nondistended. Hepatic and splenic margins not palpable. PEG tube in place Wright catheter in place with dark red bloody urine MUSCULOSKELETAL: Extremities without clubbing, cyanosis, or edema. No obvious deformities. NEUROLOGICAL: Awake and alert. No obvious cranial nerve deficits. Motor grossly within normal limits. 4 out of 5 muscle strength in the arms and legs. Normal speech. PSYCHIATRIC: Appropriate mood and affect; insight and judgment normal. Medications and IVs Current Medications Nitrofurantoin Macrocrystals (Macrobid) 100 mg ONCE ONCE PO Last administered on 07/21/17at 19:50; Start 07/21/17 at 20:00; Stop 07/21/17 at 20:01; Status DC Sodium Chloride 1,000 ml @ 100 mls/hr Q10H IV Last administered on 07/21/17at 23 :48; Start 07/21/17 at 20:48 Sodium Chloride (NS Flush) 2 ml UNSCH PRN IV FLUSH FLUSH AFTER USING IV ACCESS ; Start 07/21/17 at 21:00 Sodium Chloride (NS Flush) 2 ml BID IV FLUSH ; Start 07/21/17 at 21:00 Acetaminophen (Tylenol) 650 mg Q4H PRN PO TEMP > 100.4; Start 07/21/17 at 21:00 Ondansetron HCl (Zofran Inj) 4 mg Q6H PRN IVP NAUSEA OR VOMITING; Start at 21:00 Naloxone HCl (Narcan Inj) 0.4 mg UNSCH PRN IV PUSH SEE LABEL COMMENTS; Start at 21:00 Ceftriaxone Sodium 1000 mg/ Sodium Chloride 100 ml @ 200 mls/hr Q24H IV Last administered on 07/21/17at 23:48; Start 07/21/17 at 23:00 Finasteride (Proscar) 5 mg DAILY PO ; Start 07/22/17 at 09:00 Pravastatin Sodium (Pravachol) 20 mg DAILY PO ; Start 07/22/17 at 09:00 Metoprolol Tartrate (Lopressor) 25 mg BID PO ; Start 07/22/17 at 09:00 Sucralfate (Carafate Liq) 1 gm ACHS PO ; Start 07/22/17 at 08:00 Lisinopril (Prinivil) 2.5 mg DAILY PO ; Start 07/22/17 at 09:00 Pantoprazole Sodium (Protonix) 40 mg DAILY PO ; Start 07/22/17 at 09:00 A/P Assessment and Plan Assessment/plan: 1. BPH/indwelling Wright/urinary retention/hematuria/UTI/severe hematuria UA significant for many bacteria, 80 WBCs, positive nitrites and large leukocyte esterase Rocephin Urology consulted, appreciate recommendations H&H stable Holding aspirin/Plavix May need continuous bladder irrigation 2. COPD DuoNeb's 3. CAD/hypertension Holding aspirin/Plavix Continue home antihypertensives 4. Dysphagia/malnutrition Continue tube feeds Dietary consulted for further nutrition recommendations FEN Tube feeds Electrolytes: Monitor and replete when necessary Holding pharmacologic anticoagulation secondary to hematuria A.m. labs Physical therapy and occupational therapy to eval and treat Await urology input Discussed with patient and roving can tender Planning Pending improvement of the urine Ayaz Lance DO Jul 22, 2017 09:47
[2017-07-22] MEDS: LISINOPRIL 5 MG TAB PO SCH (10:18)
[2017-07-22] MEDS: FINASTERIDE 5 MG TAB PO SCH (10:18)
[2017-07-22] MEDS: PANTOPRAZOLE SOD 40 MG DELAYED RELEASE TAB PO SCH (10:18)
[2017-07-22] MEDS: PRAVASTATIN SOD 20 MG TAB PO SCH (10:19)
[2017-07-22] MEDS: METOPROLOL TARTRATE 25 MG TAB PO SCH ×2 (10:19→20:32)
[2017-07-22] MEDS: SUCRALFATE 1 GM/10 ML CUP PO SCH ×4 (10:19→21:00)
--- NOTE | 2017-07-22 14:10 | PD.CONS ---
HPI Service Urology Consult Requested By Dr Russell Reason for Consult BPH/Hematuria Primary Care Physician Mychal Gregory D.O. Diagnosis: History of Present Illness 67y.o M with past medical history significant for BPH, COPD, hypertension, CAD, dysphagia requiring feeding tube and recent Brand placement for urinary obstruction presents to the emergency department for evaluation of hematuria. The patient was discharged from a SNF 2 weeks ago and has not had any outpatient follow-up since that time. Pt states that brand was changed last time about 3 weeks ago. He denies f/c/n/v. no flank pain. He admits that urine leaks around brand, which can indicated a bladder spasms or clogged brand. His urine in tubing is dark red. UC pending but his urine dip was suspicious for infection so he is on IV Rocephin. He had hematuria in the past and was evaluated with CT scan which was unremarkable and Urethrogram which showed a small tear at the bulbar urethra, which does not require any additional treatment other then placement of brand catheter. He thinks he takes meds for BPH. He is started on Proscar 5mg at ER. No other c/o. His VS are ok and labs has slight decrease in H/H Review of Systems Except as stated in HPI: all other systems reviewed are Neg Past Family Social History Past Medical History BPH, COPD, hypertension, CAD, dysphagia requiring feeding tube and recent Brand placement for urinary obstruction Past Surgical History CABG PEG tube placement Allergies: Coded Allergies: No Known Allergies (Verified Adverse Reaction, Unknown, 05/27/17) Family History Mother with CVA. Brother with [place]. Social History Smokes approximately one pack per day. Quit alcohol 1 year ago. She denies illicit drugs. Physical Exam Vital Signs Date Time Temp Pulse Resp B/P (MAP) Pulse Ox O2 Delivery O2 Flow Rate FiO2 07/22/17 12:13 98.6 62 18 132/61 (84) 98 07/22/17 07:31 98.3 76 20 118/56 (76) 100 07/22/17 03:00 98.9 75 16 118/58 (78) 100 07/21/17 22:46 98.3 69 16 121/56 (77) 100 07/21/17 19:23 98.0 68 16 122/62 (82) 100 Room Air 07/21/17 18:32 66 18 130/60 (83) 100 Room Air 07/21/17 15:08 97.8 89 18 131/60 (83) 97 Room Air Physical Exam GENERAL: This is a well-nourished, well-developed patient, in no apparent distress. SKIN: No rashes, ecchymoses or lesions. Cool and dry. HEAD: Atraumatic. Normocephalic. No temporal or scalp tenderness. EYES: Pupils equal round and reactive. Extraocular motions intact. No scleral icterus. No injection or drainage. ENT: Nose without bleeding, purulent drainage or septal hematoma. Throat without erythema, tonsillar hypertrophy or exudate. Uvula midline. Airway patent. NECK: Trachea midline. No JVD or lymphadenopathy. Supple, nontender, no meningeal signs. CARDIOVASCULAR: Regular rate and rhythm without murmurs, gallops, or rubs. RESPIRATORY: Clear to auscultation. Breath sounds equal bilaterally. No wheezes , rales, or rhonchi. GASTROINTESTINAL: Abdomen soft, non-tender, nondistended. No hepato-splenomegaly , or palpable masses. No guarding. GENITOURINARY: left hydrocele, otherwise normal scrotum, testicles and phallus. Brand is in place draining dark red urine MUSCULOSKELETAL: Extremities without clubbing, cyanosis, or edema. No joint tenderness, effusion, or edema noted. No calf tenderness. Negative Homans sign bilaterally. NEUROLOGICAL: Awake and alert. Cranial nerves II through XII intact. Motor and sensory grossly within normal limits. Five out of 5 muscle strength in all muscle groups. Normal speech. Lab results reviewed: Yes Laboratory Tests Test 07/21/17 18:30 White Blood Count 8.7 Red Blood Count 3.09 Hemoglobin 9.6 Hematocrit 28.4 Mean Corpuscular Volume 92.0 Mean Corpuscular Hemoglobin 31.0 Mean Corpuscular Hemoglobin Concent 33.7 Red Cell Distribution Width 15.9 Platelet Count 327 Mean Platelet Volume 8.5 Neutrophils (%) (Auto) 67.2 Lymphocytes (%) (Auto) 23.3 Monocytes (%) (Auto) 7.1 Eosinophils (%) (Auto) 1.8 Basophils (%) (Auto) 0.6 Neutrophils # (Auto) 5.9 Lymphocytes # (Auto) 2.0 Monocytes # (Auto) 0.6 Eosinophils # (Auto) 0.2 Basophils # (Auto) 0.1 CBC Comment DIFF FINAL Differential Comment Urine Color DARK-RED Urine Turbidity CLOUDY Urine pH 7.5 Urine Specific [place] 1.017 Urine Protein 300 Urine Glucose (UA) NEG Urine Ketones NEG Urine Occult Blood LARGE Urine Nitrite POS Urine Bilirubin NEG Urine Urobilinogen LESS THAN 2.0 Urine Leukocyte Esterase LARGE Urine RBC Urine WBC 88 Urine Bacteria MANY Urine Mucus MANY Microscopic Urinalysis Comment CATH-CULTURE IND Blood Urea Nitrogen 16 Creatinine 0.66 Random Glucose 87 Calcium Level 9.1 Sodium Level 137 Potassium Level 4.4 Chloride Level 105 Carbon Dioxide Level 28.1 Anion Gap 4 Estimat Glomerular Filtration Rate 145 Date/Time Source Procedure Growth Status 07/21/17 18:30 Urine Catheterized Urine Urine Culture - Preliminary Gram Negative Lorne Resulted Result Diagram: 07/21/17182907/21/171829 Imaging CT scan and Urethrogram were done in june, reports and images are available for review Assessment and Plan Problem List: (1) BPH w urinary obs/LUTS ICD Code: N40.1 - Benign prostatic hyperplasia with lower urinary tract symptoms; N13.8 - Other obstructive and reflux uropathy (2) Gross hematuria ICD Code: R31.0 - Gross hematuria Assessment and Plan 67 y.o. Male with BPH, retention and hematuria. - Continue care as per primary team with IV fluids and antibiotics -Continue Proscar 5mg and add flomax 0.4mg daily - Follow up on Urine culture to adjust antbx if needed based on C&S - He would benefit from changing catheter for a larger 22-24fr 3 way brand and start CBI to improve hematuria - Pt to follow up as an outpt for possible cystoscopy and further management Discussed with Dr Fredis FERREIRA attending who also agrees with this plan Discussed Condition With Pt nurse at [facility] Jul 22, 2017 14:10
[2017-07-22] MEDS: TAMSULOSIN HCL 0.4 MG CAP PO SCH (20:32)
[2017-07-22 21:32] LABS: AUTOMATED NEUTROPHIL # 6.9 TH/MM3 (1.8-7.7); BASOPHIL % 0.5 % (0.0-2.0); EOSINOPHIL # 0.2 TH/MM3 (0-0.4); EOSINOPHIL % 2.2 % (0.0-4.0); HEMATOCRIT 21.3 % (39.0-51.0); HEMOGLOBIN 7.2 GM/DL (13.0-17.0); LYMPH % 16.5 % (9.0-44.0); LYMPHOCYTE # 1.5 TH/MM3 (1.0-4.8); MEAN CELL VOLUME 92.4 FL (80.0-100.0); MEAN CORPUSCULAR HGB CONC 33.6 % (32.0-36.0); MEAN PLATELET VOLUME 9.3 FL (7.0-11.0); MONO % 7.2 % (0.0-8.0); MONOCYTE # 0.7 TH/MM3 (0-0.9); NEUT % 73.6 % (16.0-70.0); PLATELET COUNT 262 TH/MM3 (150-450); RED BLOOD COUNT 2.31 MIL/MM3 (4.50-5.90); RED CELL DISTRIBUTION WIDTH 14.7 % (11.6-17.2); WHITE BLOOD COUNT 9.4 TH/MM3 (4.0-11.0)
[2017-07-22 21:51] LABS: BICARBONATE 27.9 MEQ/L (21.0-32.0); CALCIUM 8.3 MG/DL (8.5-10.1); CREATININE 0.58 MG/DL (0.60-1.30)
[2017-07-22] MEDS: cefTRIAXone INJ 1,000 MG in SODIUM CHLORIDE 0.9% INJ 100 ML IV SCH (23:15)
[2017-07-23] VITALS (7 sets, daily range): BP systolic 99–135; BP diastolic 49–68; PULSE 74–116; RESP 18–20; TEMP 96.7–99.6; O2SAT 97–100
[2017-07-23] MEDS ORDERED: ACETAMINOPHEN/HYDROcodone 325 MG/5 MG TAB PO ONE (02:15)
[2017-07-23] MEDS: SODIUM CHLOR 0.9% 1000 ML INJ 1,000 ML IV SCH ×3 (02:22→20:02)
[2017-07-23 07:25] LABS: AUTOMATED NEUTROPHIL # 10.6 TH/MM3 (1.8-7.7); BASOPHIL % 0.4 % (0.0-2.0); EOSINOPHIL % 0.2 % (0.0-4.0); HEMATOCRIT 24.3 % (39.0-51.0); LYMPH % 4.7 % (9.0-44.0); LYMPHOCYTE # 0.6 TH/MM3 (1.0-4.8); MEAN CELL VOLUME 93.6 FL (80.0-100.0); MEAN CORPUSCULAR HEMOGLOBIN 30.9 PG (27.0-34.0); MEAN PLATELET VOLUME 9.2 FL (7.0-11.0); MONO % 6.8 % (0.0-8.0); MONOCYTE # 0.8 TH/MM3 (0-0.9); NEUT % 87.9 % (16.0-70.0); PLATELET COUNT 268 TH/MM3 (150-450); RED CELL DISTRIBUTION WIDTH 15.2 % (11.6-17.2); WHITE BLOOD COUNT 12.1 TH/MM3 (4.0-11.0)
[2017-07-23 07:40] LABS: ALBUMIN 3.2 GM/DL (3.4-5.0); AST (GOT) 15 U/L (15-37); BICARBONATE 25.3 MEQ/L (21.0-32.0); BLOOD UREA NITROGEN 13 MG/DL (7-18); CALCIUM 8.3 MG/DL (8.5-10.1); CHLORIDE 106 MEQ/L (98-107); GLOMERULAR FILTRATION RATE 162 ML/MIN (>89); GLUCOSE,RANDOM 111 MG/DL (74-106); MAGNESIUM 1.7 MG/DL (1.5-2.5); SODIUM (NA) 139 MEQ/L (136-145)
[2017-07-23 07:41] LABS: ALT (GPT) 11 U/L (12-78); PHOSPHORUS 2.3 MG/DL (2.5-4.9)
[2017-07-23 07:50] LABS: ALKALINE PHOSPHATASE 90 U/L (45-117); FREE T4 1.02 NG/DL (0.76-1.46); TOTAL BILIRUBIN ADULT 0.2 MG/DL (0.2-1.0); TOTAL PROTEIN 6.9 GM/DL (6.4-8.2)
[2017-07-23] MEDS: SODIUM CHLORIDE 0.9% FLUSH 10 ML FLUSH IV FLUSH SCH ×2 (09:00→20:01)
[2017-07-23] MEDS: SUCRALFATE 1 GM/10 ML CUP PO SCH ×4 (10:46→20:01)
[2017-07-23] MEDS: METOPROLOL TARTRATE 25 MG TAB PO SCH ×2 (10:48→20:01)
[2017-07-23] MEDS: PANTOPRAZOLE SOD 40 MG DELAYED RELEASE TAB PO SCH (10:48)
[2017-07-23] MEDS: LISINOPRIL 5 MG TAB PO SCH (10:48)
[2017-07-23] MEDS: FINASTERIDE 5 MG TAB PO SCH (10:48)
[2017-07-23] MEDS: PRAVASTATIN SOD 20 MG TAB PO SCH (10:49)
[2017-07-23 11:16] LABS: HEMOGLOBIN A1C 4.9 % (4.3-6.0)
[2017-07-23 12:12] LABS: LACTIC ACID SEPSIS PROTOCOL 2.4 mmol/L (0.4-2.0)
[2017-07-23] MEDS ORDERED: PILL SPLITTER OTHER PRN (12:45)
[2017-07-23] MEDS: CIPROFLOXACIN 750 MG TAB PO SCH (12:59)
[2017-07-23] MEDS: metroNIDAZOLE 500 MG TAB PO SCH ×2 (12:59→20:01)
--- NOTE | 2017-07-23 18:01 | HHI.PR ---
Subjective Remarks 67M with recurrent hematuria, this is his 4th visit for the same issue. He denies any blood thinners or known bladder condition. Objective Vitals Vital Signs Date Time Temp Pulse Resp B/P (MAP) Pulse Ox O2 Delivery O2 Flow Rate FiO2 07/23/17 14:00 99.6 79 18 125/68 (87) 100 07/23/17 12:00 97.9 87 19 132/51 (78) 100 07/23/17 08:00 98.0 101 18 99/49 (66) 99 07/23/17 04:00 96.7 116 20 135/60 (85) 100 07/22/17 23:17 97.9 68 18 117/56 (76) 100 07/22/17 20:14 74 07/22/17 19:44 98.0 74 18 122/65 (84) 96 I/O 07/22/17 07/22/17 07/22/17 07/23/17 07/23/17 07/23/17 07:00 15:00 23:00 07:00 15:00 23:00 Intake Total 500 ml 350 ml 1100 ml Output Total 250 ml 1200 ml 250 ml Balance 500 ml 350 ml 850 ml -1200 ml -250 ml Intake Oral 350 ml IV Total 1100 ml Tube Feeding 500 ml Output Urine Total 250 ml 1200 ml 250 ml Result Diagram: 07/23/1760207/23/17 06 Objective Remarks GENERAL: Thin, well-developed patient. SKIN: Warm and dry. HEAD: Normocephalic. EYES: No scleral icterus. No injection or drainage. NECK: Supple, trachea midline. No JVD or lymphadenopathy. CARDIOVASCULAR: Regular rate and rhythm without murmurs, gallops, or rubs. RESPIRATORY: Breath sounds equal bilaterally. No accessory muscle use. GASTROINTESTINAL: Abdomen soft, non-tender, nondistended. EXTREMITIES: No cyanosis, or edema. NEUROLOGICAL: Awake, alert, and oriented x 3. Non-focal. A/P Problem List: (1) Gross hematuria ICD Code: R31.0 - Gross hematuria (2) Urinary retention ICD Code: R33.9 - Retention of urine, unspecified Status: Acute (3) BPH (benign prostatic hypertrophy) with urinary obstruction ICD Code: N40.1 - Benign prostatic hyperplasia with urinary obstruction Status: Acute Assessment and Plan Hematuria, BPH, Urinary Obstruction, UTI Gross hematuria had clots which obstructed bladder outlet causing abdominal discomfort He has responded well to CBI Plavix and ASA held Rocephin for UTI coverage Appreciate Urology consult H&H Stable C. Diff Colitis Positive C. Diff screen today Flagyl and Cipro started Isolation precautions h/o CAD, HTN Continue antihypertensives Plavix and ASA held due to bleed h/o COPD PRN Nebs DVT Prophylaxis SCD hose due to bleeding Ra Parrish MD Jul 23, 2017 18:01
[2017-07-23] MEDS: TAMSULOSIN HCL 0.4 MG CAP PO SCH (20:01)
[2017-07-23] MEDS: cefTRIAXone INJ 1,000 MG in SODIUM CHLORIDE 0.9% INJ 100 ML IV SCH (20:01)
[2017-07-23 20:24] LABS: AUTOMATED NEUTROPHIL # 6.2 TH/MM3 (1.8-7.7); BASOPHIL % 0.4 % (0.0-2.0); EOSINOPHIL # 0.1 TH/MM3 (0-0.4); EOSINOPHIL % 0.9 % (0.0-4.0); LYMPH % 11.2 % (9.0-44.0); LYMPHOCYTE # 0.9 TH/MM3 (1.0-4.8); MEAN CELL VOLUME 93.1 FL (80.0-100.0); MEAN CORPUSCULAR HEMOGLOBIN 30.8 PG (27.0-34.0); MEAN CORPUSCULAR HGB CONC 33.1 % (32.0-36.0); MEAN PLATELET VOLUME 9.2 FL (7.0-11.0); MONO % 11.6 % (0.0-8.0); MONOCYTE # 0.9 TH/MM3 (0-0.9); NEUT % 75.9 % (16.0-70.0); PLATELET COUNT 212 TH/MM3 (150-450); RED BLOOD COUNT 1.95 MIL/MM3 (4.50-5.90); RED CELL DISTRIBUTION WIDTH 15.1 % (11.6-17.2); WHITE BLOOD COUNT 8.2 TH/MM3 (4.0-11.0)
[2017-07-23 20:29] LABS: HEMATOCRIT 18.1 % (39.0-51.0)
[2017-07-23 20:49] LABS: BICARBONATE 26.3 MEQ/L (21.0-32.0); CALCIUM 7.8 MG/DL (8.5-10.1); CREATININE 0.51 MG/DL (0.60-1.30)
[2017-07-23] MEDS ORDERED: POTASSIUM CHLORIDE 10 MEQ CONTROLLED RELEASE TAB PO ONE (21:00)
[2017-07-23] MEDS ORDERED: FUROSEMIDE 20 MG/2 ML VIAL IV PUSH ONE (21:00)
[2017-07-23] MEDS ORDERED: SODIUM CHLOR 0.9% 250 ML INJ 250 ML IV ONE (21:00)
[2017-07-24] VITALS (13 sets, daily range): BP systolic 119–128; BP diastolic 53–79; PULSE 72–80; RESP 16–20; TEMP 97.7–99.6; O2SAT 94–100
[2017-07-24] MEDS: CIPROFLOXACIN 750 MG TAB PO SCH ×2 (01:55→13:45)
[2017-07-24] MEDS: metroNIDAZOLE 500 MG TAB PO SCH ×3 (06:42→21:38)
[2017-07-24] MEDS ORDERED: SODIUM CHLOR 0.9% 250 ML INJ 250 ML IV ONE (07:30)
[2017-07-24] MEDS: SODIUM CHLOR 0.9% 1000 ML INJ 1,000 ML IV SCH ×2 (08:48→17:38)
[2017-07-24] MEDS: SODIUM CHLORIDE 0.9% FLUSH 10 ML FLUSH IV FLUSH SCH ×2 (09:00→21:00)
[2017-07-24] MEDS: PRAVASTATIN SOD 20 MG TAB PO SCH (09:44)
[2017-07-24] MEDS: METOPROLOL TARTRATE 25 MG TAB PO SCH ×2 (09:44→21:38)
[2017-07-24] MEDS: PANTOPRAZOLE SOD 40 MG DELAYED RELEASE TAB PO SCH (09:45)
[2017-07-24] MEDS: SUCRALFATE 1 GM/10 ML CUP PO SCH ×4 (09:45→21:38)
[2017-07-24] MEDS: FINASTERIDE 5 MG TAB PO SCH (09:45)
[2017-07-24] MEDS: LISINOPRIL 5 MG TAB PO SCH (09:45)
--- NOTE | 2017-07-24 14:55 | HHI.PR ---
Subjective Remarks Patient is not happy to know that his stool grew out C. Diff, but I explained that is a likely reason his WBC was up, and is really more of a secondary issue compared to the hematuria with clots that act as the main reason he is remaining with us. Objective Vitals Vital Signs Date Time Temp Pulse Resp B/P (MAP) Pulse Ox O2 Delivery O2 Flow Rate FiO2 07/24/17 12:00 98.4 76 20 126/57 (80) 100 07/24/17 09:13 98.6 74 19 128/68 (88) 100 07/24/17 07:54 98.4 72 20 125/58 (80) 99 07/24/17 07:08 98.9 72 20 125/58 99 07/24/17 04:30 99.6 75 18 128/54 (78) 99 07/24/17 03:57 80 07/24/17 02:49 99.6 74 16 121/53 98 07/24/17 00:00 98.6 78 18 125/55 (78) 94 07/23/17 23:42 74 07/23/17 20:00 97.1 82 18 131/51 (77) 97 07/23/17 19:52 81 I/O 07/23/17 07/23/17 07/23/17 07/24/17 07/24/17 07/24/17 07:00 15:00 23:00 07:00 15:00 23:00 Intake Total 1100 ml 1000 ml 1720 ml 1154 ml 120 ml Output Total 250 ml 1200 ml 650 ml 1200 ml 1050 ml Balance 850 ml -200 ml 1070 ml -46 ml -930 ml Intake Oral 720 ml 120 ml IV Total 1100 ml 1000 ml 1000 ml 754 ml Packed Cells 400 ml Output Urine Total 250 ml 1200 ml 650 ml 1200 ml 1050 ml # Bowel Movements 1 4 Result Diagram: 07/23/17 1950 07/23/171949 Objective Remarks GENERAL: Thin, well-developed patient. SKIN: Warm and dry. HEAD: Normocephalic. EYES: No scleral icterus. No injection or drainage. NECK: Supple, trachea midline. No JVD or lymphadenopathy. CARDIOVASCULAR: Regular rate and rhythm without murmurs, gallops, or rubs. RESPIRATORY: Breath sounds equal bilaterally. No accessory muscle use. GASTROINTESTINAL: Abdomen soft, non-tender, nondistended. EXTREMITIES: No cyanosis, or edema. NEUROLOGICAL: Awake, alert, and oriented x 3. Non-focal. A/P Problem List: (1) Gross hematuria ICD Code: R31.0 - Gross hematuria (2) Urinary retention ICD Code: R33.9 - Retention of urine, unspecified Status: Acute (3) BPH (benign prostatic hypertrophy) with urinary obstruction ICD Code: N40.1 - Benign prostatic hyperplasia with urinary obstruction Status: Acute Assessment and Plan Hematuria, BPH, Urinary Obstruction, UTI Gross hematuria had clots which obstructed bladder outlet causing abdominal discomfort He has responded well to CBI Plavix and ASA held Rocephin for UTI coverage Continue Finasteride for BPH Appreciate Urology consult Anemia H&H dropped late yesterday, Transfusion of 2 units PRBC ordered for today Will follow up H&H tomorrow C. Diff Colitis Positive C. Diff screen Continue Flagyl and Cipro Isolation precautions h/o CAD, HTN Continue antihypertensives Plavix and ASA held due to bleed h/o COPD PRN Nebs DVT Prophylaxis SCD hose due to bleeding Ra Parrish MD Jul 24, 2017 14:55
[2017-07-24] MEDS: TAMSULOSIN HCL 0.4 MG CAP PO SCH (21:38)
[2017-07-24] MEDS: cefTRIAXone INJ 1,000 MG in SODIUM CHLORIDE 0.9% INJ 100 ML IV SCH (21:38)
[2017-07-24] MEDS ORDERED: MELATONIN 5 MG TAB PO ONE (22:30)
[2017-07-24 22:34] LABS: AUTOMATED NEUTROPHIL # 7.7 TH/MM3 (1.8-7.7); BASOPHIL % 0.3 % (0.0-2.0); EOSINOPHIL # 0.2 TH/MM3 (0-0.4); EOSINOPHIL % 1.7 % (0.0-4.0); HEMATOCRIT 28.5 % (39.0-51.0); HEMOGLOBIN 9.7 GM/DL (13.0-17.0); LYMPH % 12.1 % (9.0-44.0); LYMPHOCYTE # 1.2 TH/MM3 (1.0-4.8); MEAN CELL VOLUME 88.8 FL (80.0-100.0); MEAN CORPUSCULAR HEMOGLOBIN 30.3 PG (27.0-34.0); MEAN CORPUSCULAR HGB CONC 34.2 % (32.0-36.0); MEAN PLATELET VOLUME 9.3 FL (7.0-11.0); MONO % 10.7 % (0.0-8.0); MONOCYTE # 1.1 TH/MM3 (0-0.9); NEUT % 75.2 % (16.0-70.0); PLATELET COUNT 214 TH/MM3 (150-450); RED BLOOD COUNT 3.21 MIL/MM3 (4.50-5.90); RED CELL DISTRIBUTION WIDTH 15.3 % (11.6-17.2); WHITE BLOOD COUNT 10.2 TH/MM3 (4.0-11.0)
[2017-07-24] MEDS ORDERED: TEMAZEPAM 7.5 MG CAP PO PRN (22:45)
[2017-07-25] VITALS (8 sets, daily range): BP systolic 127–135; BP diastolic 54–68; PULSE 62–77; RESP 16–20; TEMP 97.8–99.2; O2SAT 96–100
[2017-07-25] MEDS: CIPROFLOXACIN 750 MG TAB PO SCH ×2 (02:03→13:59)
[2017-07-25] MEDS: SODIUM CHLOR 0.9% 1000 ML INJ 1,000 ML IV SCH ×3 (04:15→22:23)
[2017-07-25] MEDS: metroNIDAZOLE 500 MG TAB PO SCH ×3 (04:15→22:00)
[2017-07-25] MEDS: SODIUM CHLORIDE 0.9% FLUSH 10 ML FLUSH IV FLUSH SCH ×2 (09:23→21:00)
[2017-07-25] MEDS: FINASTERIDE 5 MG TAB PO SCH (09:23)
[2017-07-25] MEDS: PRAVASTATIN SOD 20 MG TAB PO SCH (09:23)
[2017-07-25] MEDS: SUCRALFATE 1 GM/10 ML CUP PO SCH ×4 (09:23→22:00)
[2017-07-25] MEDS: LISINOPRIL 5 MG TAB PO SCH (09:23)
[2017-07-25] MEDS: PANTOPRAZOLE SOD 40 MG DELAYED RELEASE TAB PO SCH (09:23)
[2017-07-25] MEDS: METOPROLOL TARTRATE 25 MG TAB PO SCH ×2 (09:23→22:00)
[2017-07-25 15:16] LABS: BACTERIA, URINE MOD /hpf; BILIRUBIN, URINE NEG (NEG); BLOOD, URINE LARGE (NEG); GLUCOSE,URINE NEG (NEG); KETONE, URINE NEG (NEG); MUCUS URINE FEW /lpf (OCC); NITRITE,URINE NEG (NEG); PH, URINE 5.5 (5.0-8.5); URINE COLOR YELLOW (YELLW/STRAW); URINE LEUKOCYTE ESTERASE MOD (NEG)
--- NOTE | 2017-07-25 16:37 | HHI.PR ---
Subjective Remarks 67M with hematuria and c. diff. He complains of generalized pain and discomfort. His appetite is pretty good. He does not feel any differently after receiving 2 units of PRBC. Objective Vitals Vital Signs Date Time Temp Pulse Resp B/P (MAP) Pulse Ox O2 Delivery O2 Flow Rate FiO2 07/25/17 16:00 98.7 67 20 131/61 (84) 99 07/25/17 12:00 97.8 66 20 127/61 (83) 100 07/25/17 08:00 98.4 67 18 132/63 (86) 99 07/25/17 04:30 98.3 77 16 135/68 (90) 100 07/25/17 03:29 73 07/25/17 00:47 98.1 69 16 130/54 (79) 96 07/25/17 00:07 62 07/24/17 20:00 98.6 76 16 122/62 (82) 96 07/24/17 19:57 75 07/24/17 18:00 119/59 (79) I/O 07/24/17 07/24/17 07/24/17 07/25/17 07/25/17 07/25/17 07:00 15:00 23:00 07:00 15:00 23:00 Intake Total 1154 ml 120 ml 2899 ml 900 ml 120 ml Output Total 1200 ml 1050 ml 2700 ml 0 ml Balance -46 ml -930 ml 199 ml 900 ml 120 ml Intake Oral 120 ml 960 ml 120 ml IV Total 754 ml 1099 ml 900 ml Tube Feeding 240 ml Packed Cells 400 ml 400 ml Blood Product IV Normal Saline Flush 200 ml Output Urine Total 1200 ml 1050 ml 2300 ml 0 ml Stool Total 400 ml # Bowel Movements 4 3 3 Result Diagram: 07/24/17212607/23/171949 Objective Remarks GENERAL: Thin, well-developed patient. SKIN: Warm and dry. HEAD: Normocephalic. EYES: No scleral icterus. No injection or drainage. NECK: Supple, trachea midline. No JVD or lymphadenopathy. CARDIOVASCULAR: Regular rate and rhythm without murmurs, gallops, or rubs. RESPIRATORY: Breath sounds equal bilaterally. No accessory muscle use. GASTROINTESTINAL: Abdomen soft, non-tender, nondistended. EXTREMITIES: No cyanosis, or edema. NEUROLOGICAL: Awake, alert, and oriented x 3. Non-focal. UROLOGICAL: Daily improvements in urine quality, today mostly yellow with a few very small clots. A/P Problem List: (1) Gross hematuria ICD Code: R31.0 - Gross hematuria (2) Urinary retention ICD Code: R33.9 - Retention of urine, unspecified Status: Acute (3) BPH (benign prostatic hypertrophy) with urinary obstruction ICD Code: N40.1 - Benign prostatic hyperplasia with urinary obstruction Status: Acute Assessment and Plan Hematuria, BPH, Urinary Obstruction Gross hematuria had clots which obstructed bladder outlet causing abdominal discomfort He has responded well to CBI, urine looks yellow today for the first time ( instead of pink or red) Plavix and ASA held Rocephin for UTI coverage Continue Finasteride for BPH Appreciate Urology consult Urinary Tract Infection Klebsiella and enterococcus Rocephin, but positive for c. diff, so conflict of interest. Will recheck urine and if UA is negative will stop rocephin Anemia So far appears stable following 2 units PRBC, will follow H&H trend C. Diff Colitis Positive C. Diff screen Continue Flagyl and Cipro Isolation precautions Pain Management Lortab added to medications, may help to slow loose BID stools h/o CAD, HTN Continue antihypertensives Plavix and ASA held due to bleed h/o COPD PRN Nebs DVT Prophylaxis SCD hose due to bleeding Ra Parrish MD Jul 25, 2017 16:37
[2017-07-25] MEDS: TAMSULOSIN HCL 0.4 MG CAP PO SCH (22:00)
[2017-07-25] MEDS: cefTRIAXone INJ 1,000 MG in SODIUM CHLORIDE 0.9% INJ 100 ML IV SCH (22:02)
[2017-07-26] VITALS (8 sets, daily range): BP systolic 124–140; BP diastolic 58–87; PULSE 67–75; RESP 16–20; TEMP 97.6–100; O2SAT 96–98
[2017-07-26] MEDS: CIPROFLOXACIN 750 MG TAB PO SCH ×2 (01:09→12:56)
[2017-07-26] MEDS: MELATONIN 5 MG TAB PO PRN ×2 (01:09→23:38)
[2017-07-26] MEDS: SODIUM CHLOR 0.9% 1000 ML INJ 1,000 ML IV SCH ×2 (01:17→21:37)
[2017-07-26] MEDS: ACETAMINOPHEN/HYDROcodone 325 MG/5 MG TAB PO PRN ×2 (01:22→21:53)
[2017-07-26] MEDS: metroNIDAZOLE 500 MG TAB PO SCH ×3 (05:39→21:40)
[2017-07-26] MEDS: SODIUM CHLORIDE 0.9% FLUSH 10 ML FLUSH IV FLUSH SCH ×2 (09:00→21:00)
[2017-07-26] MEDS: PANTOPRAZOLE SOD 40 MG DELAYED RELEASE TAB PO SCH (09:13)
[2017-07-26] MEDS: PRAVASTATIN SOD 20 MG TAB PO SCH (09:13)
[2017-07-26] MEDS: LISINOPRIL 5 MG TAB PO SCH (09:13)
[2017-07-26] MEDS: SUCRALFATE 1 GM/10 ML CUP PO SCH ×4 (09:13→21:39)
[2017-07-26] MEDS: FINASTERIDE 5 MG TAB PO SCH (09:13)
[2017-07-26] MEDS: METOPROLOL TARTRATE 25 MG TAB PO SCH ×2 (09:13→21:40)
--- NOTE | 2017-07-26 13:09 | HHI.PR ---
Subjective Remarks Mr. León complains of catheter pain. The good news is that no more clots are coming out in the urine. Objective Vitals Vital Signs Date Time Temp Pulse Resp B/P (MAP) Pulse Ox O2 Delivery O2 Flow Rate FiO2 07/26/17 12:00 98.4 67 16 124/87 (99) 97 07/26/17 08:00 97.6 67 17 126/59 (81) 96 07/26/17 04:00 98.9 69 20 135/61 (85) 98 07/26/17 00:28 73 07/26/17 00:00 99.2 74 20 126/58 (80) 97 07/25/17 20:00 99.2 70 20 130/58 (82) 99 07/25/17 16:00 98.7 67 20 131/61 (84) 99 I/O 07/25/17 07/25/17 07/25/17 07/26/17 07/26/17 07/26/17 07:00 15:00 23:00 07:00 15:00 23:00 Intake Total 900 ml 120 ml 800 ml 1220 ml Output Total 0 ml 900 ml 900 ml Balance 900 ml 120 ml -100 ml 320 ml Intake Oral 120 ml 800 ml 120 ml IV Total 900 ml 1100 ml Output Urine Total 0 ml 900 ml 900 ml # Bowel Movements 3 1 2 Result Diagram: 07/24/17212607/23/171949 Objective Remarks GENERAL: Thin, well-developed patient. SKIN: Warm and dry. HEAD: Normocephalic. EYES: No scleral icterus. No injection or drainage. NECK: Supple, trachea midline. No JVD or lymphadenopathy. CARDIOVASCULAR: Regular rate and rhythm without murmurs, gallops, or rubs. RESPIRATORY: Breath sounds equal bilaterally. No accessory muscle use. GASTROINTESTINAL: Abdomen soft, non-tender, nondistended. EXTREMITIES: No cyanosis, or edema. NEUROLOGICAL: Awake, alert, and oriented x 3. Non-focal. UROLOGICAL: Daily improvements in urine quality, today mostly yellow with a few very small clots. A/P Problem List: (1) Gross hematuria ICD Code: R31.0 - Gross hematuria (2) Urinary retention ICD Code: R33.9 - Retention of urine, unspecified Status: Acute (3) BPH (benign prostatic hypertrophy) with urinary obstruction ICD Code: N40.1 - Benign prostatic hyperplasia with urinary obstruction Status: Acute Assessment and Plan Hematuria, BPH, Urinary Obstruction Gross hematuria has resolved Plavix and ASA held Continue Finasteride for BPH Will D/C CBI and monitor output Urology recommended outpatient follow up Urinary Tract Infection Repeat urinalysis was clear, no more infection, Rocephin stopped due to c. diff present Anemia So far appears stable following 2 units PRBC, will follow H&H trend C. Diff Colitis Positive C. Diff screen Continue Flagyl and Cipro Isolation precautions Pain Management Lortab helping ease pain slightly, making stools less loose h/o CAD, HTN Continue antihypertensives Plavix and ASA held due to bleed h/o COPD PRN Nebs DVT Prophylaxis SCD hose due to bleeding Ra Parrish MD Jul 26, 2017 13:09
[2017-07-26] MEDS: TAMSULOSIN HCL 0.4 MG CAP PO SCH (21:40)
[2017-07-26] MEDS: cefTRIAXone INJ 1,000 MG in SODIUM CHLORIDE 0.9% INJ 100 ML IV SCH (23:42)
[2017-07-27] VITALS (8 sets, daily range): BP systolic 125–153; BP diastolic 59–70; PULSE 64–86; RESP 18–19; TEMP 95.8–100; O2SAT 93–99
[2017-07-27] MEDS: CIPROFLOXACIN 750 MG TAB PO SCH ×2 (01:51→14:00)
[2017-07-27] MEDS: metroNIDAZOLE 500 MG TAB PO SCH ×3 (07:07→23:10)
[2017-07-27] MEDS: SUCRALFATE 1 GM/10 ML CUP PO SCH ×4 (07:12→23:11)
[2017-07-27] MEDS: LISINOPRIL 5 MG TAB PO SCH (09:00)
[2017-07-27] MEDS: FINASTERIDE 5 MG TAB PO SCH (09:00)
[2017-07-27] MEDS: SODIUM CHLORIDE 0.9% FLUSH 10 ML FLUSH IV FLUSH SCH ×2 (09:00→23:22)
[2017-07-27] MEDS: PRAVASTATIN SOD 20 MG TAB PO SCH (09:00)
[2017-07-27] MEDS: PANTOPRAZOLE SOD 40 MG DELAYED RELEASE TAB PO SCH (09:00)
[2017-07-27] MEDS: METOPROLOL TARTRATE 25 MG TAB PO SCH ×2 (09:00→23:10)
--- NOTE | 2017-07-27 14:44 | HHI.PR ---
Subjective Patient symptoms today 67y.o M with past medical history significant for BPH, COPD, hypertension, CAD, dysphagia requiring feeding tube and recent Brand placement for urinary obstruction presents to the emergency department for evaluation of hematuria. The patient was discharged from a SNF 2 weeks ago and has not had any outpatient follow-up since that time. Pt states that brand was changed last time about 3 weeks ago. He denies f/c/n/v. no flank pain. He admits that urine leaks around brand, which can indicated a bladder spasms or clogged brand. His urine in tubing is dark red. UC pending but his urine dip was suspicious for infection so he is on IV Rocephin. He had hematuria in the past and was evaluated with CT scan which was unremarkable and Urethrogram which showed a small tear at the bulbar urethra, which does not require any additional treatment other then placement of brand catheter. He thinks he takes meds for BPH. He is started on Proscar 5mg at ER. No other c/o. His VS are ok and labs has slight decrease in H/H 07/27/17: Pt was seen in the afternoon at his room, resting comfortably in bed. NAD. No pain, no fever. Was on CBI after initial consult for several days for hematuria with clots, d/c CBI yesterday. On Proscar daily. Brand is in place, draining clear yellow urine, hematuria resolved. he states that has brand only if unable to void due to clot retention but since urine cleared up now he thinks he will be able to void without any difficulties. he is currently being treated for C diff. Objective Vital Signs Vital Signs Date Time Temp Pulse Resp B/P (MAP) Pulse Ox O2 Delivery O2 Flow Rate FiO2 07/27/17 12:00 98.0 64 19 142/66 (91) 99 07/27/17 08:00 95.8 73 18 125/60 (81) 96 07/27/17 04:00 99.0 71 18 130/60 (83) 93 07/27/17 00:00 70 07/27/17 00:00 99.4 69 18 130/59 (82) 93 07/26/17 21:00 75 07/26/17 20:00 75 07/26/17 20:00 100.0 72 18 130/60 (83) 96 07/26/17 16:00 99.1 68 16 140/66 (90) 96 Intake & Output 07/27/17 07/27/17 07:00 19:00 Intake Total 240 ml Output Total 900 ml Balance -660 ml Intake Oral 240 ml Output Urine Total 900 ml # Bowel Movements 0 Result Diagram: 07/24/17212607/23/17 1950 Objective Remarks Physical exam: GENERAL: Thin, well-developed patient. SKIN: Warm and dry. HEAD: Normocephalic. EYES: No scleral icterus. No injection or drainage. NECK: Supple, trachea midline. No JVD or lymphadenopathy. CARDIOVASCULAR: Regular rate and rhythm without murmurs, gallops, or rubs. RESPIRATORY: Breath sounds equal bilaterally. No accessory muscle use. GASTROINTESTINAL: Abdomen soft, non-tender, nondistended. EXTREMITIES: No cyanosis, or edema. NEUROLOGICAL: Awake, alert, and oriented x 3. Non-focal. UROLOGICAL: Normal exam of the scrotum, testicles and phallus. Brand is in place, urine is clear yellow. . Medications and IVs Current Medications Medications (Trade) Dose Ordered Sig/Marilee Route Start Time Stop Time Status Last Admin Sodium Chloride 1,000 ml @ 100 mls/hr Q10H IV 07/21/17 20:48 07/26/17 21:37 (NS Flush) 2 ml UNSCH PRN IV FLUSH 07/21/17 21:00 (NS Flush) 2 ml BID IV FLUSH 07/21/17 21:00 07/27/17 09:00 (Tylenol) 650 mg Q4H PRN PO 07/21/17 21:00 (Zofran Inj) 4 mg Q6H PRN IVP 07/21/17 21:00 (Narcan Inj) 0.4 mg UNSCH PRN IV PUSH 07/21/17 21:00 Ceftriaxone Sodium 1000 mg/ Sodium Chloride 100 ml @ 200 mls/hr Q24H IV 07/21/17 23:00 07/26/17 23:42 (Proscar) 5 mg DAILY PO 07/22/17 09:00 07/27/17 09:00 (Pravachol) 20 mg DAILY PO 07/22/17 09:00 07/27/17 09:00 (Lopressor) 25 mg BID PO 07/22/17 09:00 07/27/17 09:00 (Carafate Liq) 1 gm ACHS PO 07/22/17 08:00 07/27/17 12:00 (Prinivil) 2.5 mg DAILY PO 07/22/17 09:00 07/27/17 09:00 (Protonix) 40 mg DAILY PO 07/22/17 09:00 07/27/17 09:00 (Flomax) 0.4 mg HS PO 07/22/17 21:00 07/26/17 21:40 (Flagyl) 500 mg Q8HR PO 07/23/17 14:00 07/27/17 07:07 (Cipro) 750 mg Q12H PO 07/23/17 14:00 07/27/17 01:51 (Pill Splitter) 1 ea UNSCH PRN OTHER 07/23/17 12:45 ([place] 5-325 Mg) 1 tab Q4H PRN PO 07/25/17 09:45 07/26/17 21:53 (Melatonin) 5 mg HS PRN PO 07/25/17 22:45 07/26/17 23:38 Assessment and Plan Problem List: (1) BPH w urinary obs/LUTS ICD Code: N40.1 - Benign prostatic hyperplasia with lower urinary tract symptoms; N13.8 - Other obstructive and reflux uropathy (2) Gross hematuria ICD Code: R31.0 - Gross hematuria Assessment and Plan 67 y.o. Male with BPH, hematuria and clot retention. - Continue care and d/c planning as per primary team -Continue Proscar 5mg and flomax 0.4mg daily, needs to continue them after discharge as well. - If planning to remove brand and do voiding trial,do it at AM. If pt will be able to void on his own, check PVR by doeing bladder scan after voiding to make sure he empties bladder well, if not reinsert brand back - No additional intervention now. Urology remains available as needed. - Pt to f/u as outpatient in our clinic with Dr Mcneal for further evaluation Jeremy Chun Jul 27, 2017 14:44
--- NOTE | 2017-07-27 15:54 | HHI.PR ---
Subjective Remarks Patient's main complaint lately is penis pain from large bore catheter used for CBI. He has been unable to walk due to that pain. He requested to have his brand removed. Objective Vitals Vital Signs Date Time Temp Pulse Resp B/P (MAP) Pulse Ox O2 Delivery O2 Flow Rate FiO2 07/27/17 12:00 98.0 64 19 142/66 (91) 99 07/27/17 08:00 95.8 73 18 125/60 (81) 96 07/27/17 04:00 99.0 71 18 130/60 (83) 93 07/27/17 00:00 70 07/27/17 00:00 99.4 69 18 130/59 (82) 93 07/26/17 21:00 75 07/26/17 20:00 75 07/26/17 20:00 100.0 72 18 130/60 (83) 96 07/26/17 16:00 99.1 68 16 140/66 (90) 96 I/O 07/26/17 07/26/17 07/26/17 07/27/17 07/27/17 07/27/17 06:59 14:59 22:59 06:59 14:59 22:59 Intake Total 1220 ml 450 ml 720 ml 240 ml Output Total 900 ml 535 ml 900 ml Balance 320 ml 450 ml 185 ml -660 ml Intake Oral 120 ml 720 ml 240 ml IV Total 1100 ml 450 ml Output Urine Total 900 ml 535 ml 900 ml # Bowel Movements 2 1 0 Result Diagram: 07/24/17212607/23/171949 Objective Remarks GENERAL: Thin, well-developed patient. SKIN: Warm and dry. HEAD: Normocephalic. EYES: No scleral icterus. No injection or drainage. NECK: Supple, trachea midline. No JVD or lymphadenopathy. CARDIOVASCULAR: Regular rate and rhythm without murmurs, gallops, or rubs. RESPIRATORY: Breath sounds equal bilaterally. No accessory muscle use. GASTROINTESTINAL: Abdomen soft, non-tender, nondistended. EXTREMITIES: No cyanosis, or edema. NEUROLOGICAL: Awake, alert, and oriented x 3. Non-focal. UROLOGICAL: Daily improvements in urine quality, today mostly yellow with a few very small clots. A/P Problem List: (1) Gross hematuria ICD Code: R31.0 - Gross hematuria (2) Urinary retention ICD Code: R33.9 - Retention of urine, unspecified Status: Acute (3) BPH (benign prostatic hypertrophy) with urinary obstruction ICD Code: N40.1 - Benign prostatic hyperplasia with urinary obstruction Status: Acute Assessment and Plan Hematuria, BPH, Urinary Obstruction Hematuria remains resolved Plavix and ASA held Continue Finasteride for BPH Brand removed today, will watch for urine output, if no output, replace with small bore brand catheter (no straight caths) Urology has recommended outpatient follow up C. Diff Colitis Continue Flagyl and Cipro Isolation precautions Urinary Tract Infection Resolved Anemia Resolved Pain Management Lortab helping h/o CAD, HTN Continue antihypertensives Plavix and ASA held due to bleed h/o COPD PRN Nebs DVT Prophylaxis SCD hose due to bleeding Discharge Planning If able to ambulate and if no need for brand, may go home tomorrow Ra Parrish MD Jul 27, 2017 15:54
--- NOTE | 2017-07-27 15:57 | HHI.FF ---
Face to Face Verification Diagnosis: (1) Clostridium difficile colitis (2) Gross hematuria (3) UTI (urinary tract infection) due to Enterococcus Home Health Nursing Order: Medical education Signs/symptoms of disease process Nursing assessment with vital signs I have seen patient Bobby León on 07/27/17. My clinical findings support the need for the requested home health care services because: Ltd mobility - disease progression Deconditioned w/ increased weakness Med compliance is questionable Limited ability to care for self Infection w/ risk of complications I certify that my clinical findings support that this patient is homebound because: Unsteady gait/balance Unsafe to leave home unassisted Unable to use public transportation Ra Parrish MD Jul 27, 2017 15:57
[2017-07-27] MEDS: SODIUM CHLOR 0.9% 1000 ML INJ 1,000 ML IV SCH ×2 (16:20→16:48)
[2017-07-27] MEDS: TAMSULOSIN HCL 0.4 MG CAP PO SCH (23:10)
[2017-07-27] MEDS: MELATONIN 5 MG TAB PO PRN (23:10)
[2017-07-27] MEDS: cefTRIAXone INJ 1,000 MG in SODIUM CHLORIDE 0.9% INJ 100 ML IV SCH (23:11)
[2017-07-28] VITALS: BP 138/60; PULSE 71; RESP 18; TEMP 98.2; O2SAT 94
[2017-07-28 01:54] VITALS: PULSE 86
[2017-07-28 04:00] VITALS: BP 129/53; PULSE 76; RESP 18; TEMP 99.9; O2SAT 92
[2017-07-28] MEDS: metroNIDAZOLE 500 MG TAB PO SCH (04:17)
[2017-07-28] MEDS: CIPROFLOXACIN 750 MG TAB PO SCH (04:17)
[2017-07-28] MEDS: SODIUM CHLOR 0.9% 1000 ML INJ 1,000 ML IV SCH (04:19)
[2017-07-28 06:05] VITALS: PULSE 99
[2017-07-28 06:41] LABS: BICARBONATE 24.9 MEQ/L (21.0-32.0); CALCIUM 7.5 MG/DL (8.5-10.1); CREATININE 0.3 MG/DL (0.60-1.30); MAGNESIUM 1.7 MG/DL (1.5-2.5)
[2017-07-28] MEDS: LISINOPRIL 5 MG TAB PO SCH (08:22)
[2017-07-28] MEDS: SUCRALFATE 1 GM/10 ML CUP PO SCH ×2 (08:22→11:34)
[2017-07-28] MEDS: PANTOPRAZOLE SOD 40 MG DELAYED RELEASE TAB PO SCH (08:22)
[2017-07-28] MEDS: FINASTERIDE 5 MG TAB PO SCH (08:23)
[2017-07-28] MEDS: PRAVASTATIN SOD 20 MG TAB PO SCH (08:23)
[2017-07-28] MEDS: METOPROLOL TARTRATE 25 MG TAB PO SCH (08:23)
[2017-07-28] MEDS: SODIUM CHLORIDE 0.9% FLUSH 10 ML FLUSH IV FLUSH SCH (08:24)
[2017-07-28] MEDS ORDERED: CIPR750T2 PO (09:53)
[2017-07-28] MEDS ORDERED: METR-1 PO (09:53)
[2017-07-28] MEDS ORDERED: TAMS5CAP PO (09:53)
[2017-07-28] MEDS ORDERED: LOPE-1 PO (09:53)
--- NOTE | 2017-07-28 09:58 | HHI.DS ---
Discharge Summary Admission Date Jul 22, 2017 at 10:13 Discharge Date: Jul 28, 2017 Admitting Diagnosis hematuria, indwelling Wright catheter, urinary obstruction, urethral (1) Gross hematuria ICD Code: R31.0 - Gross hematuria (2) Urinary retention ICD Code: R33.9 - Retention of urine, unspecified Status: Acute (3) BPH (benign prostatic hypertrophy) with urinary obstruction ICD Code: N40.1 - Benign prostatic hyperplasia with urinary obstruction Status: Acute Procedures CBI Brief History - From Admission 67-year-old male with past medical history significant for BPH, COPD, hypertension, CAD, dysphagia requiring feeding tube and recent Wright placement for urinary obstruction presents to the emergency department for evaluation of hematuria. The patient was discharged from a SNF 2 weeks ago and has not had any outpatient follow-up since that time. He reports that for the past 2 days he has had blood in his Wright bag. He endorses associated dizziness and lightheadedness with accompanying shortness of breath. He denies chest pain. Denies nausea/vomiting/diarrhea. He was previously seen by Dr. best who recommended continuation of the Wright catheter and outpatient follow-up. CBC/BMP: 07/24/177 07/28/17 0612 Significant Findings Laboratory Tests Test 07/25/17 13:50 07/28/17 06:12 Urine Occult Blood LARGE (NEG) Urine Leukocyte Esterase MOD (NEG) Urine RBC 80 /hpf (0-3) Urine WBC 9 /hpf (0-5) Urine Bacteria MOD /hpf (NONE) Urine Mucus FEW /lpf (OCC) Blood Urea Nitrogen 6 MG/DL (7-18) Creatinine 0.30 MG/DL (0.60-1.30) Calcium Level 7.5 MG/DL (8.5-10.1) Potassium Level 3.2 MEQ/L (3.5-5.1) PE at Discharge GENERAL: Thin, well-developed patient. SKIN: Warm and dry. HEAD: Normocephalic. EYES: No scleral icterus. No injection or drainage. NECK: Supple, trachea midline. No JVD or lymphadenopathy. CARDIOVASCULAR: Regular rate and rhythm without murmurs, gallops, or rubs. RESPIRATORY: Breath sounds equal bilaterally. No accessory muscle use. GASTROINTESTINAL: Abdomen soft, non-tender, nondistended. EXTREMITIES: No cyanosis, or edema. NEUROLOGICAL: Awake, alert, and oriented x 3. Non-focal. UROLOGICAL: Daily improvements in urine quality, today mostly yellow with a few very small clots. Hospital Course 67M who presented with gross hematuria with clots and urinary retention. Found to have a UTI and treated for that, but then developed diarrhea positive for c. diff. His hematuria responded well to CBI and he had been clot free for 48 hours when he requested to have his catheter replaced due to pain. We decided to do a trial of removing it. He was able to urinate without a catheter, is pain free, walking without assistance. He is therefore appropriate for home. His C. Diff infection will take time to resolve. He will be followed as an outpatient by home healthcare nursing. I've recommended follow up with his PCP in 3 weeks and with his urologist Dr. Mcneal as needed. Pt Condition on Discharge: Good Discharge Disposition: Disch w/ Home Health Serv Discharge Time: <= 30 minutes Discharge Instructions DIET: Follow Instructions for: On Tube Feeding Speech Therapy-Diet Recommends: Mechanical Soft, Chopped Meat w/Gravy Additional Diet Instructions: Tube feeding with PO supplementation Activities you can perform: Weight Bearing as Ra Lucero MD Jul 28, 2017 09:57
== END 2017-07-28 12:22 | disposition home health service (06) | DRG 699 ==
LOC: NEPD 15:06 → NEDA 19:46 → NEPGCP 21:51 → OBSVTOIN 07-22 10:13 → N07B 07-22 22:54
PROVIDERS: ADMIT Family Medicine; ATTEND Family Medicine
PROC: 30233N1 Transfusion of Nonautologous Red Blood Cells into Peripheral Vein, Percutaneous Approach (ICD-10-PCS; principal; 2017-07-24)
DX: N02.9 Recurrent and persistent hematuria with unspecified morphologic changes (principal); E46 Unspecified protein-calorie malnutrition; A04.72 Enterocolitis due to Clostridium difficile, not specified as recurrent; N13.8 Other obstructive and reflux uropathy; J44.9 Chronic obstructive pulmonary disease, unspecified; R13.10 Dysphagia, unspecified; Z93.1 Gastrostomy status; N39.0 Urinary tract infection, site not specified; Z68.1 Body mass index [BMI] 19.9 or less, adult; N40.1 Benign prostatic hyperplasia with lower urinary tract symptoms; I10 Essential (primary) hypertension; I25.10 Atherosclerotic heart disease of native coronary artery without angina pectoris; D64.9 Anemia, unspecified; R33.8 Other retention of urine; K21.9 Gastro-esophageal reflux disease without esophagitis; B96.1 Klebsiella pneumoniae [K. pneumoniae] as the cause of diseases classified elsewhere; B95.2 Enterococcus as the cause of diseases classified elsewhere; F17.210 Nicotine dependence, cigarettes, uncomplicated; F32.9 Major depressive disorder, single episode, unspecified; F41.9 Anxiety disorder, unspecified; Z95.1 Presence of aortocoronary bypass graft
CPT/HCPCS: 36430; 80048; 80053; 81001; 83036; 83605; 83735; 84100; 84439; 84443; 85025; 86850; 86900; 86901; 86920; 87077; 87086; 87186; 87493; G8987-GP; G8988-GP; G8996-GN; G8997-GN; G8998-GN; J0696; J1940; J7030; J7050; P9016

== ENCOUNTER 2017-08-17 08:14 | Day surgery (SDC) | payer MEDICARE, MEDICAID ==
[~2017-08-17] VITALS: Ht 167.6 cm; Wt 46.3 kg
[~2017-08-17 08:14] MED LIST changes: -ASPI81TA81 PO; -CEFU1TAB18 PO; +CIPR750T2 PO; -COUG100S PO; +LOPE-1 PO; +METR-1 PO; -POLY17S PO; -SENN187 PO; +TAMS5CAP PO; +VITA250T25 PO; -ZITH500T PO
[2017-08-17] MEDS ORDERED: IOHEXOL 350 MG/ML 100 ML BTL (for Cath Lab) OTHER ONE (08:15)
[2017-08-17] MEDS ORDERED: NS 1000P @30 MLS/HR (KVO) IV SCH (09:00)
[2017-08-17 09:33] VITALS: BP 157/74; PULSE 63; RESP 16; TEMP 98.1; O2SAT 100
[2017-08-17 09:41] LABS: AUTOMATED NEUTROPHIL # 4.5 TH/MM3 (1.8-7.7); BASOPHIL # 0.1 TH/MM3 (0-0.2); BASOPHIL % 0.9 % (0.0-2.0); EOSINOPHIL # 0.1 TH/MM3 (0-0.4); EOSINOPHIL % 1.7 % (0.0-4.0); HEMATOCRIT 35.5 % (39.0-51.0); HEMOGLOBIN 11.8 GM/DL (13.0-17.0); LYMPH % 23.9 % (9.0-44.0); LYMPHOCYTE # 1.6 TH/MM3 (1.0-4.8); MEAN CELL VOLUME 90.6 FL (80.0-100.0); MEAN CORPUSCULAR HGB CONC 33.2 % (32.0-36.0); MEAN PLATELET VOLUME 8.5 FL (7.0-11.0); MONO % 8.5 % (0.0-8.0); MONOCYTE # 0.6 TH/MM3 (0-0.9); PLATELET COUNT 333 TH/MM3 (150-450); RED BLOOD COUNT 3.92 MIL/MM3 (4.50-5.90); WHITE BLOOD COUNT 6.9 TH/MM3 (4.0-11.0)
[2017-08-17] MEDS ORDERED: PANT40TA3 PO (09:42)
[2017-08-17] MEDS ORDERED: NITR1SUB3 SL (09:42)
[2017-08-17] MEDS ORDERED: ASPI-516 CHEW (09:42)
[2017-08-17 09:49] LABS: INTERNATIONAL NORMALIZED RATIO 1.1 RATIO; PROTHROMBIN TIME - PATIENT 11.4 SEC (9.8-11.6)
[2017-08-17 10:14] LABS: BICARBONATE 27.4 MEQ/L (21.0-32.0); CALCIUM 8.4 MG/DL (8.5-10.1); CREATININE 0.56 MG/DL (0.60-1.30)
[2017-08-17] MEDS ORDERED: MIDAZOLAM HCL 2 MG/2 ML VIAL ONE (12:19)
--- NOTE | 2017-08-17 12:24 | CATHPROC ---
[employer] HIS Report Study Information Study Number Admission Scheduled Start Study Start [id number] Aug 17 2017 8:14AM 08/17/2017 Aug 17 2017 10:27AM Rowena Service Cardiac Catheterization Admit Source Facility Department Other [facility] - Shortage Worker Physician and Clinical Staff Initial Catracho Carlos Bee Breeder Pam Villafana,RN Bee Breeder Dawson Osorio,RN Recorder Kieran Wooten,RT(R) Scrub Rosa GomezRT(R) Procedures Performed Procedure Location (Site) Vessel Name Coronary Angiograms LCA Left Coronary Coronary Angiograms RCA Right Coronary Coronary Angiograms SVG-OM 2 CIRC Coronary Angiograms DIXON DIXON L Heart Cath Wire insertion Radial (left) Radial Art. Equipment Time Test Rider Description Size Mfg Part Number Used/Scraped TRANSDUCER, TRUWAVE [id number] 10:37 PORRAS ODELL * Used W/STOCKCOCK *[id number] [id number] *[id number] [id number] *[id number] [id number] *[id number] [id number] *[id number] 534-542T *[id number] WIRE, HYDROSTEER 150CM [id number] 11:38 [employer] 150CM Used ANGLED GLIDE *[id number] 10:37 Diaferon PACK, CCL CUSTOM * Used *[id number] 10:37 Diaferon SUPPORT, ARTERIAL ADULT [id number] *[id number] Used BAND, RADIAL COMPRESSION TR [id number] 12:10 [employer] 24CM Used SHORT 24 *[id number] 10:37 [employer] WIRE, EXCHANGE 260CM 3MMJ 260CM Used *[id number] 10:37 NAMIC MANIFOLD, 4 PORT * Used *[id number] 10:37 [employer]COMED OMNIPAQUE, 350 MG, 150ML 150ML [id number] Used [id number] 10:37 [facility] BLANKET,WARM AIR CCL * Used *[id number] SHEATH, FR6 TRANSRADIAL RM*[id number] 10:37 [employer] MEDICAL FR 6 Used SLENDER 10CM *[id number] History: Current Medications Medication Dosage/Unit Route Frequency Last Date/Time Taken LISINOPRIL Statins (any) LOPRESSOR ASA PLAVIX History: Allergies Allergy Reaction No Known Allergies History: Risk Factors Family History of Hypertension Dyslipidemia Previous CA Previous Heart Failure Premature CAD Yes Yes Yes Yes No Prior Valve Prior PCI Prior CABG Prior CABGDate Surgery No No Yes 08/12/2007 Cerebrovascular Peripheral Artery Chronic Lung On Dialysis Diabetes Disease Disease Disease No No Yes Yes No History: CV Disease Selection Items Known CAD CA History: Stress Tests Stress or Imaging Studies Performed Yes Standard Exercise Stress Test No Stress Echo No Stress Test SPECT Stress Test SPECT Result Stress Test SPECT Ischemia Risk/Extent Yes Positive High Stress Test CMR No Cardiac CTA Coronary Calcium Score No No History: Other Disease Selection Items CAD COPD HTN History: Other Current Smoker Method Packs a Day Years Used Pack Years Yes Pipe 1 50 50 Labs Hgb (g/dl) Hct (%) RBC (MIL/MM3) WBC (l/cumm) Platelets (thousands) 11.60-17.00 35.00-51.00 4.00-5.90 4.00-11.00 150.00-450.00 11.8 35.5 3.9 6.9 333 Glucose (mg/dl) BUN (mg/dl) Creatinine (mg/dl) BUN:Creatinine (1:x) 74.00-106.00 7.00-18.00 0.50-1.30 10.00-20.00 75 9 0.5 18 Na (meq/l) K (meq/l) Cl (meq/l) CO2 (mmol/L) Ca (mg/dl) 136.00-145.00 3.50-5.10 98.00-107.00 21.00-32.00 8.50-10.10 139 4.1 106 27.4 8.4 PT (sec) PTT (sec) INR (PTT:PT) 9.80-11.60 24.30-30.10 0.90-1.10 11.4 33.6 1.1 CPK-MB (ng/ML) 0.50-3.60 Not Drawn Medication Medication Total Dose (Bolus/Oral) Medication Total Dosage/Unit 1% XYLOCAINE 5 mL FENTANYL 25 mcg RADIAL COCKTAIL 5 mL (Bolus) VERSED 0.5 mg Medications (Bolus/Oral) Medication Time Given Dosage/Unit Administered By Reason VERSED 08/17/2017 11:29:42 AM 0.5 mg Pam Villafana 0.5 mg VERSED given in lab by Pam Villafana RN in Left Forearm via Peripheral IV. FENTANYL 08/17/2017 11:29:57 AM 25 mcg Pam Villafana 25 mcg FENTANYL given in lab by Pam Villafana RN in Left Forearm via Peripheral IV. 1% XYLOCAINE 08/17/2017 11:30:09 AM 5 mL Catracho Stapleton 5 mL 1% XYLOCAINE given in lab by Catracho Stapleton in Left Radial via Subcutaneous. RADIAL COCKTAIL 08/17/2017 11:36:01 AM 5 mL (Bolus) Catracho Stapleton 5 mL (Bolus) RADIAL COCKTAIL given in lab by Catracho Stapleton via Radial. Using [Solution Name]. Medication (Drip) Medication Time Given Dosage/Unit Concentration/Unit Diluent (ml) Solution IV Solutions 08/17/2017 10:47:53 AM 0 mL (IV) 500 NaCl .9 IV Solutions given in lab by Pam Villafana RN in Left Forearm via Peripheral IV. Pump/Drip Flow = 2 0 ml/hr using NaCl .9. Initial Case Assessment Cardiovascular HR Rhythm NIBP Chest Pain 61 Sinus 161/71 0 Edema Present Skin color Skin None Normal Warm Dry Circulatory - Right Pulses Dorsalis Pedis Femoral 2 2 Scale (0,1,2,3,4,d) Circulatory - Left Pulses Dorsalis Pedis Femoral 2 2 Scale (0,1,2,3,4,d) Neurological State Oriented to time-place- Alert Moves all extremities person Respiration - General Respiration Rate SpO2 (%) O2 (lpm) (B/min) 16 99 0 Final Case Assessment Cardiovascular HR Rhythm NIBP Chest Pain 69 Sinus 164/71 0 Edema Present Skin color Skin None Normal Warm Dry Circulatory - Right Pulses Dorsalis Pedis Femoral 2 2 Scale (0,1,2,3,4,d) Circulatory - Left Pulses Dorsalis Pedis Femoral 2 2 Scale (0,1,2,3,4,d) Neurological State Oriented to time-place- Alert Moves all extremities person Respiration - General Respiration Rate SpO2 (%) O2 (lpm) (B/min) 13 100 0 Chronological Log Time Study Chronological Log 10:47:39 Patient arrived via Bed. 10:47:39 Patient Name, D.O.B, / Armband Verified By R.N. 10:47:40 Consent signed by the physician and the patient and verified by the Shortage Worker staff. 10:47:41 Pre-op and post- op instructions given; patient acknowledges understanding of instructions. 10:47:41 Verbal Stimulation=2 Physical Stimulation=2 Airway=2 Respiration=2 TOTAL=8. (0=absent, 1=li mited, 2=present) 10:47:42 Presedation assessment performed by Shortage Worker RN. 10:47:44 Allens test performed on the right radial and ulnar artery. 10:47:46 Patient has been NPO for More than 6Hrs. 10:47:47 Skin Breakdown- none per patient. 10:47:48 Patient Warmer Placed on the Table. 10:47:50 Kim Prominences Protected 10:47:52 A # 20 IV was noted in the Forearm (left). Grade = 0 IV Solutions given in lab by Pam Villafana, RN in Left Forearm via Peripheral IV. Pump/Drip Fl ow = 20 ml/hr using 10:47:53 NaCl .9. 10:47:54 History and physical on the chart or being dictated. Assessment: Initial Case, HR=61 BPM, Rhythm=Sinus, RXFH=700/71 mmhg, Chest Pain=0, Edema=None, Color=Normal, Skin = Warm, Dry Right Pulses: Deshawn Ped=2, Femoral=2 10:47:56 Left Pulses: Deshawn Ped=2, Femoral=2, Radial=2 Neurological: State=Alert, Ox3, IVEY Respiration: Resp=16 B/min, SpO2=99 %, O2=0 lpm Vitals capture started with the following parameters, Patient=Adult, Interval=5 min, Initial Pr wywzhq=960 mmHg, 10:56:16 Deflation Rate=5 mmHg, Cuff placed on Right Ankle 10:56:53 HR=61 bpm, XZHO=917/71 mmhg, SpO2=99.0 %, Resp=15 B/min, Pain=0, Giovani=10, Albert=2 11:01:56 HR=96 bpm, ETCP=022/71 mmhg, PvM3=555.0 %, Resp=15 B/min, Pain=0, Giovani=10, Albert=2 11:02:51 Left Radial and groin(s) prepped with 2% chlorhexidine, and draped after a 3 min. waiting t kia. 11:06:55 HR=61 bpm, SRCT=661/72 mmhg, SuV8=128.0 %, Resp=13 B/min, Pain=0, Giovani=10, Albert=2 11:07:52 DO Paged 11:10:36 Pressure channel 1 zeroed. 11:11:54 HR=61 bpm, QJTC=406/70 mmhg, AiL8=561.0 %, Resp=14 B/min, Pain=0, Giovani=10, Albert=2 11:16:53 HR=61 bpm, ALEZ=070/70 mmhg, EcK7=270.0 %, Resp=14 B/min, Pain=0, Giovani=10, Albert=2 11:21:55 HR=64 bpm, UZWN=350/72 mmhg, EaW7=934.0 %, Resp=9 B/min, Pain=0, Giovani=10, Albert=2 11:23:11 DO arrived. 11:26:56 HR=62 bpm, DJPC=786/71 mmhg, TrQ1=537.0 %, Resp=17 B/min, Pain=0, Giovani=10, Albert=2 Time Out. Correct patient, correct procedure, correct physician, power injector not loaded with contrast with surgical 11:28:41 team present. Time Out Concurred by MD and individual staff in procedure. 11:29:00 Case Start 11:29:42 0.5 mg VERSED given in lab by Pam Villafana RN in Left Forearm via Peripheral IV. 11:29:57 25 mcg FENTANYL given in lab by Pam Villafana, NOEMI in Left Forearm via Peripheral IV. 11:30:09 5 mL 1% XYLOCAINE given in lab by Catracho Stapleton in Left Radial via Subcutaneous. 11:31:55 HR=66 bpm, HTKT=181/77 mmhg, SpO2=96 %, Resp=15 B/min, Albert=2 11:34:01 Access site was Left Radial Artery. A SHEATH, FR6 TRANSRADIAL SLENDER 10CM FR 6 was advanced into the Radial (left) using the Modpooja huber Seldingjohan 11:35:49 technique. 11:36:01 5 mL (Bolus) RADIAL COCKTAIL given in lab by Catracho Stapleton via Radial. Using [Solutio n Name]. 11:36:12 A JR 4.0 INFINITI CATHETER FR 5 was advanced over a wire. contrast was used for injections. 11:36:58 HR=79 bpm, XNFA=123/73 mmhg, SpO2=99.0 %, Resp=19 B/min, Pain=0, Giovani=10, Albert=2 11:37:54 A WIRE, HYDROSTEER 150CM ANGLED GLIDE 150CM was inserted via Radial (left). Recorded Pressure: Ao, HR=76, Condition=Condition 1 11:38:50 (Aorta) Ao 143/65/96 11:38:51 Wire removed Recorded Pressure: LV, HR=66, Condition=Condition 1 11:41:59 (Left Ventricle) LV 154/2/10 Recorded Pressure: LV, Ao, HR=67, Condition=Condition 1 11:42:12 (Left Ventricle) LV 153/-5/8, (Aorta) Ao 150/50/96 11:42:30 HR=66 bpm, GMGD=463/73 mmhg, SpO2=99.0 %, Resp=10 B/min, Pain=0, Giovani=10, Albert=2 11:43:45 The RCA was injected and visualized at various angles. OMNIPAQUE, 350 MG, 150ML 150ML used . After removing the current catheter a JL 4.0 INFINITI CATHETER FR 5 was advanced over a WIRE, E XCHANGE 260CM 11:46:41 3MMJ 260CM. 11:46:54 HR=66 bpm, CEVL=236/72 mmhg, XrA8=582.0 %, Resp=10 B/min, Pain=0, Albert=2 11:51:10 The LCA was injected and visualized at various angles. OMNIPAQUE, 350 MG, 150ML 150ML used . 11:51:57 HR=72 bpm, YRDX=542/78 mmhg, JeN8=512.0 %, Resp=14 B/min, Pain=0, Albert=2 After removing the current catheter a AL 1 INFINITI CATHETER FR 5 was advanced over a WIRE, EX CHANGE 260CM 11:53:26 3MMJ 260CM. 11:54:10 Wire removed 11:55:46 The SVG-OM 2 was injected and visualized at various angles. OMNIPAQUE, 350 MG, 150ML 150ML used. 11:57:00 HR=70 bpm, HXJH=916/70 mmhg, RjP2=258.0 %, Resp=17 B/min, Pain=0, Albert=2 After removing the current catheter a MPA-2 INFINITI CATHETER FR 5 was advanced over a WIRE, E XCHANGE 260CM 12:00:31 3MMJ 260CM. 12:01:59 HR=64 bpm, RVCU=220/68 mmhg, CiP6=525.0 %, Resp=17 B/min, Pain=0, Giovani=10, Albert=2 After removing the current catheter a LETY INFINITI CATHETER FR 5 was advanced over a WIRE, EXC HANGE 260CM 12:04:19 3MMJ 260CM. 12:05:23 The DIXON was injected and visualized at various angles. OMNIPAQUE, 350 MG, 150ML 150ML use d. 12:06:56 HR=69 bpm, UCKU=265/81 mmhg, HzS8=918.0 %, Resp=13 B/min, Pain=0, Giovani=10, Albert=2 12:07:03 A WIRE, EXCHANGE 260CM 3MMJ 260CM was inserted via Radial (left). 12:07:53 Catheter was removed 12:07:55 Wire removed 12:08:27 Case End Radial Compression Device Used. 9 mLs of air placed in BAND, RADIAL COMPRESSION TR SHORT 24 24 CM. Affected 12:10:10 hand 100 % O2 saturation. 12:11:36 No case complications noted. 12:11:37 Cine recording checked. 12:12:01 QRSK=506/71 mmhg, TgK7=360.0 %, Pain=0, Giovani=10, Albert=2 12:12:09 Bedside Report will be given. 12:12:15 Vitals capture stopped. 12:12:19 A Left Heart Cath was performed. Assessment: Final Case, HR=69 BPM, Rhythm=Sinus, AVIN=883/71 mmhg, Chest Pain=0, Edema=None, Color=Normal, Skin = Warm, Dry Right Pulses: Deshawn Ped=2, Femoral=2 12:12:42 Left Pulses: Deshawn Ped=2, Femoral=2, Radial=2 Neurological: State=Alert, Ox3, IVEY Respiration: Resp=13 B/min, FyV6=671 %, O2=0 lpm End Study - Contrast Media Used In Study Contrast Total Opened (mL) Total Used (mL) Total Wasted (mL) Hypaque 76 150 60 90 End Study - Maximum Contrast Load Max Contrast Load (mL) 463.2 End Study - Radiation Exposure Fluoro Time (minutes) 12.8 End Study - Patient Disposition Complications Transferred To Interventional Outcome No Outpatient Bed No attempt made
[2017-08-17] MEDS ORDERED: MISC INFORMATION XX ONE (12:30)
--- NOTE | 2017-08-17 13:35 | EKG ---
Date Performed: 08/17/2017 Time Performed: 09:40:12 PTAGE: 67 years EKG: Sinus rhythm Indeterminate axis Septal and lateral ST-T changes are nonspecific EARLY REPOLARIZATION IN V3 Border line ECG PREVIOUS TRACING : 05/27/2017 10.23 DOCTOR: Curtis Javier Interpretating Date/Time 08/17/2017 13:34:26
--- NOTE | 2017-08-18 23:31 | MA ---
cc: Catracho Stapleton DO 08/17/2017 PROCEDURE: Left heart catheterization, coronary angiogram, bypass angiogram, moderate sedation 40 minutes. PREPROCEDURE DIAGNOSES: Preoperative cardiovascular evaluation, abnormal stress test. POSTPROCEDURE DIAGNOSES: Coronary artery disease, history of coronary artery bypass graft x 3 (2/3 grafts patent). MEDICATIONS: Versed 0.5 mg, Fentanyl 25 mcg, heparin 2000 units, verapamil 2.5 mg, nitro 200 mcg. CONTRAST USED: 60 mL. FLUOROSCOPY: 12.8 minutes. MODERATE SEDATION: 40 minutes. ESTIMATED BLOOD LOSS: 10 mL. PROCEDURAL SUMMARY: Bobby León is a pleasant 67-year-old male who I see in the office and may need to undergo a urological procedure. Because of this he underwent stress testing and this was found to be abnormal so he was recommended cardiac catheterization. Risks, benefits and alternatives were explained and he consented as such. He was brought to the lab and prepped in the usual sterile fashion. Left radial artery was accessed using a modified Seldinger technique and then placed in a ____ 6 [place] Slender sheath. This was easily aspirated and flushed. A JR4 was advanced over a J wire to the ascending aorta and across the aortic valve for measurement of left ventricular pressure. This was pulled back across the aortic valve showing no significant gradient of aortic stenosis. The JR4 was used for selective angiography of the right coronary artery system. This was exchanged for a JL4 which was used for selective angiography of the left coronary artery system. This was then exchanged for an AL1 which was used for selective angiography of the saphenous vein graft to the obtuse marginal. A multipurpose catheter was then attempted to find any other grafts but was unable to. This was then exchanged for IM catheter which was used for selective angiography of the DIXON to LAD. IM catheter was removed over a J wire. A radial band was placed of the arteriotomy site for hemostasis. The patient left the cleaner laboratory equipment cardiovascularly stable. FINDINGS: LEFT MAIN: Overall small vessel with 60% diffuse disease. It bifurcates into an LAD and circumflex. LEFT ANTERIOR DESCENDIN% disease throughout the proximal portion with 100% disease in the mid portion. It gives off 2 small diagonals both with 90% disease and overall 1.5 mm vessels. LEFT CIRCUMFLEX: Overall small vessel with diffuse 70% disease. The obtuse marginal has diffuse 50% disease and there is competitive flow seen distally. RIGHT CORONARY ARTERY: Overall small vessel with diffuse 60% disease. It appears most likely to be a nondominant vessel with no supply of a PDA. LEFT INTERNAL MAMMARY ARTERY TO LEFT ANTERIOR DESCENDING: Patent and after touchdown supplies distally to an LAD. This also fills one small diagonal. SAPHENOUS VEIN GRAFT TO OBTUSE MARGINAL: Patent with a stent in the ostial portion with in-stent restenosis of 30%. Distally this supplies multiple obtuse marginals. LEFT VENTRICULAR END DIASTOLIC PRESSURE: 8. IMPRESSIONS: 1. Preoperative cardiovascular evaluation. 2. Coronary artery disease with a history of coronary artery bypass graft x 2 (2/3 grafts patent). RECOMMENDATIONS: 1. Mr. León appears to have 2 out of his 3 grafts patent with no disease which is intervenable at this time. 2. He will be discharged today. 3. If surgery is needed, he may proceed as an intermediate to high risk. Thank you for allowing me to see Mr. León. If there any questions, please do not hesitate to call. Catracho Stapleton DO VGP/rt , 10:37 PM , 11:30 PM
== END 2017-08-17 18:42 | disposition home or self-care (01) ==
LOC: HDOC 08:14 → HDIC 08:14 → HDOC 18:42
PROVIDERS: ATTEND Nuclear Medicine Nuclear Cardiology
DX: I25.10 Atherosclerotic heart disease of native coronary artery without angina pectoris (principal); I10 Essential (primary) hypertension; Z95.1 Presence of aortocoronary bypass graft
CPT/HCPCS: 80048; 85025; 85610; 85730; 93005; 93458; 99152; 99153; C1769; C1893; J2250; J3010; Q9967

== ENCOUNTER 2017-10-07 13:10 | Inpatient (IN) | payer MEDICARE, MEDICAID ==
[~2017-10-07] VITALS: Ht 167.6 cm; Wt 38.5 kg
[~2017-10-07 13:10] MED LIST changes: +ASPI-516 CHEW; -CIPR750T2 PO; -LOPE-1 PO; -METR-1 PO; +NITR1SUB3 SL; -OMEP40CA2 PO; +PANT40TA3 PO; -SUCR1S PO
[2017-10-07 13:44] VITALS: BP 123/64; PULSE 91; RESP 16; TEMP 97.8; O2SAT 97
[2017-10-07] MEDS ORDERED: SODIUM CHLOR 0.9% 1000 ML INJ 1,000 ML IV SCH (14:02)
[2017-10-07] MEDS ORDERED: SODIUM CHLORIDE 0.9% FLUSH 10 ML FLUSH IV FLUSH PRN ×2 (14:15→17:15)
[2017-10-07] MEDS ORDERED: MORPHINE SULFATE 4 MG/ML INJ IV PUSH ONE (14:15)
[2017-10-07] MEDS ORDERED: ONDANSETRON HCL 4 MG/2 ML VIAL IVP ONE (14:15)
[2017-10-07 14:33] LABS: AUTOMATED NEUTROPHIL # 10.5 TH/MM3 (1.8-7.7); BASOPHIL % 0.2 % (0.0-2.0); HEMATOCRIT 38.7 % (39.0-51.0); HEMOGLOBIN 12.9 GM/DL (13.0-17.0); LYMPH % 4.1 % (9.0-44.0); LYMPHOCYTE # 0.5 TH/MM3 (1.0-4.8); MEAN CORPUSCULAR HEMOGLOBIN 29.9 PG (27.0-34.0); MEAN CORPUSCULAR HGB CONC 33.2 % (32.0-36.0); MEAN PLATELET VOLUME 9.7 FL (7.0-11.0); MONO % 2.1 % (0.0-8.0); MONOCYTE # 0.2 TH/MM3 (0-0.9); NEUT % 93.6 % (16.0-70.0); PLATELET COUNT 249 TH/MM3 (150-450); RED CELL DISTRIBUTION WIDTH 15.7 % (11.6-17.2); WHITE BLOOD COUNT 11.2 TH/MM3 (4.0-11.0)
--- NOTE | 2017-10-07 14:34 | PD ---
HPI Chief Complaint: Abdominal Pain Time Seen by Provider: 13:57 Travel History International Travel<30 days: No Contact w/Intl Traveler<30days: No Traveled to known affect area: No History of Present Illness HPI 67 YO M with PMH of dysphagia and implanted PEG tube, SBO, HTN, COPD, CAD presents to the ED for evaluation of 3 day history of cramping abdominal pain. Gradual onset, rated 7/10. Accompanied by nausea. Patient endorses chronic loose stools. He endorses using Jevity as well as taking food orally. Patient denies fever, chills, vomiting, melena, hematochezia, dysuria, hematuria. He states that he had a indwelling Wright catheter removed approximately 3 or 4 weeks ago. He is followed by Dr. Gregory, Dr. Mtz. [facility] Past Medical History Hx Anticoagulant Therapy: Yes Asthma: No Autoimmune Disease: No Blood Disorders: Yes (on a blood thiner and had urethral bleed today) Anxiety: No Depression: No Heart Rhythm Problems: No Cancer: No Cardiovascular Problems: Yes (CAD, CABG, STENT placement) High Cholesterol: No Chemotherapy: No Chest Pain: No Congestive Heart Failure: No COPD: No Diabetes: No Diminished Hearing: No Endocrine: No Gastrointestinal Disorders: Yes (small bowel obstruction) GERD: Yes Genitourinary: No Hepatitis: No Hypertension: Yes Immune Disorder: No Implanted Vascular Access Dvce: No Musculoskeletal: No Neurologic: No Psychiatric: No Reproductive: No Respiratory: Yes (PNEUMONIA AFTER 2 SURGERGIES, SOB) Radiation Therapy: No Sleep Apnea: No Thyroid Disease: No Ulcer: No PNEUMOCCOCAL Vaccine (Year): 1 Past Surgical History Abdominal Surgery: Yes (peg placed) Body Medical Devices: PT. DENIES Cardiac Surgery: Yes (CABG 15 years ago) Coronary Artery Bypass Graft: Yes Endocrine Surgery: No Genitourinary Surgery: Yes (cbi placed) Gynecologic Surgery: No Pacemaker: No Thoracic Surgery: Yes Other Surgery: Yes (VASCULAR) Social History Alcohol Use: No Tobacco Use: No Substance Use: No Allergies-Medications (Allergen,Severity, Reaction): Coded Allergies: No Known Allergies (Verified Adverse Reaction, Unknown, 10/07/17) Reported Meds & Prescriptions Reported Meds & Active Scripts Active Finasteride 5 Mg Tab 5 Mg PO DAILY Do not crush. Reported Pantoprazole (Pantoprazole Sodium) 40 Mg Tab 40 Mg PO DAILY Nitroglycerin SL (Nitroglycerin) 0.4 Mg Subl 0.4 Mg SL DIRECTED PRN ONE TABLET UNDER THE TONGUE NEEDED FOR CHEST PAIN, MAY REPEAT EVERY FIVE MINUTES FOR A TOTAL OF 3 DOSES OR CALL 911 IF NO RELIEF Aspirin 81 Mg Chew 81 Mg CHEW DAILY Vitamin B-1 (Thiamine HCl) 250 Mg Tab 250 Mg PO DAILY Metoprolol Tartrate 25 Mg Tab 12.5 Mg PO BID Clopidogrel (Clopidogrel Bisulfate) 75 Mg Tab 75 Mg PO DAILY Lovastatin 20 Mg Tab 20 Mg PO DAILY Review of Systems Except as stated in HPI: all other systems reviewed are Neg Physical Exam Narrative GENERAL: Cachectic -[place] male in no acute distress. SKIN: Focused skin assessment warm/dry. HEAD: Normocephalic. EYES: No scleral icterus. No injection or drainage. NECK: Supple, trachea midline. No JVD or lymphadenopathy. CARDIOVASCULAR: Regular rate and rhythm without murmurs, gallops, or rubs. RESPIRATORY: Breath sounds clear and equal bilaterally. No accessory muscle use. GASTROINTESTINAL: Abdomen soft, nondistended, diffusely tender. Some voluntary guarding. No palpable masses. Hypoactive bowel sounds. MUSCULOSKELETAL: No cyanosis, or edema. BACK: Nontender without obvious deformity. No CVA tenderness. Data Data Last Documented VS Vital Signs Date Time Temp Pulse Resp B/P (MAP) Pulse Ox O2 Delivery O2 Flow Rate FiO2 10/07/17 13:44 97.8 91 16 123/64 (83) 97 Orders Orders Complete Blood Count With Diff (10/07/17 14:02) Comprehensive Metabolic Panel (10/07/17 14:02) Lipase (10/07/17 14:02) Lactic Acid (10/07/17 14:02) Prothrombin Time / Inr (Pt) (10/07/17 14:02) Act Partial Throm Time (Ptt) (10/07/17 14:02) Urinalysis - C+S If Indicated (10/07/17 14:02) Ct Abd/Pel W Iv Contrast(Rout) (10/07/17 14:02) Iv Access Insert/Monitor (10/07/17 14:02) Ecg Monitoring (10/07/17 14:02) Oximetry (10/07/17 14:02) Morphine Inj (Morphine Inj) (10/07/17 14:15) Ondansetron Inj (Zofran Inj) (10/07/17 14:15) Sodium Chlor 0.9% 1000 Ml Inj (Ns 1000 M (10/07/17 14:02) Sodium Chloride 0.9% Flush (Ns Flush) (10/07/17 14:15) Admit Order (Ed Use Only) (10/07/17 16:03) Labs Laboratory Tests Test 10/07/17 14:00 White Blood Count 11.2 TH/MM3 Red Blood Count 4.30 MIL/MM3 Hemoglobin 12.9 GM/DL Hematocrit 38.7 % Mean Corpuscular Volume 90.0 FL Mean Corpuscular Hemoglobin 29.9 PG Mean Corpuscular Hemoglobin Concent 33.2 % Red Cell Distribution Width 15.7 % Platelet Count 249 TH/MM3 Mean Platelet Volume 9.7 FL Neutrophils (%) (Auto) 93.6 % Lymphocytes (%) (Auto) 4.1 % Monocytes (%) (Auto) 2.1 % Eosinophils (%) (Auto) 0.0 % Basophils (%) (Auto) 0.2 % Neutrophils # (Auto) 10.5 TH/MM3 Lymphocytes # (Auto) 0.5 TH/MM3 Monocytes # (Auto) 0.2 TH/MM3 Eosinophils # (Auto) 0.0 TH/MM3 Basophils # (Auto) 0.0 TH/MM3 CBC Comment DIFF FINAL Differential Comment Prothrombin Time 12.1 SEC Prothromb Time International Ratio 1.2 RATIO Activated Partial Thromboplast Time 34.1 SEC Blood Urea Nitrogen 17 MG/DL Creatinine 0.91 MG/DL Random Glucose 81 MG/DL Total Protein 7.7 GM/DL Albumin 3.3 GM/DL Calcium Level 9.1 MG/DL Alkaline Phosphatase 75 U/L Aspartate Amino Transf (AST/SGOT) 12 U/L Alanine Aminotransferase (ALT/SGPT) 12 U/L Total Bilirubin 0.5 MG/DL Sodium Level 137 MEQ/L Potassium Level 4.2 MEQ/L Chloride Level 100 MEQ/L Carbon Dioxide Level 30.7 MEQ/L Anion Gap 6 MEQ/L Estimat Glomerular Filtration Rate 100 ML/MIN Lactic Acid Level 2.4 mmol/L Lipase 27 U/L MDM Medical Decision Making Medical Screen Exam Complete: Yes Emergency Medical Condition: Yes Differential Diagnosis Abdominal pain versus diverticulitis versus small bowel obstruction versus pancreatitis versus UTI versus other Narrative Course 67 YO M with PMH of dysphagia and implanted PEG tube, SBO, HTN, COPD, CAD presents to the ED for evaluation of 3 day history of cramping abdominal pain. Accompanied by nausea. Patient endorses chronic loose stools. He endorses using Jevity as well as taking food orally. He is followed by Dr. Gregory, Dr. Mtz. Since afebrile, pulse 91, BP 123/64 on presentation. On exam this is a thin -[place] male with diffuse abdominal tenderness. No palpable masses. There is an in dwelling PEG tube without signs of infection. There is some voluntary guarding. IV was established. Patient was administered 1 L normal saline, 4 mg Zofran, 4 mg morphine. PEG tube flushed easily per nurses report. CBC: WBC 11.2. Hemoglobin 12.9. INR: 1.2. Lactic acid 2.4. CMP unremarkable. Lipase 27. CT abdomen pelvis: Dilated fluid-filled small bowel with some additional air along with nondilated small bowel. Questionable transition point in the right midabdomen. No evidence of pneumatosis. Per radiology read. Dr. Alberto discussed the results of the workup with the patient. He is agreeable to admission. I spoke with Dr. Park who agrees to accept the patient to the medicine service. Please see medicine notes for disposition. Ivette Redd Oct 07, 2017 14:34
[2017-10-07 14:39] LABS: INTERNATIONAL NORMALIZED RATIO 1.2 RATIO; PROTHROMBIN TIME - PATIENT 12.1 SEC (9.8-11.6)
[2017-10-07 14:47] LABS: ALBUMIN 3.3 GM/DL (3.4-5.0); ALT (GPT) 12 U/L (12-78); AST (GOT) 12 U/L (15-37); BICARBONATE 30.7 MEQ/L (21.0-32.0); BLOOD UREA NITROGEN 17 MG/DL (7-18); CALCIUM 9.1 MG/DL (8.5-10.1); CHLORIDE 100 MEQ/L (98-107); CREATININE 0.91 MG/DL (0.60-1.30); GLOMERULAR FILTRATION RATE 100 ML/MIN (>89); GLUCOSE,RANDOM 81 MG/DL (74-106); SODIUM (NA) 137 MEQ/L (136-145)
[2017-10-07 14:50] LABS: ALKALINE PHOSPHATASE 75 U/L (45-117); TOTAL BILIRUBIN ADULT 0.5 MG/DL (0.2-1.0); TOTAL PROTEIN 7.7 GM/DL (6.4-8.2)
--- NOTE | 2017-10-07 15:27 | RADRPT ---
EXAM DATE/TIME: 10/07/2017 14:56 [facility] COMPARISON: CT ABDOMEN & PELVIS W CONTRAST, June 17, 2017, 9:54. INDICATIONS : Abdominal pain with history of small bowel obstruction. IV CONTRAST: 85 cc Omnipaque 350 (iohexol) IV ORAL CONTRAST: No oral contrast ingested. RADIATION DOSE: 6.64 CTDIvol (mGy) MEDICAL HISTORY : Cardiovascular disease. Hypertension. SURGICAL HISTORY : PEG tube ENCOUNTER: Initial ACUITY: 1 day PAIN SCALE: 4/10 LOCATION: Bilateral anterior TECHNIQUE: Volumetric scanning of the abdomen and pelvis was performed. Using automated exposure control and ad justment of the mA and/or kV according to patient size, radiation dose was kept as low as reasonably achievable to obtain optimal diagnostic quality images. DICOM format image data is available electro nically for review and comparison. FINDINGS: LOWER LUNGS: There is emphysema both lung bases right greater left. LIVER: Homogeneous density without lesion. There is no dilation of the biliary tree. No calcified gallston es. SPLEEN: Normal size without lesion. PANCREAS: Within normal limits. KIDNEYS: Normal in size and shape. There is no mass, stone or hydronephrosis. ADRENAL GLANDS: Within normal limits. VASCULAR: The patient had an aortic bifemoral bypass. BOWEL/MESENTERY: There is a gastric tube in place. There is significant fluid throughout the small bowel. Some of the small bowel is dilated proximally whereas other loops more distally are less distended. The colon is decompressed. In the right mid abdomen axial image 48 coronal image 52, there is a questionable trans ition point. There some questionable inflammation of the small bowel. There is no free intraperitonea l air or fluid. ABDOMINAL WALL: Within normal limits. RETROPERITONEUM: There is no lymphadenopathy. BLADDER: No wall thickening or mass. REPRODUCTIVE: Within normal limits. INGUINAL: There is no lymphadenopathy or hernia. MUSCULOSKELETAL: Within normal limits for patient age. CONCLUSION: Dilated fluid filled small bowel with some additional air small bowel which are nondilated. There is a questionable transition point in the right mid abdomen as described above. No evidence of pneumatos is. Status post aortobifem.. Curtis Lee MD on October 07, 2017 at 15:20 Board Certified Radiologist. This report was verified electronically.
--- NOTE | 2017-10-07 16:38 | HHI.HP ---
[facility] Service Family Medicine Primary Care Physician Mychal Gregory D.O. Admission Diagnosis Partial small bowel obstruction Diagnoses: International Travel<30 Days: No Contact w/Intl Traveler<30days: No Known Affected Area: No History of Present Illness Patient is a 67-year-old male with past medical history of dysphasia, implanted PEG tube, hypertension, and COPD who presented to the ED due to diffuse sharp abdominal pain across his navel. Patient reports that the abdominal pain started 3 days ago and has progressively worsen. Patient rates pain at as 10/ 10. Initially patient thought he was constipated and has been taking milk of magnesia for the past 3 days which has helped with his bowel movements. Patient stated last bowel movement was this morning, it was diarrhea watery with no blood. He vomited a small amount NBNB. Endorses nausea and chills. He he has been able to eat by mouth and tube feeds. Patient is a poor historian. (Derek Dumont MD, R1) Review of Systems Constitutional: COMPLAINS OF: Weight loss (past yr has loss wt does not know how much), Chills, DENIES: Fever Respiratory: DENIES: Cough Cardiovascular: DENIES: Chest pain, Palpitations, Lower Extremity Edema Gastrointestinal: COMPLAINS OF: Abdominal pain, Diarrhea, Nausea, Vomiting, DENIES: Black stools, Bloody stools Genitourinary: DENIES: Urinary frequency, Dysuria Musculoskeletal: DENIES: Joint Swelling Integumentary: DENIES: Rash Hematologic/lymphatic: DENIES: Bruising Neurologic: DENIES: Abnormal gait, Headache (Derek Dumont MD, R1) Past Family Social History Past Medical History dysphasia, implanted PEG tube, hypertension, and COPD Past Surgical History aortic bifemoral bypass BL CABG Reported Medications Reported Meds & Active Scripts Active Finasteride 5 Mg Tab 5 Mg PO DAILY Do not crush. Reported Pantoprazole (Pantoprazole Sodium) 40 Mg Tab 40 Mg PO DAILY Aspirin 81 Mg Chew 81 Mg CHEW DAILY Vitamin B-1 (Thiamine HCl) 250 Mg Tab 250 Mg PO DAILY Metoprolol Tartrate 25 Mg Tab 12.5 Mg PO BID Clopidogrel (Clopidogrel Bisulfate) 75 Mg Tab 75 Mg PO DAILY Lovastatin 20 Mg Tab 20 Mg PO DAILY (Derek Dumont MD, R1) Allergies: Coded Allergies: No Known Allergies (Verified Adverse Reaction, Unknown, 10/07/17) Family History Father, Mother and sister with CAD Sister with Colon Cancer Social History Patient lives alone but report he has a friend who helps him with shopping for food and food preparation. He is on disability. Does not use any assisted devices to ambulate. smoking 1 pack per day denies alcohol or illicit drug use. (Derek Dumont MD, R1) Physical Exam Vital Signs Vital Signs Date Time Temp Pulse Resp B/P (MAP) Pulse Ox O2 Delivery O2 Flow Rate FiO2 10/07/17 13:44 97.8 91 16 123/64 (83) 97 Physical Exam GENERAL: This is a cachectic male in no apparent distress. SKIN: No rashes, ecchymoses or lesions. Cool and dry. HEAD: Atraumatic. Normocephalic. EYES: Pupils equal round and reactive. Extraocular motions intact. No scleral icterus. No injection or drainage. ENT: Nose without bleeding, purulent drainage or septal hematoma. Throat without erythema, tonsillar hypertrophy or exudate. Uvula midline. Airway patent. NECK: Trachea midline. No JVD or lymphadenopathy. Supple, nontender, no meningeal signs. CARDIOVASCULAR: Normal S1-S2. Regular rate and rhythm without murmurs, gallops , or rubs. RESPIRATORY: Clear to auscultation. Breath sounds equal bilaterally. No wheezes , rales, or rhonchi. GASTROINTESTINAL: Abdomen soft, nondistended. There is a palpation along the lower left and right quadrant. no hepato-splenomegaly, or palpable masses. No guarding. PEG tube in place. MUSCULOSKELETAL: Extremities without clubbing, cyanosis, or edema. No joint tenderness, effusion, or edema noted. No calf tenderness. +2 DP pulses BL. NEUROLOGICAL: Awake and alert. Cranial nerves II through XII intact. Motor and sensory grossly within normal limits. Five out of 5 muscle strength in all muscle groups. Poor historian. Laboratory Laboratory Tests Test 10/07/17 14:00 White Blood Count 11.2 Red Blood Count 4.30 Hemoglobin 12.9 Hematocrit 38.7 Mean Corpuscular Volume 90.0 Mean Corpuscular Hemoglobin 29.9 Mean Corpuscular Hemoglobin Concent 33.2 Red Cell Distribution Width 15.7 Platelet Count 249 Mean Platelet Volume 9.7 Neutrophils (%) (Auto) 93.6 Lymphocytes (%) (Auto) 4.1 Monocytes (%) (Auto) 2.1 Eosinophils (%) (Auto) 0.0 Basophils (%) (Auto) 0.2 Neutrophils # (Auto) 10.5 Lymphocytes # (Auto) 0.5 Monocytes # (Auto) 0.2 Eosinophils # (Auto) 0.0 Basophils # (Auto) 0.0 CBC Comment DIFF FINAL Differential Comment Prothrombin Time 12.1 Prothromb Time International Ratio 1.2 Activated Partial Thromboplast Time 34.1 Blood Urea Nitrogen 17 Creatinine 0.91 Random Glucose 81 Total Protein 7.7 Albumin 3.3 Calcium Level 9.1 Alkaline Phosphatase 75 Aspartate Amino Transf (AST/SGOT) 12 Alanine Aminotransferase (ALT/SGPT) 12 Total Bilirubin 0.5 Sodium Level 137 Potassium Level 4.2 Chloride Level 100 Carbon Dioxide Level 30.7 Anion Gap 6 Estimat Glomerular Filtration Rate 100 Lactic Acid Level 2.4 Lipase 27 (Derek Dumont MD, R1) Result Diagram: 10/07/17 1400 10/07/17 1400 Imaging Last Impressions Abdomen/Pelvis CT 10/07/17 1402 Signed Impressions: Service Date/Time: Tuesday, October 07, 2017 14:56 - CONCLUSION: Dilated fluid filled small bowel with some additional air small bowel which are nondilated. There is a questionable transition point in the right mid abdomen as described above. No evidence of pneumatosis. Status post aortobifem.. Curtis Lee MD (Derek Dumont MD, R1) Caprini VTE Risk Assessment Caprini VTE Risk Assessment: Mod/High Risk (score >= 2) Caprini Risk Assessment Model Point Value = 1 Point Value = 2 Point Value = 3 Point Value = 5 Age 41-60 Minor surgery BMI > 25 kg/m2 Swollen legs Varicose veins or History of unexplained or recurrent spontaneous Oral contraceptives or hormone replacement Sepsis (< 1 month) Serious lung disease, including pneumonia (< 1 month) Abnormal pulmonary function Acute myocardial infarction Congestive heart failure (< 1 month) History of inflammatory bowel disease Medical patient at bed rest Age 61-74 Arthroscopic surgery Major open surgery (> 45 min) Laparoscopic surgery (> 45 min) Malignancy Confined to bed (> 72 hours) Immobilizing plaster cast Central venous access Age >= 75 History of VTE Family history of VTE Factor V Leiden Prothrombin [id number] Lupus anticoagulant Anticardiolipin antibodies Elevated serum homocysteine Heparin-induced thrombocytopenia Other congenital or acquired thrombophilia Stroke (< 1 month) Elective arthroplasty Hip, pelvis, or leg fracture Acute spinal cord injury (< 1 month) Prophylaxis Regimen Total Risk Factor Score Risk Level Prophylaxis Regimen 0-1 Low Early ambulation 2 Moderate Order ONE of the following: *Sequential Compression Device (SCD) *Heparin 5000 units SQ BID 3-4 Higher Order ONE of the following medications: *Heparin 5000 units SQ TID *Enoxaparin/Lovenox 40 mg SQ daily (WT < 150 kg, CrCl > 30 mL/min) *Enoxaparin/Lovenox 30 mg SQ daily (WT < 150 kg, CrCl > 10-29 mL/min) *Enoxaparin/Lovenox 30 mg SQ BID (WT < 150 kg, CrCl > 30 mL/min) AND/OR *Sequential Compression Device (SCD) 5 or more Highest Order ONE of the following medications: *Heparin 5000 units SQ TID (Preferred with Epidurals) *Enoxaparin/Lovenox 40 mg SQ daily (WT < 150 kg, CrCl > 30 mL/min) *Enoxaparin/Lovenox 30 mg SQ daily (WT < 150 kg, CrCl > 10-29 mL/min) *Enoxaparin/Lovenox 30 mg SQ BID (WT < 150 kg, CrCl > 30 mL/min) AND *Sequential Compression Device (SCD) (Derek Dumont MD, R1) Assessment and Plan Assessment and Plan Patient is a 67-year-old male with past medical history of dysphasia, implanted PEG tube, hypertension, and COPD presented with: Code Status Full code Discussed Condition With Dr. Park (Derek Dumont MD, R1) Attending Attestation The patient has been seen and examined. The chart and all resident notes have been reviewed. I agree that inpatient care is appropriate and that a two midnight stay is expected for the reasons documented in the resident history and physical. I have discussed this with the resident and certify the resident s order for inpatient admission. (Marce Watts MD) Problem List: (1) Abdominal pain ICD Codes: R10.9 - Unspecified abdominal pain Status: Acute Plan: Patient with 3 day history of progressive worsening abdominal pain. Slight leukocytosis of 11.2, HR 92, CT abdomen pelvis: Dilated fluid-filled small bowel with some air, nondilated, no evidence of pneumonitis UA: negative Lactic acid elevated at 2.4, patient is not septic appearing Patient to be managed medically at the moment for SBO. Continue with NG tube suction, IV fluids, and Toradol IV for pain Patient is known to Dr. Mtz, general surgery consulted appreciate recommendations Follow-up Lactic acid cbc (2) Small bowel obstruction ICD Codes: K56.609 - Unspecified intestinal obstruction, unspecified as to partial versus complete obstruction Status: Acute Plan: See plan above (3) COPD (chronic obstructive pulmonary disease) ICD Codes: J44.9 - Chronic obstructive pulmonary disease Status: Chronic Plan: No active COPD symptoms Duonebs as needed (4) Hypertension ICD Codes: I10 - Hypertension Status: Chronic Plan: Patient with normal blood pressures Hold home blood pressure medication (5) Nutrition, metabolism, and development symptoms ICD Codes: R63.8 - Other symptoms and signs concerning food and fluid intake Plan: Fluids: 80 mls/hr Electrolytes: Within normal limits, replete as needed Nutrition: N.p.o. DVT prophylaxis: Lovenox 40mg Q24h (Derek Dumont MD, R1) Problem Qualifiers (1) Abdominal pain: Qualified Codes: R10.9 - Unspecified abdominal pain Derek Dumont MD, R1 Oct 07, 2017 16:38 Marce Watts MD Oct 09, 2017 09:53
--- NOTE | 2017-10-07 16:39 | PD ---
Physical Exam Narrative GENERAL: 67-year-old male who is thin SKIN: Focused skin assessment warm/dry. HEAD: Atraumatic. Normocephalic. EYES: No scleral icterus. No injection or drainage. ENT: No nasal bleeding or discharge. NECK: Trachea midline. CARDIOVASCULAR: Regular rate and rhythm. RESPIRATORY: No accessory muscle use. No increased effort MUSCULOSKELETAL: No obvious deformities. No clubbing. No cyanosis. NEUROLOGICAL: Awake. Moves extremities. Normal speech. Data Data Last Documented VS Vital Signs Date Time Temp Pulse Resp B/P (MAP) Pulse Ox O2 Delivery O2 Flow Rate FiO2 10/07/17 13:44 97.8 91 16 123/64 (83) 97 Orders Orders Complete Blood Count With Diff (10/07/17 14:02) Comprehensive Metabolic Panel (10/07/17 14:02) Lipase (10/07/17 14:02) Lactic Acid (10/07/17 14:02) Prothrombin Time / Inr (Pt) (10/07/17 14:02) Act Partial Throm Time (Ptt) (10/07/17 14:02) Urinalysis - C+S If Indicated (10/07/17 14:02) Ct Abd/Pel W Iv Contrast(Rout) (10/07/17 14:02) Iv Access Insert/Monitor (10/07/17 14:02) Ecg Monitoring (10/07/17 14:02) Oximetry (10/07/17 14:02) Morphine Inj (Morphine Inj) (10/07/17 14:15) Ondansetron Inj (Zofran Inj) (10/07/17 14:15) Sodium Chlor 0.9% 1000 Ml Inj (Ns 1000 M (10/07/17 14:02) Sodium Chloride 0.9% Flush (Ns Flush) (10/07/17 14:15) Admit Order (Ed Use Only) (10/07/17 16:03) Labs Laboratory Tests Test 10/07/17 14:00 White Blood Count 11.2 TH/MM3 Red Blood Count 4.30 MIL/MM3 Hemoglobin 12.9 GM/DL Hematocrit 38.7 % Mean Corpuscular Volume 90.0 FL Mean Corpuscular Hemoglobin 29.9 PG Mean Corpuscular Hemoglobin Concent 33.2 % Red Cell Distribution Width 15.7 % Platelet Count 249 TH/MM3 Mean Platelet Volume 9.7 FL Neutrophils (%) (Auto) 93.6 % Lymphocytes (%) (Auto) 4.1 % Monocytes (%) (Auto) 2.1 % Eosinophils (%) (Auto) 0.0 % Basophils (%) (Auto) 0.2 % Neutrophils # (Auto) 10.5 TH/MM3 Lymphocytes # (Auto) 0.5 TH/MM3 Monocytes # (Auto) 0.2 TH/MM3 Eosinophils # (Auto) 0.0 TH/MM3 Basophils # (Auto) 0.0 TH/MM3 CBC Comment DIFF FINAL Differential Comment Prothrombin Time 12.1 SEC Prothromb Time International Ratio 1.2 RATIO Activated Partial Thromboplast Time 34.1 SEC Blood Urea Nitrogen 17 MG/DL Creatinine 0.91 MG/DL Random Glucose 81 MG/DL Total Protein 7.7 GM/DL Albumin 3.3 GM/DL Calcium Level 9.1 MG/DL Alkaline Phosphatase 75 U/L Aspartate Amino Transf (AST/SGOT) 12 U/L Alanine Aminotransferase (ALT/SGPT) 12 U/L Total Bilirubin 0.5 MG/DL Sodium Level 137 MEQ/L Potassium Level 4.2 MEQ/L Chloride Level 100 MEQ/L Carbon Dioxide Level 30.7 MEQ/L Anion Gap 6 MEQ/L Estimat Glomerular Filtration Rate 100 ML/MIN Lactic Acid Level 2.4 mmol/L Lipase 27 U/L MDM Supervised Visit with ANGELA: Yes Interpretation(s) CBC & BMP Diagram 10/07/17 14:00 Total Protein 7.7, Albumin 3.3 L, Calcium Level 9.1, Alkaline Phosphatase 75, Aspartate Amino Transf (AST/SGOT) 12 L, Alanine Aminotransferase (ALT/SGPT) 12, Total Bilirubin 0.5 Last 24 hours Impressions Abdomen/Pelvis CT 10/07/17 1402 Signed Impressions: Service Date/Time: Saturday, October 07, 2017 14:56 - CONCLUSION: Dilated fluid filled small bowel with some additional air small bowel which are nondilated. There is a questionable transition point in the right mid abdomen as described above. No evidence of pneumatosis. Status post aortobifem.. Curtis Lee MD Narrative Course I, Dr. parikh, have reviewed the advance practice practitioner's documentation and am in agreement, met with the patient face to face, made the diagnosis, and the medical decision making was done by me. *My assessment and Findings: 67 y/o male with abdominal pain and vomiting. CT shows possible small bowel obstruction. PEG tube opened and without significant drainage. No active vomiting now. Will hold NG tube and admit to the hospital with medicine and surgical consult. Diagnosis Primary Impression: Abdominal pain Qualified Codes: R10.9 - Unspecified abdominal pain Additional Impression: Partial small bowel obstruction Admitting Information Admitting Physician Requests: Admit Candi Parikh MD Oct 07, 2017 16:39
[2017-10-07] MEDS ORDERED: NALOXONE HCL 0.4 MG/ML AMP IV PUSH PRN (17:15)
[2017-10-07] MEDS ORDERED: BISACODYL 10 MG SUPP RECTAL PRN (17:15)
[2017-10-07] MEDS ORDERED: LACTULOSE SYRUP 20 GM/30 ML CUP PO PRN (17:15)
[2017-10-07] MEDS ORDERED: SENNOSIDES 8.6 MG TAB PO PRN (17:15)
[2017-10-07] MEDS ORDERED: MAGNESIUM HYDROXIDE SUSP 30 ML CUP PO PRN (17:15)
[2017-10-07 18:21] VITALS: O2SAT 96
[2017-10-07] MEDS ORDERED: KETOROLAC TROMETHAMINE 60 MG/2 ML (IM) VIAL IM ONE (18:30)
[2017-10-07] MEDS ORDERED: KETOROLAC TROMETHAMINE 30 MG/ML (IVP) VIAL IV PUSH ONE (18:45)
[2017-10-07] MEDS: ENOXAPARIN SODIUM 40 MG/0.4 ML SYRINGE SQ SCH (19:31)
[2017-10-07] MEDS: SODIUM CHLORIDE 0.9% FLUSH 10 ML FLUSH IV FLUSH SCH (19:32)
[2017-10-07] MEDS: SODIUM CHLOR 0.9% 1000 ML INJ 1,000 ML IV SCH (19:32)
[2017-10-07 19:55] LABS: BILIRUBIN, URINE NEG (NEG); BLOOD, URINE NEG (NEG); GLUCOSE,URINE NEG (NEG); KETONE, URINE NEG (NEG); NITRITE,URINE NEG (NEG); URINE COLOR YELLOW (YELLW/STRAW); URINE LEUKOCYTE ESTERASE NEG (NEG)
[2017-10-07 20:00] VITALS: BP 107/55; PULSE 79; RESP 17; TEMP 98.2; O2SAT 99
[2017-10-07] MEDS ORDERED: DOCUSATE SODIUM 50 MG/SENNA 8.6 MG TAB PO SCH (21:00)
[2017-10-07] MEDS ORDERED: PILL SPLITTER OTHER PRN (21:45)
[2017-10-07] MEDS ORDERED: RESP: ALBUTEROL 2.5 MG/IPRATROPIUM 0.5 MG NEB (PRN) NEB (21:45)
[2017-10-07] MEDS: KETOROLAC TROMETHAMINE 30 MG/ML (IVP) VIAL IV PUSH SCH (23:31)
[2017-10-08] VITALS: BP 100/51; PULSE 71; RESP 17; TEMP 97.2; O2SAT 98
[2017-10-08 05:28] LABS: AUTOMATED NEUTROPHIL # 6.2 TH/MM3 (1.8-7.7); BASOPHIL % 0.3 % (0.0-2.0); EOSINOPHIL % 0.5 % (0.0-4.0); HEMATOCRIT 30.6 % (39.0-51.0); HEMOGLOBIN 10.1 GM/DL (13.0-17.0); LYMPH % 7.8 % (9.0-44.0); LYMPHOCYTE # 0.6 TH/MM3 (1.0-4.8); MEAN CELL VOLUME 89.3 FL (80.0-100.0); MEAN CORPUSCULAR HEMOGLOBIN 29.6 PG (27.0-34.0); MEAN CORPUSCULAR HGB CONC 33.1 % (32.0-36.0); MEAN PLATELET VOLUME 9.5 FL (7.0-11.0); MONO % 4.2 % (0.0-8.0); MONOCYTE # 0.3 TH/MM3 (0-0.9); NEUT % 87.2 % (16.0-70.0); PLATELET COUNT 209 TH/MM3 (150-450); RED BLOOD COUNT 3.43 MIL/MM3 (4.50-5.90); RED CELL DISTRIBUTION WIDTH 15.6 % (11.6-17.2); WHITE BLOOD COUNT 7.2 TH/MM3 (4.0-11.0)
[2017-10-08 05:40] LABS: BICARBONATE 27.2 MEQ/L (21.0-32.0); CALCIUM 8.3 MG/DL (8.5-10.1); CREATININE 0.67 MG/DL (0.60-1.30)
[2017-10-08] MEDS: KETOROLAC TROMETHAMINE 30 MG/ML (IVP) VIAL IV PUSH SCH ×4 (05:53→23:54)
[2017-10-08] MEDS: SODIUM CHLOR 0.9% 1000 ML INJ 1,000 ML IV SCH ×2 (05:53→17:12)
[2017-10-08 08:00] VITALS: BP 106/54; PULSE 74; RESP 17; TEMP 98.2; O2SAT 98
[2017-10-08] MEDS ORDERED: FUROSEMIDE 20 MG/2 ML VIAL IV PUSH ONE (08:45)
[2017-10-08] MEDS: SODIUM CHLORIDE 0.9% FLUSH 10 ML FLUSH IV FLUSH SCH ×2 (09:00→20:34)
[2017-10-08] MEDS ORDERED: METOPROLOL TARTRATE 25 MG TAB PO SCH (09:00)
--- NOTE | 2017-10-08 10:37 | RADRPT ---
EXAM DATE/TIME: 10/08/2017 10:13 [facility] COMPARISON: CT ABDOMEN & PELVIS W CONTRAST, October 07, 2017, 14:56. ABDOMEN FLAT & UPRIGHT, June 18, 2017, 7:5 7. INDICATIONS : Patient complains of abdominal pain. Evaluate for obstruction. MEDICAL HISTORY : None. SURGICAL HISTORY : None. ENCOUNTER: Initial ACUITY: 1 day PAIN SCORE: 6/10 LOCATION: Abdomen FINDINGS: A percutaneous gastrostomy tube is noted overlying the left upper quadrant. There are multiple dilate d loops of small bowel present with air fluid levels seen on the upright view. A paucity of distal yang wel gas is noted. Small bowel loops measure up to 5.5 cm in diameter in the right upper quadrant. The re are degenerative changes of the spine. Contrast media is noted within the urinary bladder. Vascula r calcifications are present. CONCLUSION: Abnormally dilated loops of gas-filled small bowel with air-fluid levels. Scott Zee MD on October 08, 2017 at 10:33 Board Certified Radiologist. This report was verified electronically.
[2017-10-08 12:00] VITALS: BP 113/56; PULSE 73; RESP 18; TEMP 97.9; O2SAT 100
--- NOTE | 2017-10-08 14:38 | MB ---
cc: Sreekanth Angelo MD DATE: 10/08/2017 CHIEF COMPLAINT: Abdominal pain, bowel obstruction. HISTORY OF PRESENT ILLNESS: The patient is a 67-year-old male with history of multiple medical issues, a history of small-bowel obstruction recently in June, who presents with a recurrent onset of abdominal pain that started approximately 3 days ago and got progressively worse. On patient's initial presentation, he noted the pain to be a 10/10. It was worse with movement, better with lying still. The patient also noted some constipation and had some nausea and chills as well. The patient in the emergency department for evaluation including CT scan showing a recurrent small-bowel obstruction. Surgery was consulted. On my exam, in further questioning, the patient is noted to be a poor historian and difficulty to elucidate a complete comprehensive history. Per notes, though, the patient had a bowel obstruction 06/17/2017 and was discharged on 06/22/2017 with nonoperative management, NG tube placement for decompression. The patient again has multiple medical issues including dysphagia for which a G-tube was placed on a previous admission to assist with feeding. PAST MEDICAL HISTORY: Pneumonia, dysphagia, bowel obstruction, UTI, coronary artery disease, hypertension, BPH, COPD, hyperlipidemia, obstructive uropathy. PAST SURGICAL HISTORY: PEG tube placement, CABG. ALLERGIES: NO KNOWN DRUG ALLERGIES. MEDICATIONS: See EMR, Plavix. SOCIAL HISTORY: Resides in a retirement. Smoker, a pack a day. Denies IVDA. Denies ETOH. REVIEW OF SYSTEMS: GENERAL: Denies eye pain or ear pain. NECK: Denies swelling or pain. LUNGS: Denies cough or wheeze. HEART: Denies palpitation or chest pain. ABDOMEN: Complains of nausea and abdominal pain. GENITOURINARY: Denies dysuria or hematuria. ENDOCRINE: Denies polyuria or polydipsia. INTEGUMENT: Denies any new masses or lesions. PSYCHIATRIC: Appropriate mood. PHYSICAL EXAMINATION: GENERAL: The patient in no acute distress. VITAL SIGNS: Temperature 98.2, pulse 74, respirations 17, blood pressure 106/54, saturation 98%. HEENT: Pupils equal, round, reactive. NECK: Supple. Trachea midline. LUNGS: Clear to auscultation, bilateral expansion. HEART: S1, S2. Regular. ABDOMEN: Soft, mild distention, mild tenderness to palpation. No rebound. EXTREMITIES: Warm and well perfused. NEUROLOGIC: Awake, alert, answering questions. PSYCHIATRIC: Appropriate mood, appropriate insight. LABORATORY AND DIAGNOSTIC DATA: WBC 7.2, hemoglobin 10.1, hematocrit 30.6, platelets 209. Sodium 139, potassium 4, chloride 104, BUN is 22, creatinine 0.6, calcium is 8.3. INR is 1.2. A CT reviewed by myself showing multiple fluid filled bowel loops, questionable transition right mid abdomen, no evidence of free air. ASSESSMENT: The patient is a 67-year-old male with multiple medical issues, poor historian and history of percutaneous gastrostomy tube placement, history of bowel obstruction. PLAN: I reviewed all clinical, radiologic and laboratory work. The patient with the above main issues including bowel obstruction. At this point, the patient needs to have his G-tube to either low intermittent suction or gravity. Continue to check and correct any electrolytes. Continue abdominal exams. We will followup on a pending abdominal x-ray. We will attempt another stay of nonoperative management. Consider possible small bowel follow-through. Discussed with the patient in detail. No caregivers at bedside. Discussed with nursing staff as well. We will also discussed with Dr. Mtz who is familiar with the patient from previous admission. MD SALVADOR Melendrez/NAHOMI , 02:08 PM , 02:38 PM
--- NOTE | 2017-10-08 14:38 | HHI.FPPN ---
Subjective Subjective Patient seen and examined with the resident team. Case reviewed and discussed Please refer to resident H&P for further details regarding HPI, ROS, PMH, SurgHx , FH and SocHx. In summary, patient is a 67yoM with a history of dysphagia requiring PEG placement, weight loss and SBO previously. He presented to the ED after vomiting, increasing abdominal pain and distention. Patient is seen in his hospital room. Reports his pain is improved today. Patient cannot provide much more details about his need for PEG other than he couldn't swallow due to a 'flap' No BM or flatus. [facility] Objective Laboratory Tests - Abnormals Test 10/07/17 18:20 10/07/17 22:10 10/08/17 04:53 Urine Specific [place] 1.050 Red Blood Count 3.43 MIL/MM3 Hemoglobin 10.1 GM/DL Hematocrit 30.6 % Neutrophils (%) (Auto) 87.2 % Lymphocytes (%) (Auto) 7.8 % Lymphocytes # (Auto) 0.6 TH/MM3 Blood Urea Nitrogen 22 MG/DL Random Glucose 53 MG/DL Calcium Level 8.3 MG/DL Vital Signs 10/07/17 10/07/17 10/08/17 10/08/17 18:21 20:00 00:00 08:00 Temp 98.2 97.2 98.2 Pulse 79 71 74 Resp 17 17 17 B/P (MAP) 107/55 (72) 100/51 (67) 106/54 (71) Pulse Ox 96 99 98 98 O2 Delivery Room Air 10/08/17 12:00 Temp 97.9 Pulse 73 Resp 18 B/P (MAP) 113/56 (75) Pulse Ox 100 Physical exam GENERAL: cachectic male, resting in bed. NAD SKIN: Warm and dry. No rashes, lesions HEAD: Normocephalic. AT EYES: No scleral icterus. No injection or drainage. ENT: OP clear. MM slightly dry. NECK: Supple, trachea midline. No JVD or lymphadenopathy. CARDIOVASCULAR: Regular rate and rhythm without audible murmurs, gallops, or rubs. RESPIRATORY: Breath sounds equal and clear bilaterally. Poor inspiratory effort. No accessory muscle use. GASTROINTESTINAL: Abdomen soft, there is tenderness of lower quadrants, nondistended. No rebound. Hypoactive BS. PEG site clean. MUSCULOSKELETAL: No cyanosis, or edema. Muscular atrophy. Strength 4/5 bilaterally. BACK: Nontender without obvious deformity. No CVA tenderness. NEURO: Awake and alert. CN grossly intact. Assessment Assessment 67yoM admitted with: SBO Weight loss Inability to tolerate PO Leukocytosis Lactic acidosis dysphasia implanted PEG tube hypertension COPD PLAN PLAN Pain control Surgical consultation, known to Dr. Mtz Stool softeners PT OT consult ST consult Dietary consult Resume home meds as appropriate Patient seen and examined. Case reviewed and discussed Agree with plan of care as discussed with me and documented in the resident note. Marce Watts MD Oct 08, 2017 14:38
[2017-10-08 16:00] VITALS: BP 119/56; PULSE 76; RESP 17; TEMP 98.2; O2SAT 99
[2017-10-08 20:00] VITALS: BP 122/66; PULSE 83; RESP 19; TEMP 98.4; O2SAT 98
[2017-10-08] MEDS: ENOXAPARIN SODIUM 40 MG/0.4 ML SYRINGE SQ SCH (20:34)
[2017-10-09] VITALS: BP 120/66; PULSE 79; RESP 19; TEMP 98.6; O2SAT 100
[2017-10-09 04:43] LABS: AUTOMATED NEUTROPHIL # 8.5 TH/MM3 (1.8-7.7); BASOPHIL % 0.2 % (0.0-2.0); EOSINOPHIL % 0.2 % (0.0-4.0); HEMATOCRIT 31.2 % (39.0-51.0); HEMOGLOBIN 10.4 GM/DL (13.0-17.0); LYMPH % 5.2 % (9.0-44.0); LYMPHOCYTE # 0.5 TH/MM3 (1.0-4.8); MEAN CELL VOLUME 88.7 FL (80.0-100.0); MEAN CORPUSCULAR HEMOGLOBIN 29.5 PG (27.0-34.0); MEAN CORPUSCULAR HGB CONC 33.3 % (32.0-36.0); MONO % 3.5 % (0.0-8.0); MONOCYTE # 0.3 TH/MM3 (0-0.9); NEUT % 90.9 % (16.0-70.0); PLATELET COUNT 211 TH/MM3 (150-450); RED BLOOD COUNT 3.52 MIL/MM3 (4.50-5.90); RED CELL DISTRIBUTION WIDTH 15.6 % (11.6-17.2); WHITE BLOOD COUNT 9.3 TH/MM3 (4.0-11.0)
[2017-10-09] MEDS: KETOROLAC TROMETHAMINE 30 MG/ML (IVP) VIAL IV PUSH SCH ×4 (05:10→23:04)
[2017-10-09] MEDS: SODIUM CHLOR 0.9% 1000 ML INJ 1,000 ML IV SCH (05:10)
[2017-10-09 05:17] LABS: BICARBONATE 24.8 MEQ/L (21.0-32.0); CALCIUM 8.2 MG/DL (8.5-10.1); CREATININE 0.52 MG/DL (0.60-1.30)
[2017-10-09 05:30] LABS: BANDS 10 % (0-6); BASOPHILS 1 % (0-2); LYMPHOCYTES 2 % (9-44); MONOCYTES 6 % (0-8); NEUTROPHIL # MANUAL DIFF 8.5 TH/MM3 (1.8-7.7); POLYS (SEG NEUTROPHILS) 81 % (16-70)
[2017-10-09] MEDS ORDERED: DEXT 5%-NACL 0.45% 1000 ML INJ 1,000 ML IV SCH (06:00)
[2017-10-09] MEDS ORDERED: DEXTROSE 50% IN WATER 50 ML VIAL(D50) IV PUSH PRN (07:00)
[2017-10-09] MEDS ORDERED: GLUCAGON 1 MG/ML VIAL OTHER PRN (07:00)
[2017-10-09] MEDS ORDERED: DEXTROSE 50% IN WATER 50 ML VIAL(D50) IV PUSH ONE (07:00)
[2017-10-09] MEDS: DEXT 5%-NACL 0.45% 1000 ML INJ 1,000 ML IV SCH ×2 (07:06→17:39)
[2017-10-09 08:00] VITALS: BP 125/57; PULSE 82; RESP 16; TEMP 97.9; O2SAT 99
[2017-10-09] MEDS ORDERED: IOHEXOL 350 MG/ML 10 ML VIAL (for RAD DIAG) IVCONTRAST ONE (08:33)
--- NOTE | 2017-10-09 08:43 | RADRPT ---
EXAM DATE/TIME: 10/09/2017 08:27 [facility] COMPARISON: CT ABDOMEN & PELVIS W CONTRAST, October 07, 2017, 14:56. INDICATIONS : Chronic weight loss with history of smoking. Evaluate for cancer. IV CONTRAST: 71 cc Omnipaque 350 (iohexol) IV RADIATION DOSE: 3.73 CTDIvol (mGy) MEDICAL HISTORY : Cardiovascular disease. Hypertension. Chronic obstructive pulmonary disease. SURGICAL HISTORY : CABG ENCOUNTER: Initial ACUITY: 1 day PAIN SCALE: 0/10 LOCATION: chest TECHNIQUE: Volumetric scanning of the chest was performed. Using automated exposure control and adjustment of t he mA and/or kV according to patient size, radiation dose was kept as low as reasonably achievable to obtain optimal diagnostic quality images. DICOM format image data is available electronically for review and comparison. Follow-up recommendations for detected pulmonary nodules are based at a minimum on nodule size and pa tient risk factors according to Fleischner Society Guidelines. FINDINGS: Severe emphysema is identified. There are moderate bilateral pleural effusions and mild dependent ate lectasis is noted. There are no lung masses. No adenopathy. There are mildly distended fluid-filled l oops of small bowel in the upper abdomen as well as free fluid. Atherosclerotic calcifications of the aorta are noted. The the osseous structures are intact. Previous median sternotomy and CABG. CONCLUSION: Severe emphysema. Bilateral pleural effusions and free fluid in the upper abdomen. There are no lung masses seen. Scott Zee MD on October 09, 2017 at 8:38 Board Certified Radiologist. This report was verified electronically.
--- NOTE | 2017-10-09 11:21 | HHI.FPPN ---
Subjective Remarks Overnight no acute events. This morning feels no improvement in belly pain. Hungry. Mild-moderate nausea. No BM. Not passing gas. (Abhay Park MD R2) Objective Vitals Vital Signs Date Time Temp Pulse Resp B/P (MAP) Pulse Ox O2 Delivery O2 Flow Rate FiO2 10/09/17 08:00 97.9 82 16 125/57 (79) 99 10/09/17 00:00 98.6 79 19 120/66 (84) 100 10/08/17 20:00 98.4 83 19 122/66 (84) 98 10/08/17 16:00 98.2 76 17 119/56 (77) 99 10/08/17 12:00 97.9 73 18 113/56 (75) 100 I/O 10/08/17 10/08/17 10/08/17 10/09/17 10/09/17 10/09/17 07:00 15:00 23:00 07:00 15:00 23:00 Intake Total 1000 ml 1360 ml 1000 ml Output Total 350 ml 300 ml 675 ml Balance 650 ml 1060 ml 325 ml Intake Oral 360 ml 1000 ml IV Total 1000 ml 1000 ml Output Urine Total 300 ml 300 ml 550 ml Gastric Drainage Total 50 ml 125 ml # Voids 1 # Bowel Movements 0 1 (Abhay Park MD R2) Result Diagram: 10/09/17 0415 10/09/17 0415 Imaging Last Impressions Chest CT 10/09/17 0000 Signed Impressions: Service Date/Time: Monday, October 09, 2017 08:27 - CONCLUSION: Severe emphysema. Bilateral pleural effusions and free fluid in the upper abdomen. There are no lung masses seen. Scott Zee MD Abdomen X-Ray 10/08/17 0000 Signed Impressions: Service Date/Time: Sunday, October 08, 2017 10:13 - CONCLUSION: Abnormally dilated loops of gas-filled small bowel with air-fluid levels. Scott Zee MD Abdomen/Pelvis CT 10/07/17 1402 Signed Impressions: Service Date/Time: Saturday, October 07, 2017 14:56 - CONCLUSION: Dilated fluid filled small bowel with some additional air small bowel which are nondilated. There is a questionable transition point in the right mid abdomen as described above. No evidence of pneumatosis. Status post aortobifem.. Curtis Lee MD Objective Remarks GEN: Thin, cachectic elderly black male lying in bed in NAD Skin: Cool and dry CV: NRRR, nl S1/S2, no MRG Lungs: Normal rate and effort. CTAB anteriorly. NO crackles or wheezes. Abd. Soft, moderately distended, diffusely tender but improved from yesterday's exam. Bowel sounds high-pitched. MSK: No cyanosis or edema. Neuro: Awake, alert, moves all extremities well. Normal speech. Medications and IVs Current Medications Medications (Trade) Dose Ordered Sig/Marilee Route Start Time Stop Time Status Last Admin (NS Flush) 2 ml UNSCH PRN IV FLUSH 10/07/17 17:15 (NS Flush) 2 ml BID IV FLUSH 10/07/17 21:00 10/08/17 20:34 (Lovenox Inj) 40 mg Q24H SQ 10/07/17 20:00 10/08/17 20:34 (Narcan Inj) 0.4 mg UNSCH PRN IV PUSH 10/07/17 17:15 (Tri-Colace) 1 tab BID PO 10/07/17 21:00 Future Hold (Milk Of Magnesia Liq) 30 ml Q12H PRN PO 10/07/17 17:15 Future Hold (Senokot) 17.2 mg Q12H PRN PO 10/07/17 17:15 Future Hold (Dulcolax Supp) 10 mg DAILY PRN RECTAL 10/07/17 17:15 (Lactulose Liq) 30 ml DAILY PRN PO 10/07/17 17:15 Future Hold (Toradol Inj) 15 mg Q6HR IV PUSH 10/08/17 00:00 10/12/17 00:00 10/09/17 05:10 (Aspirin Chew) 81 mg DAILY CHEW 10/08/17 09:00 Future Hold (Plavix) 75 mg DAILY PO 10/08/17 09:00 Future Hold (Proscar) 5 mg DAILY PO 10/08/17 09:00 Future Hold (Pravachol) 20 mg DAILY PO 10/08/17 09:00 Future Hold (Lopressor) 12.5 mg BID PO 10/08/17 09:00 Future Hold (Protonix) 40 mg DAILY PO 10/08/17 09:00 Future Hold (Vitamin B1) 250 mg DAILY PO 10/08/17 09:00 Future Hold (Pill Splitter) 1 ea UNSCH PRN OTHER 10/07/17 21:45 (Duoneb Neb) 1 ampule Q6HR NEB PRN NEB 10/07/17 21:45 Dextrose/Sodium Chloride 1,000 ml @ 84 mls/hr [id number] IV 10/09/17 07:00 10/09/17 07:06 (D50w (Vial) Inj) 50 ml UNSCH PRN IV PUSH 10/09/17 07:00 (Glucagon Inj) 1 mg UNSCH PRN OTHER 10/09/17 07:00 (Abhay Park MD R2) A/P Assessment and Plan Patient is a 67-year-old male with past medical history of dysphasia, implanted PEG tube, hypertension, and COPD presented with: (Abhay Park MD R2) Attending Attestation Patient seen and examined. Case reviewed and discussed Agree with plan of care as discussed with me and documented in the resident note. (Marce Watts MD) Problem List: (1) Abdominal pain ICD Codes: R10.9 - Unspecified abdominal pain Status: Acute Plan: Symptoms no better today, but exam improved CT abdomen pelvis: Dilated fluid-filled small bowel with some air, nondilated, no evidence of pneumonitis UA: negative Lactic acid elevated at 2.4, patient is not septic appearing Surgery consulted, appreciate assistance -Patient to be managed medically at the moment for SBO -Continue with NG tube suction, IV fluids Pain control with Toradol (2) Hypoglycemia ICD Codes: E16.2 - Hypoglycemia, unspecified Status: Acute Plan: Likely due to chronic malnutrition plus NPO status -S/p 1 amp D50 -Changed IVF to D5 1/2 NS -Monitor clinically -Check blood Cx to r/o infection (3) Small bowel obstruction ICD Codes: K56.609 - Unspecified intestinal obstruction, unspecified as to partial versus complete obstruction Status: Acute Plan: See plan above (4) Cachexia ICD Codes: R64 - Cachexia Status: Chronic Plan: Likely secondary to malnutrition from dysphagia. Alcohol abuse in problem list but patient has not been drinking for some time. CT lungs negative for lung cancer -Consult dietary once taking PO -Check early AM cortisol to r/o adrenal insufficiency (adrenal adenoma in problem list as well) (5) COPD (chronic obstructive pulmonary disease) ICD Codes: J44.9 - Chronic obstructive pulmonary disease Status: Chronic Plan: No active COPD symptoms Duonebs as needed (6) Hypertension ICD Codes: I10 - Hypertension Status: Chronic Plan: Patient with normal blood pressures Hold home blood pressure medication (7) CAD (coronary artery disease) ICD Codes: I25.10 - Coronary artery disease Status: Chronic Plan: Stable; resume ASA/Plavix once no longer NPO (8) Nutrition, metabolism, and development symptoms ICD Codes: R63.8 - Other symptoms and signs concerning food and fluid intake Plan: Fluids: 80 mls/hr Electrolytes: Within normal limits, replete as needed Nutrition: N.p.o.; consult dietary for assistance once status advanced DVT prophylaxis: Lovenox 40mg Q24h Dispo: Pending resolution of SBO (Abhay Park MD R2) Problem Qualifiers (1) Abdominal pain: Qualified Codes: R10.9 - Unspecified abdominal pain Abhay Park MD R2 Oct 09, 2017 11:21 Marce Watts MD Oct 10, 2017 10:54
--- NOTE | 2017-10-09 11:40 | RADRPT ---
EXAM DATE/TIME: 10/09/2017 11:24 [facility] COMPARISON: ABDOMEN FLAT & UPRIGHT, October 08, 2017, 10:13. INDICATIONS : Evaluate for obstruction MEDICAL HISTORY : Cardiovascular disease. Hypertension. Chronic obstructive pulmonary disease SURGICAL HISTORY : CABG. ENCOUNTER: Subsequent ACUITY: 3 days PAIN SCORE: 4/10 LOCATION: Abdomen FINDINGS: There remain remarkably dilated loops of small bowel within the abdomen with scattered air-fluid leve ls on the upright view. There is contrast media within the pelvis and a small amount of air in the re ctosigmoid. Gastrostomy tube overlies left upper quadrant. CONCLUSION: Persistent abnormal bowel gas pattern. Scott Zee MD on October 09, 2017 at 11:35 Board Certified Radiologist. This report was verified electronically.
[2017-10-09 12:00] VITALS: BP 115/58; PULSE 71; RESP 16; TEMP 97.8; O2SAT 100
[2017-10-09] MEDS: SODIUM CHLORIDE 0.9% FLUSH 10 ML FLUSH IV FLUSH SCH ×2 (12:18→20:15)
--- NOTE | 2017-10-09 15:25 | HHI.PR ---
Subjective Subjective Notes wants to eat, denies N/V, +BM Objective Vitals/I&O Vital Signs Date Time Temp Pulse Resp B/P (MAP) Pulse Ox O2 Delivery O2 Flow Rate FiO2 10/09/17 12:00 97.8 71 16 115/58 (77) 100 10/07/17 18:21 Room Air Labs Laboratory Tests Test 10/09/17 04:15 White Blood Count 9.3 Red Blood Count 3.52 Hemoglobin 10.4 Hematocrit 31.2 Mean Corpuscular Volume 88.7 Mean Corpuscular Hemoglobin 29.5 Mean Corpuscular Hemoglobin Concent 33.3 Red Cell Distribution Width 15.6 Platelet Count 211 Mean Platelet Volume 10.0 Neutrophils (%) (Auto) 90.9 Lymphocytes (%) (Auto) 5.2 Monocytes (%) (Auto) 3.5 Eosinophils (%) (Auto) 0.2 Basophils (%) (Auto) 0.2 Neutrophils # (Auto) 8.5 Lymphocytes # (Auto) 0.5 Monocytes # (Auto) 0.3 Eosinophils # (Auto) 0.0 Basophils # (Auto) 0.0 CBC Comment AUTO DIFF Differential Total Cells Counted 100 Neutrophils % (Manual) 81 Band Neutrophils % 10 Lymphocytes % 2 Monocytes % 6 Basophils % 1 Neutrophils # (Manual) 8.5 Differential Comment FINAL DIFF MANUAL Platelet Estimate NORMAL Platelet Morphology Comment NORMAL Red Cell Morphology Comment NORMAL Blood Urea Nitrogen 23 Creatinine 0.52 Random Glucose 41 Calcium Level 8.2 Sodium Level 138 Potassium Level 3.6 Chloride Level 103 Carbon Dioxide Level 24.8 Anion Gap 10 Estimat Glomerular Filtration Rate 192 Date/Time Source Procedure Growth Status 10/09/17 10:50 Blood Peripheral Aerobic Blood Culture Pending Received 10/09/17 10:50 Blood Peripheral Anaerobic Blood Culture Pending Received Abdomen: Non-distended, Non-tender Narrative Exam G-tube intact A/P Assessment and Plan 67yo male with SBO, resolving, will give trial of clears will follow Rosendo Alcocer MD Oct 09, 2017 15:25
[2017-10-09 16:00] VITALS: BP 121/58; PULSE 78; RESP 17; TEMP 98.5; O2SAT 98
[2017-10-09 20:00] VITALS: BP 119/58; PULSE 82; RESP 16; TEMP 96.9; O2SAT 97
[2017-10-09] MEDS: ENOXAPARIN SODIUM 40 MG/0.4 ML SYRINGE SQ SCH (20:15)
[2017-10-10] VITALS: BP 127/74; PULSE 97; RESP 16; TEMP 97; O2SAT 97
[2017-10-10] MEDS: DEXT 5%-NACL 0.45% 1000 ML INJ 1,000 ML IV SCH (05:44)
[2017-10-10] MEDS: KETOROLAC TROMETHAMINE 30 MG/ML (IVP) VIAL IV PUSH SCH ×3 (05:47→17:44)
[2017-10-10 08:00] VITALS: BP 111/54; PULSE 91; RESP 18; TEMP 98.2; O2SAT 97
[2017-10-10 08:23] LABS: BICARBONATE 25.8 MEQ/L (21.0-32.0); CALCIUM 7.9 MG/DL (8.5-10.1); CREATININE 0.43 MG/DL (0.60-1.30); MAGNESIUM 1.8 MG/DL (1.5-2.5); PHOSPHORUS 1.3 MG/DL (2.5-4.9)
[2017-10-10] MEDS: PANTOPRAZOLE SOD 40 MG DELAYED RELEASE TAB PO SCH (08:29)
[2017-10-10] MEDS: FINASTERIDE 5 MG TAB PO SCH (08:29)
[2017-10-10] MEDS: ASPIRIN 81 MG CHEW TAB CHEW SCH (08:29)
[2017-10-10] MEDS: CLOPIDOGREL 75 MG TAB PO SCH (08:29)
[2017-10-10] MEDS: PRAVASTATIN SOD 20 MG TAB PO SCH (08:29)
[2017-10-10] MEDS: THIAMINE HCL 100 MG TAB PO SCH (08:32)
[2017-10-10] MEDS: SODIUM CHLORIDE 0.9% FLUSH 10 ML FLUSH IV FLUSH SCH ×2 (08:35→20:35)
--- NOTE | 2017-10-10 09:02 | RADRPT ---
EXAM DATE/TIME: 10/10/2017 08:35 [facility] COMPARISON: ABDOMEN KUB ONLY, May 28, 2017, 13:43. INDICATIONS : Obstruction. MEDICAL HISTORY : Cardiovascular disease. Hypertension Chronic obstructive pulmonary disease. SURGICAL HISTORY : CABG. ENCOUNTER: Subsequent ACUITY: 4 - 6 days PAIN SCORE: 8/10 LOCATION: Abdomen. FINDINGS: Supine view of the abdomen was performed. There is a G-tube in place. There is distended segments of small bowel seen in the mid abdomen concerning for possible obstruction. The colon does not appear d ilated. Contrast is seen within the urinary bladder. Free air is not seen on this portable supine KUB . Spurs are seen in the lumbar spine. The patient is status post sternotomy. CONCLUSION: Distended small bowel concerning for some degree of obstruction. Tacho Mcneill MD on October 10, 2017 at 8:58 Board Certified Radiologist. This report was verified electronically.
--- NOTE | 2017-10-10 10:19 | HHI.FPPN ---
Subjective Remarks Overnight had some increased nausea and abdominal pain. Clear diets stopped and PEG tube placed back on LIWS. This morning abdominal pain improved. No CP/SOB. Still not passing gas, still no BM. Objective Vitals Vital Signs Date Time Temp Pulse Resp B/P (MAP) Pulse Ox O2 Delivery O2 Flow Rate FiO2 10/10/17 00:00 97.0 97 16 127/74 (91) 97 10/09/17 20:00 96.9 82 16 119/58 (78) 97 10/09/17 19:06 18 10/09/17 16:00 98.5 78 17 121/58 (79) 98 10/09/17 12:00 97.8 71 16 115/58 (77) 100 I/O 10/09/17 10/09/17 10/09/17 10/10/17 10/10/17 10/10/17 07:00 15:00 23:00 07:00 15:00 23:00 Intake Total 1000 ml 1360 ml 0 ml 0 ml Output Total 675 ml 450 ml 850 ml Balance 325 ml 910 ml -850 ml 0 ml Intake Oral 1000 ml 360 ml 0 ml IV Total 1000 ml 0 ml Output Urine Total 550 ml 450 ml 850 ml Gastric Drainage Total 125 ml # Voids 1 # Bowel Movements 1 0 0 Result Diagram: 10/10/17 0559 10/10/17 0559 Imaging Last Impressions Abdomen X-Ray 10/10/17 0000 Signed Impressions: Service Date/Time: Tuesday, October 10, 2017 08:35 - CONCLUSION: Distended small bowel concerning for some degree of obstruction. Tacho Mcneill MD Chest CT 10/09/17 0000 Signed Impressions: Service Date/Time: Monday, October 09, 2017 08:27 - CONCLUSION: Severe emphysema. Bilateral pleural effusions and free fluid in the upper abdomen. There are no lung masses seen. Scott Zee MD Abdomen/Pelvis CT 10/07/17 1402 Signed Impressions: Service Date/Time: Saturday, October 07, 2017 14:56 - CONCLUSION: Dilated fluid filled small bowel with some additional air small bowel which are nondilated. There is a questionable transition point in the right mid abdomen as described above. No evidence of pneumatosis. Status post aortobifem.. Curtis Lee MD Objective Remarks GEN: Thin, cachectic elderly black male lying in bed in NAD Skin: Cool and dry CV: NRRR, nl S1/S2, no MRG Lungs: Normal rate and effort. CTAB anteriorly. NO crackles or wheezes. Abd. Soft, moderately distended, Bowel sounds high-pitched, moderately tender at RUQ and RLQ. MSK: No cyanosis or edema. Neuro: Awake, alert, moves all extremities well. Normal speech. Medications and IVs Current Medications Medications (Trade) Dose Ordered Sig/Marilee Route Start Time Stop Time Status Last Admin (NS Flush) 2 ml UNSCH PRN IV FLUSH 10/07/17 17:15 (NS Flush) 2 ml BID IV FLUSH 10/07/17 21:00 10/09/17 20:15 (Lovenox Inj) 40 mg Q24H SQ 10/07/17 20:00 10/09/17 20:15 (Narcan Inj) 0.4 mg UNSCH PRN IV PUSH 10/07/17 17:15 (Tri-Colace) 1 tab BID PO 10/07/17 21:00 Future Hold (Milk Of Magnesia Liq) 30 ml Q12H PRN PO 10/07/17 17:15 Future Hold (Senokot) 17.2 mg Q12H PRN PO 10/07/17 17:15 Future Hold (Dulcolax Supp) 10 mg DAILY PRN RECTAL 10/07/17 17:15 (Lactulose Liq) 30 ml DAILY PRN PO 10/07/17 17:15 Future Hold (Toradol Inj) 15 mg Q6HR IV PUSH 10/08/17 00:00 10/12/17 00:00 10/10/17 12:00 (Aspirin Chew) 81 mg DAILY CHEW 10/08/17 09:00 Future hold 10/10/17 08:29 (Plavix) 75 mg DAILY PO 10/08/17 09:00 Future hold 10/10/17 08:29 (Proscar) 5 mg DAILY PO 10/08/17 09:00 Future hold 10/10/17 08:29 (Pravachol) 20 mg DAILY PO 10/08/17 09:00 Future hold 10/10/17 08:29 (Lopressor) 12.5 mg BID PO 10/08/17 09:00 Future Hold (Protonix) 40 mg DAILY PO 10/08/17 09:00 Future hold 10/10/17 08:29 (Vitamin B1) 250 mg DAILY PO 10/08/17 09:00 Future hold 10/10/17 08:32 (Pill Splitter) 1 ea UNSCH PRN OTHER 10/07/17 21:45 (Duoneb Neb) 1 ampule Q6HR NEB PRN NEB 10/07/17 21:45 Dextrose/Sodium Chloride 1,000 ml @ 84 mls/hr [id number] IV 10/09/17 07:00 10/10/17 05:44 (D50w (Vial) Inj) 50 ml UNSCH PRN IV PUSH 10/09/17 07:00 (Glucagon Inj) 1 mg UNSCH PRN OTHER 10/09/17 07:00 A/P Assessment and Plan Patient is a 67-year-old male with past medical history of dysphasia, implanted PEG tube, hypertension, and COPD presented with: Problem List: (1) Abdominal pain ICD Codes: R10.9 - Unspecified abdominal pain Status: Acute Plan: Symptoms no better today, still not passing gas. Exam stable from previously. Abd XR 10/10 shows small continued obstruction CT abdomen pelvis: Dilated fluid-filled small bowel with some air, nondilated, no evidence of pneumonitis UA: negative Lactic acid elevated at 2.4, patient is not septic appearing Surgery consulted, appreciate assistance -Patient to be managed medically at the moment for SBO -Continue with NG tube suction, IV fluids Pain control with Toradol (2) Hypoglycemia ICD Codes: E16.2 - Hypoglycemia, unspecified Status: Resolved Plan: Likely due to chronic malnutrition plus NPO status -Continue IVF as noted below -Monitor clinically -Follow blood Cx to r/o infection (3) Small bowel obstruction ICD Codes: K56.609 - Unspecified intestinal obstruction, unspecified as to partial versus complete obstruction Status: Acute Plan: See plan above (4) Cachexia ICD Codes: R64 - Cachexia Status: Chronic Plan: Likely secondary to malnutrition from dysphagia. Alcohol abuse in problem list but patient has not been drinking for some time. CT lungs negative for lung cancer AM cortisol wnl -Consult dietary once taking PO; if NPO status persists will contact for evaluation for TPN (5) COPD (chronic obstructive pulmonary disease) ICD Codes: J44.9 - Chronic obstructive pulmonary disease Status: Chronic Plan: No active COPD symptoms Duonebs as needed (6) Hypertension ICD Codes: I10 - Hypertension Status: Chronic Plan: Patient with normal blood pressures Hold home blood pressure medication (7) CAD (coronary artery disease) ICD Codes: I25.10 - Coronary artery disease Status: Chronic Plan: Stable; resume ASA/Plavix once no longer NPO (8) Nutrition, metabolism, and development symptoms ICD Codes: R63.8 - Other symptoms and signs concerning food and fluid intake Plan: Fluids: 80 mls/hr of D5-1/2 NS with 40 mEq/L of KCl Electrolytes: Within normal limits, replete as needed Nutrition: N.p.o. DVT prophylaxis: Lovenox 40mg Q24h Dispo: Pending resolution of SBO Problem Qualifiers (1) Abdominal pain: Qualified Codes: R10.9 - Unspecified abdominal pain Abhay Park MD R2 Oct 10, 2017 10:19
[2017-10-10 12:00] VITALS: BP 135/64; PULSE 85; RESP 19; TEMP 97.8; O2SAT 98
--- NOTE | 2017-10-10 12:01 | HHI.PR ---
cc: Pawan Brito MD Subjective Subjective Notes Resting in bed reports lots of "burping" "I'm not really feeling so good today." Objective Vitals/I&O Vital Signs Date Time Temp Pulse Resp B/P (MAP) Pulse Ox O2 Delivery O2 Flow Rate FiO2 10/10/17 08:00 98.2 91 18 111/54 (73) 97 10/07/17 18:21 Room Air Labs Laboratory Tests Test 10/10/17 05:59 Hemoglobin 11.0 Hematocrit 33.0 Blood Urea Nitrogen 13 Creatinine 0.43 Random Glucose 97 Calcium Level 7.9 Phosphorus Level 1.3 Magnesium Level 1.8 Sodium Level 135 Potassium Level 2.9 Chloride Level 101 Carbon Dioxide Level 25.8 Anion Gap 8 Estimat Glomerular Filtration Rate 239 Random Cortisol 39.1 Date/Time Source Procedure Growth Status 10/09/17 10:50 Blood Peripheral Aerobic Blood Culture - Preliminary NO GROWTH IN 1 DAY Resulted 10/09/17 10:50 Blood Peripheral Anaerobic Blood Culture - Preliminary NO GROWTH IN 1 DAY Resulted Cardiovascular: Regular Lungs: Clear Abdomen: Other (distended; G tube to LIWS ) Extremities: No edema A/P Assessment and Plan 67 year old male with SBO; -Failed trial of clears yesterday -NPO -Leave G tube to LIWS -KUB this morning continues to show distended small bowel -Will attempt SBFT with contrast through G tube -Will continue nonoperative treatment may may require surgical intervention Attending Note - Dr. Brito Still distended; moderate discomfort Await SBFT results; if obstructed, will proceed with surgery. Patient aware and agrees with plan. The exam, history, and the medical decision-making described in the above note were completed with the assistance of the mid-level provider. I reviewed and agree with the findings presented. I attest that I had a [id number] encounter with the patient on the same day, and personally performed and documented my assessment and findings in the medical record. Yesenia Eller/[employer] INTERN Oct 10, 2017 12:01 Pawan Brito MD October 14, 2017 16:37
[2017-10-10] MEDS ORDERED: DIATRIZOATE MEGLUM/DIATRIZOATE SOD 120 ML BTL (for RAD DIAG) G-TUBE ONE (14:59)
[2017-10-10 20:00] VITALS: BP 144/67; PULSE 93; RESP 18; TEMP 98.6; O2SAT 96
[2017-10-10] MEDS: ENOXAPARIN SODIUM 40 MG/0.4 ML SYRINGE SQ SCH (20:35)
--- NOTE | 2017-10-10 21:13 | RADRPT ---
EXAM DATE/TIME: 10/10/2017 13:38 [facility] COMPARISON: No previous studies available for comparison. INDICATIONS : Obstruction. FLUORO TIME: 0.0 minutes IMAGE COUNT: 11 CONTRAST: Gastrorobin IMAGING TIME(S): 15 min, 30 min, 45 min, 1 hr, 1.5 hrs, 2.5 hrs4 hrs, 5.5 hr MEDICAL HISTORY : Cardiovascular disease. Chronic obstructive pulmonary disease. Hypertension. SURGICAL HISTORY : CABG. G-tube. ENCOUNTER: Initial ACUITY: 3 days PAIN SCORE: Non-responsive. LOCATION: Bilateral abdomen FINDINGS: Preliminary founder film reveals markedly dilated loops of small bowel. After injection of contrast thr ough the G-tube there is slow progression through small bowel. Proximal small bowel is mildly dilated becoming fairly markedly dilated distally. Some contrast does reach the colon by 4 hours CONCLUSION: 1. High-grade partial obstruction distal small bowel. Eulogio Masters MD on October 10, 2017 at 21:07 Board Certified Radiologist. This report was verified electronically.
[2017-10-11] VITALS: BP 129/58; PULSE 107; RESP 16; TEMP 98.1; O2SAT 97
[2017-10-11] MEDS: KETOROLAC TROMETHAMINE 30 MG/ML (IVP) VIAL IV PUSH SCH ×5 (00:51→23:24)
[2017-10-11 05:16] LABS: HEMATOCRIT 33.4 % (39.0-51.0); HEMOGLOBIN 11.3 GM/DL (13.0-17.0)
[2017-10-11 05:42] LABS: CALCIUM 8.2 MG/DL (8.5-10.1); CREATININE 0.47 MG/DL (0.60-1.30); MAGNESIUM 2.1 MG/DL (1.5-2.5); PHOSPHORUS 1.9 MG/DL (2.5-4.9)
[2017-10-11] MEDS: DEXT 5% IV SCH ×2 (07:00→22:15)
[2017-10-11] MEDS: NACL 0.45% IV SCH ×2 (07:00→22:15)
[2017-10-11] MEDS: POTASSIUM CHLORIDE IV SCH ×2 (07:00→22:15)
[2017-10-11 08:00] VITALS: BP 117/55; PULSE 63; RESP 18; TEMP 98.1; O2SAT 98
[2017-10-11] MEDS: SODIUM CHLORIDE 0.9% FLUSH 10 ML FLUSH IV FLUSH SCH ×2 (08:27→22:15)
[2017-10-11] MEDS: PANTOPRAZOLE SOD 40 MG DELAYED RELEASE TAB PO SCH (08:28)
[2017-10-11] MEDS: PRAVASTATIN SOD 20 MG TAB PO SCH (08:29)
[2017-10-11] MEDS: THIAMINE HCL 100 MG TAB PO SCH (08:29)
[2017-10-11] MEDS: FINASTERIDE 5 MG TAB PO SCH (08:29)
--- NOTE | 2017-10-11 08:30 | HHI.PR ---
cc: Pawan Brito MD Subjective Subjective Notes "I don't feel good today." "Is there anything that can help with my stomach pains?" Objective Vitals/I&O Vital Signs Date Time Temp Pulse Resp B/P (MAP) Pulse Ox O2 Delivery O2 Flow Rate FiO2 10/11/17 08:00 98.1 63 18 117/55 (75) 98 10/07/17 18:21 Room Air Labs Laboratory Tests Test 10/11/17 04:52 Hemoglobin 11.3 Hematocrit 33.4 Blood Urea Nitrogen 15 Creatinine 0.47 Random Glucose 105 Calcium Level 8.2 Phosphorus Level 1.9 Magnesium Level 2.1 Sodium Level 140 Potassium Level 3.0 Chloride Level 104 Carbon Dioxide Level 28.0 Anion Gap 8 Estimat Glomerular Filtration Rate 215 Date/Time Source Procedure Growth Status 10/09/17 10:50 Blood Peripheral Aerobic Blood Culture - Preliminary NO GROWTH IN 1 DAY Resulted 10/09/17 10:50 Blood Peripheral Anaerobic Blood Culture - Preliminary NO GROWTH IN 1 DAY Resulted Cardiovascular: Regular Lungs: Clear Abdomen: Other (distended; PEG Tube to LIWS; tender throughout ) Extremities: No edema Narrative Exam cachetic A/P Assessment and Plan 67 year old male with SBO; -SBFT shows high grade SBO--- plan for OR intervention tomorrow -Obtain consents -Hold Plavix/ASA/Lovenox -NPO -Leave PEG tube to LIWS -Replace K -Added Zofran Attending Note - Dr. Brito As above; discussed with patient need for surgery Plan OR tomorrow. The exam, history, and the medical decision-making described in the above note were completed with the assistance of the mid-level provider. I reviewed and agree with the findings presented. I attest that I had a [id number] encounter with the patient on the same day, and personally performed and documented my assessment and findings in the medical record. Yesenia Eller/[employer] October 11, 2017 08:30 Pawan Brito MD October 14, 2017 16:38
[2017-10-11] MEDS: ONDANSETRON HCL 4 MG/2 ML VIAL IV PUSH PRN (09:16)
[2017-10-11] MEDS: POTASSIUM CHLOR 20 MEQ PREMIX 100 ML IV SCH ×2 (10:30→11:56)
--- NOTE | 2017-10-11 10:53 | HHI.FPPN ---
Subjective Remarks Still having bad belly pains overnight with nausea. No BM or flatus. No CP/SOB. Friend Sallie at bedside. (Abhay Park MD R2) Objective Vitals Vital Signs Date Time Temp Pulse Resp B/P (MAP) Pulse Ox O2 Delivery O2 Flow Rate FiO2 10/11/17 08:00 98.1 63 18 117/55 (75) 98 10/11/17 00:00 98.1 107 16 129/58 (81) 97 10/10/17 20:00 98.6 93 18 144/67 (92) 96 10/10/17 12:00 97.8 85 19 135/64 (87) 98 I/O 10/10/17 10/10/17 10/10/17 10/11/17 10/11/17 10/11/17 07:00 15:00 23:00 07:00 15:00 23:00 Intake Total 0 ml 0 ml Output Total 850 ml 1200 ml 600 ml Balance -850 ml 0 ml -1200 ml -600 ml Intake Oral 0 ml IV Total 0 ml Output Urine Total 850 ml 600 ml Gastric Drainage Total 600 ml 600 ml # Voids 2 # Bowel Movements 0 (Abhay Park MD R2) Result Diagram: 10/11/17 0452 10/11/17 0452 Imaging Last Impressions Small Bowel X-Ray 10/10/17 0000 Signed Impressions: Service Date/Time: Tuesday, October 10, 2017 13:38 - CONCLUSION: 1. High-grade partial obstruction distal small bowel. Eulogio Masters MD Abdomen X-Ray 10/10/17 0000 Signed Impressions: Service Date/Time: Tuesday, October 10, 2017 08:35 - CONCLUSION: Distended small bowel concerning for some degree of obstruction. Tacho Mcneill MD Chest CT 10/09/17 0000 Signed Impressions: Service Date/Time: Monday, October 09, 2017 08:27 - CONCLUSION: Severe emphysema. Bilateral pleural effusions and free fluid in the upper abdomen. There are no lung masses seen. Scott Zee MD Abdomen/Pelvis CT 10/07/17 1402 Signed Impressions: Service Date/Time: Saturday, October 07, 2017 14:56 - CONCLUSION: Dilated fluid filled small bowel with some additional air small bowel which are nondilated. There is a questionable transition point in the right mid abdomen as described above. No evidence of pneumatosis. Status post aortobifem.. Curtis Lee MD Objective Remarks GEN: Thin, cachectic elderly black male lying in bed in NAD Skin: Cool and dry CV: NRRR, nl S1/S2, no MRG Lungs: Normal rate and effort. CTAB anteriorly. NO crackles or wheezes. Abd. Soft, mildly distended, Bowel sounds hypoactive, moderately tender throughout. MSK: No cyanosis or edema. Neuro: Awake, alert, moves all extremities well. Normal speech. Medications and IVs Current Medications Medications (Trade) Dose Ordered Sig/Marilee Route Start Time Stop Time Status Last Admin (NS Flush) 2 ml UNSCH PRN IV FLUSH 10/07/17 17:15 (NS Flush) 2 ml BID IV FLUSH 10/07/17 21:00 10/10/17 20:35 (Lovenox Inj) 40 mg Q24H SQ 10/07/17 20:00 10/10/17 20:35 (Narcan Inj) 0.4 mg UNSCH PRN IV PUSH 10/07/17 17:15 (Tri-Colace) 1 tab BID PO 10/07/17 21:00 Future Hold (Milk Of Magnesia Liq) 30 ml Q12H PRN PO 10/07/17 17:15 Future Hold (Senokot) 17.2 mg Q12H PRN PO 10/07/17 17:15 Future Hold (Dulcolax Supp) 10 mg DAILY PRN RECTAL 10/07/17 17:15 (Lactulose Liq) 30 ml DAILY PRN PO 10/07/17 17:15 Future Hold (Toradol Inj) 15 mg Q6HR IV PUSH 10/08/17 00:00 10/12/17 00:00 10/11/17 06:11 (Aspirin Chew) 81 mg DAILY CHEW 10/08/17 09:00 Future Hold 10/10/17 08:29 (Plavix) 75 mg DAILY PO 10/08/17 09:00 Future Hold 10/10/17 08:29 (Proscar) 5 mg DAILY PO 10/08/17 09:00 Future hold 10/11/17 08:29 (Pravachol) 20 mg DAILY PO 10/08/17 09:00 Future hold 10/11/17 08:29 (Lopressor) 12.5 mg BID PO 10/08/17 09:00 Future Hold (Protonix) 40 mg DAILY PO 10/08/17 09:00 Future hold 10/11/17 08:28 (Vitamin B1) 250 mg DAILY PO 10/08/17 09:00 Future hold 10/11/17 08:29 (Pill Splitter) 1 ea UNSCH PRN OTHER 10/07/17 21:45 (Duoneb Neb) 1 ampule Q6HR NEB PRN NEB 10/07/17 21:45 (D50w (Vial) Inj) 50 ml UNSCH PRN IV PUSH 10/09/17 07:00 (Glucagon Inj) 1 mg UNSCH PRN OTHER 10/09/17 07:00 Potassium Chloride 40 meq/ Dextrose/Sodium Chloride 1,020 ml @ 84 mls/hr Q12H9M IV 10/11/17 07:00 10/11/17 07:00 Potassium Chloride 100 ml @ 50 mls/hr Q2H IV 10/11/17 08:30 10/11/17 12:29 (Zofran Inj) 4 mg Q6HR PRN IV PUSH 10/11/17 08:30 10/11/17 09:16 (Abhay Park MD R2) A/P Assessment and Plan Patient is a 67-year-old male with past medical history of dysphasia, implanted PEG tube, hypertension, and COPD presented with: (Abhay Park MD R2) Attending Attestation Patient seen and examined. Case reviewed and discussed Agree with plan of care as discussed with me and documented in the resident note. (Marce Watts MD) Problem List: (1) Abdominal pain ICD Codes: R10.9 - Unspecified abdominal pain Status: Resolved Plan: Symptoms no better today, still not passing gas. Exam stable from previously. Abd XR 10/10 shows small continued obstruction Small bowel follow through shows significant obstruction CT abdomen pelvis: Dilated fluid-filled small bowel with some air, nondilated, no evidence of pneumonitis UA: negative Lactic acid elevated at 2.4, patient is not septic appearing Surgery consulted, appreciate assistance -Plan for operative intervention tomorrow morning -Continue with NG tube suction, IV fluids Discussed case with patient's outpatient GI physician at [facility] (formerly [facility]) Dr. 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 stenting Reviewed the details per GI noted above with the surgical team Pain control with Toradol (2) Severe protein-calorie malnutrition ICD Codes: E43 - Unspecified severe protein-calorie malnutrition Status: Chronic Plan: Chronic malnutrition likely due to dysphagia, chronic abdominal pain possibly mesenteric ischemia (see above) -Manage abdominal pain and SBO as noted -Consult dietary for nutritional support recs once patient able to take PEG/PO feeds (3) Hypoglycemia ICD Codes: E16.2 - Hypoglycemia, unspecified Status: Resolved Plan: Likely due to chronic malnutrition plus NPO status -Continue IVF as noted below -Monitor clinically -Follow blood Cx to r/o infection (4) Small bowel obstruction ICD Codes: K56.609 - Unspecified intestinal obstruction, unspecified as to partial versus complete obstruction Status: Acute Plan: See plan above (5) Cachexia ICD Codes: R64 - Cachexia Status: Chronic Plan: Likely secondary to malnutrition from dysphagia. Alcohol abuse in problem list but patient has not been drinking for some time. CT lungs negative for lung cancer AM cortisol wnl -Consult dietary once taking PO; if NPO status persists will contact for evaluation for TPN (6) COPD (chronic obstructive pulmonary disease) ICD Codes: J44.9 - Chronic obstructive pulmonary disease Status: Chronic Plan: No active COPD symptoms Duonebs as needed (7) Hypertension ICD Codes: I10 - Hypertension Status: Chronic Plan: Patient with normal blood pressures Hold home blood pressure medication (8) CAD (coronary artery disease) ICD Codes: I25.10 - Coronary artery disease Status: Chronic Plan: Stable; resume ASA/Plavix once no longer NPO (9) Nutrition, metabolism, and development symptoms ICD Codes: R63.8 - Other symptoms and signs concerning food and fluid intake Plan: Fluids: 80 mls/hr of D5-1/2 NS with 40 mEq/L of KCl Electrolytes: Monitor and replete as needed Nutrition: N.p.o. DVT prophylaxis: Lovenox 40mg Q24h Dispo: Pending resolution of SBO (Abahy Park MD R2) Problem Qualifiers (1) Abdominal pain: Qualified Codes: R10.9 - Unspecified abdominal pain Abhay Park MD R2 October 11, 2017 10:53 Marce Watts MD October 15, 2017 10:18
[2017-10-11 12:00] VITALS: BP 139/66; PULSE 84; RESP 18; TEMP 98.2; O2SAT 97
[2017-10-11 16:00] VITALS: BP 130/60; PULSE 69; RESP 18; TEMP 98.4; O2SAT 98
[2017-10-11 20:00] VITALS: BP 144/65; PULSE 78; RESP 16; TEMP 98.4; O2SAT 97
[2017-10-12] VITALS: BP 125/59; PULSE 75; RESP 16; TEMP 99.1; O2SAT 98
[2017-10-12] MEDS ORDERED: CHLORHEXIDINE GLUCONATE 2 % 1 PACK (2 CLOTHS) TOPICAL PRN (00:15)
[2017-10-12] MEDS ORDERED: SODIUM CHLORID 0.9% 500 ML IV PRN (00:15)
[2017-10-12] MEDS ORDERED: POVIDONE IODINE 5% (ANTISEPSIS KIT) 4 APPLICATIONS EACH NARE PRN (00:15)
[2017-10-12] MEDS ORDERED: LACTATED RINGER'S 1000 ML IV PRN (00:15)
[2017-10-12] MEDS: ONDANSETRON HCL 4 MG/2 ML VIAL IV PUSH PRN (01:32)
[2017-10-12] MEDS ORDERED: KETOROLAC TROMETHAMINE 30 MG/ML (IVP) VIAL IV PUSH ONE (04:45)
[2017-10-12 08:00] VITALS: BP 119/57; PULSE 80; RESP 17; TEMP 97.9; O2SAT 96
[2017-10-12] MEDS ORDERED: ceFAZolin 2 GM PREMIX 50 ML IV SCH (08:15)
[2017-10-12] MEDS: PRAVASTATIN SOD 20 MG TAB PO SCH (08:57)
[2017-10-12] MEDS: FINASTERIDE 5 MG TAB PO SCH (08:58)
[2017-10-12] MEDS: THIAMINE HCL 100 MG TAB PO SCH (08:58)
[2017-10-12] MEDS: PANTOPRAZOLE SOD 40 MG DELAYED RELEASE TAB PO SCH (08:58)
[2017-10-12 08:59] LABS: MEAN CELL VOLUME 87.3 FL (80.0-100.0); MEAN CORPUSCULAR HEMOGLOBIN 29.2 PG (27.0-34.0); MEAN CORPUSCULAR HGB CONC 33.4 % (32.0-36.0); MEAN PLATELET VOLUME 10.5 FL (7.0-11.0); PLATELET COUNT 180 TH/MM3 (150-450); RED BLOOD COUNT 3.77 MIL/MM3 (4.50-5.90); RED CELL DISTRIBUTION WIDTH 16.1 % (11.6-17.2); WHITE BLOOD COUNT 18.2 TH/MM3 (4.0-11.0)
[2017-10-12] MEDS: SODIUM CHLORIDE 0.9% FLUSH 10 ML FLUSH IV FLUSH SCH ×2 (08:59→21:51)
[2017-10-12] MEDS: DEXT 5% IV SCH ×2 (08:59→19:27)
[2017-10-12] MEDS: POTASSIUM CHLORIDE IV SCH ×2 (08:59→19:27)
[2017-10-12] MEDS: NACL 0.45% IV SCH ×2 (08:59→19:27)
[2017-10-12 09:27] LABS: BICARBONATE 28.3 MEQ/L (21.0-32.0); CALCIUM 8.4 MG/DL (8.5-10.1); CREATININE 0.43 MG/DL (0.60-1.30); MAGNESIUM 1.8 MG/DL (1.5-2.5); PHOSPHORUS 1.7 MG/DL (2.5-4.9)
[2017-10-12 09:55] LABS: BANDS 27 % (0-6); MONOCYTES 3 % (0-8); NEUTROPHIL # MANUAL DIFF 17.7 TH/MM3 (1.8-7.7); POLYS (SEG NEUTROPHILS) 70 % (16-70)
[2017-10-12] MEDS ORDERED: metroNIDAZOLE 500 MG INJ 100 ML IV ONE (11:35)
[2017-10-12] MEDS ORDERED: ROCURONIUM INJ 50 MG/5 ML SYRINGE IV PUSH ONE (12:00)
[2017-10-12] MEDS ORDERED: LIDOCAINE HCL 1% PF 5 ML SYRINGE OTHER ONE (12:00)
[2017-10-12] MEDS ORDERED: ONDANSETRON HCL 4 MG/2 ML VIAL IV ONE (12:00)
[2017-10-12] MEDS ORDERED: ePHEDrine/NS 25 MG/5 ML SYRINGE IV ONE (12:00)
[2017-10-12] MEDS ORDERED: PHENYLEPH/NS 1000 MCG/10 ML SYR IV ONE (12:00)
[2017-10-12] MEDS ORDERED: PHENYLEPHRINE HCL 10 MG/ML VIAL IV ONE (12:00)
[2017-10-12] MEDS ORDERED: PROPOFOL 200 MG/20 ML AMP IV ONE (12:00)
[2017-10-12] MEDS ORDERED: ESMOLOL HCL 100 MG/10 ML VIAL IV ONE (12:00)
[2017-10-12] MEDS ORDERED: SUCCINYLCHOLINE CHLORIDE 100 MG/5 ML SYRINGE IV PUSH ONE (12:00)
[2017-10-12] MEDS ORDERED: DEXAMETHASONE SOD PHOS 4 MG/ML VIAL IV ONE (12:00)
[2017-10-12] MEDS ORDERED: METOPROLOL TARTRATE 5 MG/5 ML VIAL IV ONE (12:00)
[2017-10-12] MEDS ORDERED: HYDROmorphone HCL PF 2 MG/ML VIAL ONE (12:56)
[2017-10-12] MEDS ORDERED: SUGAMMADEX SODIUM 200 MG/2 ML VIAL IV PUSH ONE (12:57)
[2017-10-12] MEDS ORDERED: DO NOT ADM ANY ANTICOAGULANT DRUGS PRN (13:35)
--- NOTE | 2017-10-12 13:43 | HHI.PR ---
cc: Pawan Brito MD Immediate Post Op Note Procedure Date: October 12, 2017 Pre Op Diagnosis: Persistent, recurrent small bowel obstruction Post Op Diagnosis: Same, secondary to adhesions and stricture Surgeon: Pawan Brito Director Motion Picture(s): Caio Lopez CFA Procedure: Exp laparotomy Lysis adhesions > 1 hr Small bowel resection with primary anastomosis Findings: Stricture at proximal ileum Complications: None Specimen(s) removed: Small bowel to pathology Estimated blood loss: 100 ml Anesthesia: General Drains: None IVF (2000 ml) Patient to: PACU Patient Condition: Good Date/Time of Procedure: SEE SURGICAL CARE RECORD Pawan Brito MD October 12, 2017 13:43
[2017-10-12 16:00] VITALS: BP 128/58; PULSE 95; RESP 17; TEMP 97.2; O2SAT 91
--- NOTE | 2017-10-12 16:06 | HHI.FPPN ---
Subjective Remarks Patient seen and examined at bedside this afternoon after his operative procedure for treatment of SBO. Patient stated he did not have any pain. No complaints. (Derek Dumont MD, R1) Objective Vitals Vital Signs Date Time Temp Pulse Resp B/P (MAP) Pulse Ox O2 Delivery O2 Flow Rate FiO2 10/12/17 14:25 97.8 90 12 117/61 (79) 95 Room Air 10/12/17 14:15 89 14 120/59 (79) 95 Room Air 10/12/17 14:00 98 13 121/57 (78) 97 Nasal Cannula 2 10/12/17 13:45 100 12 116/60 (78) 99 Nasal Cannula 2 10/12/17 13:30 105 13 133/76 (95) 100 Nasal Cannula 2 10/12/17 13:26 97.8 98 18 126/74 (91) 100 Nasal Cannula 2 10/12/17 08:00 97.9 80 17 119/57 (77) 96 10/12/17 00:00 99.1 75 16 125/59 (81) 98 10/11/17 20:00 98.4 78 16 144/65 (91) 97 I/O 10/11/17 10/11/17 10/11/17 10/12/17 10/12/17 10/12/17 07:00 15:00 23:00 07:00 15:00 23:00 Intake Total 336 ml 1000 ml 2000 ml Output Total 600 ml 200 ml 450 ml 225 ml Balance -600 ml 336 ml 800 ml -450 ml 1775 ml Intake Oral 0 ml IV Total 336 ml 1000 ml 2000 ml Output Urine Total 200 ml 125 ml Gastric Drainage Total 600 ml 450 ml Estimated Blood Loss 100 ml # Bowel Movements 0 (Derek Dumont MD, R1) Result Diagram: 10/12/17 0655 10/12/17 0655 Imaging Last Impressions Small Bowel X-Ray 10/10/17 0000 Signed Impressions: Service Date/Time: Tuesday, October 10, 2017 13:38 - CONCLUSION: 1. High-grade partial obstruction distal small bowel. Eulogio Masters MD Abdomen X-Ray 10/10/17 0000 Signed Impressions: Service Date/Time: Tuesday, October 10, 2017 08:35 - CONCLUSION: Distended small bowel concerning for some degree of obstruction. Tacho Mcneill MD Chest CT 10/09/17 0000 Signed Impressions: Service Date/Time: Monday, October 09, 2017 08:27 - CONCLUSION: Severe emphysema. Bilateral pleural effusions and free fluid in the upper abdomen. There are no lung masses seen. Scott Zee MD Abdomen/Pelvis CT 10/07/17 1402 Signed Impressions: Service Date/Time: Saturday, October 07, 2017 14:56 - CONCLUSION: Dilated fluid filled small bowel with some additional air small bowel which are nondilated. There is a questionable transition point in the right mid abdomen as described above. No evidence of pneumatosis. Status post aortobifem.. Curtis Lee MD Objective Remarks GEN: Thin, cachectic elderly black male lying in bed in NAD Skin: Cool and dry CV: NRRR, nl S1/S2, no MRG Lungs: Normal rate and effort. CTAB anteriorly. No crackles or wheezes. Abd. Soft, nondistended, no tenderness to palpation. Abdominal dressing in place, c/d/i MSK: No cyanosis or edema. warm and well perfused. non-tender calves BL. Neuro: Awake, alert, moves all extremities well. Normal speech. (Derek Dumont MD, R1) A/P Assessment and Plan Patient is a 67-year-old male with past medical history of dysphasia, implanted PEG tube, hypertension, and COPD presented with: (Derek Dumont MD, R1) Attending Attestation Patient seen and examined. Case reviewed and discussed. Agree with plan of care as discussed with me and documented in the resident note. (Marce Watts MD) Problem List: (1) Abdominal pain ICD Codes: R10.9 - Unspecified abdominal pain Status: Resolved Plan: Small bowel follow through shows significant obstruction CT abdomen pelvis: Dilated fluid-filled small bowel with some air, nondilated, no evidence of pneumonitis Patient failed medical management of SBO Currently denies any abdominal pain Surgery consulted, appreciate assistance -POD#0 s/p exploratory laparotomy, his of adhesions, small bowel resection with primary anastomosis Patient's case was discussed with outpatient GI physician at [facility] Dr. 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 stenting Pain control (2) Small bowel obstruction ICD Codes: K56.609 - Unspecified intestinal obstruction, unspecified as to partial versus complete obstruction Status: Acute Plan: See plan above (3) Severe protein-calorie malnutrition ICD Codes: E43 - Unspecified severe protein-calorie malnutrition Status: Chronic Plan: Chronic malnutrition likely due to dysphagia, chronic abdominal pain possibly mesenteric ischemia (see above) -Manage abdominal pain and SBO as noted -Consult dietary for nutritional support recs once patient able to take PEG/PO feeds (4) Hypoglycemia ICD Codes: E16.2 - Hypoglycemia, unspecified Status: Resolved Plan: Likely due to chronic malnutrition plus NPO status -Continue IVF as noted below -Monitor clinically -Follow blood Cx to r/o infection (5) Cachexia ICD Codes: R64 - Cachexia Status: Chronic Plan: Likely secondary to malnutrition from dysphagia. Alcohol abuse in problem list but patient has not been drinking for some time. CT lungs negative for lung cancer AM cortisol wnl -Consult dietary once taking PO; if NPO status persists will contact for evaluation for TPN (6) COPD (chronic obstructive pulmonary disease) ICD Codes: J44.9 - Chronic obstructive pulmonary disease Status: Chronic Plan: No active COPD symptoms Duonebs as needed (7) Hypertension ICD Codes: I10 - Hypertension Status: Chronic Plan: Patient with normal blood pressures Hold home blood pressure medication (8) CAD (coronary artery disease) ICD Codes: I25.10 - Coronary artery disease Status: Chronic Plan: Stable; resume ASA/Plavix once no longer NPO (9) Nutrition, metabolism, and development symptoms ICD Codes: R63.8 - Other symptoms and signs concerning food and fluid intake Plan: Fluids: 125 mls/hr of D5-1/2 NS with 40 mEq/L of KCl Electrolytes: Monitor and replete as needed Nutrition: per gen surgery rec DVT prophylaxis: Lovenox 40mg Q24h Dispo: Pending resolution of SBO (Derek Dumont MD, R1) Problem Qualifiers (1) Abdominal pain: Qualified Codes: R10.9 - Unspecified abdominal pain Derek Dumont MD, R1 October 12, 2017 16:06 Marce Watts MD October 14, 2017 18:26
[2017-10-12 20:00] VITALS: BP 129/60; PULSE 77; RESP 15; TEMP 97.9; O2SAT 98
[2017-10-12] MEDS: D5-1/2 NS + KCL 40 MEQ INJ 1,000 ML IV SCH (21:46)
[2017-10-13] VITALS: BP 126/61; PULSE 75; RESP 16; TEMP 97.6; O2SAT 98
--- NOTE | 2017-10-13 00:10 | MP ---
cc: Pawan Brito MD DATE OF OPERATION: 10/12/2017 PROCEDURE: 1. Exploratory laparotomy. 2. Lysis of adhesions, greater than 1 hour. 3. Small bowel resection with primary anastomosis. PREOPERATIVE DIAGNOSIS: Persistent recurrent bowel obstruction. POSTOPERATIVE DIAGNOSIS: Persistent recurrent small-bowel obstruction secondary to adhesions. ANESTHESIA: General endotracheal. SURGEON: Pawan Brito MD ESTIMATED BLOOD LOSS: 100 mL. FLUIDS: 2000 mL crystalloid. ASSISTANT EDUCATION DIRECTOR: Josh Lopez CFA. COMPLICATIONS: None. DRAINS: None. SPECIMENS: Small segment of ileum to pathology. Findings: Loop of proximal ileum adhesed to the retroperitoneum, creating chronic obstruction. This appeared to have a small degree of ischemia associated with it as well. PROCEDURE IN DETAIL: The patient was taken to the operating room and placed on the operating table in the supine position. After an adequate level of general endotracheal anesthesia was achieved, the abdomen was prepped and draped in the usual fashion. Timeout was taken, confirming the correct patient, site, and procedure to be performed. The gastrostomy tube was prepped in the field. An incision was made in the midline through the patient's previous midline incision. This extended from the symphysis to a level above the umbilicus, but not quite to the gastrostomy tube. The peritoneal cavity was entered uneventfully. The omentum was taken down off of the anterior abdominal wall with electrocautery. Dilated loops of small bowel were noted and there was a kinked segment of small bowel up near the ligament of Treitz. This was released with meticulous careful sharp dissection. A further distal and more significant adhesion was noted, and distal to this, small bowel was decompressed. This appeared to be adhered to the retroperitoneal tissues. This was dissected off with sharp dissection. After releasing the proximal adhesion, careful meticulous dissection was carried out on the distal small bowel. This was firmly adherent to the retroperitoneum and the aorta. Careful sharp dissection was required to remove the bowel from the retroperitoneum without causing significant bleeding. This dissection took over 70 minutes. This area was felt to be at considerable continued risk for stricture and persistent obstruction. It was thus elected to resect this portion of small bowel, which appeared to be the proximal ileum. There did not appear to be any mass effect causing this. The bowel was divided with the CLARY staplers and the mesentery successively clamped and ligated with 2-0 silk suture. The specimen was passed off the table. The small bowel was then placed [id number] and a CLARY stapler fired down the antimesenteric border. The staple line was seen to be hemostatic. A 3-0 silk suture was placed at the toe of the staple line to secure this. An Dx-60 type stapler was then used to close the ileoileostomy. The mesenteric defect was closed with 3-0 silk sutures. The abdomen was irrigated and the bowel returned to an anatomic position. All of the bowel appeared viable and pink upon completion of the procedure. All irrigation was aspirated and the abdomen was closed with a running #1 PDS suture. The skin was closed with ankita and a TG dressing was applied. The patient was extubated and taken back to the recovery room in stable condition. Sponge, needle and instrument counts were reported to be correct. MD ALEKSEY Johnson/ALESHA , 11:23 PM , 12:09 AM MACK
[2017-10-13 04:00] VITALS: BP 129/70; PULSE 72; RESP 16; TEMP 98; O2SAT 94
[2017-10-13 04:14] LABS: AUTOMATED NEUTROPHIL # 15.8 TH/MM3 (1.8-7.7); BASOPHIL % 0.1 % (0.0-2.0); EOSINOPHIL % 0.1 % (0.0-4.0); HEMATOCRIT 31.3 % (39.0-51.0); HEMOGLOBIN 10.4 GM/DL (13.0-17.0); LYMPH % 3.1 % (9.0-44.0); LYMPHOCYTE # 0.5 TH/MM3 (1.0-4.8); MEAN CELL VOLUME 87.6 FL (80.0-100.0); MEAN CORPUSCULAR HEMOGLOBIN 29.1 PG (27.0-34.0); MEAN CORPUSCULAR HGB CONC 33.2 % (32.0-36.0); MEAN PLATELET VOLUME 9.7 FL (7.0-11.0); MONOCYTE # 0.5 TH/MM3 (0-0.9); NEUT % 93.7 % (16.0-70.0); PLATELET COUNT 151 TH/MM3 (150-450); RED BLOOD COUNT 3.57 MIL/MM3 (4.50-5.90); RED CELL DISTRIBUTION WIDTH 15.8 % (11.6-17.2); WHITE BLOOD COUNT 16.9 TH/MM3 (4.0-11.0)
[2017-10-13 05:07] LABS: BICARBONATE 26.3 MEQ/L (21.0-32.0); CALCIUM 7.9 MG/DL (8.5-10.1); CREATININE 0.49 MG/DL (0.60-1.30)
[2017-10-13] MEDS: D5-1/2 NS + KCL 40 MEQ INJ 1,000 ML IV SCH (05:38)
[2017-10-13] MEDS: MORPHINE SULFATE 4 MG/ML INJ IV PUSH PRN ×2 (05:38→15:57)
[2017-10-13 08:00] VITALS: BP 118/57; PULSE 72; RESP 17; TEMP 97.3; O2SAT 96
[2017-10-13] MEDS: THIAMINE HCL 100 MG TAB PO SCH (08:36)
[2017-10-13] MEDS: FINASTERIDE 5 MG TAB PO SCH (08:36)
[2017-10-13] MEDS: PRAVASTATIN SOD 20 MG TAB PO SCH (08:37)
[2017-10-13] MEDS: PANTOPRAZOLE SOD 40 MG DELAYED RELEASE TAB PO SCH (08:37)
[2017-10-13] MEDS: SODIUM CHLORIDE 0.9% FLUSH 10 ML FLUSH IV FLUSH SCH ×2 (08:37→21:36)
--- NOTE | 2017-10-13 09:53 | HHI.PR ---
Subjective Subjective Notes Resting in bed "Can I have some Jello?" Objective Vitals/I&O Vital Signs Date Time Temp Pulse Resp B/P (MAP) Pulse Ox O2 Delivery O2 Flow Rate FiO2 10/13/17 08:00 97.3 72 17 118/57 (77) 96 10/12/17 14:25 Room Air 10/12/17 14:00 2 Labs Laboratory Tests Test 10/13/17 03:36 White Blood Count 16.9 Red Blood Count 3.57 Hemoglobin 10.4 Hematocrit 31.3 Mean Corpuscular Volume 87.6 Mean Corpuscular Hemoglobin 29.1 Mean Corpuscular Hemoglobin Concent 33.2 Red Cell Distribution Width 15.8 Platelet Count 151 Mean Platelet Volume 9.7 Neutrophils (%) (Auto) 93.7 Lymphocytes (%) (Auto) 3.1 Monocytes (%) (Auto) 3.0 Eosinophils (%) (Auto) 0.1 Basophils (%) (Auto) 0.1 Neutrophils # (Auto) 15.8 Lymphocytes # (Auto) 0.5 Monocytes # (Auto) 0.5 Eosinophils # (Auto) 0.0 Basophils # (Auto) 0.0 CBC Comment DIFF FINAL Differential Comment Blood Urea Nitrogen 13 Creatinine 0.49 Random Glucose 138 Calcium Level 7.9 Sodium Level 138 Potassium Level 5.0 Chloride Level 106 Carbon Dioxide Level 26.3 Anion Gap 6 Estimat Glomerular Filtration Rate 205 Date/Time Source Procedure Growth Status 10/09/17 10:50 Blood Peripheral Aerobic Blood Culture - Preliminary NO GROWTH IN 3 DAYS Resulted 10/09/17 10:50 Blood Peripheral Anaerobic Blood Culture - Preliminary NO GROWTH IN 3 DAYS Resulted 10/12/17 12:00 Fluid Peritoneal Fluid Fungal Smear - Final NO FUNGAL ELEMENTS SEEN. Resulted 10/12/17 12:00 Fluid Peritoneal Fluid Fungal Culture Pending Resulted Cardiovascular: Regular Lungs: Clear Abdomen: Other (TG in place with minimal drainage; good seal; G tube to gravity bag; abdomen non distended ), Post-op tenderness Extremities: No edema Narrative Exam cachetic A/P Assessment and Plan 67 year old male with SBO; -POD1 ex lap; YONATHAN; SBR -Continue PEG tube to gravity -Will start clear liquids once bowel function returns -Pain control -IVF -Continue to Hold Plavix/ASA/Lovenox -NPO -Zofran PRN -PT--- mobilize as tolerated Attending Note - Dr. Brito TG dressing with minimal drainage No flatus or BM yet Abdomen soft. The exam, history, and the medical decision-making described in the above note were completed with the assistance of the mid-level provider. I reviewed and agree with the findings presented. I attest that I had a [id number] encounter with the patient on the same day, and personally performed and documented my assessment and findings in the medical record. Yesenia EllerP/Carpet Installer NUTRITION EDUCATOR October 13, 2017 09:53 Pawan Brito MD October 17, 2017 11:26
[2017-10-13] MEDS: D5-1/2 NS + KCL 20 MEQ INJ 1,000 ML IV SCH ×3 (10:30→21:33)
[2017-10-13 12:00] VITALS: BP 133/77; PULSE 67; RESP 16; TEMP 97.2; O2SAT 96
--- NOTE | 2017-10-13 15:11 | HHI.FPPN ---
Subjective Remarks Delayed entry: Patient seen and examined at bedside this morning. No acute events overnight. Patient states his pain is well controlled, has no complaints. Patient currently tolerating ice chips p.o. (Derek Dumont MD, R1) Objective Vitals Vital Signs Date Time Temp Pulse Resp B/P (MAP) Pulse Ox O2 Delivery O2 Flow Rate FiO2 10/13/17 12:00 97.2 67 16 133/77 (95) 96 10/13/17 08:00 97.3 72 17 118/57 (77) 96 10/13/17 04:00 98.0 72 16 129/70 (89) 94 10/13/17 00:00 97.6 75 16 126/61 (82) 98 10/12/17 20:00 97.9 77 15 129/60 (83) 98 10/12/17 16:00 97.2 95 17 128/58 (81) 91 I/O 10/12/17 10/12/17 10/12/17 10/13/17 10/13/17 10/13/17 07:00 15:00 23:00 07:00 15:00 23:00 Intake Total 2000 ml 1000 ml 1240 ml Output Total 450 ml 225 ml 500 ml 800 ml Balance -450 ml 1775 ml 500 ml 440 ml Intake Oral 0 ml 240 ml IV Total 2000 ml 1000 ml 1000 ml Output Urine Total 125 ml 300 ml 650 ml Gastric Drainage Total 450 ml 200 ml 150 ml Estimated Blood Loss 100 ml # Bowel Movements 0 (Derek Dumont MD, R1) Result Diagram: 10/13/17 0336 10/13/17 0336 Objective Remarks GEN: Thin, cachectic elderly black male lying in bed in NAD Skin: Cool and dry CV: NRRR, nl S1/S2, no MRG Lungs: Normal rate and effort. CTAB anteriorly. No crackles or wheezes. Abd. Soft, nondistended, no tenderness to palpation. Abdominal dressing in place, c/d/i MSK: No cyanosis or edema. warm and well perfused. non-tender calves BL. Neuro: Awake, alert, moves all extremities well. Normal speech. (Derek Dumont MD, R1) Urinary Catheter: Yes (Derek Dumont MD, R1) A/P Assessment and Plan Patient is a 67-year-old male with past medical history of dysphasia, implanted PEG tube, hypertension, and COPD presented with: (Derek Dumont MD, R1) Attending Attestation Patient seen and examined. Case reviewed and discussed. Agree with plan of care as discussed with me and documented in the resident note. (Marce Watts MD) Problem List: (1) Peritonitis ICD Codes: K65.9 - Peritonitis, unspecified Plan: POD#1 s/p exploratory laparotomy, lysis of adhesions, small bowel resection with primary anastomosis Peritoneal fluid growing gram-negative rods, leukocytosis (16.9 today) slightly decreased from yesterday, afebrile, benign abdominal exam. Negative for fungal elements or acid-fast bacilli Consider PEG tube replacement Antibiotic history: Zosyn IV Q6h 10/13--present ID consulted, appreciate recommendations (2) Abdominal pain ICD Codes: R10.9 - Unspecified abdominal pain Status: Resolved Plan: Small bowel follow through shows significant obstruction CT abdomen pelvis: Dilated fluid-filled small bowel with some air, nondilated, no evidence of pneumonitis Patient failed medical management of SBO Currently denies any abdominal pain Surgery consulted, appreciate assistance -POD#1 s/p exploratory laparotomy, lysis of adhesions, small bowel resection with primary anastomosis Patient's case was discussed with outpatient GI physician at [facility] Dr. 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 stenting Pain control (3) Small bowel obstruction ICD Codes: K56.609 - Unspecified intestinal obstruction, unspecified as to partial versus complete obstruction Status: Acute Plan: See plan above (4) Severe protein-calorie malnutrition ICD Codes: E43 - Unspecified severe protein-calorie malnutrition Status: Chronic Plan: Chronic malnutrition likely due to dysphagia, chronic abdominal pain possibly mesenteric ischemia (see above) -Manage abdominal pain and SBO as noted -Consult dietary for nutritional support recs once patient able to take PEG/PO feeds (5) Cachexia ICD Codes: R64 - Cachexia Status: Chronic Plan: Likely secondary to malnutrition from dysphagia. Alcohol abuse in problem list but patient has not been drinking for some time. CT lungs negative for lung cancer AM cortisol wnl -Consult dietary once taking PO; if NPO status persists will contact for evaluation for TPN (6) COPD (chronic obstructive pulmonary disease) ICD Codes: J44.9 - Chronic obstructive pulmonary disease Status: Chronic Plan: No active COPD symptoms Duonebs as needed (7) Hypertension ICD Codes: I10 - Hypertension Status: Chronic Plan: Patient with normal blood pressures Hold home blood pressure medication (8) CAD (coronary artery disease) ICD Codes: I25.10 - Coronary artery disease Status: Chronic Plan: Stable; resume ASA/Plavix once no longer NPO (9) Nutrition, metabolism, and development symptoms ICD Codes: R63.8 - Other symptoms and signs concerning food and fluid intake Plan: Fluids: 125 mls/hr of D5-1/2 NS with 20 mEq/L of KCl Electrolytes: Monitor and replete as needed Nutrition: per gen surgery rec DVT prophylaxis: Lovenox 40mg Q24h Dispo: Pending resolution of SBO (Derek Dumont MD, R1) Problem Qualifiers (1) Abdominal pain: Qualified Codes: R10.9 - Unspecified abdominal pain Derek Dumont MD, R1 October 13, 2017 15:11 Marce Watts MD October 14, 2017 18:12
[2017-10-13] MEDS: PIPERACIL-TAZO 4.5 GM PREMIX 100 ML IV SCH ×2 (15:51→21:32)
[2017-10-13 16:00] VITALS: BP 131/70; PULSE 61; RESP 16; TEMP 98; O2SAT 92
--- NOTE | 2017-10-13 18:29 | MB ---
cc: John Hampton MD DATE: 10/13/2017 REQUESTING PHYSICIAN: Dr. Dumont REASON FOR CONSULTATION: Peritonitis. Peritoneal fluid growing Gram-negative rods. HISTORY OF PRESENT ILLNESS: This is a 67-year-old black male who presented to the Emergency Department on 10/07/2017 with abdominal pain. The patient had a pain of 10/10 scale when he presented. He underwent radiographic studies including a CT scan of the abdomen, which showed dilated fluid filled small bowel, with some additional air fluid, with some additional areas which were nondilated. The patient was evaluated by general surgery and was felt to have small-bowel obstruction. He eventually was taken to surgery yesterday and underwent exploratory laparotomy and small bowel resection with primary anastomosis. He was found to have recurrent small-bowel obstruction secondary to adhesions. A culture of fluid from the peritoneal cavity came back with moderate growth of Gram-negative charo. The identity of the Gram-negative bacteria is pending. The patient's white blood cell count increased to 18.2 yesterday from 9.3. He states that he continues to have pain in the abdomen. He also notes having occasional chills. He states that he gets dizzy at times when he gets up from bed. A catheter was left into the surgical bed from surgery and it is draining some bilious-colored fluid. I spoke to Dr. Brito and he reports that the area of surgery is away from the location where the culture was taken, which has the Gram-negative charo. The patient has no fevers. IMAGING: CT scan of the chest showed bilateral pleural effusion and free fluid in the upper abdomen. PAST MEDICAL HISTORY: Dysphagia, hypertension, COPD, PEG tube, coronary artery bypass graft surgery, aortic bifemoral bypass, prior small-bowel obstruction, alcohol abuse, C. difficile infection in July 2017. ALLERGIES: NO KNOWN DRUG ALLERGIES. MEDICATIONS: Piperacillin/tazobactam, morphine sulfate, Proscar, Pravachol, Protonix, thiamine. SOCIAL HISTORY: The patient smokes a pack of cigarettes a day. He denies current alcohol use. No illicit drugs. The patient lives alone in his apartment. He notes that he has a friend that checks on him. FAMILY HISTORY: Noncontributory. REVIEW OF SYSTEMS: GENERAL: Significant for chills. Denies fever. HEAD, EARS, EYES, NOSE AND THROAT: No visual blurring or diplopia. No difficulty swallowing. No throat pain. CARDIOVASCULAR: No palpitation. No chest pain. RESPIRATORY: Denies cough or shortness of breath. GASTROINTESTINAL: Significant for abdominal pain, constipation. GENITOURINARY: Notes occasional dysuria. ENDOCRINE: Denies polyuria or polydipsia. HEMATOPOIETIC: Denies easy bruising or bleeding. INTEGUMENTARY: Denies skin rash or itching. NEUROLOGIC: Denies problems with coordination. PSYCHIATRIC: Denies mood changes. PHYSICAL EXAMINATION: GENERAL: This is a cachectic male who is in no acute distress. He is awake and alert and oriented. VITAL SIGNS: Temperature 98.0, BP 131/70, respirations 16, heart rate 61. HEENT: Head atraumatic. Extraocular movements grossly intact. Pupils reactive to light. No icterus. Oropharynx, moist mucosa. The patient is edentulous. No visible lesions. NECK: Supple, without adenopathy. LUNGS: Clear to auscultation. CARDIOVASCULAR: Regular S1, S2. No murmurs, rubs or gallops. ABDOMEN: Diminished bowel sounds. Soft, nontender. A PEG catheter exits the abdomen. The area is intact. RECTAL: Not performed. GENITOURINARY: Normal genitalia. EXTREMITIES: No clubbing, cyanosis or edema. Diffuse muscle wasting. SKIN: No rash. NEUROLOGIC: Alert and oriented. No gross focal finding. PSYCHIATRIC: The patient is calm and cooperative. LABORATORY DATA: WBC 16.9, platelets 151, hemoglobin 10.4, 93% neutrophils, creatinine 0.49, BUN is 13, sodium 138. IMPRESSION: 1. Peritonitis due to Gram-negative bacteria, very likely secondary to translocation of bacteria. 2. Status post small-bowel resection for small-bowel obstruction. 3. Leukocytosis secondary to peritonitis. RECOMMENDATIONS: 1. Continue piperacillin/tazobactam. 2. Monitor Gram-negative bacteria for antibiotic adjustment. Once the sensitivities available, antibiotic decisions can be made. If the bacteria is amenable to p.o. antibiotics, we can give a few days of IV and then transition to oral antibiotics for outpatient treatment. Thank you for this consultation. The patient's progress will be monitored along with you. MD SOLA Forrester/FLETCHER , 05:53 PM , 06:28 PM MACK
[2017-10-13 20:00] VITALS: BP 125/57; PULSE 80; RESP 20; TEMP 97.9; O2SAT 91
[2017-10-14] VITALS: BP 128/60; PULSE 68; RESP 20; TEMP 97.9; O2SAT 92
[2017-10-14] MEDS: PIPERACIL-TAZO 4.5 GM PREMIX 100 ML IV SCH ×4 (05:00→21:25)
[2017-10-14] MEDS: D5-1/2 NS + KCL 20 MEQ INJ 1,000 ML IV SCH ×3 (05:03→21:27)
[2017-10-14 08:00] VITALS: BP 149/80; PULSE 68; RESP 16; TEMP 97.9; O2SAT 97
[2017-10-14] MEDS: PRAVASTATIN SOD 20 MG TAB PO SCH (08:53)
[2017-10-14] MEDS: FINASTERIDE 5 MG TAB PO SCH (08:53)
[2017-10-14] MEDS: THIAMINE HCL 100 MG TAB PO SCH (08:53)
[2017-10-14] MEDS: PANTOPRAZOLE SOD 40 MG DELAYED RELEASE TAB PO SCH (08:53)
[2017-10-14] MEDS: SODIUM CHLORIDE 0.9% FLUSH 10 ML FLUSH IV FLUSH SCH ×2 (08:55→21:31)
[2017-10-14] MEDS: MORPHINE SULFATE 4 MG/ML INJ IV PUSH PRN ×2 (09:03→21:31)
--- NOTE | 2017-10-14 10:36 | HHI.PR ---
Subjective Subjective Notes Resting in bed No issues Objective Vitals/I&O Vital Signs Date Time Temp Pulse Resp B/P (MAP) Pulse Ox O2 Delivery O2 Flow Rate FiO2 10/14/17 08:00 97.9 68 16 149/80 (103) 97 10/12/17 14:25 Room Air 10/12/17 14:00 2 Labs Date/Time Source Procedure Growth Status 10/09/17 10:50 Blood Peripheral Aerobic Blood Culture - Preliminary NO GROWTH IN 4 DAYS Resulted 10/09/17 10:50 Blood Peripheral Anaerobic Blood Culture - Preliminary NO GROWTH IN 4 DAYS Resulted 10/12/17 12:00 Fluid Peritoneal Fluid Fungal Smear - Final NO FUNGAL ELEMENTS SEEN. Resulted 10/12/17 12:00 Fluid Peritoneal Fluid Fungal Culture Pending Resulted Cardiovascular: Regular Lungs: Clear Abdomen: Other (TG in place with minimal drainage; G tube in place ) Extremities: No edema Narrative Exam cachetic A/P Assessment and Plan 67 year old male with SBO; -POD2 ex lap; YONATHAN; SBR -Continue PEG tube to gravity -Start sips of clear liquids if okay with speech therapy -Pain control -IVF -Restart Plavix/ASA/Lovenox -Zofran PRN -PT--- mobilize as tolerated Attending Note - Dr. Daryl MAS dressing with minimal drainage Speech states OK for nectar-thickened liquids Stable Await return of bowel function The exam, history, and the medical decision-making described in the above note were completed with the assistance of the mid-level provider. I reviewed and agree with the findings presented. I attest that I had a [id number] encounter with the patient on the same day, and personally performed and documented my assessment and findings in the medical record. Yesenia Eller LEAD PRINCIPAL TECHNICAL ARCHITECT/Research Executive LEAD PRINCIPAL TECHNICAL ARCHITECT October 14, 2017 10:36 Pawan Brito MD October 17, 2017 11:32
[2017-10-14 11:26] LABS: AUTOMATED NEUTROPHIL # 13.4 TH/MM3 (1.8-7.7); BASOPHIL % 0.1 % (0.0-2.0); EOSINOPHIL % 0.2 % (0.0-4.0); HEMATOCRIT 33.6 % (39.0-51.0); HEMOGLOBIN 10.9 GM/DL (13.0-17.0); LYMPH % 6.3 % (9.0-44.0); MEAN CELL VOLUME 88.8 FL (80.0-100.0); MEAN CORPUSCULAR HEMOGLOBIN 28.9 PG (27.0-34.0); MEAN CORPUSCULAR HGB CONC 32.5 % (32.0-36.0); MEAN PLATELET VOLUME 10.2 FL (7.0-11.0); MONO % 5.6 % (0.0-8.0); MONOCYTE # 0.9 TH/MM3 (0-0.9); NEUT % 87.8 % (16.0-70.0); PLATELET COUNT 173 TH/MM3 (150-450); RED BLOOD COUNT 3.78 MIL/MM3 (4.50-5.90); RED CELL DISTRIBUTION WIDTH 15.9 % (11.6-17.2); WHITE BLOOD COUNT 15.2 TH/MM3 (4.0-11.0)
[2017-10-14 11:44] LABS: BICARBONATE 24.1 MEQ/L (21.0-32.0); CALCIUM 7.9 MG/DL (8.5-10.1); CREATININE 0.5 MG/DL (0.60-1.30)
[2017-10-14 12:00] VITALS: BP 156/72; PULSE 67; RESP 17; TEMP 96.7; O2SAT 92
--- NOTE | 2017-10-14 15:40 | HHI.IDPN ---
Note Infectious Disease Note Patient says he feels okay. He notes that the pain is abdomen is better. Tolerating p.o. intake. Afebrile. Peritoneal fluid culture has Klebsiella. PAST MEDICAL HISTORY: Dysphagia, hypertension, COPD, PEG tube, coronary artery bypass graft surgery, aortic bifemoral bypass, prior small-bowel obstruction, alcohol abuse, C. difficile infection in July 2017. ALLERGIES: NO KNOWN DRUG ALLERGIES. MEDICATIONS: Medications (Trade) Dose Ordered Sig/Marilee Route PRN Reason Start Time Stop Time Status Last Admin Dose Admin Sodium Chloride (NS Flush) 2 ml UNSCH PRN IV FLUSH FLUSH AFTER USING IV ACCESS 10/07/17 17:15 Sodium Chloride (NS Flush) 2 ml BID IV FLUSH 10/07/17 21:00 10/13/17 21:36 Enoxaparin Sodium (Lovenox Inj) 40 mg Q24H SQ 10/07/17 20:00 Future hold 10/10/17 20:35 Naloxone HCl (Narcan Inj) 0.4 mg UNSCH PRN IV PUSH SEE LABEL COMMENTS 10/07/17 17:15 Senna/Docusate Sodium (Tri-Colace) 1 tab BID PO 10/07/17 21:00 Future Hold Magnesium Hydroxide (Milk Of Magnesia Liq) 30 ml Q12H PRN PO Mild constipation 10/07/17 17:15 Future Hold Sennosides (Senokot) 17.2 mg Q12H PRN PO Moderate constipation 10/07/17 17:15 Future Hold Bisacodyl (Dulcolax Supp) 10 mg DAILY PRN RECTAL SEVERE CONSITIPATION 10/07/17 17:15 Lactulose (Lactulose Liq) 30 ml DAILY PRN PO SEVERE CONSITIPATION 10/07/17 17:15 Future Hold Aspirin (Aspirin Chew) 81 mg DAILY CHEW 10/08/17 09:00 Future hold 10/10/17 08:29 Clopidogrel Bisulfate (Plavix) 75 mg DAILY PO 10/08/17 09:00 Future hold 10/10/17 08:29 Finasteride (Proscar) 5 mg DAILY PO 10/08/17 09:00 Future hold 10/14/17 08:53 Pravastatin Sodium (Pravachol) 20 mg DAILY PO 10/08/17 09:00 Future hold 10/14/17 08:53 Metoprolol Tartrate (Lopressor) 12.5 mg BID PO 10/08/17 09:00 Future Hold Pantoprazole Sodium (Protonix) 40 mg DAILY PO 10/08/17 09:00 Future hold 10/14/17 08:53 Thiamine HCl (Vitamin B1) 250 mg DAILY PO 10/08/17 09:00 Future hold 10/14/17 08:53 Miscellaneous (Pill Splitter) 1 ea UNSCH PRN OTHER SEE LABEL COMMENTS 10/07/17 21:45 Albuterol/ Ipratropium (Duoneb Neb) 1 ampule Q6HR NEB PRN NEB SHORTNESS OF BREATH 10/07/17 21:45 Dextrose (D50w (Vial) Inj) 50 ml UNSCH PRN IV PUSH HYPOGLYCEMIA-SEE COMMENTS 10/09/17 07:00 Glucagon (Glucagon Inj) 1 mg UNSCH PRN OTHER HYPOGLYCEMIA-SEE COMMENTS 10/09/17 07:00 Ondansetron HCl (Zofran Inj) 4 mg Q6HR PRN IV PUSH nausea/vomiting 10/11/17 08:30 10/12/17 01:32 Lactated Ringer's 1,000 ml @ 30 mls/hr Q24H PRN IV SEE LABEL COMMENTS 10/12/17 00:15 10/15/17 00:14 10/12/17 10:07 Sodium Chloride 500 ml @ 30 mls/hr [id number] PRN IV SEE LABEL COMMENTS 10/12/17 00:15 10/15/17 00:14 Povidone Iodine (Betadine 5% Antisepsis Kit) 1 applic INSIDE METER TESTER PRN EACH NARE SEE LABEL COMMENTS 10/12/17 00:15 10/15/17 00:14 Chlorhexidine Gluconate (Chlorhexidine 2% Cloth) 3 pack INSIDE METER TESTER PRN TOPICAL SEE LABEL COMMENTS 10/12/17 00:15 10/15/17 00:14 Cefazolin Sodium/ Dextrose 50 ml @ 100 mls/hr INSIDE METER TESTER IV 10/12/17 08:15 10/15/17 08:14 10/12/17 10:44 Morphine Sulfate (Morphine Inj) 3 mg Q3H PRN IV PUSH pain 1-10 10/12/17 13:45 10/14/17 09:03 Potassium Chloride/Dextrose/ Sod Cl 1,000 ml @ 125 mls/hr Q8H IV 10/13/17 10:30 10/14/17 05:03 Piperacillin Sod/ Tazobactam Sod 100 ml @ 200 mls/hr Q6H IV 10/13/17 16:00 10/14/17 08:59 SOCIAL HISTORY: The patient smokes a pack of cigarettes a day. He denies current alcohol use. No illicit drugs. The patient lives alone in his apartment. He notes that he has a friend that checks on him. FAMILY HISTORY: Noncontributory. Vital Signs Date Time Temp Pulse Resp B/P (MAP) Pulse Ox O2 Delivery O2 Flow Rate FiO2 10/14/17 12:00 96.7 67 17 156/72 (100) 92 10/14/17 08:00 97.9 68 16 149/80 (103) 97 10/14/17 00:00 97.9 68 20 128/60 (82) 92 10/13/17 20:00 97.9 80 20 125/57 (79) 91 10/13/17 16:00 98.0 61 16 131/70 (90) 92 Laboratory Tests Test 10/13/17 03:36 10/14/17 09:40 White Blood Count 16.9 TH/MM3 15.2 TH/MM3 Red Blood Count 3.57 MIL/MM3 3.78 MIL/MM3 Hemoglobin 10.4 GM/DL 10.9 GM/DL Hematocrit 31.3 % 33.6 % Mean Corpuscular Volume 87.6 FL 88.8 FL Mean Corpuscular Hemoglobin 29.1 PG 28.9 PG Mean Corpuscular Hemoglobin Concent 33.2 % 32.5 % Red Cell Distribution Width 15.8 % 15.9 % Platelet Count 151 TH/MM3 173 TH/MM3 Mean Platelet Volume 9.7 FL 10.2 FL Neutrophils (%) (Auto) 93.7 % 87.8 % Lymphocytes (%) (Auto) 3.1 % 6.3 % Monocytes (%) (Auto) 3.0 % 5.6 % Eosinophils (%) (Auto) 0.1 % 0.2 % Basophils (%) (Auto) 0.1 % 0.1 % Neutrophils # (Auto) 15.8 TH/MM3 13.4 TH/MM3 Lymphocytes # (Auto) 0.5 TH/MM3 1.0 TH/MM3 Monocytes # (Auto) 0.5 TH/MM3 0.9 TH/MM3 Eosinophils # (Auto) 0.0 TH/MM3 0.0 TH/MM3 Basophils # (Auto) 0.0 TH/MM3 0.0 TH/MM3 CBC Comment DIFF FINAL DIFF FINAL Differential Comment Laboratory Tests Test 10/13/17 03:36 10/14/17 09:40 Blood Urea Nitrogen 13 MG/DL 9 MG/DL Creatinine 0.49 MG/DL 0.50 MG/DL Random Glucose 138 MG/DL 72 MG/DL Calcium Level 7.9 MG/DL 7.9 MG/DL Sodium Level 138 MEQ/L 136 MEQ/L Potassium Level 5.0 MEQ/L 4.6 MEQ/L Chloride Level 106 MEQ/L 104 MEQ/L Carbon Dioxide Level 26.3 MEQ/L 24.1 MEQ/L Anion Gap 6 MEQ/L 8 MEQ/L Estimat Glomerular Filtration Rate 205 ML/MIN 200 ML/MIN Microbiology Date/Time Source Procedure Growth Status 10/12/17 12:00 Fluid Peritoneal Fluid Fungal Smear - Final NO FUNGAL ELEMENTS SEEN. Resulted 10/12/17 12:00 Fluid Peritoneal Fluid Fungal Culture Pending Resulted 10/12/17 12:00 Fluid Peritoneal Fluid Acid Fast Stain - Final NO ACID FAST BACILLI SEEN Resulted 10/12/17 12:00 Fluid Peritoneal Fluid Mycobacterial Culture Pending Resulted 10/12/17 12:00 Fluid Peritoneal Fluid Gram Stain - Final Complete 10/12/17 12:00 Body Fluid Culture - Final Klebsiella Pneumoniae Complete PHYSICAL EXAMINATION: GENERAL: No acute distress. HEENT: Head atraumatic. Extraocular movements grossly intact. Pupils reactive to light. No icterus. Oropharynx, moist mucosa. The patient is edentulous. No visible lesions. NECK: Supple, without adenopathy. LUNGS: Clear to auscultation. CARDIOVASCULAR: Regular S1, S2. No murmurs, rubs or gallops. ABDOMEN: Diminished bowel sounds. Soft, nontender. GENITOURINARY: Normal genitalia. EXTREMITIES: No clubbing, cyanosis or edema. Diffuse muscle wasting. SKIN: No rash. NEUROLOGIC: Alert and oriented. No gross focal finding. PSYCHIATRIC: Calm and cooperative. IMPRESSION: 1. Peritonitis due to Klebsiella, very likely secondary to translocation of bacteria from GI tract. 2. Status post small-bowel resection for small-bowel obstruction. 3. Leukocytosis secondary to peritonitis. RECOMMENDATIONS: 1. Continue piperacillin/tazobactam. 2. May be able to switch to p.o. Cefuroxime 500 mg p.o. twice daily on discharge. Treated with antibiotics for 10 more days. John Hampton MD October 14, 2017 15:40
[2017-10-14 16:00] VITALS: BP 154/72; PULSE 76; RESP 17; TEMP 98.2; O2SAT 95
--- NOTE | 2017-10-14 17:14 | RADRPT ---
EXAM DATE/TIME: 10/14/2017 16:43 [facility] COMPARISON: CHEST SINGLE AP, May 27, 2017, 16:01. INDICATIONS : Desaturation. MEDICAL HISTORY : Cardiovascular disease. Hypertension Chronic obstructive pulmonary disease. SURGICAL HISTORY : CABG. ENCOUNTER: Subsequent ACUITY: 1 day PAIN SCORE: 0/10 LOCATION: Bilateral chest FINDINGS: Cardiomegaly with moderate congestive failure.. No significant effusion. No pneumothorax. CONCLUSION: Moderate congestive failure Ayaz Eduardo MD FACR on October 14, 2017 at 17:08 Board Certified Radiologist. This report was verified electronically.
--- NOTE | 2017-10-14 17:21 | HHI.FPPN ---
Subjective Remarks Delayed entry Patient seen and examined at bedside this morning. No acute events overnight. Patient denies any abdominal pain or chills. Patient denies bowel movement or flatus. Patient is awaiting advancement of diet. (Derek Dumont MD, R1) Objective Vitals Vital Signs Date Time Temp Pulse Resp B/P (MAP) Pulse Ox O2 Delivery O2 Flow Rate FiO2 10/14/17 16:00 98.2 76 17 154/72 (99) 95 10/14/17 12:00 96.7 67 17 156/72 (100) 92 10/14/17 08:00 97.9 68 16 149/80 (103) 97 10/14/17 00:00 97.9 68 20 128/60 (82) 92 10/13/17 20:00 97.9 80 20 125/57 (79) 91 I/O 10/13/17 10/13/17 10/13/17 10/14/17 10/14/17 10/14/17 07:00 15:00 23:00 07:00 15:00 23:00 Intake Total 1240 ml 1280 ml 1100 ml Output Total 800 ml 425 ml 1000 ml 300 ml Balance 440 ml 855 ml 100 ml -300 ml Intake Oral 240 ml 180 ml 0 ml IV Total 1000 ml 1100 ml 1100 ml Output Urine Total 650 ml 425 ml 1000 ml 300 ml Gastric Drainage Total 150 ml 0 ml # Bowel Movements 0 (Derek Dumont MD, R1) Result Diagram: 10/14/17 0940 10/14/17 0940 Imaging Last Impressions Chest X-Ray 10/14/17 0000 Signed Impressions: Service Date/Time: Saturday, October 14, 2017 16:43 - CONCLUSION: Moderate congestive failure Ayaz Eduardo MD FACR Small Bowel X-Ray 10/10/17 0000 Signed Impressions: Service Date/Time: Tuesday, October 10, 2017 13:38 - CONCLUSION: 1. High-grade partial obstruction distal small bowel. Eulogio Masters MD Abdomen X-Ray 10/10/17 0000 Signed Impressions: Service Date/Time: Tuesday, October 10, 2017 08:35 - CONCLUSION: Distended small bowel concerning for some degree of obstruction. Tacho Mcneill MD Chest CT 10/09/17 0000 Signed Impressions: Service Date/Time: Monday, October 09, 2017 08:27 - CONCLUSION: Severe emphysema. Bilateral pleural effusions and free fluid in the upper abdomen. There are no lung masses seen. Scott Zee MD Abdomen/Pelvis CT 10/07/17 1402 Signed Impressions: Service Date/Time: Saturday, October 07, 2017 14:56 - CONCLUSION: Dilated fluid filled small bowel with some additional air small bowel which are nondilated. There is a questionable transition point in the right mid abdomen as described above. No evidence of pneumatosis. Status post aortobifem.. Curtis Lee MD Objective Remarks GEN: Thin, cachectic elderly black male lying in bed in NAD Skin: Cool and dry CV: NRRR, nl S1/S2, no MRG Lungs: Normal rate and effort. CTAB anteriorly. No crackles or wheezes. Abd. Soft, nondistended, no tenderness to palpation. Abdominal dressing in place, c/d/i MSK: No cyanosis or edema. warm and well perfused. non-tender calves BL. Neuro: Awake, alert, moves all extremities well. Normal speech. (Derek Dumont MD, R1) A/P Assessment and Plan Patient is a 67-year-old male with past medical history of dysphasia, implanted PEG tube, hypertension, and COPD presented with: (Derek Dumont MD, R1) Attending Attestation Patient seen and examined. Case reviewed and discussed Agree with plan of care as discussed with me and documented in the resident note. (Marce Watts MD) Problem List: (1) Peritonitis ICD Codes: K65.9 - Peritonitis, unspecified Plan: POD#2 s/p exploratory laparotomy, lysis of adhesions, small bowel resection with primary anastomosis Peritoneal fluid growing gram-negative rods, leukocytosis (15.2 on 10/14) slightly decreased from yesterday, afebrile, benign abdominal exam. Negative for fungal elements or acid-fast bacilli Antibiotic history: Zosyn IV Q6h 10/13--present PEG tube replacement not necessary per surgical team ID consulted, appreciate recommendations Peritonitis due to gram-negative bacteria 2/2 to translocation of bacteria Continue with Zosyn antibiotics and adjust depending on culture sensitivities. Peritoneal fluid growing pansensitive Klebsiella. Upon discharge patient can be switched to Cefuroxime 500 mg p.o. BID x 10days. (2) Abdominal pain ICD Codes: R10.9 - Unspecified abdominal pain Status: Resolved Plan: Small bowel follow through showed significant obstruction CT abdomen pelvis: Dilated fluid-filled small bowel with some air, nondilated, no evidence of pneumonitis Patient failed medical management of SBO Currently denies any abdominal pain Surgery consulted, appreciate assistance -POD#2 s/p exploratory laparotomy, lysis of adhesions, small bowel resection with primary anastomosis Patient's case was discussed with outpatient GI physician at [facility] Dr. 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 stenting Pain control (3) Small bowel obstruction ICD Codes: K56.609 - Unspecified intestinal obstruction, unspecified as to partial versus complete obstruction Status: Acute Plan: See plan above (4) Severe protein-calorie malnutrition ICD Codes: E43 - Unspecified severe protein-calorie malnutrition Status: Chronic Plan: Chronic malnutrition likely due to dysphagia, chronic abdominal pain possibly mesenteric ischemia (see above) -Manage abdominal pain and SBO as noted -Speech evaluation: Moderate pharyngeal dysphasia, may initiate clear liquid diet with thickener modifications, small sips. Initiate supplemental feeding via PEG tube. -Dietary consulted for nutritional support recs (5) Cachexia ICD Codes: R64 - Cachexia Status: Chronic Plan: Likely secondary to malnutrition from dysphagia. Alcohol abuse in problem list but patient has not been drinking for some time. CT lungs negative for lung cancer AM cortisol wnl -Consult dietary once taking PO; if NPO status persists will contact for evaluation for TPN (6) COPD (chronic obstructive pulmonary disease) ICD Codes: J44.9 - Chronic obstructive pulmonary disease Status: Chronic Plan: No active COPD symptoms Duonebs as needed (7) Hypertension ICD Codes: I10 - Hypertension Status: Chronic Plan: Patient with normal blood pressures Hold home blood pressure medication (8) CAD (coronary artery disease) ICD Codes: I25.10 - Coronary artery disease Status: Chronic Plan: Stable; resume ASA/Plavix once no longer NPO (9) Nutrition, metabolism, and development symptoms ICD Codes: R63.8 - Other symptoms and signs concerning food and fluid intake Plan: Fluids: 125 mls/hr of D5-1/2 NS with 20 mEq/L of KCl Electrolytes: Monitor and replete as needed Nutrition: Small sips, dietary consulted for advancement of PEG tube feeds DVT prophylaxis: Lovenox 40mg Q24h Dispo: Pending patient tolerates PEG tube feeds (Derek Dumont MD, R1) Problem Qualifiers (1) Abdominal pain: Qualified Codes: R10.9 - Unspecified abdominal pain Derek Dumont MD, R1 October 14, 2017 17:21 Marce Watts MD October 15, 2017 09:58
[2017-10-14] MEDS ORDERED: FUROSEMIDE 20 MG/2 ML VIAL IV PUSH ONE (17:45)
[2017-10-14 20:00] VITALS: BP 108/74; PULSE 76; RESP 20; TEMP 97.6; O2SAT 99
[2017-10-14] MEDS: ENOXAPARIN SODIUM 40 MG/0.4 ML SYRINGE SQ SCH (21:25)
[2017-10-15] VITALS: BP 134/71; PULSE 79; RESP 20; TEMP 98.7; O2SAT 100
[2017-10-15] MEDS: PIPERACIL-TAZO 4.5 GM PREMIX 100 ML IV SCH ×4 (05:00→21:04)
[2017-10-15] MEDS: MORPHINE SULFATE 4 MG/ML INJ IV PUSH PRN ×2 (05:13→12:37)
[2017-10-15] MEDS: D5-1/2 NS + KCL 20 MEQ INJ 1,000 ML IV SCH ×2 (05:17→18:01)
[2017-10-15 07:42] LABS: AUTOMATED NEUTROPHIL # 12.3 TH/MM3 (1.8-7.7); BASOPHIL % 0.2 % (0.0-2.0); EOSINOPHIL # 0.2 TH/MM3 (0-0.4); EOSINOPHIL % 1.1 % (0.0-4.0); HEMATOCRIT 36.3 % (39.0-51.0); LYMPH % 4.8 % (9.0-44.0); LYMPHOCYTE # 0.7 TH/MM3 (1.0-4.8); MEAN CELL VOLUME 87.9 FL (80.0-100.0); MONO % 4.3 % (0.0-8.0); MONOCYTE # 0.6 TH/MM3 (0-0.9); NEUT % 89.6 % (16.0-70.0); PLATELET COUNT 172 TH/MM3 (150-450); RED BLOOD COUNT 4.13 MIL/MM3 (4.50-5.90); RED CELL DISTRIBUTION WIDTH 15.4 % (11.6-17.2); WHITE BLOOD COUNT 13.8 TH/MM3 (4.0-11.0)
[2017-10-15 08:00] VITALS: BP 134/63; PULSE 70; RESP 17; TEMP 97.9; O2SAT 100
[2017-10-15 08:58] VITALS: O2SAT 95
[2017-10-15] MEDS: SODIUM CHLORIDE 0.9% FLUSH 10 ML FLUSH IV FLUSH SCH ×2 (09:00→21:04)
[2017-10-15] MEDS: CLOPIDOGREL 75 MG TAB PO SCH (09:00)
[2017-10-15] MEDS: THIAMINE HCL 100 MG TAB PO SCH (09:00)
[2017-10-15] MEDS: PANTOPRAZOLE SOD 40 MG DELAYED RELEASE TAB PO SCH (09:00)
[2017-10-15] MEDS: PRAVASTATIN SOD 20 MG TAB PO SCH (09:00)
[2017-10-15] MEDS: FINASTERIDE 5 MG TAB PO SCH (09:01)
[2017-10-15] MEDS: ASPIRIN 81 MG CHEW TAB CHEW SCH (09:01)
--- NOTE | 2017-10-15 10:25 | HHI.FPPN ---
Subjective Remarks Patient seen and examined at bedside, no acute events overnight. Patient reports that he has no pain. He is tolerating liquids well, he was able to eat chicken broth, apple and cranberry juice. Denies any nausea or vomiting. (Derek Dumont MD, R1) Objective Vitals Vital Signs Date Time Temp Pulse Resp B/P (MAP) Pulse Ox O2 Delivery O2 Flow Rate FiO2 10/15/17 08:58 95 Nasal Cannula 2.00 10/15/17 08:00 97.9 70 17 134/63 (86) 100 10/15/17 00:00 98.7 79 20 134/71 (92) 100 10/14/17 20:00 97.6 76 20 108/74 (85) 99 10/14/17 16:00 98.2 76 17 154/72 (99) 95 10/14/17 12:00 96.7 67 17 156/72 (100) 92 I/O 10/14/17 10/14/17 10/14/17 10/15/17 10/15/17 10/15/17 07:00 15:00 23:00 07:00 15:00 23:00 Intake Total 1100 ml 1790 ml 1340 ml Output Total 1000 ml 300 ml 500 ml 1300 ml Balance 100 ml -300 ml 1290 ml 40 ml Intake Oral 0 ml 690 ml 240 ml IV Total 1100 ml 1100 ml 1100 ml Output Urine Total 1000 ml 300 ml 500 ml 1300 ml Gastric Drainage Total 0 ml # Bowel Movements 0 (Derek Dumont MD, R1) Result Diagram: 10/15/17 0723 10/14/17 0940 Objective Remarks GEN: Thin, cachectic elderly black male lying in bed in NAD Skin: Cool and dry CV: NRRR, nl S1/S2, no MRG Lungs: Normal rate and effort. CTAB anteriorly. No crackles or wheezes. Abd. Soft, nondistended, no tenderness to palpation. Abdominal dressing in place, d/i, small amount of dry blood noted on dressing. MSK: No cyanosis or edema. warm and well perfused. non-tender calves BL. Neuro: Awake, alert, moves all extremities well. Normal speech. (Derek Dumont MD, R1) A/P Assessment and Plan Patient is a 67-year-old male with past medical history of dysphasia, implanted PEG tube, hypertension, and COPD presented with: (Derek Dumont MD, R1) Attending Attestation Case reviewed and discussed with the resident team. Agree with plan of care as discussed with me and documented in the resident note. (Shana Alcantar MD) Problem List: (1) Peritonitis ICD Codes: K65.9 - Peritonitis, unspecified Plan: POD#3 s/p exploratory laparotomy, lysis of adhesions, small bowel resection with primary anastomosis Peritoneal fluid growing gram-negative rods, leukocytosis (15.2 on 10/14) slightly decreased from yesterday, afebrile, benign abdominal exam. Negative for fungal elements or acid-fast bacilli Vital signs stable overnight, white blood cells 13.8 decreased from yesterday Antibiotic history: Zosyn IV Q6h 10/13--present PEG tube replacement not necessary per surgical team ID consulted, appreciate recommendations Peritonitis due to gram-negative bacteria 2/2 to translocation of bacteria Continue with Zosyn antibiotics and adjust depending on culture sensitivities. Peritoneal fluid growing pansensitive Klebsiella. Upon discharge patient can be switched to Cefuroxime 500 mg p.o. BID x 10days. (2) Abdominal pain ICD Codes: R10.9 - Unspecified abdominal pain Status: Resolved Plan: Small bowel follow through showed significant obstruction CT abdomen pelvis: Dilated fluid-filled small bowel with some air, nondilated, no evidence of pneumonitis Patient failed medical management of SBO Currently denies any abdominal pain Surgery consulted, appreciate assistance -POD#3 s/p exploratory laparotomy, lysis of adhesions, small bowel resection with primary anastomosis Patient's case was discussed with outpatient GI physician at [facility] Dr. 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 stenting Pain control (3) Small bowel obstruction ICD Codes: K56.609 - Unspecified intestinal obstruction, unspecified as to partial versus complete obstruction Status: Resolved Plan: See plan above (4) Severe protein-calorie malnutrition ICD Codes: E43 - Unspecified severe protein-calorie malnutrition Status: Chronic Plan: Chronic malnutrition likely due to dysphagia, chronic abdominal pain possibly mesenteric ischemia (see above) -Manage abdominal pain and SBO as noted -Speech evaluation: Moderate pharyngeal dysphasia, may initiate clear liquid diet with thickener modifications, small sips. Initiate supplemental feeding via PEG tube. -Dietary consulted for nutritional support recs (5) Cachexia ICD Codes: R64 - Cachexia Status: Chronic Plan: Likely secondary to malnutrition from dysphagia. Alcohol abuse in problem list but patient has not been drinking for some time. CT lungs negative for lung cancer AM cortisol wnl -Consult dietary once taking PO; if NPO status persists will contact for evaluation for TPN (6) COPD (chronic obstructive pulmonary disease) ICD Codes: J44.9 - Chronic obstructive pulmonary disease Status: Chronic Plan: No active COPD symptoms Duonebs as needed (7) Hypertension ICD Codes: I10 - Hypertension Status: Chronic Plan: Patient with normal blood pressures Hold home blood pressure medication (8) CAD (coronary artery disease) ICD Codes: I25.10 - Coronary artery disease Status: Chronic Plan: Stable; ASA/Plavix resumed (9) Nutrition, metabolism, and development symptoms ICD Codes: R63.8 - Other symptoms and signs concerning food and fluid intake Plan: Fluids: 125 mls/hr of D5-1/2 NS with 20 mEq/L of KCl Electrolytes: Monitor and replete as needed Nutrition: clear liquid diet, Small sips, dietary consulted for advancement of PEG tube feeds DVT prophylaxis: Lovenox 40mg Q24h Dispo: Pending patient tolerates PEG tube feeds (Derek Dumont MD, R1) Problem Qualifiers (1) Abdominal pain: Qualified Codes: R10.9 - Unspecified abdominal pain Derek Dumont MD, R1 October 15, 2017 10:25 Shana Alcantar MD October 16, 2017 13:37
--- NOTE | 2017-10-15 11:58 | HHI.PR ---
cc: Eulogio Mtz MD Subjective Subjective Notes DAILY PROGRESS NOTE FOR SURGICAL ATTENDING, DR. EULOGIO MTZ Patient resting comfortable No complaints Objective Vitals/I&O Vital Signs Date Time Temp Pulse Resp B/P (MAP) Pulse Ox O2 Delivery O2 Flow Rate FiO2 10/15/17 08:58 95 Nasal Cannula 2.00 10/15/17 08:00 97.9 70 17 134/63 (86) Labs Laboratory Tests Test 10/15/17 07:23 White Blood Count 13.8 Red Blood Count 4.13 Hemoglobin 12.0 Hematocrit 36.3 Mean Corpuscular Volume 87.9 Mean Corpuscular Hemoglobin 29.0 Mean Corpuscular Hemoglobin Concent 33.0 Red Cell Distribution Width 15.4 Platelet Count 172 Mean Platelet Volume 9.0 Neutrophils (%) (Auto) 89.6 Lymphocytes (%) (Auto) 4.8 Monocytes (%) (Auto) 4.3 Eosinophils (%) (Auto) 1.1 Basophils (%) (Auto) 0.2 Neutrophils # (Auto) 12.3 Lymphocytes # (Auto) 0.7 Monocytes # (Auto) 0.6 Eosinophils # (Auto) 0.2 Basophils # (Auto) 0.0 CBC Comment DIFF FINAL Differential Comment Date/Time Source Procedure Growth Status 10/09/17 10:50 Blood Peripheral Aerobic Blood Culture - Final NO GROWTH IN 5 DAYS Complete 10/09/17 10:50 Blood Peripheral Anaerobic Blood Culture - Final NO GROWTH IN 5 DAYS Complete 10/12/17 12:00 Fluid Peritoneal Fluid Fungal Smear - Final NO FUNGAL ELEMENTS SEEN. Resulted 10/12/17 12:00 Fluid Peritoneal Fluid Fungal Culture Pending Resulted Radiology Last Impressions Chest X-Ray 10/14/17 0000 Signed Impressions: Service Date/Time: Saturday, October 14, 2017 16:43 - CONCLUSION: Moderate congestive failure Ayaz Eduardo MD FACR Small Bowel X-Ray 10/10/17 0000 Signed Impressions: Service Date/Time: Tuesday, October 10, 2017 13:38 - CONCLUSION: 1. High-grade partial obstruction distal small bowel. Eulogio Masters MD Abdomen X-Ray 10/10/17 0000 Signed Impressions: Service Date/Time: Tuesday, October 10, 2017 08:35 - CONCLUSION: Distended small bowel concerning for some degree of obstruction. Tacho Mcneill MD Chest CT 10/09/17 0000 Signed Impressions: Service Date/Time: Monday, October 09, 2017 08:27 - CONCLUSION: Severe emphysema. Bilateral pleural effusions and free fluid in the upper abdomen. There are no lung masses seen. Scott Zee MD Abdomen/Pelvis CT 10/07/17 1402 Signed Impressions: Service Date/Time: Saturday, October 07, 2017 14:56 - CONCLUSION: Dilated fluid filled small bowel with some additional air small bowel which are nondilated. There is a questionable transition point in the right mid abdomen as described above. No evidence of pneumatosis. Status post aortobifem.. Curtis Lee MD Lungs: Clear Abdomen: Post-op tenderness Extremities: Perfused Narrative Exam Patient G-tube to gravity drain Wound Wound : Wound Location: Abdomen Appearance: Clean & Dry Dressing: VAC (Aicha) A/P Assessment and Plan 67 year old male with SBO; -PO ex lap; YONATHAN; SBR -Continue PEG tube to gravity -Start sips of clear liquids if okay with speech therapy -Pain control -IVF -Restart Plavix/ASA/Lovenox -Zofran PRN -PT--- mobilize as tolerated Attending Statement NOTE FOR SURGICAL ATTENDING, DR. EULOGIO MTZ I attest that I had a [id number] encounter with the patient on the same day, and personally performed and documented my assessment and findings in the medical record. The following services were provided during this hospital visit: Chart data review, vital sign assessments/reviewing monitor data Review of consultations notes if present. Medication orders/review and/or management Ordering and/or reviewing lab tests Ordering and/or interpreting/reviewing x-rays and/or diagnostic studies Care of the patient and discussion of the patient with the care team Documentation time To help prompt me to consider important information that might be impacting today's encounter and assessment, Information from prior notes written by myself or my colleagues may have been "brought forward/copy and pasted" into today's note. Eulogio Mtz MD October 15, 2017 11:58
[2017-10-15 12:00] VITALS: BP 142/69; PULSE 77; RESP 17; TEMP 98.1; O2SAT 99
[2017-10-15 16:00] VITALS: BP 151/73; PULSE 61; RESP 17; TEMP 98; O2SAT 96
[2017-10-15 20:00] VITALS: BP 155/73; PULSE 106; RESP 19; TEMP 99.3; O2SAT 95
[2017-10-15] MEDS: ENOXAPARIN SODIUM 40 MG/0.4 ML SYRINGE SQ SCH (21:04)
[2017-10-16] VITALS: BP 133/69; PULSE 84; RESP 19; TEMP 98.7; O2SAT 91
[2017-10-16] MEDS: MORPHINE SULFATE 4 MG/ML INJ IV PUSH PRN ×4 (00:31→20:57)
[2017-10-16] MEDS: PIPERACIL-TAZO 4.5 GM PREMIX 100 ML IV SCH ×4 (05:03→20:53)
[2017-10-16 08:00] VITALS: BP 120/60; PULSE 88; RESP 19; TEMP 98.2; O2SAT 90
[2017-10-16 08:00] LABS: AUTOMATED NEUTROPHIL # 18.9 TH/MM3 (1.8-7.7); BASOPHIL % 0.1 % (0.0-2.0); EOSINOPHIL # 0.1 TH/MM3 (0-0.4); EOSINOPHIL % 0.7 % (0.0-4.0); HEMATOCRIT 32.6 % (39.0-51.0); HEMOGLOBIN 10.8 GM/DL (13.0-17.0); LYMPH % 3.5 % (9.0-44.0); LYMPHOCYTE # 0.7 TH/MM3 (1.0-4.8); MEAN CELL VOLUME 86.1 FL (80.0-100.0); MEAN CORPUSCULAR HEMOGLOBIN 28.6 PG (27.0-34.0); MEAN CORPUSCULAR HGB CONC 33.2 % (32.0-36.0); MEAN PLATELET VOLUME 9.5 FL (7.0-11.0); MONO % 3.3 % (0.0-8.0); MONOCYTE # 0.7 TH/MM3 (0-0.9); NEUT % 92.4 % (16.0-70.0); PLATELET COUNT 218 TH/MM3 (150-450); RED BLOOD COUNT 3.79 MIL/MM3 (4.50-5.90); RED CELL DISTRIBUTION WIDTH 15.7 % (11.6-17.2); WHITE BLOOD COUNT 20.5 TH/MM3 (4.0-11.0)
[2017-10-16 08:36] LABS: ALBUMIN 1.5 GM/DL (3.4-5.0); ALKALINE PHOSPHATASE 82 U/L (45-117); ALT (GPT) LESS THAN 6 U/L (12-78); AST (GOT) 11 U/L (15-37); BICARBONATE 26.3 MEQ/L (21.0-32.0); BLOOD UREA NITROGEN 5 MG/DL (7-18); CALCIUM 7.8 MG/DL (8.5-10.1); CHLORIDE 100 MEQ/L (98-107); CREATININE 0.41 MG/DL (0.60-1.30); GLOMERULAR FILTRATION RATE 252 ML/MIN (>89); GLUCOSE,RANDOM 72 MG/DL (74-106); SODIUM (NA) 135 MEQ/L (136-145); TOTAL BILIRUBIN ADULT 0.9 MG/DL (0.2-1.0); TOTAL PROTEIN 5.2 GM/DL (6.4-8.2)
[2017-10-16] MEDS: SODIUM CHLORIDE 0.9% FLUSH 10 ML FLUSH IV FLUSH SCH ×2 (09:00→20:53)
[2017-10-16] MEDS: ASPIRIN 81 MG CHEW TAB CHEW SCH (09:00)
[2017-10-16] MEDS: PRAVASTATIN SOD 20 MG TAB PO SCH (09:09)
[2017-10-16] MEDS: CLOPIDOGREL 75 MG TAB PO SCH (09:09)
[2017-10-16] MEDS: PANTOPRAZOLE SOD 40 MG DELAYED RELEASE TAB PO SCH (09:09)
[2017-10-16] MEDS: FINASTERIDE 5 MG TAB PO SCH (09:09)
[2017-10-16] MEDS: THIAMINE HCL 100 MG TAB PO SCH (09:10)
--- NOTE | 2017-10-16 09:44 | HHI.FPPN ---
Subjective Remarks Patient seen and examined at bedside. No acute events overnight. Pt reports that he has been tolerating thicken liquid diets by mouth. Pt has not yet been started on PEG tube feeds. Denies N/V, or abdominal pain. (Derek Dumont MD, R1) Objective Vitals Vital Signs Date Time Temp Pulse Resp B/P (MAP) Pulse Ox O2 Delivery O2 Flow Rate FiO2 10/16/17 08:00 98.2 88 19 120/60 (80) 90 10/16/17 00:00 98.7 84 19 133/69 (90) 91 10/15/17 20:00 99.3 106 19 155/73 (100) 95 10/15/17 16:00 98.0 61 17 151/73 (99) 96 10/15/17 12:00 98.1 77 17 142/69 (93) 99 I/O 10/15/17 10/15/17 10/15/17 10/16/17 10/16/17 10/16/17 07:00 15:00 23:00 07:00 15:00 23:00 Intake Total 1340 ml 1060 ml 240 ml Output Total 1300 ml 1000 ml 1250 ml Balance 40 ml 60 ml -1010 ml Intake Oral 240 ml 960 ml 240 ml IV Total 1100 ml 100 ml Output Urine Total 1300 ml 1000 ml 950 ml Gastric Drainage Total 300 ml # Bowel Movements 0 (Derek Dumont MD, R1) Result Diagram: 10/16/17 0630 10/16/17 0630 Objective Remarks GEN: Thin, cachectic elderly black male lying in bed in NAD Skin: Cool and dry CV: NRRR, nl S1/S2, no MRG Lungs: Normal rate and effort. CTAB anteriorly. No crackles or wheezes. Abd. Soft, nondistended, no tenderness to palpation. Abdominal dressing in place, d/i, small amount of dry blood noted on dressing. MSK: No cyanosis or edema. warm and well perfused. non-tender calves BL. Neuro: Awake, alert, moves all extremities well. Normal speech. (Derek Dumont MD, R1) A/P Assessment and Plan Patient is a 67-year-old male with past medical history of dysphasia, implanted PEG tube, hypertension, and COPD presented with: (Derek Dumont MD, R1) Attending Attestation Patient seen and examined and case reviewed and discussed with the resident team. Agree with plan of care as discussed with me and documented in the resident note. Patient tolerating thickened liquids by mouth. Advance diet orally and via PEG tube. If tolerates the feeding and diet advancement anticipate dc to home in 1-2 days. (Shana Alcantar MD) Problem List: (1) Peritonitis ICD Codes: K65.9 - Peritonitis, unspecified Plan: POD#4 s/p exploratory laparotomy, lysis of adhesions, small bowel resection with primary anastomosis Peritoneal fluid growing gram-negative rods, leukocytosis (15.2 on 5/) slightly decreased from yesterday, afebrile, benign abdominal exam. Negative for fungal elements or acid-fast bacilli Vital signs stable overnight, white blood cells 13.8 decreased from yesterday Antibiotic history: Zosyn IV Q6h 10/13--present PEG tube replacement not necessary per surgical team ID consulted, appreciate recommendations Peritonitis due to gram-negative bacteria 2/2 to translocation of bacteria Continue with Zosyn antibiotics and adjust depending on culture sensitivities. Peritoneal fluid growing pansensitive Klebsiella. Upon discharge patient can be switched to Cefuroxime 500 mg p.o. BID x 10days. (2) Abdominal pain ICD Codes: R10.9 - Unspecified abdominal pain Status: Resolved Plan: Small bowel follow through showed significant obstruction CT abdomen pelvis: Dilated fluid-filled small bowel with some air, nondilated, no evidence of pneumonitis Patient failed medical management of SBO Currently denies any abdominal pain Surgery consulted, appreciate assistance -POD#4 s/p exploratory laparotomy, lysis of adhesions, small bowel resection with primary anastomosis -small bowel strictured ileum pathology report: ACUTE ENTERITIS WITH ISCHEMIC FEATURES, LUMINAL STENOSIS, AND ACUTE SEROSITIS. Patient's case was discussed with outpatient GI physician at [facility] Dr. Saenz on 10/11 -Patient had been worked up for possible mesenteric ischemia; CTA at [place] imaging showed 60-70% stenosis of the SMA -Had been referred to [place] cardiovascular specialists for consideration of intervention i.e. stenting Pain control (3) Small bowel obstruction ICD Codes: K56.609 - Unspecified intestinal obstruction, unspecified as to partial versus complete obstruction Status: Resolved Plan: See plan above (4) Severe protein-calorie malnutrition ICD Codes: E43 - Unspecified severe protein-calorie malnutrition Status: Chronic Plan: Chronic malnutrition likely due to dysphagia, chronic abdominal pain possibly mesenteric ischemia (see above) -Speech evaluation: Moderate pharyngeal dysphasia, may initiate clear liquid diet with thickener modifications, small sips. Patient has not yet initiated supplemental feeding via PEG tube. -Discussed starting patient on PEG tube feeds with surgery team--> OK to start PEG tube feeds to day slowly PEG tube feeds rec: trickle TF 10cc -Dietary consulted for nutritional support recs (5) Cachexia ICD Codes: R64 - Cachexia Status: Chronic Plan: Likely secondary to malnutrition from dysphagia. Alcohol abuse in problem list but patient has not been drinking for some time. CT lungs negative for lung cancer AM cortisol wnl (6) COPD (chronic obstructive pulmonary disease) ICD Codes: J44.9 - Chronic obstructive pulmonary disease Status: Chronic Plan: No active COPD symptoms Duonebs as needed (7) Hypertension ICD Codes: I10 - Hypertension Status: Chronic Plan: Patient with normal blood pressures Hold home blood pressure medication (8) CAD (coronary artery disease) ICD Codes: I25.10 - Coronary artery disease Status: Chronic Plan: Stable; ASA/Plavix resumed (9) Nutrition, metabolism, and development symptoms ICD Codes: R63.8 - Other symptoms and signs concerning food and fluid intake Plan: Fluids: 75 mls/hr of D5-1/2 NS with 20 mEq/L of KCl Electrolytes: Monitor and replete as needed Nutrition: clear liquid diet, Small sips, dietary consulted for advancement of PEG tube feeds: Trickle TF 10cc DVT prophylaxis: Lovenox 40mg Q24h Dispo: Pending patient tolerates PEG tube feeds (Derek Dumont MD, R1) Problem Qualifiers (1) Abdominal pain: Qualified Codes: R10.9 - Unspecified abdominal pain Derek Dumont MD, R1 October 16, 2017 09:44 Shana Alcantar MD October 16, 2017 13:42
--- NOTE | 2017-10-16 10:12 | HHI.PR ---
Subjective Subjective Notes no acute issues, afebrile, wbc 20k, mild nausea Objective Vitals/I&O Vital Signs Date Time Temp Pulse Resp B/P (MAP) Pulse Ox O2 Delivery O2 Flow Rate FiO2 10/16/17 08:00 98.2 88 19 120/60 (80) 90 10/15/17 08:58 Nasal Cannula 2.00 Labs Laboratory Tests Test 10/16/17 06:30 White Blood Count 20.5 Red Blood Count 3.79 Hemoglobin 10.8 Hematocrit 32.6 Mean Corpuscular Volume 86.1 Mean Corpuscular Hemoglobin 28.6 Mean Corpuscular Hemoglobin Concent 33.2 Red Cell Distribution Width 15.7 Platelet Count 218 Mean Platelet Volume 9.5 Neutrophils (%) (Auto) 92.4 Lymphocytes (%) (Auto) 3.5 Monocytes (%) (Auto) 3.3 Eosinophils (%) (Auto) 0.7 Basophils (%) (Auto) 0.1 Neutrophils # (Auto) 18.9 Lymphocytes # (Auto) 0.7 Monocytes # (Auto) 0.7 Eosinophils # (Auto) 0.1 Basophils # (Auto) 0.0 CBC Comment DIFF FINAL Differential Comment Blood Urea Nitrogen 5 Creatinine 0.41 Random Glucose 72 Total Protein 5.2 Albumin 1.5 Calcium Level 7.8 Alkaline Phosphatase 82 Aspartate Amino Transf (AST/SGOT) 11 Alanine Aminotransferase (ALT/SGPT) LESS THAN 6 Total Bilirubin 0.9 Sodium Level 135 Potassium Level 3.4 Chloride Level 100 Carbon Dioxide Level 26.3 Anion Gap 9 Estimat Glomerular Filtration Rate 252 Date/Time Source Procedure Growth Status 10/09/17 10:50 Blood Peripheral Aerobic Blood Culture - Final NO GROWTH IN 5 DAYS Complete 10/09/17 10:50 Blood Peripheral Anaerobic Blood Culture - Final NO GROWTH IN 5 DAYS Complete 10/12/17 12:00 Fluid Peritoneal Fluid Fungal Smear - Final NO FUNGAL ELEMENTS SEEN. Resulted 10/12/17 12:00 Fluid Peritoneal Fluid Fungal Culture Pending Resulted Radiology Last Impressions Chest X-Ray 10/14/17 0000 Signed Impressions: Service Date/Time: Saturday, October 14, 2017 16:43 - CONCLUSION: Moderate congestive failure Ayaz Eduardo MD FACR Small Bowel X-Ray 10/10/17 0000 Signed Impressions: Service Date/Time: Tuesday, October 10, 2017 13:38 - CONCLUSION: 1. High-grade partial obstruction distal small bowel. Eulogio Masters MD Abdomen X-Ray 10/10/17 0000 Signed Impressions: Service Date/Time: Tuesday, October 10, 2017 08:35 - CONCLUSION: Distended small bowel concerning for some degree of obstruction. Tacho Mcneill MD Chest CT 10/09/17 0000 Signed Impressions: Service Date/Time: Monday, October 09, 2017 08:27 - CONCLUSION: Severe emphysema. Bilateral pleural effusions and free fluid in the upper abdomen. There are no lung masses seen. Scott Zee MD Abdomen/Pelvis CT 10/07/17 1402 Signed Impressions: Service Date/Time: Saturday, October 07, 2017 14:56 - CONCLUSION: Dilated fluid filled small bowel with some additional air small bowel which are nondilated. There is a questionable transition point in the right mid abdomen as described above. No evidence of pneumatosis. Status post aortobifem.. Curtis Lee MD Lungs: Clear Abdomen: Other (jennifer good sxn, g tube to gravity) A/P Assessment and Plan 67 year old male with SBO; -PO ex lap; YONATHAN; SBR POD 4 -Continue PEG tube to gravity - ok to start TF at trickle only - diet per speech therapy recs -Pain control -IVF -ok for Plavix/ASA/Lovenox -Zofran PRN -PT--- mobilize as tolerated - recheck wbc in am, pt on zosyn, monitor closely Sreekanth Angelo MD October 16, 2017 10:12
[2017-10-16] MEDS: D5-1/2 NS + KCL 20 MEQ INJ 1,000 ML IV SCH (11:56)
[2017-10-16 12:00] VITALS: BP 127/63; PULSE 83; RESP 18; TEMP 98.2; O2SAT 92
[2017-10-16] MEDS: ONDANSETRON HCL 4 MG/2 ML VIAL IV PUSH PRN ×2 (13:56→20:57)
[2017-10-16 16:00] VITALS: BP 120/74; PULSE 81; RESP 18; TEMP 98.9; O2SAT 95
[2017-10-16 20:00] VITALS: BP 141/66; PULSE 88; RESP 20; TEMP 99; O2SAT 92
[2017-10-16] MEDS: ENOXAPARIN SODIUM 40 MG/0.4 ML SYRINGE SQ SCH (20:53)
[2017-10-17] VITALS: BP 142/65; PULSE 81; RESP 16; TEMP 98.4; O2SAT 93
[2017-10-17] MEDS: D5-1/2 NS + KCL 20 MEQ INJ 1,000 ML IV SCH ×3 (02:46→21:08)
[2017-10-17] MEDS: MORPHINE SULFATE 4 MG/ML INJ IV PUSH PRN ×2 (04:27→09:46)
[2017-10-17] MEDS: ONDANSETRON HCL 4 MG/2 ML VIAL IV PUSH PRN ×2 (04:27→21:10)
[2017-10-17] MEDS: PIPERACIL-TAZO 4.5 GM PREMIX 100 ML IV SCH ×4 (04:27→21:08)
[2017-10-17 07:48] LABS: AUTOMATED NEUTROPHIL # 16.1 TH/MM3 (1.8-7.7); BASOPHIL % 0.1 % (0.0-2.0); EOSINOPHIL # 0.2 TH/MM3 (0-0.4); HEMATOCRIT 29.9 % (39.0-51.0); LYMPH % 3.6 % (9.0-44.0); LYMPHOCYTE # 0.6 TH/MM3 (1.0-4.8); MEAN CELL VOLUME 86.7 FL (80.0-100.0); MEAN CORPUSCULAR HGB CONC 33.4 % (32.0-36.0); MEAN PLATELET VOLUME 9.3 FL (7.0-11.0); MONO % 4.4 % (0.0-8.0); MONOCYTE # 0.8 TH/MM3 (0-0.9); NEUT % 90.9 % (16.0-70.0); PLATELET COUNT 251 TH/MM3 (150-450); RED BLOOD COUNT 3.44 MIL/MM3 (4.50-5.90); RED CELL DISTRIBUTION WIDTH 15.7 % (11.6-17.2); WHITE BLOOD COUNT 17.7 TH/MM3 (4.0-11.0)
[2017-10-17 08:00] VITALS: BP 144/62; PULSE 78; RESP 17; TEMP 98.7; O2SAT 97
[2017-10-17 08:23] LABS: ALBUMIN 1.4 GM/DL (3.4-5.0); ALT (GPT) LESS THAN 6 U/L (12-78); AST (GOT) 10 U/L (15-37); BICARBONATE 28.3 MEQ/L (21.0-32.0); BLOOD UREA NITROGEN 5 MG/DL (7-18); CALCIUM 7.7 MG/DL (8.5-10.1); CHLORIDE 102 MEQ/L (98-107); CREATININE 0.44 MG/DL (0.60-1.30); GLOMERULAR FILTRATION RATE 232 ML/MIN (>89); GLUCOSE,RANDOM 91 MG/DL (74-106); SODIUM (NA) 136 MEQ/L (136-145)
[2017-10-17 08:25] LABS: ALKALINE PHOSPHATASE 82 U/L (45-117); TOTAL BILIRUBIN ADULT 0.9 MG/DL (0.2-1.0); TOTAL PROTEIN 5.2 GM/DL (6.4-8.2)
--- NOTE | 2017-10-17 09:12 | HHI.PR ---
Subjective Subjective Notes Resting in bed "I didn't get up all weekend." Objective Vitals/I&O Vital Signs Date Time Temp Pulse Resp B/P (MAP) Pulse Ox O2 Delivery O2 Flow Rate FiO2 10/17/17 00:00 98.4 81 16 142/65 (90) 93 10/15/17 08:58 Nasal Cannula 2.00 Labs Laboratory Tests Test 10/17/17 07:22 White Blood Count 17.7 Red Blood Count 3.44 Hemoglobin 10.0 Hematocrit 29.9 Mean Corpuscular Volume 86.7 Mean Corpuscular Hemoglobin 29.0 Mean Corpuscular Hemoglobin Concent 33.4 Red Cell Distribution Width 15.7 Platelet Count 251 Mean Platelet Volume 9.3 Neutrophils (%) (Auto) 90.9 Lymphocytes (%) (Auto) 3.6 Monocytes (%) (Auto) 4.4 Eosinophils (%) (Auto) 1.0 Basophils (%) (Auto) 0.1 Neutrophils # (Auto) 16.1 Lymphocytes # (Auto) 0.6 Monocytes # (Auto) 0.8 Eosinophils # (Auto) 0.2 Basophils # (Auto) 0.0 CBC Comment DIFF FINAL Differential Comment Blood Urea Nitrogen 5 Creatinine 0.44 Random Glucose 91 Total Protein 5.2 Albumin 1.4 Calcium Level 7.7 Alkaline Phosphatase 82 Aspartate Amino Transf (AST/SGOT) 10 Alanine Aminotransferase (ALT/SGPT) LESS THAN 6 Total Bilirubin 0.9 Sodium Level 136 Potassium Level 3.2 Chloride Level 102 Carbon Dioxide Level 28.3 Anion Gap 6 Estimat Glomerular Filtration Rate 232 Date/Time Source Procedure Growth Status 10/09/17 10:50 Blood Peripheral Aerobic Blood Culture - Final NO GROWTH IN 5 DAYS Complete 10/09/17 10:50 Blood Peripheral Anaerobic Blood Culture - Final NO GROWTH IN 5 DAYS Complete 10/12/17 12:00 Fluid Peritoneal Fluid Fungal Smear - Final NO FUNGAL ELEMENTS SEEN. Resulted 10/12/17 12:00 Fluid Peritoneal Fluid Fungal Culture Pending Resulted Radiology Last Impressions Chest X-Ray 10/14/17 0000 Signed Impressions: Service Date/Time: Saturday, October 14, 2017 16:43 - CONCLUSION: Moderate congestive failure Ayaz Eduardo MD FACR Small Bowel X-Ray 10/10/17 0000 Signed Impressions: Service Date/Time: Tuesday, October 10, 2017 13:38 - CONCLUSION: 1. High-grade partial obstruction distal small bowel. Eulogio Masters MD Abdomen X-Ray 10/10/17 0000 Signed Impressions: Service Date/Time: Tuesday, October 10, 2017 08:35 - CONCLUSION: Distended small bowel concerning for some degree of obstruction. Tacho Mcneill MD Chest CT 10/09/17 0000 Signed Impressions: Service Date/Time: Monday, October 09, 2017 08:27 - CONCLUSION: Severe emphysema. Bilateral pleural effusions and free fluid in the upper abdomen. There are no lung masses seen. Scott Zee MD Abdomen/Pelvis CT 10/07/17 1402 Signed Impressions: Service Date/Time: Saturday, October 07, 2017 14:56 - CONCLUSION: Dilated fluid filled small bowel with some additional air small bowel which are nondilated. There is a questionable transition point in the right mid abdomen as described above. No evidence of pneumatosis. Status post aortobifem.. Curtis Lee MD Cardiovascular: Regular Lungs: Clear Abdomen: Other (TG in place; abdomen minamally tender to palpation ) Extremities: No edema Narrative Exam cachetic A/P Assessment and Plan 67 year old male with SBO; POD5 ex lap; YONATHAN; SBR Restart trickle feed -Continue to watch WBC; now trending down -Replace K -Continue sips of clear liquids -Pain control -IVF -Restart Plavix/ASA/Lovenox -Zofran PRN -PT--- mobilize as tolerated Attending Note - Dr. Brito Still distended and mildly uncomfortable TG dressing intact, but with old drainage (dry) Will give dulcolax suppository and MOM per G-tube Hold enteral feeding for now Will check KUB Discussed with patient and nurse. The exam, history, and the medical decision-making described in the above note were completed with the assistance of the mid-level provider. I reviewed and agree with the findings presented. I attest that I had a [id number] encounter with the patient on the same day, and personally performed and documented my assessment and findings in the medical record. Yesenia Eller/[employer] CRABTREE October 17, 2017 09:12 Pawan Brito MD October 17, 2017 12:17
--- NOTE | 2017-10-17 09:35 | HHI.FPPN ---
Subjective Remarks Patient seen and examined at bedside. Pt was started on tube feeds yesterday at 10cc/hr. He reports he did not tolerate TF well, because it made him nauseous. Endorses mild abdominal pain. Patient denies flatus or BM. (Derek Dumont MD, R1) Objective Vitals Vital Signs Date Time Temp Pulse Resp B/P (MAP) Pulse Ox O2 Delivery O2 Flow Rate FiO2 10/17/17 00:00 98.4 81 16 142/65 (90) 93 10/16/17 20:00 99.0 88 20 141/66 (91) 92 10/16/17 16:00 98.9 81 18 120/74 (89) 95 10/16/17 12:00 98.2 83 18 127/63 (84) 92 I/O 10/16/17 10/16/17 10/16/17 10/17/17 10/17/17 10/17/17 07:00 15:00 23:00 07:00 15:00 23:00 Intake Total 340 ml 300 ml 580 ml 250 ml Output Total 1250 ml 700 ml 250 ml Balance -910 ml 300 ml -120 ml 0 ml Intake Oral 240 ml 480 ml 240 ml IV Total 100 ml 300 ml 100 ml Tube Feeding 10 ml Output Urine Total 950 ml 700 ml 250 ml Gastric Drainage Total 300 ml # Bowel Movements 0 (Derek Dumont MD, R1) Result Diagram: 10/17/1772110/17/17721 Objective Remarks GEN: Thin, cachectic elderly black male lying in bed in NAD Skin: Cool and dry CV: NRRR, nl S1/S2, no MRG Lungs: Normal rate and effort. CTAB anteriorly. No crackles or wheezes. Abd. Soft, nondistended, mild tenderness to palpation around abdominal incision. Abdominal dressing in place, d/i, small amount of dry blood noted on dressing. MSK: No cyanosis or edema. warm and well perfused. non-tender calves BL. Neuro: Awake, alert, moves all extremities well. Normal speech. (Derek Dumont MD, R1) A/P Assessment and Plan Patient is a 67-year-old male with past medical history of dysphasia, implanted PEG tube, hypertension, and COPD presented with: (Derek Dumont MD, R1) Attending Attestation Patient seen and examined. Case reviewed and discussed with the resident team. Agree with plan of care as discussed with me and documented in the resident note. At time of rounds patient reports no abdominal pain and nausea resolved and tolerating tube feeds. (Shana Alcantar MD) Problem List: (1) Peritonitis ICD Codes: K65.9 - Peritonitis, unspecified Plan: POD#5 s/p exploratory laparotomy, lysis of adhesions, small bowel resection with primary anastomosis Peritoneal fluid growing gram-negative rods, afebrile so far. WBC decreased slightly to 17.7 today from 20.5 on 10/17. Negative for fungal elements or acid-fast bacilli Vital signs stable overnight, white blood cells Antibiotic history: Zosyn IV Q6h 10/13--present PEG tube replacement not necessary per surgical team ID consulted, appreciate recommendations Peritonitis due to gram-negative bacteria 2/2 to translocation of bacteria Continue with Zosyn antibiotics and adjust depending on culture sensitivities. Peritoneal fluid growing pansensitive Klebsiella. Upon discharge patient can be switched to Cefuroxime 500 mg p.o. BID x 10days. (2) Abdominal pain ICD Codes: R10.9 - Unspecified abdominal pain Status: Chronic Plan: Small bowel follow through showed significant obstruction CT abdomen pelvis: Dilated fluid-filled small bowel with some air, nondilated, no evidence of pneumonitis Patient failed medical management of SBO Patient states he has intermitted cramping abdominal pain today Surgery consulted, appreciate assistance -POD#5 s/p exploratory laparotomy, lysis of adhesions, small bowel resection with primary anastomosis -small bowel strictured ileum pathology report: ACUTE ENTERITIS WITH ISCHEMIC FEATURES, LUMINAL STENOSIS, AND ACUTE SEROSITIS. Patient's case was discussed with outpatient GI physician at [facility] Dr. Saenz on 10/11 -Patient had been worked up for possible mesenteric ischemia; CTA at [place] imaging showed 60-70% stenosis of the SMA -Had been referred to [place] cardiovascular specialists for consideration of intervention i.e. stenting Pain control (3) Small bowel obstruction ICD Codes: K56.609 - Unspecified intestinal obstruction, unspecified as to partial versus complete obstruction Status: Resolved Plan: See plan above (4) Severe protein-calorie malnutrition ICD Codes: E43 - Unspecified severe protein-calorie malnutrition Status: Chronic Plan: Chronic malnutrition likely due to dysphagia, chronic abdominal pain possibly mesenteric ischemia (see above) -Speech evaluation: Moderate pharyngeal dysphasia, may initiate clear liquid diet with thickener modifications, small sips. Patient was started on TF yesterday 10/16. -Discussed starting patient on PEG tube feeds with surgery team--> OK to start PEG tube feeds slowly PEG tube feeds recs: trickle TF 10cc Pt not report nausea with TF, advance slowly starting with 2cc/hr today with goal of 10cc/hr overnight -Dietary consulted for nutritional support recs TF overnight night (5) Cachexia ICD Codes: R64 - Cachexia Status: Chronic Plan: Likely secondary to malnutrition from dysphagia. Alcohol abuse in problem list but patient has not been drinking for some time. CT lungs negative for lung cancer AM cortisol wnl (6) COPD (chronic obstructive pulmonary disease) ICD Codes: J44.9 - Chronic obstructive pulmonary disease Status: Chronic Plan: No active COPD symptoms Duonebs as needed (7) Hypertension ICD Codes: I10 - Hypertension Status: Chronic Plan: Patient with normal blood pressures Hold home blood pressure medication (8) CAD (coronary artery disease) ICD Codes: I25.10 - Coronary artery disease Status: Chronic Plan: Stable; ASA/Plavix resumed (9) Nutrition, metabolism, and development symptoms ICD Codes: R63.8 - Other symptoms and signs concerning food and fluid intake Plan: Fluids: 75 mls/hr of D5-1/2 NS with 20 mEq/L of KCl Electrolytes: Monitor and replete as needed Nutrition: clear liquid diet, Small sips, dietary consulted for advancement of PEG tube feeds: current goal Trickle TF 10cc/hr until he is able to better tolerate DVT prophylaxis: Lovenox 40mg Q24h Dispo: Pending patient tolerates PEG tube feeds (Derek Dumont MD, R1) Problem Qualifiers (1) Abdominal pain: Qualified Codes: R10.9 - Unspecified abdominal pain Derek Dumont MD, R1 October 17, 2017 09:35 Shana Alcantar MD October 17, 2017 13:15
[2017-10-17] MEDS: CLOPIDOGREL 75 MG TAB PO SCH (09:46)
[2017-10-17] MEDS: THIAMINE HCL 100 MG TAB PO SCH (09:46)
[2017-10-17] MEDS: ASPIRIN 81 MG CHEW TAB CHEW SCH (09:46)
[2017-10-17] MEDS: PRAVASTATIN SOD 20 MG TAB PO SCH (09:46)
[2017-10-17] MEDS: PANTOPRAZOLE SOD 40 MG DELAYED RELEASE TAB PO SCH (09:46)
[2017-10-17] MEDS: FINASTERIDE 5 MG TAB PO SCH (09:46)
[2017-10-17] MEDS: SODIUM CHLORIDE 0.9% FLUSH 10 ML FLUSH IV FLUSH SCH ×2 (09:47→21:09)
[2017-10-17] MEDS: POTASSIUM CHLOR 20 MEQ PREMIX 100 ML IV SCH ×2 (09:47→12:59)
[2017-10-17 12:00] VITALS: BP 124/58; PULSE 80; RESP 17; TEMP 97.9; O2SAT 93
[2017-10-17] MEDS ORDERED: MAGNESIUM HYDROXIDE SUSP 30 ML CUP PO PRN (13:15)
[2017-10-17 15:32] LABS: BILIRUBIN, URINE NEG (NEG); BLOOD, URINE NEG (NEG); GLUCOSE,URINE NEG (NEG); KETONE, URINE NEG (NEG); NITRITE,URINE NEG (NEG); PH, URINE 5.5 (5.0-8.5); SQUAMOUS EPITHELIAL CELL URINE <1 /hpf (0-5); URINE COLOR YELLOW (YELLW/STRAW); URINE LEUKOCYTE ESTERASE NEG (NEG)
[2017-10-17 16:00] VITALS: BP 135/70; PULSE 84; RESP 17; TEMP 97.6; O2SAT 93
--- NOTE | 2017-10-17 16:28 | RADRPT ---
EXAM DATE/TIME: 10/17/2017 15:44 [facility] COMPARISON: ABDOMEN KUB ONLY, October 10, 2017, 8:35. INDICATIONS : Distention. Evaluate for post-op ileus. MEDICAL HISTORY : Cardiovascular disease. Hypertension Chronic obstructive pulmonary disease. SURGICAL HISTORY : CABG. ENCOUNTER: Subsequent ACUITY: 2 weeks PAIN SCORE: 10/10 LOCATION: Abdomen. FINDINGS: Supine view of the abdomen was performed. There is dilated small bowel seen throughout the abdomen. T he colon does not appear distended. There is some contrast within the colon. There is a G-tube. Skin ankita are seen. Vascular calcifications are seen. There is some lucency seen over the upper abdomen concerning for possible free air. The patient apparently is postop. CONCLUSION: Distended small bowel concerning for obstruction or some degree of ileus. Contrast does appear to be within the colon suggesting ileus is more likely. Tacho Mcneill MD on October 17, 2017 at 16:23 Board Certified Radiologist. This report was verified electronically.
[2017-10-17 18:22] VITALS: O2SAT 93
[2017-10-17 20:00] VITALS: BP 137/63; PULSE 87; RESP 16; TEMP 98.7; O2SAT 96
[2017-10-17] MEDS: ENOXAPARIN SODIUM 40 MG/0.4 ML SYRINGE SQ SCH (21:09)
[2017-10-17] MEDS: KETOROLAC TROMETHAMINE 10 MG TAB PO PRN (21:10)
[2017-10-18 00:18] VITALS: BP 140/58; PULSE 91; RESP 16; TEMP 98.4; O2SAT 96
[2017-10-18] MEDS: PIPERACIL-TAZO 4.5 GM PREMIX 100 ML IV SCH ×4 (03:10→22:12)
[2017-10-18 08:00] VITALS: BP 142/65; PULSE 75; RESP 18; TEMP 98.3; O2SAT 92
[2017-10-18] MEDS: SODIUM CHLORIDE 0.9% FLUSH 10 ML FLUSH IV FLUSH SCH ×2 (09:00→22:13)
[2017-10-18] MEDS: ONDANSETRON HCL 4 MG/2 ML VIAL IV PUSH PRN (09:15)
[2017-10-18] MEDS: THIAMINE HCL 100 MG TAB PO SCH (09:16)
[2017-10-18] MEDS: KETOROLAC TROMETHAMINE 10 MG TAB PO PRN (09:16)
[2017-10-18] MEDS: PRAVASTATIN SOD 20 MG TAB PO SCH (09:17)
[2017-10-18] MEDS: ASPIRIN 81 MG CHEW TAB CHEW SCH (09:17)
[2017-10-18] MEDS: CLOPIDOGREL 75 MG TAB PO SCH (09:17)
[2017-10-18] MEDS: FINASTERIDE 5 MG TAB PO SCH (09:17)
[2017-10-18] MEDS: PANTOPRAZOLE SOD 40 MG DELAYED RELEASE TAB PO SCH (09:17)
--- NOTE | 2017-10-18 09:37 | HHI.PR ---
Subjective Subjective Notes Resting in bed Had multiple BMs overnight Wants to try tube feeding again Agreeable to work with PT today Objective Vitals/I&O Vital Signs Date Time Temp Pulse Resp B/P (MAP) Pulse Ox O2 Delivery O2 Flow Rate FiO2 10/18/17 08:00 98.3 75 18 142/65 (90) 92 10/17/17 18:22 Nasal Cannula 2.00 Labs Laboratory Tests Test 10/17/17 15:00 10/18/17 08:41 Urine Color YELLOW Urine Turbidity CLEAR Urine pH 5.5 Urine Specific [place] 1.020 Urine Protein NEG Urine Glucose (UA) NEG Urine Ketones NEG Urine Occult Blood NEG Urine Nitrite NEG Urine Bilirubin NEG Urine Urobilinogen LESS THAN 2.0 Urine Leukocyte Esterase NEG Urine RBC 1 Urine WBC 2 Urine Squamous Epithelial Cells <1 Urine Yeast (Budding) MOD Microscopic Urinalysis Comment CULT NOT INDICATED Date/Time Source Procedure Growth Status 10/09/17 10:50 Blood Peripheral Aerobic Blood Culture - Final NO GROWTH IN 5 DAYS Complete 10/09/17 10:50 Blood Peripheral Anaerobic Blood Culture - Final NO GROWTH IN 5 DAYS Complete 10/12/17 12:00 Fluid Peritoneal Fluid Fungal Smear - Final NO FUNGAL ELEMENTS SEEN. Complete 10/12/17 12:00 Fluid Peritoneal Fluid Fungal Culture - Final No growth. Complete Radiology Last Impressions Chest X-Ray 10/14/17 0000 Signed Impressions: Service Date/Time: Saturday, October 14, 2017 16:43 - CONCLUSION: Moderate congestive failure Ayaz Eduardo MD FACR Small Bowel X-Ray 10/10/17 0000 Signed Impressions: Service Date/Time: Tuesday, October 10, 2017 13:38 - CONCLUSION: 1. High-grade partial obstruction distal small bowel. Eulogio Masters MD Abdomen X-Ray 10/10/17 0000 Signed Impressions: Service Date/Time: Tuesday, October 10, 2017 08:35 - CONCLUSION: Distended small bowel concerning for some degree of obstruction. Tacho Mcneill MD Chest CT 10/09/17 0000 Signed Impressions: Service Date/Time: Monday, October 09, 2017 08:27 - CONCLUSION: Severe emphysema. Bilateral pleural effusions and free fluid in the upper abdomen. There are no lung masses seen. Scott Zee MD Abdomen/Pelvis CT 10/07/17 1402 Signed Impressions: Service Date/Time: Saturday, October 07, 2017 14:56 - CONCLUSION: Dilated fluid filled small bowel with some additional air small bowel which are nondilated. There is a questionable transition point in the right mid abdomen as described above. No evidence of pneumatosis. Status post aortobifem.. Curtis Lee MD Cardiovascular: Regular Lungs: Clear Abdomen: Other (Midline incision with TG in place--- moderate dry drainage noted; less distended; tender; G tube place--- Janiya RN to change dressing ) Extremities: No edema Narrative Exam cachetic A/P Assessment and Plan 67 year old male with SBO; POD6 ex lap; YONATHAN; SBR -+BM -Restart trickle feed -Need to follow up on labs when resulted -Continue sips of clear liquids -Pain control -IVF -Restart Plavix/ASA/Lovenox -Zofran PRN -PT--- mobilize Attending Note - Dr. Brito Abdomen soft; ankita intact Await return of bowel function Stable from GS standpoint The exam, history, and the medical decision-making described in the above note were completed with the assistance of the mid-level provider. I reviewed and agree with the findings presented. I attest that I had a [id number] encounter with the patient on the same day, and personally performed and documented my assessment and findings in the medical record. Yesenia EllerP/Digital Engineer RN TRAUMA October 18, 2017 09:36 Pawan Brito MD October 21, 2017 11:42
[2017-10-18 09:38] LABS: AUTOMATED NEUTROPHIL # 14.8 TH/MM3 (1.8-7.7); BASOPHIL % 0.1 % (0.0-2.0); EOSINOPHIL # 0.1 TH/MM3 (0-0.4); EOSINOPHIL % 0.8 % (0.0-4.0); HEMOGLOBIN 8.7 GM/DL (13.0-17.0); LYMPH % 4.2 % (9.0-44.0); LYMPHOCYTE # 0.7 TH/MM3 (1.0-4.8); MEAN CELL VOLUME 86.3 FL (80.0-100.0); MEAN CORPUSCULAR HEMOGLOBIN 28.9 PG (27.0-34.0); MEAN CORPUSCULAR HGB CONC 33.5 % (32.0-36.0); MEAN PLATELET VOLUME 9.5 FL (7.0-11.0); MONO % 6.4 % (0.0-8.0); MONOCYTE # 1.1 TH/MM3 (0-0.9); NEUT % 88.5 % (16.0-70.0); PLATELET COUNT 328 TH/MM3 (150-450); RED BLOOD COUNT 3.02 MIL/MM3 (4.50-5.90); RED CELL DISTRIBUTION WIDTH 15.6 % (11.6-17.2); WHITE BLOOD COUNT 16.8 TH/MM3 (4.0-11.0)
[2017-10-18 09:57] LABS: ALBUMIN 1.3 GM/DL (3.4-5.0); AST (GOT) 12 U/L (15-37); BICARBONATE 27.4 MEQ/L (21.0-32.0); BLOOD UREA NITROGEN 6 MG/DL (7-18); CALCIUM 7.5 MG/DL (8.5-10.1); CHLORIDE 102 MEQ/L (98-107); CREATININE 0.48 MG/DL (0.60-1.30); GLOMERULAR FILTRATION RATE 210 ML/MIN (>89); GLUCOSE,RANDOM 89 MG/DL (74-106); MAGNESIUM 1.6 MG/DL (1.5-2.5); SODIUM (NA) 137 MEQ/L (136-145)
[2017-10-18 09:58] LABS: ALT (GPT) 7 U/L (12-78); PHOSPHORUS 2.3 MG/DL (2.5-4.9)
[2017-10-18 10:00] LABS: ALKALINE PHOSPHATASE 85 U/L (45-117); TOTAL BILIRUBIN ADULT 0.9 MG/DL (0.2-1.0); TOTAL PROTEIN 5.3 GM/DL (6.4-8.2)
--- NOTE | 2017-10-18 10:44 | HHI.FPPN ---
Subjective Remarks Patient seen and examined at bedside this morning. Complains of nausea. Nurse stated patient had 1 bowel movement yesterday. (Derek Dumont MD, R1) Objective Vitals Vital Signs Date Time Temp Pulse Resp B/P (MAP) Pulse Ox O2 Delivery O2 Flow Rate FiO2 10/18/17 08:00 98.3 75 18 142/65 (90) 92 10/18/17 00:18 98.4 91 16 140/58 (85) 96 10/17/17 20:00 98.7 87 16 137/63 (87) 96 10/17/17 18:22 93 Nasal Cannula 2.00 10/17/17 16:00 97.6 84 17 135/70 (91) 93 10/17/17 12:00 97.9 80 17 124/58 (80) 93 I/O 10/17/17 10/17/17 10/17/17 10/18/17 10/18/17 10/18/17 07:00 15:00 23:00 07:00 15:00 23:00 Intake Total 250 ml 270 ml 1023 ml 480 ml Output Total 250 ml 600 ml Balance 0 ml 270 ml 1023 ml -120 ml Intake Oral 240 ml 0 ml 380 ml IV Total 200 ml 1023 ml 100 ml Tube Feeding 10 ml 30 ml Tube Irrigant 40 ml Output Urine Total 250 ml 600 ml # Voids 10 # Bowel Movements 0 1 (Derek Dumont MD, R1) Result Diagram: 10/18/17 0841 10/18/17 0841 Imaging Last Impressions Abdomen X-Ray 10/17/17 0000 Signed Impressions: Service Date/Time: Tuesday, October 17, 2017 15:44 - CONCLUSION: Distended small bowel concerning for obstruction or some degree of ileus. Contrast does appear to be within the colon suggesting ileus is more likely. Tacho Mcneill MD Chest X-Ray 10/14/17 0000 Signed Impressions: Service Date/Time: Saturday, October 14, 2017 16:43 - CONCLUSION: Moderate congestive failure Ayaz Eduardo MD FACR Small Bowel X-Ray 10/10/17 0000 Signed Impressions: Service Date/Time: Tuesday, October 10, 2017 13:38 - CONCLUSION: 1. High-grade partial obstruction distal small bowel. Eulogio Masters MD Chest CT 10/09/17 0000 Signed Impressions: Service Date/Time: Monday, October 09, 2017 08:27 - CONCLUSION: Severe emphysema. Bilateral pleural effusions and free fluid in the upper abdomen. There are no lung masses seen. Scott Zee MD Abdomen/Pelvis CT 10/07/17 1402 Signed Impressions: Service Date/Time: Saturday, October 07, 2017 14:56 - CONCLUSION: Dilated fluid filled small bowel with some additional air small bowel which are nondilated. There is a questionable transition point in the right mid abdomen as described above. No evidence of pneumatosis. Status post aortobifem.. Curtis Lee MD Objective Remarks GEN: Thin, cachectic elderly black male lying in bed in NAD Skin: Cool and dry CV: NRRR, nl S1/S2, no MRG Lungs: Normal rate and effort. CTAB anteriorly. No crackles or wheezes. Abd. Soft, nondistended, mild tenderness to palpation around abdominal incision. Abdominal dressing in place, d/i, small amount of dry blood noted on dressing. MSK: No cyanosis or edema. warm and well perfused. non-tender calves BL. Neuro: Awake, alert, moves all extremities well. Normal speech. (Derek Dumont MD, R1) A/P Assessment and Plan Patient is a 67-year-old male with past medical history of dysphasia, implanted PEG tube, hypertension, and COPD presented with: (Derek Dumont MD, R1) Attending Attestation Patient seen and examined. Case reviewed and discussed with the resident team. Agree with plan of care as discussed with me and documented in the resident note. (Shana Alcantar MD) Problem List: (1) Peritonitis ICD Codes: K65.9 - Peritonitis, unspecified Plan: POD#6 s/p exploratory laparotomy, lysis of adhesions, small bowel resection with primary anastomosis Peritoneal fluid growing gram-negative rods, afebrile so far. WBC decreased slightly to 16.8 today from 17.7 on 10/17. Negative for fungal elements or acid-fast bacilli Vital signs stable overnight, white blood cells Antibiotic history: Zosyn IV Q6h 10/13--present PEG tube replacement not necessary per surgical team ID consulted, appreciate recommendations Peritonitis due to gram-negative bacteria 2/2 to translocation of bacteria Continue with Zosyn antibiotics and adjust depending on culture sensitivities. Peritoneal fluid growing pansensitive Klebsiella. Upon discharge patient can be switched to Cefuroxime 500 mg p.o. BID x 10days. (2) Abdominal pain ICD Codes: R10.9 - Unspecified abdominal pain Status: Chronic Plan: Small bowel follow through showed significant obstruction CT abdomen pelvis: Dilated fluid-filled small bowel with some air, nondilated, no evidence of pneumonitis Patient failed medical management of SBO Patient states he has intermitted cramping abdominal pain today Surgery consulted, appreciate assistance -POD#6 s/p exploratory laparotomy, lysis of adhesions, small bowel resection with primary anastomosis -small bowel strictured ileum pathology report: ACUTE ENTERITIS WITH ISCHEMIC FEATURES, LUMINAL STENOSIS, AND ACUTE SEROSITIS. -abdominal XRAY 10/18: Likely ileus -1 BM yesterday, will advance TF today to trickle and pt encouraged to work with physical therapy to help resolve ileus per surgical team rec. Patient's case was discussed with outpatient GI physician at [facility] Dr. Saenz on 10/11 -Patient had been worked up for possible mesenteric ischemia; CTA at [facility] imaging showed 60-70% stenosis of the SMA -Had been referred to [place] cardiovascular specialists for consideration of intervention i.e. stenting Pain control switched to toradol PRN (3) Small bowel obstruction ICD Codes: K56.609 - Unspecified intestinal obstruction, unspecified as to partial versus complete obstruction Status: Resolved Plan: See plan above (4) Severe protein-calorie malnutrition ICD Codes: E43 - Unspecified severe protein-calorie malnutrition Status: Chronic Plan: Chronic malnutrition likely due to dysphagia, chronic abdominal pain possibly mesenteric ischemia (see above) -Speech evaluation: Moderate pharyngeal dysphasia, may initiate clear liquid diet with thickener modifications, small sips. Resume TF today. -Discussed starting patient on PEG tube feeds with surgery team--> OK to start PEG tube feeds slowly PEG tube feeds recs: trickle TF 10cc advance slowly starting with 2cc/hr today with goal of 10cc/hr overnight -Dietary consulted for nutritional support recs TF overnight night (5) Cachexia ICD Codes: R64 - Cachexia Status: Chronic Plan: Likely secondary to malnutrition from dysphagia. Alcohol abuse in problem list but patient has not been drinking for some time. CT lungs negative for lung cancer AM cortisol wnl (6) COPD (chronic obstructive pulmonary disease) ICD Codes: J44.9 - Chronic obstructive pulmonary disease Status: Chronic Plan: No active COPD symptoms Duonebs as needed (7) Hypertension ICD Codes: I10 - Hypertension Status: Chronic Plan: Patient with normal blood pressures Hold home blood pressure medication (8) CAD (coronary artery disease) ICD Codes: I25.10 - Coronary artery disease Status: Chronic Plan: Stable; ASA/Plavix resumed (9) Nutrition, metabolism, and development symptoms ICD Codes: R63.8 - Other symptoms and signs concerning food and fluid intake Plan: Fluids: 75 mls/hr of D5-1/2 NS with 20 mEq/L of KCl Electrolytes: Monitor and replete as needed Nutrition: clear liquid diet, Small sips, dietary consulted for advancement of PEG tube feeds: current goal Trickle TF 10cc/hr until he is able to better tolerate DVT prophylaxis: Lovenox 40mg Q24h Dispo: Pending patient tolerates PEG tube feeds (Derek Dumont MD, R1) Problem Qualifiers (1) Abdominal pain: Qualified Codes: R10.9 - Unspecified abdominal pain Derek Dumont MD, R1 October 18, 2017 10:44 Shana Alcantar MD October 18, 2017 14:28
[2017-10-18 12:00] VITALS: BP 141/67; PULSE 71; RESP 16; TEMP 97.5; O2SAT 97
[2017-10-18] MEDS: D5-1/2 NS + KCL 20 MEQ INJ 1,000 ML IV SCH (13:08)
[2017-10-18 16:00] VITALS: BP 132/61; PULSE 65; RESP 16; TEMP 97.6; O2SAT 95
[2017-10-18 17:43] VITALS: O2SAT 97
[2017-10-18 20:00] VITALS: BP 123/67; PULSE 68; RESP 18; TEMP 97.9; O2SAT 97
[2017-10-18 20:21] LABS: HEMATOCRIT 26.3 % (39.0-51.0); HEMOGLOBIN 8.9 GM/DL (13.0-17.0)
[2017-10-18] MEDS: ENOXAPARIN SODIUM 40 MG/0.4 ML SYRINGE SQ SCH (22:12)
[2017-10-19] VITALS: BP 133/60; PULSE 72; RESP 18; TEMP 98.2; O2SAT 100
[2017-10-19] MEDS: PIPERACIL-TAZO 4.5 GM PREMIX 100 ML IV SCH ×2 (04:10→11:00)
[2017-10-19] MEDS: D5-1/2 NS + KCL 20 MEQ INJ 1,000 ML IV SCH ×2 (04:10→19:00)
[2017-10-19] MEDS: KETOROLAC TROMETHAMINE 10 MG TAB PO PRN (07:28)
[2017-10-19 08:00] VITALS: BP 149/66; PULSE 73; RESP 18; TEMP 97.8; O2SAT 98
[2017-10-19 08:17] LABS: AUTOMATED NEUTROPHIL # 12.2 TH/MM3 (1.8-7.7); BASOPHIL # 0.1 TH/MM3 (0-0.2); BASOPHIL % 0.5 % (0.0-2.0); EOSINOPHIL # 0.2 TH/MM3 (0-0.4); EOSINOPHIL % 1.2 % (0.0-4.0); HEMATOCRIT 27.2 % (39.0-51.0); HEMOGLOBIN 9.1 GM/DL (13.0-17.0); LYMPHOCYTE # 0.7 TH/MM3 (1.0-4.8); MEAN CELL VOLUME 86.6 FL (80.0-100.0); MEAN CORPUSCULAR HEMOGLOBIN 28.9 PG (27.0-34.0); MEAN CORPUSCULAR HGB CONC 33.4 % (32.0-36.0); MEAN PLATELET VOLUME 9.5 FL (7.0-11.0); MONO % 6.9 % (0.0-8.0); NEUT % 86.4 % (16.0-70.0); PLATELET COUNT 386 TH/MM3 (150-450); RED BLOOD COUNT 3.14 MIL/MM3 (4.50-5.90); RED CELL DISTRIBUTION WIDTH 15.9 % (11.6-17.2); WHITE BLOOD COUNT 14.1 TH/MM3 (4.0-11.0)
[2017-10-19] MEDS: PANTOPRAZOLE SOD 40 MG DELAYED RELEASE TAB PO SCH (08:28)
[2017-10-19] MEDS: FINASTERIDE 5 MG TAB PO SCH (08:28)
[2017-10-19] MEDS: THIAMINE HCL 100 MG TAB PO SCH (08:28)
[2017-10-19] MEDS: PRAVASTATIN SOD 20 MG TAB PO SCH (08:28)
[2017-10-19] MEDS: CLOPIDOGREL 75 MG TAB PO SCH (08:28)
[2017-10-19] MEDS: ASPIRIN 81 MG CHEW TAB CHEW SCH (08:28)
[2017-10-19] MEDS: SODIUM CHLORIDE 0.9% FLUSH 10 ML FLUSH IV FLUSH SCH ×2 (08:32→22:04)
[2017-10-19 08:45] LABS: BICARBONATE 27.8 MEQ/L (21.0-32.0); CALCIUM 7.4 MG/DL (8.5-10.1); CREATININE 0.49 MG/DL (0.60-1.30)
[2017-10-19 08:57] LABS: CALCIUM-PROTEIN CORRECTED 8.2 MG/DL (8.5-10.1); TOTAL PROTEIN 5.6 GM/DL (6.4-8.2)
--- NOTE | 2017-10-19 10:26 | HHI.FPPN ---
Subjective Remarks Patient seen and examined at bedside. No acute events overnight. Pt reports that he is tolerating TF well, currently at 20cc/hr. Pt has another BM yesterday. Denies any abdominal pain or N/V. He worked with physical therapy yesterday. (Derek Dumont MD, R1) Objective Vitals Vital Signs Date Time Temp Pulse Resp B/P (MAP) Pulse Ox O2 Delivery O2 Flow Rate FiO2 10/19/17 08:28 16 10/19/17 08:00 97.8 73 18 149/66 (93) 98 10/19/17 00:00 98.2 72 18 133/60 (84) 100 10/18/17 20:00 97.9 68 18 123/67 (85) 97 10/18/17 17:43 97 Nasal Cannula 2.00 10/18/17 16:00 97.6 65 16 132/61 (84) 95 10/18/17 12:00 97.5 71 16 141/67 (91) 97 I/O 10/18/17 10/18/17 10/18/17 10/19/17 10/19/17 10/19/17 07:00 15:00 23:00 07:00 15:00 23:00 Intake Total 480 ml 100 ml 7130 ml 1100 ml 281 ml Output Total 600 ml Balance -120 ml 100 ml 7130 ml 1100 ml 281 ml Intake Oral 380 ml 640 ml 0 ml IV Total 100 ml 100 ml 6383 ml 1100 ml Tube Feeding 67 ml 281 ml Tube Irrigant 40 ml Output Urine Total 600 ml # Voids 4 1 # Bowel Movements 1 3 1 (Derek Dumont MD, R1) Result Diagram: 10/19/17 0740 10/19/17 0740 Objective Remarks GEN: Thin, cachectic elderly black male lying in bed in NAD Skin: Cool and dry CV: NRRR, nl S1/S2, no MRG Lungs: Normal rate and effort. CTAB anteriorly. No crackles or wheezes. Abd. tense, nondistended, non tender to palpation. Abdominal dressing in place , d/i, small amount of dry blood noted on dressing. MSK: No cyanosis or edema. warm and well perfused. non-tender calves BL. Neuro: Awake, alert, moves all extremities well. Normal speech. (Derek Dumont MD, R1) A/P Assessment and Plan Patient is a 67-year-old male with past medical history of dysphasia, implanted PEG tube, hypertension, and COPD presented with: (Derek Dumont MD, R1) Attending Attestation Patient seen and examined. Case reviewed and discussed with the resident team. Agree with plan of care as discussed with me and documented in the resident note. (Shana Alcantar MD) Problem List: (1) Peritonitis ICD Codes: K65.9 - Peritonitis, unspecified Plan: POD#7 s/p exploratory laparotomy, lysis of adhesions, small bowel resection with primary anastomosis Peritoneal fluid growing gram-negative rods, afebrile so far. WBC decreased slightly to 14.1 today from 16.8 on 10/17. Negative for fungal elements or acid-fast bacilli Vital signs stable overnight Antibiotic history: Zosyn IV Q6h 10/13--present PEG tube replacement not necessary per surgical team ID consulted, appreciate recommendations Peritonitis due to gram-negative bacteria 2/2 to translocation of bacteria Continue with Zosyn antibiotics and adjust depending on culture sensitivities. Peritoneal fluid growing pansensitive Klebsiella. Upon discharge patient can be switched to Cefuroxime 500 mg p.o. BID x 10days. (2) Abdominal pain ICD Codes: R10.9 - Unspecified abdominal pain Status: Chronic Plan: Small bowel follow through showed significant obstruction CT abdomen pelvis: Dilated fluid-filled small bowel with some air, nondilated, no evidence of pneumonitis Patient failed medical management of SBO Patient states he has intermitted cramping abdominal pain today Surgery consulted, appreciate assistance -POD#7 s/p exploratory laparotomy, lysis of adhesions, small bowel resection with primary anastomosis -small bowel strictured ileum pathology report: ACUTE ENTERITIS WITH ISCHEMIC FEATURES, LUMINAL STENOSIS, AND ACUTE SEROSITIS. -abdominal XRAY 10/18: Likely ileus -5 BM, tolerating TF well and pt encouraged to work with physical therapy to help resolve ileus per surgical team rec. Patient's case was discussed with outpatient GI physician at [facility] Dr. Saenz on 10/11 -Patient had been worked up for possible mesenteric ischemia; CTA at [place] imaging showed 60-70% stenosis of the SMA -Had been referred to [place] cardiovascular specialists for consideration of intervention i.e. stenting Pain control switched to toradol PRN (3) Small bowel obstruction ICD Codes: K56.609 - Unspecified intestinal obstruction, unspecified as to partial versus complete obstruction Status: Resolved Plan: See plan above (4) Severe protein-calorie malnutrition ICD Codes: E43 - Unspecified severe protein-calorie malnutrition Status: Chronic Plan: Chronic malnutrition likely due to dysphagia, chronic abdominal pain possibly mesenteric ischemia (see above) -Speech evaluation: Moderate pharyngeal dysphasia, may initiate clear liquid diet with thickener modifications, small sips. -Discussed starting patient on PEG tube feeds with surgery team--> OK to start PEG tube feeds slowly PEG tube feeds recs: started at trickle TF 10cc advance as tolerated -Dietary consulted for nutritional support recs TF overnight night goal: 45ml/hr to offer 1620 kcal, 68.9g protein and 820ml free water (5) Cachexia ICD Codes: R64 - Cachexia Status: Chronic Plan: Likely secondary to malnutrition from dysphagia. Alcohol abuse in problem list but patient has not been drinking for some time. CT lungs negative for lung cancer AM cortisol wnl (6) COPD (chronic obstructive pulmonary disease) ICD Codes: J44.9 - Chronic obstructive pulmonary disease Status: Chronic Plan: No active COPD symptoms Duonebs as needed (7) Hypertension ICD Codes: I10 - Hypertension Status: Chronic Plan: Patient with normal blood pressures Hold home blood pressure medication (8) CAD (coronary artery disease) ICD Codes: I25.10 - Coronary artery disease Status: Chronic Plan: Stable; ASA/Plavix resumed (9) Nutrition, metabolism, and development symptoms ICD Codes: R63.8 - Other symptoms and signs concerning food and fluid intake Plan: Fluids: 75 mls/hr of D5-1/2 NS with 20 mEq/L of KCl Electrolytes: Monitor and replete as needed Nutrition: clear liquid diet, Small sips, dietary consulted for advancement of PEG tube feeds: TF 20cc/hr advance as tolerated DVT prophylaxis: Lovenox 40mg Q24h Dispo: Pending patient tolerates PEG tube feeds at goal of 45mls/hr (Derek Dumont MD, R1) Problem Qualifiers (1) Abdominal pain: Qualified Codes: R10.9 - Unspecified abdominal pain Derek Dumont MD, R1 October 19, 2017 10:26 Shana Alcantar MD October 20, 2017 11:54
[2017-10-19 12:00] VITALS: BP 126/78; PULSE 64; RESP 18; TEMP 97.9; O2SAT 92
--- NOTE | 2017-10-19 15:19 | HHI.IDPN ---
Note Infectious Disease Note Patient says he feels dizzy. He is up in a chair currently. Denies abdominal pain but he says his abdomen feels "funny". Afebrile. Denies shortness of breath. PAST MEDICAL HISTORY: Dysphagia, hypertension, COPD, PEG tube, coronary artery bypass graft surgery, aortic bifemoral bypass, prior small-bowel obstruction, alcohol abuse, C. difficile infection in July 2017. ALLERGIES: NO KNOWN DRUG ALLERGIES. Current Medications Medications (Trade) Dose Ordered Sig/Marilee Route PRN Reason Start Time Stop Time Status Last Admin Dose Admin Sodium Chloride (NS Flush) 2 ml UNSCH PRN IV FLUSH FLUSH AFTER USING IV ACCESS 10/07/17 17:15 Sodium Chloride (NS Flush) 2 ml BID IV FLUSH 10/07/17 21:00 10/19/17 08:32 Enoxaparin Sodium (Lovenox Inj) 40 mg Q24H SQ 10/07/17 20:00 Future hold 10/18/17 22:12 Naloxone HCl (Narcan Inj) 0.4 mg UNSCH PRN IV PUSH SEE LABEL COMMENTS 10/07/17 17:15 Senna/Docusate Sodium (Tri-Colace) 1 tab BID PO 10/07/17 21:00 Future Hold Sennosides (Senokot) 17.2 mg Q12H PRN PO Moderate constipation 10/07/17 17:15 Future Hold Bisacodyl (Dulcolax Supp) 10 mg DAILY PRN RECTAL SEVERE CONSITIPATION 10/07/17 17:15 10/17/17 12:59 Lactulose (Lactulose Liq) 30 ml DAILY PRN PO SEVERE CONSITIPATION 10/07/17 17:15 Future Hold Aspirin (Aspirin Chew) 81 mg DAILY CHEW 10/08/17 09:00 Future hold 10/19/17 08:28 Clopidogrel Bisulfate (Plavix) 75 mg DAILY PO 10/08/17 09:00 Future hold 10/19/17 08:28 Finasteride (Proscar) 5 mg DAILY PO 10/08/17 09:00 Future hold 10/19/17 08:28 Pravastatin Sodium (Pravachol) 20 mg DAILY PO 10/08/17 09:00 Future hold 10/19/17 08:28 Metoprolol Tartrate (Lopressor) 12.5 mg BID PO 10/08/17 09:00 Future Hold Pantoprazole Sodium (Protonix) 40 mg DAILY PO 10/08/17 09:00 Future hold 10/19/17 08:28 Thiamine HCl (Vitamin B1) 250 mg DAILY PO 10/08/17 09:00 Future hold 10/19/17 08:28 Miscellaneous (Pill Splitter) 1 ea UNSCH PRN OTHER SEE LABEL COMMENTS 10/07/17 21:45 Albuterol/ Ipratropium (Duoneb Neb) 1 ampule Q6HR NEB PRN NEB SHORTNESS OF BREATH 10/07/17 21:45 Dextrose (D50w (Vial) Inj) 50 ml UNSCH PRN IV PUSH HYPOGLYCEMIA-SEE COMMENTS 10/09/17 07:00 Glucagon (Glucagon Inj) 1 mg UNSCH PRN OTHER HYPOGLYCEMIA-SEE COMMENTS 10/09/17 07:00 Ondansetron HCl (Zofran Inj) 4 mg Q6HR PRN IV PUSH nausea/vomiting 10/11/17 08:30 Future Hold 10/18/17 09:15 Potassium Chloride/Dextrose/ Sod Cl 1,000 ml @ 75 mls/hr [id number] IV 10/13/17 10:30 10/19/17 04:10 Piperacillin Sod/ Tazobactam Sod 100 ml @ 200 mls/hr Q6H IV 10/13/17 16:00 10/19/17 11:00 Magnesium Hydroxide (Milk Of Magnmaddy Liq) 30 ml Q12H PRN PO Mild constipation 10/17/17 13:15 10/17/17 14:48 Ketorolac Tromethamine (Toradol) 10 mg Q6H PRN PO pain 3-10 10/17/17 14:45 10/22/17 14:44 10/19/17 07:28 SOCIAL HISTORY: The patient smokes a pack of cigarettes a day. He denies current alcohol use. No illicit drugs. The patient lives alone in his apartment. He notes that he has a friend that checks on him. FAMILY HISTORY: Noncontributory. Vital Signs Date Time Temp Pulse Resp B/P (MAP) Pulse Ox O2 Delivery O2 Flow Rate FiO2 10/19/17 12:00 97.9 64 18 126/78 (94) 92 10/19/17 08:28 16 10/19/17 08:00 97.8 73 18 149/66 (93) 98 5/9/18 00:00 98.2 72 18 133/60 (84) 100 10/18/17 20:00 97.9 68 18 123/67 (85) 97 10/18/17 17:43 97 Nasal Cannula 2.00 10/18/17 16:00 97.6 65 16 132/61 (84) 95 Laboratory Tests Test 10/18/17 08:41 10/18/17 19:54 10/19/17 07:40 White Blood Count 16.8 TH/MM3 14.1 TH/MM3 Red Blood Count 3.02 MIL/MM3 3.14 MIL/MM3 Hemoglobin 8.7 GM/DL 8.9 GM/DL 9.1 GM/DL Hematocrit 26.0 % 26.3 % 27.2 % Mean Corpuscular Volume 86.3 FL 86.6 FL Mean Corpuscular Hemoglobin 28.9 PG 28.9 PG Mean Corpuscular Hemoglobin Concent 33.5 % 33.4 % Red Cell Distribution Width 15.6 % 15.9 % Platelet Count 328 TH/MM3 386 TH/MM3 Mean Platelet Volume 9.5 FL 9.5 FL Neutrophils (%) (Auto) 88.5 % 86.4 % Lymphocytes (%) (Auto) 4.2 % 5.0 % Monocytes (%) (Auto) 6.4 % 6.9 % Eosinophils (%) (Auto) 0.8 % 1.2 % Basophils (%) (Auto) 0.1 % 0.5 % Neutrophils # (Auto) 14.8 TH/MM3 12.2 TH/MM3 Lymphocytes # (Auto) 0.7 TH/MM3 0.7 TH/MM3 Monocytes # (Auto) 1.1 TH/MM3 1.0 TH/MM3 Eosinophils # (Auto) 0.1 TH/MM3 0.2 TH/MM3 Basophils # (Auto) 0.0 TH/MM3 0.1 TH/MM3 CBC Comment DIFF FINAL DIFF FINAL Differential Comment Laboratory Tests Test 10/18/17 08:41 10/19/17 07:40 Blood Urea Nitrogen 6 MG/DL 7 MG/DL Creatinine 0.48 MG/DL 0.49 MG/DL Random Glucose 89 MG/DL 91 MG/DL Total Protein 5.3 GM/DL 5.6 GM/DL Albumin 1.3 GM/DL Calcium Level 7.5 MG/DL 7.4 MG/DL Phosphorus Level 2.3 MG/DL Magnesium Level 1.6 MG/DL Alkaline Phosphatase 85 U/L Aspartate Amino Transf (AST/SGOT) 12 U/L Alanine Aminotransferase (ALT/SGPT) 7 U/L Total Bilirubin 0.9 MG/DL Sodium Level 137 MEQ/L 138 MEQ/L Potassium Level 3.6 MEQ/L 3.9 MEQ/L Chloride Level 102 MEQ/L 104 MEQ/L Carbon Dioxide Level 27.4 MEQ/L 27.8 MEQ/L Anion Gap 8 MEQ/L 6 MEQ/L Estimat Glomerular Filtration Rate 210 ML/MIN 205 ML/MIN Protein Corrected Calcium 8.2 MG/DL Imaging: Abdomen X-Ray 10/17/17 0000 Signed Impressions: Service Date/Time: Tuesday, October 17, 2017 15:44 - CONCLUSION: Distended small bowel concerning for obstruction or some degree of ileus. Contrast does appear to be within the colon suggesting ileus is more likely. Tacho Mcneill MD Chest X-Ray 10/14/17 0000 Signed Impressions: Service Date/Time: Saturday, October 14, 2017 16:43 - CONCLUSION: Moderate congestive failure Ayaz Eduardo MD FACR Small Bowel X-Ray 10/10/17 0000 Signed Impressions: Service Date/Time: Tuesday, October 10, 2017 13:38 - CONCLUSION: 1. High-grade partial obstruction distal small bowel. Eulogio Masters MD Chest CT 10/09/17 0000 Signed Impressions: Service Date/Time: Monday, October 09, 2017 08:27 - CONCLUSION: Severe emphysema. Bilateral pleural effusions and free fluid in the upper abdomen. There are no lung masses seen. Scott Zee MD Abdomen/Pelvis CT 10/07/17 1402 Signed Impressions: Service Date/Time: Saturday, October 07, 2017 14:56 - CONCLUSION: Dilated fluid filled small bowel with some additional air small bowel which are nondilated. There is a questionable transition point in the right mid abdomen as described above. No evidence of pneumatosis. Status post aortobifem.. Curtis Lee MD PHYSICAL EXAMINATION: GENERAL: No acute distress. HEENT: Head atraumatic. Extraocular movements grossly intact. Pupils reactive to light. No icterus. Oropharynx, moist mucosa. The patient is edentulous. No visible lesions. NECK: Supple, without adenopathy. LUNGS: Clear to auscultation. CARDIOVASCULAR: Regular S1, S2. No murmurs, rubs or gallops. ABDOMEN: Diminished bowel sounds. Soft, nontender. GENITOURINARY: Normal genitalia. EXTREMITIES: No clubbing, cyanosis or edema. Diffuse muscle wasting. SKIN: No rash. NEUROLOGIC: Alert and oriented. No gross focal finding. PSYCHIATRIC: Calm and cooperative. IMPRESSION: 1. Peritonitis due to Klebsiella, very likely secondary to translocation of bacteria from GI tract. 2. Status post small-bowel resection for small-bowel obstruction. 3. Leukocytosis secondary to peritonitis. White blood cell count is lower. RECOMMENDATIONS: 1. Stop piperacillin/tazobactam. 2. Begin p.o. Cefuroxime 500 mg p.o. twice daily. 3. Monitor clinical status. 4. Monitor white blood cell count. John Hampton MD October 19, 2017 15:19
[2017-10-19 16:00] VITALS: BP 162/70; PULSE 66; RESP 18; TEMP 97.5; O2SAT 92
--- NOTE | 2017-10-19 16:10 | HHI.PR ---
Subjective Subjective Notes Resting in bed Was up earlier Feeling less distended Objective Vitals/I&O Vital Signs Date Time Temp Pulse Resp B/P (MAP) Pulse Ox O2 Delivery O2 Flow Rate FiO2 10/19/17 12:00 97.9 64 18 126/78 (94) 92 10/18/17 17:43 Nasal Cannula 2.00 Labs Laboratory Tests Test 10/18/17 19:54 10/19/17 07:40 Hemoglobin 8.9 9.1 Hematocrit 26.3 27.2 White Blood Count 14.1 Red Blood Count 3.14 Mean Corpuscular Volume 86.6 Mean Corpuscular Hemoglobin 28.9 Mean Corpuscular Hemoglobin Concent 33.4 Red Cell Distribution Width 15.9 Platelet Count 386 Mean Platelet Volume 9.5 Neutrophils (%) (Auto) 86.4 Lymphocytes (%) (Auto) 5.0 Monocytes (%) (Auto) 6.9 Eosinophils (%) (Auto) 1.2 Basophils (%) (Auto) 0.5 Neutrophils # (Auto) 12.2 Lymphocytes # (Auto) 0.7 Monocytes # (Auto) 1.0 Eosinophils # (Auto) 0.2 Basophils # (Auto) 0.1 CBC Comment DIFF FINAL Differential Comment Blood Urea Nitrogen 7 Creatinine 0.49 Random Glucose 91 Total Protein 5.6 Calcium Level 7.4 Sodium Level 138 Potassium Level 3.9 Chloride Level 104 Carbon Dioxide Level 27.8 Anion Gap 6 Estimat Glomerular Filtration Rate 205 Protein Corrected Calcium 8.2 Date/Time Source Procedure Growth Status 10/09/17 10:50 Blood Peripheral Aerobic Blood Culture - Final NO GROWTH IN 5 DAYS Complete 10/09/17 10:50 Blood Peripheral Anaerobic Blood Culture - Final NO GROWTH IN 5 DAYS Complete 10/12/17 12:00 Fluid Peritoneal Fluid Fungal Smear - Final NO FUNGAL ELEMENTS SEEN. Complete 10/12/17 12:00 Fluid Peritoneal Fluid Fungal Culture - Final No growth. Complete Radiology Last Impressions Chest X-Ray 10/14/17 0000 Signed Impressions: Service Date/Time: Saturday, October 14, 2017 16:43 - CONCLUSION: Moderate congestive failure Ayaz Eduardo MD FACR Small Bowel X-Ray 10/10/17 0000 Signed Impressions: Service Date/Time: Tuesday, October 10, 2017 13:38 - CONCLUSION: 1. High-grade partial obstruction distal small bowel. Eulogio Masters MD Abdomen X-Ray 10/10/17 0000 Signed Impressions: Service Date/Time: Tuesday, October 10, 2017 08:35 - CONCLUSION: Distended small bowel concerning for some degree of obstruction. Tacho Mcneill MD Chest CT 10/09/17 0000 Signed Impressions: Service Date/Time: Monday, October 09, 2017 08:27 - CONCLUSION: Severe emphysema. Bilateral pleural effusions and free fluid in the upper abdomen. There are no lung masses seen. Scott Zee MD Abdomen/Pelvis CT 10/07/17 1402 Signed Impressions: Service Date/Time: Saturday, October 07, 2017 14:56 - CONCLUSION: Dilated fluid filled small bowel with some additional air small bowel which are nondilated. There is a questionable transition point in the right mid abdomen as described above. No evidence of pneumatosis. Status post aortobifem.. Curtis Lee MD Cardiovascular: Regular Lungs: Clear Abdomen: Other (TG removed; midline incision with ankita; minimally tender; non distended ;G tube in place ) Extremities: No edema Narrative Exam cachetic A/P Assessment and Plan 67 year old male with SBO; POD7 ex lap; YONATHAN; SBR -+BM -TF held this morning for distention; just recently restarted -Continue sips of clear liquids -Pain control -IVF -Restart Plavix/ASA/Lovenox -Zofran PRN -PT--- mobilize Attending Note - Dr. Brito Became distended with enteral feeding [place] intact; wound healing well Will need to go slowly The exam, history, and the medical decision-making described in the above note were completed with the assistance of the mid-level provider. I reviewed and agree with the findings presented. I attest that I had a [id number] encounter with the patient on the same day, and personally performed and documented my assessment and findings in the medical record. Yesenia Eller/First [employer] CRABTREE October 19, 2017 16:10 Pawan Brito MD October 21, 2017 11:48
[2017-10-19 20:00] VITALS: BP 143/68; PULSE 94; RESP 20; TEMP 98.5; O2SAT 95
[2017-10-19] MEDS: ENOXAPARIN SODIUM 40 MG/0.4 ML SYRINGE SQ SCH (22:04)
[2017-10-19] MEDS: CEFUROXIME AXETIL 500 MG TAB PO SCH (22:04)
[2017-10-20] VITALS: BP 170/74; PULSE 73; RESP 20; TEMP 98.8; O2SAT 96
[2017-10-20] MEDS: KETOROLAC TROMETHAMINE 10 MG TAB PO PRN (05:03)
[2017-10-20 08:00] VITALS: BP 158/70; PULSE 76; RESP 17; TEMP 98.1; O2SAT 96
[2017-10-20 08:06] LABS: AUTOMATED NEUTROPHIL # 10.4 TH/MM3 (1.8-7.7); BASOPHIL # 0.1 TH/MM3 (0-0.2); BASOPHIL % 0.6 % (0.0-2.0); EOSINOPHIL # 0.1 TH/MM3 (0-0.4); EOSINOPHIL % 0.9 % (0.0-4.0); HEMATOCRIT 26.1 % (39.0-51.0); HEMOGLOBIN 8.6 GM/DL (13.0-17.0); LYMPH % 5.6 % (9.0-44.0); LYMPHOCYTE # 0.7 TH/MM3 (1.0-4.8); MEAN CELL VOLUME 86.6 FL (80.0-100.0); MEAN CORPUSCULAR HEMOGLOBIN 28.5 PG (27.0-34.0); MEAN CORPUSCULAR HGB CONC 32.9 % (32.0-36.0); MONO % 8.9 % (0.0-8.0); MONOCYTE # 1.1 TH/MM3 (0-0.9); PLATELET COUNT 452 TH/MM3 (150-450); RED BLOOD COUNT 3.01 MIL/MM3 (4.50-5.90); RED CELL DISTRIBUTION WIDTH 15.7 % (11.6-17.2); WHITE BLOOD COUNT 12.4 TH/MM3 (4.0-11.0)
[2017-10-20] MEDS: CEFUROXIME AXETIL 500 MG TAB PO SCH ×2 (08:19→21:52)
[2017-10-20] MEDS: THIAMINE HCL 100 MG TAB PO SCH (08:19)
[2017-10-20] MEDS: SODIUM CHLORIDE 0.9% FLUSH 10 ML FLUSH IV FLUSH SCH ×2 (08:20→22:00)
[2017-10-20] MEDS: CLOPIDOGREL 75 MG TAB PO SCH (08:20)
[2017-10-20] MEDS: FINASTERIDE 5 MG TAB PO SCH (08:20)
[2017-10-20] MEDS: ASPIRIN 81 MG CHEW TAB CHEW SCH (08:20)
[2017-10-20] MEDS: PANTOPRAZOLE SOD 40 MG DELAYED RELEASE TAB PO SCH (08:20)
[2017-10-20] MEDS: PRAVASTATIN SOD 20 MG TAB PO SCH (08:20)
[2017-10-20 08:21] LABS: BICARBONATE 25.8 MEQ/L (21.0-32.0); CALCIUM 7.7 MG/DL (8.5-10.1); CREATININE 0.46 MG/DL (0.60-1.30); MAGNESIUM 1.8 MG/DL (1.5-2.5); PHOSPHORUS 2.1 MG/DL (2.5-4.9)
[2017-10-20] MEDS: D5-1/2 NS + KCL 20 MEQ INJ 1,000 ML IV SCH ×2 (08:24→21:52)
[2017-10-20 12:00] VITALS: BP 168/74; PULSE 74; RESP 17; TEMP 97.2; O2SAT 96
--- NOTE | 2017-10-20 13:46 | HHI.FPPN ---
Subjective Remarks Patient seen and examined at bedside. No acute events overnight. Patient denies any dizziness, chest pain, shortness of breath, nausea/vomiting or abdominal pain. Patient reports that he has had bowel movements this morning and has been passing gas. (Derek Dumont MD, R1) Objective Vitals Vital Signs Date Time Temp Pulse Resp B/P (MAP) Pulse Ox O2 Delivery O2 Flow Rate FiO2 10/20/17 12:00 97.2 74 17 168/74 (105) 96 10/20/17 08:00 98.1 76 17 158/70 (99) 96 10/20/17 00:00 98.8 73 20 170/74 (106) 96 10/19/17 20:00 98.5 94 20 143/68 (93) 95 10/19/17 16:00 97.5 66 18 162/70 (100) 92 I/O 10/19/17 10/19/17 10/19/17 10/20/17 10/20/17 10/20/17 07:00 15:00 23:00 07:00 15:00 23:00 Intake Total 1100 ml 381 ml 1480 ml 330 ml Output Total 1260.0 ml 700 ml Balance 1100 ml 381 ml 220.0 ml -370 ml Intake Oral 0 ml 480 ml IV Total 1100 ml 100 ml 1000 ml Tube Feeding 281 ml 330 ml Output Urine Total 1200 ml 700 ml Tube Feeding Residual Discard 60.0 ml # Voids 1 # Bowel Movements 1 1 (Derek Dumont MD, R1) Result Diagram: 10/20/17 0750 10/20/17 0750 Objective Remarks GEN: Thin, cachectic elderly black male lying in bed in NAD Skin: Cool and dry CV: NRRR, nl S1/S2, no MRG Lungs: Normal rate and effort. CTAB anteriorly. No crackles or wheezes. Abd. tense, nondistended, non tender to palpation. Abdominal dressing in place , d/i, small amount of dry blood noted on dressing. MSK: No cyanosis or edema. warm and well perfused. non-tender calves BL. Neuro: Awake, alert, moves all extremities well. Normal speech. (Derek Dumont MD, R1) A/P Assessment and Plan Patient is a 67-year-old male with past medical history of dysphasia, implanted PEG tube, hypertension, and COPD presented with: (Derek Dumont MD, R1) Attending Attestation Patient seen and examined. Case reviewed and discussed with the resident team. Agree with plan of care as discussed with me and documented in the resident note. (Shana Alcantar MD) Problem List: (1) Peritonitis ICD Codes: K65.9 - Peritonitis, unspecified Plan: POD#8 s/p exploratory laparotomy, lysis of adhesions, small bowel resection with primary anastomosis Peritoneal fluid growing gram-negative rods, afebrile so far. WBC decreased slightly to 14.1 today from 16.8 on 10/17. Negative for fungal elements or acid-fast bacilli Vital signs stable overnight Antibiotic history: Zosyn IV Q6h 10/13--10/19 Cefuroxime 50 mg p.o. twice daily 10/19--present PEG tube replacement not necessary per surgical team ID consulted, appreciate recommendations Peritonitis due to gram-negative bacteria 2/2 to translocation of bacteria Continue with Zosyn antibiotics and adjust depending on culture sensitivities. Peritoneal fluid growing pansensitive Klebsiella. Patient switched to Cefuroxime 500 mg p.o. BID x 10days. (2) Abdominal pain ICD Codes: R10.9 - Unspecified abdominal pain Status: Resolved Plan: Small bowel follow through showed significant obstruction CT abdomen pelvis: Dilated fluid-filled small bowel with some air, nondilated, no evidence of pneumonitis Patient failed medical management of SBO No abdominal pain Surgery consulted, appreciate assistance -POD# 8 s/p exploratory laparotomy, lysis of adhesions, small bowel resection with primary anastomosis -small bowel strictured ileum pathology report: ACUTE ENTERITIS WITH ISCHEMIC FEATURES, LUMINAL STENOSIS, AND ACUTE SEROSITIS. -abdominal XRAY 5/: Likely ileus - positive BM, tolerating TF well and pt encouraged to work with physical therapy to help resolve ileus per surgical team rec. Patient's case was discussed with outpatient GI physician at [facility] Dr. Saenz on 10/11 -Patient had been worked up for possible mesenteric ischemia; [place] showed 60-70% stenosis of the SMA -[facility] for [facility] of intervention i.e. stenting Pain control switched to toradol PRN (3) Small bowel obstruction ICD Codes: K56.609 - Unspecified intestinal obstruction, unspecified as to partial versus complete obstruction Status: Resolved Plan: See plan above (4) Severe protein-calorie malnutrition ICD Codes: E43 - Unspecified severe protein-calorie malnutrition Status: Chronic Plan: Chronic malnutrition likely due to dysphagia, chronic abdominal pain possibly mesenteric ischemia (see above) -Speech evaluation: Moderate pharyngeal dysphasia, may initiate clear liquid diet with thickener modifications, small sips. -Discussed starting patient on PEG tube feeds with surgery team--> OK to start PEG tube feeds slowly PEG tube feeds currently at TF 20cc/hr -Dietary consulted for nutritional support recs goal: 45ml/hr to offer 1620 kcal, 68.9g protein and 820ml free water (5) Cachexia ICD Codes: R64 - Cachexia Status: Chronic Plan: Likely secondary to malnutrition from dysphagia. Alcohol abuse in problem list but patient has not been drinking for some time. CT lungs negative for lung cancer AM cortisol wnl (6) COPD (chronic obstructive pulmonary disease) ICD Codes: J44.9 - Chronic obstructive pulmonary disease Status: Chronic Plan: No active COPD symptoms Duonebs as needed (7) Hypertension ICD Codes: I10 - Hypertension Status: Chronic Plan: Patient with elevated BP today 150s-170/70s will resume home blood pressure medication: Metoprolol tartrate 12.5mg p.o. twice daily Continue to monitor (8) CAD (coronary artery disease) ICD Codes: I25.10 - Coronary artery disease Status: Chronic Plan: Stable; ASA/Plavix resumed (9) Nutrition, metabolism, and development symptoms ICD Codes: R63.8 - Other symptoms and signs concerning food and fluid intake Plan: Fluids: 75 mls/hr of D5-1/2 NS with 20 mEq/L of KCl Electrolytes: Monitor and replete as needed Nutrition: clear liquid diet, Small sips, dietary consulted for advancement of PEG tube feeds: TF 20cc/hr advance as tolerated DVT prophylaxis: Lovenox 40mg Q24h Dispo: Pending patient tolerates PEG tube feeds at goal of 45mls/hr (Derek Dumont MD, R1) Problem Qualifiers (1) Abdominal pain: Qualified Codes: R10.9 - Unspecified abdominal pain Derek Dumont MD, R1 October 20, 2017 13:46 Shana Alcantar MD October 20, 2017 15:24
[2017-10-20] MEDS: METOPROLOL TARTRATE 25 MG TAB PO SCH ×2 (15:20→21:52)
[2017-10-20 16:00] VITALS: BP 180/74; PULSE 77; RESP 17; TEMP 97.2; O2SAT 95
--- NOTE | 2017-10-20 16:24 | HHI.PR ---
Subjective Subjective Notes "Can I do home?" "I'm not going to rehab!" Objective Vitals/I&O Vital Signs Date Time Temp Pulse Resp B/P (MAP) Pulse Ox O2 Delivery O2 Flow Rate FiO2 10/20/17 12:00 97.2 74 17 168/74 (105) 96 10/18/17 17:43 Nasal Cannula 2.00 Labs Laboratory Tests Test 10/20/17 07:50 White Blood Count 12.4 Red Blood Count 3.01 Hemoglobin 8.6 Hematocrit 26.1 Mean Corpuscular Volume 86.6 Mean Corpuscular Hemoglobin 28.5 Mean Corpuscular Hemoglobin Concent 32.9 Red Cell Distribution Width 15.7 Platelet Count 452 Mean Platelet Volume 9.0 Neutrophils (%) (Auto) 84.0 Lymphocytes (%) (Auto) 5.6 Monocytes (%) (Auto) 8.9 Eosinophils (%) (Auto) 0.9 Basophils (%) (Auto) 0.6 Neutrophils # (Auto) 10.4 Lymphocytes # (Auto) 0.7 Monocytes # (Auto) 1.1 Eosinophils # (Auto) 0.1 Basophils # (Auto) 0.1 CBC Comment DIFF FINAL Differential Comment Blood Urea Nitrogen 4 Creatinine 0.46 Random Glucose 87 Calcium Level 7.7 Phosphorus Level 2.1 Magnesium Level 1.8 Sodium Level 140 Potassium Level 3.5 Chloride Level 105 Carbon Dioxide Level 25.8 Anion Gap 9 Estimat Glomerular Filtration Rate 221 Date/Time Source Procedure Growth Status 10/09/17 10:50 Blood Peripheral Aerobic Blood Culture - Final NO GROWTH IN 5 DAYS Complete 10/09/17 10:50 Blood Peripheral Anaerobic Blood Culture - Final NO GROWTH IN 5 DAYS Complete 10/12/17 12:00 Fluid Peritoneal Fluid Fungal Smear - Final NO FUNGAL ELEMENTS SEEN. Complete 10/12/17 12:00 Fluid Peritoneal Fluid Fungal Culture - Final No growth. Complete Radiology Last Impressions Chest X-Ray 10/14/17 0000 Signed Impressions: Service Date/Time: Saturday, October 14, 2017 16:43 - CONCLUSION: Moderate congestive failure Ayaz Edaurdo MD FACR Small Bowel X-Ray 10/10/17 0000 Signed Impressions: Service Date/Time: Tuesday, October 10, 2017 13:38 - CONCLUSION: 1. High-grade partial obstruction distal small bowel. Eulogio Masters MD Abdomen X-Ray 10/10/17 0000 Signed Impressions: Service Date/Time: Tuesday, October 10, 2017 08:35 - CONCLUSION: Distended small bowel concerning for some degree of obstruction. Tacho Mcneill MD Chest CT 10/09/17 0000 Signed Impressions: Service Date/Time: Monday, October 09, 2017 08:27 - CONCLUSION: Severe emphysema. Bilateral pleural effusions and free fluid in the upper abdomen. There are no lung masses seen. Scott Zee MD Abdomen/Pelvis CT 10/07/17 1402 Signed Impressions: Service Date/Time: Saturday, October 07, 2017 14:56 - CONCLUSION: Dilated fluid filled small bowel with some additional air small bowel which are nondilated. There is a questionable transition point in the right mid abdomen as described above. No evidence of pneumatosis. Status post aortobifem.. Curtis Lee MD Cardiovascular: Regular Lungs: Clear Abdomen: Other (midline incision with ankita; very mildly distended ), Post- op tenderness Extremities: No edema Narrative Exam cachetic A/P Assessment and Plan 67 year old male with SBO; POD8 ex lap; YONATHAN; SBR -+BM -Tolerating TF -Will ask COMMUNITY PROGRAM ASSISTANT to evaluate for a more solid diet -Pain control -Continue Plavix/ASA/Lovenox -Zofran PRN -PT--- mobilize -If patient does not want to go to Rehab he should have C Attending Note - Dr. Daryl Elder; ankita intact; wound clean and dry Mildly distended The exam, history, and the medical decision-making described in the above note were completed with the assistance of the mid-level provider. I reviewed and agree with the findings presented. I attest that I had a [id number] encounter with the patient on the same day, and personally performed and documented my assessment and findings in the medical record. Daphine,Yesenia B. POLE MAKER/Bean Picker POLE MAKER October 20, 2017 16:24 Pawan Brito MD October 21, 2017 12:16
[2017-10-20 20:00] VITALS: BP 146/67; PULSE 75; RESP 17; TEMP 98.1; O2SAT 95
[2017-10-20] MEDS: ENOXAPARIN SODIUM 40 MG/0.4 ML SYRINGE SQ SCH (21:52)
[2017-10-21] VITALS: BP 158/70; PULSE 73; RESP 18; TEMP 99.1; O2SAT 97
[2017-10-21 08:00] VITALS: BP 150/67; PULSE 76; RESP 16; TEMP 97.6; O2SAT 97
[2017-10-21] MEDS: SODIUM CHLORIDE 0.9% FLUSH 10 ML FLUSH IV FLUSH SCH (09:00)
[2017-10-21] MEDS: ASPIRIN 81 MG CHEW TAB CHEW SCH (09:34)
[2017-10-21] MEDS: THIAMINE HCL 100 MG TAB PO SCH (09:34)
[2017-10-21] MEDS: PRAVASTATIN SOD 20 MG TAB PO SCH (09:34)
[2017-10-21] MEDS: METOPROLOL TARTRATE 25 MG TAB PO SCH (09:34)
[2017-10-21] MEDS: CEFUROXIME AXETIL 500 MG TAB PO SCH (09:34)
[2017-10-21] MEDS: FINASTERIDE 5 MG TAB PO SCH (09:35)
[2017-10-21] MEDS: CLOPIDOGREL 75 MG TAB PO SCH (09:35)
[2017-10-21] MEDS: PANTOPRAZOLE SOD 40 MG DELAYED RELEASE TAB PO SCH (09:35)
--- NOTE | 2017-10-21 11:46 | HHI.PR ---
Subjective Subjective Notes Resting in bed Wants to go home Objective Vitals/I&O Vital Signs Date Time Temp Pulse Resp B/P (MAP) Pulse Ox O2 Delivery O2 Flow Rate FiO2 10/21/17 08:00 97.6 76 16 150/67 (94) 97 10/18/17 17:43 Nasal Cannula 2.00 Labs Date/Time Source Procedure Growth Status 10/09/17 10:50 Blood Peripheral Aerobic Blood Culture - Final NO GROWTH IN 5 DAYS Complete 10/09/17 10:50 Blood Peripheral Anaerobic Blood Culture - Final NO GROWTH IN 5 DAYS Complete 10/12/17 12:00 Fluid Peritoneal Fluid Fungal Smear - Final NO FUNGAL ELEMENTS SEEN. Complete 10/12/17 12:00 Fluid Peritoneal Fluid Fungal Culture - Final No growth. Complete Radiology Last Impressions Chest X-Ray 10/14/17 0000 Signed Impressions: Service Date/Time: Saturday, October 14, 2017 16:43 - CONCLUSION: Moderate congestive failure Ayaz Eduardo MD FACR Small Bowel X-Ray 10/10/17 0000 Signed Impressions: Service Date/Time: Tuesday, October 10, 2017 13:38 - CONCLUSION: 1. High-grade partial obstruction distal small bowel. Eulogio Masters MD Abdomen X-Ray 10/10/17 0000 Signed Impressions: Service Date/Time: Tuesday, October 10, 2017 08:35 - CONCLUSION: Distended small bowel concerning for some degree of obstruction. Tacho Mcneill MD Chest CT 10/09/17 0000 Signed Impressions: Service Date/Time: Monday, October 09, 2017 08:27 - CONCLUSION: Severe emphysema. Bilateral pleural effusions and free fluid in the upper abdomen. There are no lung masses seen. Scott Zee MD Abdomen/Pelvis CT 10/07/17 1402 Signed Impressions: Service Date/Time: Saturday, October 07, 2017 14:56 - CONCLUSION: Dilated fluid filled small bowel with some additional air small bowel which are nondilated. There is a questionable transition point in the right mid abdomen as described above. No evidence of pneumatosis. Status post aortobifem.. Curtis Lee MD Cardiovascular: Regular Lungs: Clear Abdomen: Non-distended, Non-tender, Other (midline incision with ankita ) Extremities: No edema Narrative Exam cachetic A/P Assessment and Plan 67 year old male with SBO; POD9 ex lap; YONATHAN; SBR -+BM -Will transition to PO diet--pureed and nectar thickening liquids -Hold TF for now -Pain control -Continue Plavix/ASA/Lovenox -Zofran PRN -PT--- mobilize -If patient does not want to go to Rehab he should have HHC -If tolerates lunch okay to DC from GS standpoint -Follow up with Dr. Brito October 12 at 9:40AM Attending Note - Dr. Brito Abdomen softer; want to eat and go home Discussed with medical service As he is not obstructed and cannot tolerate continuous enteral feedings, will let him go home; he understands to come back immediately if he has emesis or is intolerant of feeding. The exam, history, and the medical decision-making described in the above note were completed with the assistance of the mid-level provider. I reviewed and agree with the findings presented. I attest that I had a [id number] encounter with the patient on the same day, and personally performed and documented my assessment and findings in the medical record. Yesenia EllerP/Imaging Science Professor POWER BALLAST MACHINE OPERATOR October 21, 2017 11:46 Pawan Brito MD October 21, 2017 12:20
[2017-10-21 12:00] VITALS: BP 165/74; PULSE 85; RESP 17; TEMP 98.1; O2SAT 97
[2017-10-21] MEDS: D5-1/2 NS + KCL 20 MEQ INJ 1,000 ML IV SCH (12:00)
[2017-10-21] MEDS ORDERED: CEFU1TAB20 PO (12:05)
--- NOTE | 2017-10-21 12:06 | HHI.DCPOC ---
Discharge Care Plan Diagnosis: (1) Small bowel obstruction (2) Peritonitis (3) CAD (coronary artery disease) (4) COPD (chronic obstructive pulmonary disease) Goals to Promote Your Health * To prevent worsening of your condition and complications * To maintain your health at the optimal level Directions to Meet Your Goals Take your medications as prescribed Follow your dietary instruction Follow activity as directed Keep your appointments as scheduled Take your immunizations and boosters as scheduled If your symptoms worsen call your PCP, if no PCP go to Urgent Care Center or Emergency Room Smoking is Dangerous to Your Health. Avoid second hand smoke Call the 24-hour hour crisis hotline for domestic abuse at Abhay Park MD R2 October 21, 2017 12:06 pm
--- NOTE | 2017-10-21 12:07 | HHI.FF ---
Face to Face Verification Diagnosis: (1) Small bowel obstruction (2) Peritonitis (3) Severe protein-calorie malnutrition (4) COPD (chronic obstructive pulmonary disease) (5) CAD (coronary artery disease) Physical Therapy Order: Evaluate and Treat Home Health Nursing Order: Medical education Signs/symptoms of disease process Nursing assessment with vital signs Lining Inserter Order: To Evaluate: Living conditions/environment, Support services I have seen patient Bobby León on 10/21/17. My clinical findings support the need for the requested home health care services because: Ltd mobility - disease progression Deconditioned w/ increased weakness Limited ability to care for self Need for psychosocial assistance High risk of falls I certify that my clinical findings support that this patient is homebound because: Hx COPD- exertion dyspnea/weakness Unsteady gait/balance Need for psychosocial assistance Abhay Park MD R2 October 21, 2017 12:07 pm
--- NOTE | 2017-10-21 13:33 | HHI.FPPN ---
Subjective Remarks Patient overall is doing well. He denies any complaints. States he is eating and drinking fine and tolerating the tube feeds and stools are normal. He wants to go home and refuses rehab placement. Objective Vitals Vital Signs Date Time Temp Pulse Resp B/P (MAP) Pulse Ox O2 Delivery O2 Flow Rate FiO2 10/21/17 12:00 98.1 85 17 165/74 (104) 97 10/21/17 08:00 97.6 76 16 150/67 (94) 97 10/21/17 00:00 99.1 73 18 158/70 (99) 97 10/20/17 20:00 98.1 75 17 146/67 (93) 95 10/20/17 16:00 97.2 77 17 180/74 (109) 95 I/O 10/20/17 10/20/17 10/20/17 10/21/17 10/21/17 10/21/17 07:00 15:00 23:00 07:00 15:00 23:00 Intake Total 330 ml 1800 ml 240 ml Output Total 700 ml 700 ml 350 ml Balance -370 ml 1100 ml -110 ml Intake Oral 800 ml 240 ml IV Total 1000 ml Tube Feeding 330 ml Output Urine Total 700 ml 700 ml 350 ml # Bowel Movements 1 Result Diagram: 10/20/17 0750 10/20/17 0750 Objective Remarks GEN: Thin, cachectic elderly black male lying in bed in NAD Skin: Cool and dry CV: NRRR, nl S1/S2, no MRG Lungs: Normal rate and effort. CTAB anteriorly. No crackles or wheezes. Abd. tense, nondistended, non tender to palpation. Abdominal dressing in place , d/i, small amount of dry blood noted on dressing. MSK: No cyanosis or edema. warm and well perfused. non-tender calves BL. Neuro: Awake, alert, moves all extremities well. Normal speech. A/P Assessment and Plan Patient is a 67-year-old male with past medical history of dysphasia, implanted PEG tube, hypertension, and COPD presented with: Problem List: (1) Peritonitis ICD Codes: K65.9 - Peritonitis, unspecified Plan: POD#9 s/p exploratory laparotomy, lysis of adhesions, small bowel resection with primary anastomosis Peritoneal fluid growing klebsiella, afebrile. WBC decreased to 12.4. Antibiotic history: Zosyn IV Q6h 10/13--10/19 Cefuroxime 50 mg p.o. twice daily 10/19--present DC to home on PO Cefuroxime to complete 14 days. (2) Abdominal pain ICD Codes: R10.9 - Unspecified abdominal pain Status: Resolved Plan: Small bowel follow through showed significant obstruction CT abdomen pelvis: Dilated fluid-filled small bowel with some air, nondilated, no evidence of pneumonitis Patient failed medical management of SBO No abdominal pain Surgery consulted, appreciate assistance -POD# 9 s/p exploratory laparotomy, lysis of adhesions, small bowel resection with primary anastomosis -small bowel strictured ileum pathology report: ACUTE ENTERITIS WITH ISCHEMIC FEATURES, LUMINAL STENOSIS, AND ACUTE SEROSITIS. -abdominal XRAY 10/18: Likely ileus - positive BM, tolerating TF well and pt encouraged to work with physical therapy to help resolve ileus per surgical team rec. Patient's case was discussed with outpatient GI physician at [facility] Dr. 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 stenting (3) Small bowel obstruction ICD Codes: K56.609 - Unspecified intestinal obstruction, unspecified as to partial versus complete obstruction Status: Resolved Plan: See plan above (4) Severe protein-calorie malnutrition ICD Codes: E43 - Unspecified severe protein-calorie malnutrition Status: Chronic Plan: Chronic malnutrition likely due to dysphagia, chronic abdominal pain possibly mesenteric ischemia (see above) Patient tolerating diet and tube feeds. -Dietary consulted for nutritional support recs goal: 45ml/hr to offer 1620 kcal, 68.9g protein and 820ml free water (5) COPD (chronic obstructive pulmonary disease) ICD Codes: J44.9 - Chronic obstructive pulmonary disease Status: Chronic Plan: No active COPD symptoms Duonebs as needed (6) Hypertension ICD Codes: I10 - Hypertension Status: Chronic Plan: Continue home BP meds (7) CAD (coronary artery disease) ICD Codes: I25.10 - Coronary artery disease Status: Chronic Plan: Stable; ASA/Plavix resumed (8) Nutrition, metabolism, and development symptoms ICD Codes: R63.8 - Other symptoms and signs concerning food and fluid intake Plan: Fluids: 75 mls/hr of D5-1/2 NS with 20 mEq/L of KCl Electrolytes: Monitor and replete as needed Nutrition: diet and Tube feeds DVT prophylaxis: Lovenox 40mg Q24h Dispo -- plan for dc to home today with continued antibiotics and tube feeds. Problem Qualifiers (1) Abdominal pain: Qualified Codes: R10.9 - Unspecified abdominal pain Shana Alcantar MD October 21, 2017 13:33
--- NOTE | 2017-10-21 15:41 | HHI.DS ---
Discharge Summary Admission Date Oct 08, 2017 at 17:18 Discharge Date: October 21, 2017 Admitting Diagnosis Partial small bowel obstruction (1) Small bowel obstruction Diagnosis: Principal ICD Codes: K56.609 - Unspecified intestinal obstruction, unspecified as to partial versus complete obstruction Status: Resolved (2) Peritonitis Diagnosis: Principal ICD Codes: K65.9 - Peritonitis, unspecified (3) Abdominal pain Diagnosis: Principal ICD Codes: R10.9 - Unspecified abdominal pain Status: Resolved (4) Severe protein-calorie malnutrition Diagnosis: Secondary ICD Codes: E43 - Unspecified severe protein-calorie malnutrition Status: Chronic (5) COPD (chronic obstructive pulmonary disease) Diagnosis: Secondary ICD Codes: J44.9 - Chronic obstructive pulmonary disease Status: Chronic (6) Hypertension Diagnosis: Secondary ICD Codes: I10 - Hypertension Status: Chronic (7) CAD (coronary artery disease) Diagnosis: Secondary ICD Codes: I25.10 - Coronary artery disease Status: Chronic Consultants Surgery - Dr. Brito Procedures 10/13/17 - ex lap, lysis of adhesions, small bowel resection Brief History Patient is a 67-year-old male with past medical history of dysphasia, implanted PEG tube, hypertension, and COPD who presented to the ED due to diffuse sharp abdominal pain across his navel. Patient reports that the abdominal pain started 3 days ago and has progressively worsen. Patient rates pain at as 10/ 10. Initially patient thought he was constipated and has been taking milk of magnesia for the past 3 days which has helped with his bowel movements. Patient stated last bowel movement was this morning, it was diarrhea watery with no blood. He vomited a small amount NBNB. Endorses nausea and chills. He he has been able to eat by mouth and tube feeds. Patient is a poor historian. CBC/BMP: 10/20/17 0750 10/20/17 0750 Significant Findings Laboratory Tests Test 10/18/17 19:54 10/19/17 07:40 10/20/17 07:50 Hemoglobin 8.9 GM/DL (13.0-17.0) 9.1 GM/DL (13.0-17.0) 8.6 GM/DL (13.0-17.0) Hematocrit 26.3 % (39.0-51.0) 27.2 % (39.0-51.0) 26.1 % (39.0-51.0) White Blood Count 14.1 TH/MM3 (4.0-11.0) 12.4 TH/MM3 (4.0-11.0) Red Blood Count 3.14 MIL/MM3 (4.50-5.90) 3.01 MIL/MM3 (4.50-5.90) Neutrophils (%) (Auto) 86.4 % (16.0-70.0) 84.0 % (16.0-70.0) Lymphocytes (%) (Auto) 5.0 % (9.0-44.0) 5.6 % (9.0-44.0) Neutrophils # (Auto) 12.2 TH/MM3 (1.8-7.7) 10.4 TH/MM3 (1.8-7.7) Lymphocytes # (Auto) 0.7 TH/MM3 (1.0-4.8) 0.7 TH/MM3 (1.0-4.8) Monocytes # (Auto) 1.0 TH/MM3 (0-0.9) 1.1 TH/MM3 (0-0.9) Creatinine 0.49 MG/DL (0.60-1.30) 0.46 MG/DL (0.60-1.30) Total Protein 5.6 GM/DL (6.4-8.2) Calcium Level 7.4 MG/DL (8.5-10.1) 7.7 MG/DL (8.5-10.1) Protein Corrected Calcium 8.2 MG/DL (8.5-10.1) Platelet Count 452 TH/MM3 (150-450) Monocytes (%) (Auto) 8.9 % (0.0-8.0) Blood Urea Nitrogen 4 MG/DL (7-18) Phosphorus Level 2.1 MG/DL (2.5-4.9) Imaging Last Impressions Abdomen X-Ray 10/17/17 0000 Signed Impressions: Service Date/Time: Tuesday, October 17, 2017 15:44 - CONCLUSION: Distended small bowel concerning for obstruction or some degree of ileus. Contrast does appear to be within the colon suggesting ileus is more likely. Tacho Mcneill MD Chest X-Ray 10/14/17 0000 Signed Impressions: Service Date/Time: Saturday, October 14, 2017 16:43 - CONCLUSION: Moderate congestive failure Ayaz Eduardo MD FACR Small Bowel X-Ray 10/10/17 0000 Signed Impressions: Service Date/Time: Tuesday, October 10, 2017 13:38 - CONCLUSION: 1. High-grade partial obstruction distal small bowel. Eulogio Masters MD Chest CT 10/09/17 0000 Signed Impressions: Service Date/Time: Monday, October 09, 2017 08:27 - CONCLUSION: Severe emphysema. Bilateral pleural effusions and free fluid in the upper abdomen. There are no lung masses seen. Scott Zee MD Abdomen/Pelvis CT 10/07/17 1402 Signed Impressions: Service Date/Time: Saturday, October 07, 2017 14:56 - CONCLUSION: Dilated fluid filled small bowel with some additional air small bowel which are nondilated. There is a questionable transition point in the right mid abdomen as described above. No evidence of pneumatosis. Status post aortobifem.. Curtis Lee MD PE at Discharge GEN: Thin, cachectic elderly black male lying in bed in NAD Skin: Cool and dry CV: NRRR, nl S1/S2, no MRG Lungs: Normal rate and effort. CTAB anteriorly. No crackles or wheezes. Abd. tense, nondistended, non tender to palpation. Abdominal dressing in place , d/i, small amount of dry blood noted on dressing. MSK: No cyanosis or edema. warm and well perfused. non-tender calves BL. Neuro: Awake, alert, moves all extremities well. Normal speech. Hospital Course 67 yo male with chronic dysphagia and malnutrition requiring PEG tube presenting with small bowel obstruction. Failed conservative treatment so taken to OR for ex lap, lysis of adhesions, small bowel resection. At the time peritonitis was noted and cultures grew Klebsiella species. ID was consulted who managed antibiotic therapy. Diet advanced slowly until patient had BM and tolerated regular diet post operative day 9. Cleared for discharge with antibiotics as noted below in Rx Antibiotic history: Zosyn IV Q6h 10/13--10/19 Cefuroxime 50 mg p.o. twice daily 10/19--present (to complete 14 days cefuroxime) Pt Condition on Discharge: Stable Discharge Disposition: Discharge Home Discharge Instructions DIET: Follow Instructions for: As Tolerated, No Restrictions Activities you can perform: Regular-No Restrictions Follow up Referrals: Surgical - 10/27/17 with Pawan Brito MD Appt set for October 27 at 9:40AM Surgical New Medications: Cefuroxime (Cefuroxime) 500 Mg Tab 500 MG PO Q12HR for 12 Days, #24 TAB Continued Medications: Aspirin (Aspirin) 81 Mg Chew 81 MG CHEW DAILY, TAB 0 Refills Clopidogrel (Clopidogrel) 75 Mg Tab 75 MG PO DAILY for Blood Clot Prevention, #30 TAB 0 Refills Finasteride (Finasteride) 5 Mg Tab 5 MG PO DAILY for bph, #30 TAB 11 Refills Do not crush. Lovastatin (Lovastatin) 20 Mg Tab 20 MG PO DAILY for Cholesterol Management, #30 TAB 0 Refills Metoprolol Tartrate (Metoprolol Tartrate) 25 Mg Tab 12.5 MG PO BID, #60 TAB 0 Refills Nitroglycerin SL (Nitroglycerin SL) 0.4 Mg Subl 0.4 MG SL DIRECTED PRN for CHEST PAIN, #100 TAB.SL 0 Refills ONE TABLET UNDER THE TONGUE NEEDED FOR CHEST PAIN, MAY REPEAT EVERY FIVE MINUTES FOR A TOTAL OF 3 DOSES OR CALL 911 IF NO RELIEF Pantoprazole (Pantoprazole) 40 Mg Tab 40 MG PO DAILY for Reflux, #30 TAB 0 Refills Thiamine (Vitamin B-1) 250 Mg Tab 250 MG PO DAILY for Nutritional Supplement, TAB 0 Refills Abhay Park MD R2 October 21, 2017 15:40
== END 2017-10-21 16:39 | disposition home health service (06) | DRG 329 ==
LOC: NEPE 13:10 → NEDA 16:05 → INTOOBSV 16:05 → N07B 18:41 → OBSVTOIN 10-08 17:18
PROVIDERS: ADMIT Family Medicine; ATTEND Family Medicine
PROC: 0WJP0ZZ Inspection of Gastrointestinal Tract, Open Approach (ICD-10-PCS; 2017-10-12)
PROC: 0DN80ZZ Release Small Intestine, Open Approach (ICD-10-PCS; 2017-10-12)
PROC: 0DBB0ZZ Excision of Ileum, Open Approach (ICD-10-PCS; principal; 2017-10-12 10:52)
DX: K56.51 Intestinal adhesions [bands], with partial obstruction (principal); K65.9 Peritonitis, unspecified; E43 Unspecified severe protein-calorie malnutrition; E87.2 Acidosis; J44.9 Chronic obstructive pulmonary disease, unspecified; R13.10 Dysphagia, unspecified; R64 Cachexia; I11.9 Hypertensive heart disease without heart failure; N39.0 Urinary tract infection, site not specified; I25.10 Atherosclerotic heart disease of native coronary artery without angina pectoris; K21.9 Gastro-esophageal reflux disease without esophagitis; Z80.0 Family history of malignant neoplasm of digestive organs; F17.210 Nicotine dependence, cigarettes, uncomplicated; N40.0 Benign prostatic hyperplasia without lower urinary tract symptoms; E78.5 Hyperlipidemia, unspecified; F10.10 Alcohol abuse, uncomplicated; R47.02 Dysphasia; B96.1 Klebsiella pneumoniae [K. pneumoniae] as the cause of diseases classified elsewhere; E16.2 Hypoglycemia, unspecified; Z79.82 Long term (current) use of aspirin; Z79.02 Long term (current) use of antithrombotics/antiplatelets; K56.7 Ileus, unspecified; K52.9 Noninfective gastroenteritis and colitis, unspecified; Z93.1 Gastrostomy status; Z95.1 Presence of aortocoronary bypass graft; Z82.49 Family history of ischemic heart disease and other diseases of the circulatory system; Z95.5 Presence of coronary angioplasty implant and graft
CPT/HCPCS: 71045; 71260; 74018; 74019; 74177; 74250; 76937; 80048; 80053; 81001; 82533; 82948; 83605; 83690; 83735; 84100; 84155; 85007; 85014; 85018; 85025; 85027; 85610; 85730; 86850; 86900; 86901; 87015; 87040; 87070; 87077; 87102; 87116; 87186; 87205; 87206; 88307; 94150; 96361; 96374; 96375; G8987-GP; G8988-GP; J0330; J0690; J1100; J1170; J1650; J1885; J1940; J2270; J2370; J2405; J2543; J3010; J3480; J7030; J7120; Q9963; Q9967